=== PATIENT | female | born 1945 | race Hispanic/Latino ===

== ENCOUNTER → 2017-06-25 | Day surgery (SDC) | payer OTHER ==
--- NOTE | 2017-06-25 10:32 | RAD REPORT ---
EXAM DESCRIPTION: RAD - Elbow Right 3 View - 06/25/2017 10:08 am CLINICAL HISTORY: Pain and swelling. M1990 COMPARISON: None. FINDINGS: No bone or joint abnormality is detected.
--- NOTE | 2017-06-25 11:12 | RAD REPORT ---
EXAM DESCRIPTION: Ultrasound-guided vacuum assisted left breast core biopsy CLINICAL HISTORY: Breast mass, small, 12 o'clock position left breast. COMPARISON: Recent breast imaging studies. FINDINGS: Informed consent was obtained and time-out was performed. The patient's left breast was prepped and draped in the usual sterile fashion. 1% lidocaine was used for local anesthetic purposes. Utilizing aseptic technique and ultrasound guidance, vacuum assisted core biopsy device was used to o btain 2 core specimens through the mass of interest at the 12 o'clock position left breast. A post bi opsy clip was then placed. All collected material was sent for cytology. Patient tolerated procedure well. IMPRESSION: Successful ultrasound guided vacuum assisted left breast mass biopsy.
== END ==
LOC: DS 09:22
PROVIDERS: ATTEND Internal Medicine
DX: N63.0 Unspecified lump in unspecified breast (principal); M19.90 Unspecified osteoarthritis, unspecified site
CPT/HCPCS: 19083; 88305

== ENCOUNTER 2019-03-10 05:46 | Inpatient (IN) | payer OTHER ==
--- NOTE | 2019-03-03 10:20 | RAD REPORT ---
EXAM DESCRIPTION: RAD - Chest Pa And Lat (2 Views) - 03/03/2019 10:10 am CLINICAL HISTORY: preop Chest pain. COMPARISON: ABDOMEN 1 VIEW KUB dated 02/06/2015 FINDINGS: The lungs are clear. The heart is normal in size. No displaced fractures. IMPRESSION: No acute or concerning finding suspected.
[2019-03-03 10:28] LABS: Urine Appearance CLEAR; Urine Bilirubin NEGATIVE (NEG); Urine Blood TRACE (NEG); Urine Color YELLOW; Urine Glucose NEGATIVE (NEG); Urine Protein NEGATIVE (NEG); Urine Urobilinogen 0.2 mg/dL (0.2-1.0); Urine pH 5.5 (5.0-7.0)
[2019-03-03 10:30] LABS: Absolute Lymphocytes (CBC) 1.3 K/uL (0.7-4.9); Basophils % 0.6 % (0-1.3); Hematocrit 37.2 % (36.0-45.0); Lymphocytes % 15.7 % (15.3-44.8)
[2019-03-03 10:35] LABS: Protime INR 0.99
[2019-03-03 10:38] LABS: Potassium 3.9 mmol/L (3.5-5.1)
[2019-03-03 10:49] LABS: Urine Microscopic Reflex ORDER UMIC
[2019-03-03 10:51] LABS: ALT/SGPT 21 U/L (12-78); AST/SGOT 12 U/L (15-37); Albumin 3.9 g/dL (3.4-5.0); Alkaline Phosphatase 87 U/L (45-117); Bilirubin Direct < 0.1 mg/dL (0-0.2); Bilirubin Total 0.4 mg/dL (0.2-1.0); Protein, Total 7.4 g/dL (6.4-8.2)
[2019-03-03 10:57] LABS: Urine Bacteria >50 /HPF (<20); Urine Culture Reflex Order REFLEXED; Urine RBC <5 /HPF (NONE SEEN)
[2019-03-10] MEDS ORDERED: CEFAZOLIN/SWI 1gm 1 GM/10 ML SYR ONE (05:51)
[2019-03-10] MEDS ORDERED: NA CHLORIDE 0.9% 1,000 ML ONE ×2 (05:51→07:15)
[2019-03-10] MEDS ORDERED: LIDOCAINE 2% MPF 5 ML VIAL ONE ×2 (06:24→06:30)
[2019-03-10] MEDS ORDERED: FENTANYL CITR 100 MCG/2 ML ONE ×2 (06:24→08:17)
[2019-03-10] MEDS ORDERED: MIDAZOLAM HCL 2 MG/2 ML INJ ONE (06:24)
[2019-03-10] MEDS ORDERED: PROPOFOL 200 MG/20 ML VIAL IV ONE (06:24)
[2019-03-10] MEDS ORDERED: dexAMETHasone 10 MG/ML VIAL ONE (06:30)
[2019-03-10] MEDS ORDERED: NS 0.9% VIAL 20 ML ONE (06:30)
[2019-03-10] MEDS ORDERED: BUPIVACAINE 0.25% PF 10 ML VIAL ONE (06:31)
[2019-03-10] MEDS ORDERED: EPHEDRINE SULF 50 MG/ML VIAL ONE (07:54)
[2019-03-10] MEDS ORDERED: TRANEXAMIC ACID 1,000 MG in NA CHLORIDE 0.9% 50 ML IV ONE (08:00)
[2019-03-10] MEDS ORDERED: KETAMINE HCL 500 MG/5 ML VIAL ONE (08:22)
[2019-03-10] MEDS ORDERED: HYDROMORPHONE HCL 1 MG/ML INJ ONE (08:24)
[2019-03-10] MEDS: BUPIVACA 0.5%/EPI 0.0005%/PF 30 ML VIAL ONE ×2 (08:26→09:34)
--- NOTE | 2019-03-10 10:21 | P.BOP ---
Preoperative diagnosis: left knee osteoarthritis Postoperative diagnosis: same Primary procedure: left total knee arthroplasty Barrel Leveler: NONE,NONE Estimated blood loss: 20 cc Specimen: left knee bone remnants Findings: see dictation Anesthesia: General Complications: None Drain(s): Urinary catheter Implants: Monica Persona CR 8 Narrow Femur, D tibia, 32 patella, 10 mm CR poly Fluids & blood products: per anesthesia record; TT: 80 mins @ 300 mmHg Transferred to: Recovery Room Condition: Good
[2019-03-10] MEDS ORDERED: ONDANSETRON 4 MG/2 ML VIAL IV PRN (10:24)
[2019-03-10] MEDS ORDERED: MORPHINE 2 MG/ML SYR IV PRN (10:24)
[2019-03-10] MEDS ORDERED: ONDANSETRON 4 MG/2 ML VIAL ONE (10:29)
--- NOTE | 2019-03-10 11:00 | RAD REPORT ---
EXAM DESCRIPTION: RAD - Knee Left 2 View - 03/10/2019 10:48 am CLINICAL HISTORY: Post Op Knee pain and swelling COMPARISON: No comparisons FINDINGS: Left total knee arthroplasty is present. Hardware is in expected alignment and positioning . Skin deisy are present. Mild air is present in the joint space. IMPRESSION: Left total knee arthroplasty.
[2019-03-10 11:02] LABS: Hematocrit 33.6 % (36.0-45.0)
[2019-03-10] MEDS: HYDROCODONE/APAP 7.5/325 MG TAB PO PRN ×3 (11:18→20:05)
[2019-03-10 11:51] VITALS: BMI 33.7
[2019-03-10] MEDS: TRAMADOL HCL 50 MG TAB PO PRN ×2 (14:55→22:01)
[2019-03-10] MEDS: GLIMEPIRIDE 2 MG TABLET PO SCH (16:32)
[2019-03-10] MEDS: METFORMIN HCL 500 MG TAB PO SCH (16:32)
[2019-03-10] MEDS: CEFAZOLIN/SWI 2gm 2 GM/20 ML SYR IV SCH (16:32)
[2019-03-10] MEDS ORDERED: D50W 25 GM/50 ML SYRINGE/VIAL IV PRN (21:05)
[2019-03-10] MEDS ORDERED: GLUCAGON 1 MG/VIAL IM PRN (21:05)
[2019-03-10] MEDS: INSULIN -REGULAR HUMAN 50 UNIT/0.5 ML ML SQ SCH (21:57)
[2019-03-11] MEDS: CEFAZOLIN/SWI 2gm 2 GM/20 ML SYR IV SCH ×2 (00:05→10:28)
[2019-03-11 00:46] LABS: Urine Appearance CLEAR; Urine Bilirubin NEGATIVE (NEG); Urine Blood NEGATIVE (NEG); Urine Color YELLOW; Urine Glucose 3+ (NEG); Urine Protein NEGATIVE (NEG); Urine Specific Gravity 1.015 (1.005-1.030); Urine Urobilinogen 0.2 mg/dL (0.2-1.0); Urine pH 5.5 (5.0-7.0)
[2019-03-11 00:48] LABS: Urine Microscopic Reflex NO UMIC
[2019-03-11] MEDS: HYDROCODONE/APAP 7.5/325 MG TAB PO PRN ×5 (02:42→20:06)
[2019-03-11] MEDS ORDERED: HOME MED 1 EA UNK (Lisinopril/Hydrochlorothiazide [Lisinopril-Hctz 20-12.5 Mg Tab] 1 EACH) PO SCH (06:00)
[2019-03-11] MEDS: hydroCHLOROthiazide 12.5 MG CAP PO SCH (06:09)
[2019-03-11] MEDS: ENOXAPARIN 30 MG/0.3 ML SQ SCH ×2 (06:09→17:53)
[2019-03-11] MEDS: lisinopriL 20 MG TAB PO SCH (06:09)
[2019-03-11] MEDS: TRAMADOL HCL 50 MG TAB PO PRN (06:13)
[2019-03-11] MEDS: INSULIN -REGULAR HUMAN 50 UNIT/0.5 ML ML SQ SCH ×4 (07:30→20:07)
[2019-03-11] MEDS: METFORMIN HCL 500 MG TAB PO SCH ×2 (08:28→16:36)
[2019-03-11] MEDS: INSULIN GLARGINE 100 UNITS/ML SQ SCH (08:28)
[2019-03-11] MEDS: GLIMEPIRIDE 2 MG TABLET PO SCH ×2 (08:28→16:36)
[2019-03-11] MEDS: CYCLOBENZAPRINE 10 MG TAB PO PRN ×2 (10:28→23:20)
--- NOTE | 2019-03-11 12:05 | P.PN ---
Subjective Date of Service: 03/11/19 Chief Complaint: s/p L TKA Subjective: Ambulating, Improving, Working w/ PT Pain controlled; ambulated with PT today Physical Examination - Vital Signs Temperature: 97.9 F Blood Pressure: 132/61 Pulse: 80 Respirations: 18 Pulse Ox (%): 96 - Physical Exam General: Alert, In no apparent distress Musculoskeletal: Other (LLE: dressing c/d/i; +EHL/FHL/GSC/TA; sensation grossly intact distally) Assessment And Plan - Plan Maddie is a 73 yo female s/p L TKA POD #1 w/ DM -continue DM management per Dr. Rutherford -d/c monique today -cont with PT; WBAT LLE -lovenox for DVT prophylaxis -likely d/c tomorrow to inpatient rehab with [facility]
--- NOTE | 2019-03-11 20:05 | OP ---
Surgeon: Yoshi Rose MD Preoperative Diagnosis: Left knee osteoarthritis. Postoperative Diagnosis: Left knee osteoarthritis. Procedure Performed: Left total knee arthroplasty. Anesthesia: General LMA. Fluids: Per Anesthesia record. Estimated Blood Loss: 20 cc. Tourniquet Time: 78 minutes at 300 mmHg. Indication For Procedure: Maddie is a 73-year-old female who presented to my clinic with left kne e severe osteoarthritis. She failed conservative treatment measures including injections and home ex ercise program. I discussed with the patient at length risks and benefits associated with operative and nonoperative treatment. She expressed understanding and elected to proceed with the operative tr eatment. Description Of Procedure: After informed consent was obtained, the patient was identified in the pre operative holding area. The left lower extremity was marked. Patient was then brought back to the P ACU, underwent a nerve block performed by Anesthesia, was then taken back to operating room, transfer red to the operating table in supine fashion and placed under general LMA anesthesia. The left lower extremity was then prepped and draped in usual sterile fashion. A time-out was initiated. The jaydon ect patient and procedure were confirmed and identified. The patient did receive her preoperative pr ophylactic antibiotics. The left lower extremity was exsanguinated. The tourniquet was inflated at 300 mmHg. Approximately 15 cm longitudinal incision was made centered over the patella. Dissection was taken down to the extensor mechanism and a median parapatellar arthrotomy was performed. Patella was everted. The knee was held in flexion. Fat padding and medial meniscus were excised. Synovect seb performed. Preoperatively, an MRI was created for a cutting block. Cutting block was then place d on the distal femur. Pins were applied. The distal femoral cutting guide was then placed and the knee joint was then used to ensure proper cuts and femur was cut. 4-in-1 cutting block was placed on the distal femur. Anterior and posterior cuts as well as the chamfer cuts were completed. Bone rem nants were set aside and sent to Pathology. Next, cutting guide was placed on the proximal tibia. O nce it was in proper position and seated, the alignment madeline was then placed. There was overall good alignment of the cutting block on the tibia. Pins were placed and the tibia was cut. A 10 mm spacer guide was then placed. There was good overall extension and flexion with good stability. Next, tri al implants were placed using a Monica Persona size 8 CR narrow femur and a size D tibia. The 10 mm poly had overall good range of motion and stability noted in flexion and extension. Next, attention was taken to the patella. Patella was cut and size 32 patellar button was selected. With patellar b utton and trial button in place, the knee was again ranged. There was good overall patellar traction and stability. Trial implants were then removed. The knee was then irrigated thoroughly with bill l saline. Capsule periosteum cement was prepared in the back table. The cement was first placed on the proximal tibia. Tibial tray was then marked followed by cement being placed on the di stal femur with final implant being placed. Excess cement was then removed using Medora a nd pickups. 10 mm trial poly was then placed. The knee was held in extension as the cement hardened . Cement was also placed on the undersurface of the patella and patellar button. Size 32 patellar b utton was selected and placed. Once the cement had hardened, the knee was again ranged. There was o verall good stability and good range of motion. The trial polyethylene liner was removed and a final 10 mm CR polyethylene liner was placed and the knee was ranged through full range of motion with goo d stability. The wound again was then irrigated thoroughly with normal saline. The tourniquet was l et down. Hemostasis was achieved using Bovie electrocautery. Extensor mechanism was approximated us ing #1 in interrupted and running fashion. Knee fascia was approximated using 0 Vicryl, subcutaneous tissues were approximated using 2-0 Vicryl. Skin was approximated using deisy. Sterile dressings were applied. Patient was awakened and transferred to PACU in stable condition. Postoperative Plan: Physical Therapy will be consulted today for will be consulted today for medical management. JACOB/GARCÍA Voice ID: [id number] Report ID: [id number]
[2019-03-11 21:56] VITALS: O2SAT 94
--- NOTE | 2019-03-12 02:11 | CON ---
Consultation requested by Dr. Rose. Reason For Consultation: Medical followup. History: A 73-year-old female who has severe osteoarthritis, had knee replacement and the patient is postoperative. She is known to have type 2 diabetes, hyperlipidemia, and hypertension. She does no t have any prior history of coronary artery disease or stroke. The patient is known to me for many y ears. Her diabetes has been fairly stable on insulin. Physical Examination: General: Revealed a 73-year-old female, fully alert and oriented postop, in ynap-io-gklgamrh pain. Vital Signs: Normal. HEENT: Negative. Neck: Supple. JVD negative. Chest: Clear. Heart: Regular. Abdomen: Soft. Extremities: Postoperative. Assessment: 1.Type 2 diabetes. 2.Hypertension. 3.Hyperlipidemia. Plan: The patient will be put on her regular medication. She will have Lantus as well as a.c. and a t bedtime coverage depending on the blood sugars. I spoke to the patient regarding this. RONDA/GARCÍA Voice ID: [id number] Report ID: [id number]
[2019-03-12] MEDS: HYDROCODONE/APAP 7.5/325 MG TAB PO PRN ×2 (03:30→08:16)
[2019-03-12] MEDS: lisinopriL 20 MG TAB PO SCH (05:45)
[2019-03-12] MEDS: hydroCHLOROthiazide 12.5 MG CAP PO SCH (05:46)
[2019-03-12] MEDS: ENOXAPARIN 30 MG/0.3 ML SQ SCH (05:46)
[2019-03-12] MEDS: METFORMIN HCL 500 MG TAB PO SCH (08:12)
[2019-03-12] MEDS: GLIMEPIRIDE 2 MG TABLET PO SCH (08:12)
[2019-03-12] MEDS: INSULIN GLARGINE 100 UNITS/ML SQ SCH (08:12)
[2019-03-12] MEDS: INSULIN -REGULAR HUMAN 50 UNIT/0.5 ML ML SQ SCH ×2 (08:13→11:36)
--- NOTE | 2019-03-12 10:44 | P.DS ---
Admission Date: 03/10/19 Discharge Date: 03/12/19 Disposition: TRANSFER TO INPATIENT REHAB Discharge Condition: GOOD Reason for Admission: s/p L TKA Consultations: Dr. Rutherford Procedures: left total knee arthroplasty on 03/10/2019 Brief History of Present Illness: Maddie is a 73 yo female with h/o HTN and DM admitted after undergoing left total knee arthroplasty on 03/10/2019 without complication Hospital Course: Maddie was transferred to the floor postoperatively in stable condition. Dr. Rutherford, her PCP, was consulted to aid with medical management. While on the floor her vital signs remained stable. PT was consulted and aided with mobilization and ambulation. She was on lovenox for DVT prophylaxis while admitted and will be discharged with Xarelto to begin on 03/13/2019. She was discharged in stable condition to inpatient rehab given her multiple medical comorbidities, fall risk, lack of help at home and continued need for postoperative rehabiliation at [facility] in [place]. Vital Signs/Physical Exam: Temp Pulse Resp BP Pulse Ox 97.2 F 94 H 19 160/70 H 95 03/12/19 08:00 03/12/19 08:00 03/12/19 10:36 03/12/19 08:00 03/12/19 10:36 Laboratory Data at Discharge: WBC 8.2 K/uL (4.3-10.9) 03/03/19 09:40 Hgb 11.7 g/dL (12.0-15.0) L 03/10/19 10:41 Hct 33.6 % (36.0-45.0) L 03/10/19 10:41 Plt Count 363 K/uL (152-406) 03/03/19 09:40 PT 11.7 SECONDS (9.5-12.5) 03/03/19 09:40 INR 0.99 03/03/19 09:40 APTT 34.9 SECONDS (24.3-36.9) 03/03/19 09:40 Sodium 139 mmol/L (136-145) 03/03/19 09:40 Potassium 3.9 mmol/L (3.5-5.1) 03/03/19 09:40 BUN 27 mg/dL (7-18) H 03/03/19 09:40 Creatinine 1.08 mg/dL (0.55-1.3) 03/03/19 09:40 Glucose 155 mg/dL (74-106) H 03/03/19 09:40 Total Bilirubin 0.4 mg/dL (0.2-1.0) 03/03/19 09:40 AST 12 U/L (15-37) L 03/03/19 09:40 ALT 21 U/L (12-78) 03/03/19 09:40 Alkaline Phosphatase 87 U/L (45-117) 03/03/19 09:40 Home Medications: Glimepiride [Amaryl*] 4 mg PO BID 02/13/15 Insulin Detemir [Levemir Flextouch] 60 unit SQ DAILY WITH BREAKFAST 02/13/15 Metformin HCl [Glucophage] 500 mg PO BID 02/13/15 Multivitamin [Multivitamins] 1 each PO DAILY 02/13/15 Evolocumab [Repatha Sureclick] 140 mg SQ ONCE 03/03/19 Lisinopril/Hydrochlorothiazide [Lisinopril-Hctz 20-12.5 mg Tab] 1 each PO [id number] 03/03/19 Tramadol HCl [Ultram] 50 mg PO Q6HP PRN 03/03/19 Hydrocodone 7.5/APAP 325 [[place] 7.5/325 mg*] 1 tab PO Q4H PRN tab 03/12/19 Patient Discharge Instructions: keep dressing clean and dry; may change on 03/17 with new aquacel bandage; clean around incision with alcohol swabs; may begin Xarelto 10 mg PO daily on 03/13/2019 in AM and take for 11 days; f/u with Dr. Rose on 03/22/2019 Diet: ADA Activity: Weight bearing as tolerated Followup: Yoshi Rose MD [ACTIVE - CAN ADMIT] - 1-2 Weeks
[2019-03-12 12:29] VITALS: BP 145/75; TEMP 97.5
[2019-03-14] MEDS ORDERED: Evolocumab [Repatha Sureclick] 140 MG/ML SQ SCH (09:00)
== END 2019-03-12 12:43 | DRG 470 ==
LOC: OR 05:46 → 2ND 10:24
PROVIDERS: ADMIT Orthopaedic Surgery Sports Medicine; ATTEND Orthopaedic Surgery Sports Medicine
PROC: 0SRD069 Replacement of Left Knee Joint with Oxidized Zirconium on Polyethylene Synthetic Substitute, Cemented, Open Approach (ICD-10-PCS; principal; 2019-03-10 07:30)
DX: M17.12 Unilateral primary osteoarthritis, left knee (principal); I10 Essential (primary) hypertension; Z85.43 Personal history of malignant neoplasm of ovary
CPT/HCPCS: 36415; 71046; 80048; 80076; 81003; 81015; 82947; 85014; 85018; 85025; 85610; 85730; 87077; 87086; 87088; 87186; 88305; 88311; 97110; 97116; 97139; 97161; 97530; J0690; J1100; J1170; J1650; J1815; J2250; J2270; J2405; J2704; J3010; J7030

== ENCOUNTER → 2019-12-15 | Day surgery (SDC) | payer OTHER ==
--- OUTSIDE RECORDS SUMMARY | 2019-12-15 08:27 | XMS REPORT | Clinical Summary ---
:1945 Author Organization [facility] Address [address] [place] [address] Care Team Providers Name Role Phone Asked, No Pcp Primary Care Provider Unavailable Allergies Active Allergy Reactions Severity Noted Date Comments Celecoxib Shortness Of Breath High 06/02/2015 Codeine Shortness Of Breath High 10/26/2019 Medications Medication Sig Dispensed Refills Start Date End Date Status Levemir FlexTouch U-100 Inject 60 Units 0 08/18/2019 Active Insuln 100 unit/mL (3 under the skin mL) insulin pen daily. glimepiride (AMARYL) 4 Take 1 tablet by 0 09/16/2019 Active MG tablet mouth 2 (two) times a day. metFORMIN (GLUCOPHAGE) Take 500 mg by 0 09/16/2019 Active 500 mg tablet mouth 2 (two) times a day. lisinopriL-hydrochlorot Take 1 tablet by 0 0 Active hiazide (PRINZIDE) mouth daily. 20-25 mg per tablet evolocumab (Repatha Inject 1 Dose 0 05/18/2018 Active SureClick) 140 mg/mL under the skin. pen injector injection multivitamin capsule Take 1 capsule by 0 Active mouth daily. Active Problems Not on file Encounters Date Type Specialty Care Team Description 10/26/2019 Surgery Plastic Surgery Demetrio Corona MD VITRE CTOMY, ENDODIATHERMY, GAS FLUID EXCHANGE 16% C3F8 INJECTION LEFT EYE 10/26/2019 Anesthesia Event Plastic Surgery Tanisha Webb MD 10/26/2019 Hospital Encounter Plastic Surgery Demetrio Corona MD 10/25/2019 Travel 10/22/2019 Travel after 12/14/2018 Social History Tobacco Use Types Packs/Day Years Used Date Former Smoker Smokeless Tobacco: Never Used Comments: as a teenager Alcohol Use Drinks/Week oz/Week Comments Not Currently as a teenager Sex Assigned at Date Recorded Not on file Job Start Date Occupation Industry Not on file Not on file Not on file Travel History Travel Start Travel End No recent travel history available. Last Filed Vital Signs Vital Sign Reading Time Taken Comments Blood Pressure 145/67 10/26/2019 12:50 PM CDT Pulse 88 10/26/2019 12:50 PM CDT Temperature 36.4 C (97.5 F) 10/26/2019 12:50 PM CDT Respiratory Rate 17 10/26/2019 12:50 PM CDT Oxygen Saturation 97% 10/26/2019 12:50 PM CDT Inhaled Oxygen Concentration - - Weight 75 kg (165 lb 7 oz) 10/26/2019 11:12 AM CDT Height 154.9 cm (5' 1") 10/26/2019 11:12 AM CDT Body Mass Index 31.26 10/26/2019 11:12 AM CDT Plan of Treatment Not on file Procedures Procedure Name Priority Date/Time Associated Diagnosis Comme nts VITRECTOMY 10/26/2019 11:35 AM CDT 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 after 12/14/2018 Results POC glucose (10/26/2019 10:53 AM CDT) POC glucose 195 (H) 65 - 99 mg/dL [facility] Comment: HOSPITAL Forging Press Operator Name: Odilon Herring Device ID: [id number] Chartable: No Action Needed Specimen Blood Performing Organization Address City/State/Zipcode Phone Number [facility] DEPARTMENT OF PATHOLOGY AND [address] [place] [address] [phone] GENOMIC MEDICINE [address] [id number] after 12/14/2018 Insurance Payer Benefit Plan / Subscriber ID Effective Dates Phone Addre ss Type Group HUMANA MEDICARE HUMANA MEDICARE xxxxxxxxx 2019-Present PPO PPO/PFFS/ERS [facility] Advance Directives For more information, please contact: [phone] Type Date Recorded Patient It Consultant Explanati on Advance Directives, Living Will 10/26/2019 8:44 AM and Medical Power of Minilab Operator
--- OUTSIDE RECORDS SUMMARY | 2019-12-15 08:28 | XMS REPORT | Continuity of Care Document ---
:1945 Author Organization [facility] t Address [address] [place] [address] Care Team Providers Name Role Phone Asked, Pcp Primary Care Physician Unavailable Jackson Corona MD Attending Clinician Tye Webb MD Attending Clinician Chava HATFIELD Attending Clinician Olinda Stout MD Attending Clinician Chaz HATFIELD Attending Clinician Rey HATFIELD Attending Clinician TAVO Admitting Clinician Unavailable Payers Payer Name Policy Type Policy Number Effective Date Expiration Source Date HUMANA xxxxxxxxx 2019 [place] [facility] [employer] MEDICARE PPO/PFFS/ERS MCRxxxxxxxxx7/ 20-PresentPPO HUMANA [id number] 2019 MD Fair MEDICAREHUMANA 00:00:00 CHOICE MEDICARE [id number] 0-PresentMedicare Problems Condition Condition Condition Status Onset Resolution Last Treating Co mments Source Name Details Category Date Date Treatment Clinician Date 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 00:00: n 00 History of History of Disease Active 2018- M D malignant malignant 3-13 Nayan rso neoplasm neoplasm 00:00: n of ovary of ovary 00 Essential Essential Disease Active 2017- (primary) (primary) 12-18 Nayan rso hypertensi hypertensi 00:00: n on on Diabetes Diabetes Disease Active 2017- mellitus mellitus 9-20 [place] 00:00: n 00 Hyperlipid Hyperlipid Disease Active 0 M D emia emia 9-20 Anderso 00:00: n 00 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 00:00: n 00 Allergies, Adverse Reactions, Alerts Allergy Allergy Status Severity Reaction(s) Onset Inactive Treating Comm ents Source Name Type Date Date Clinician Codeine Propensi Active Shortness Of [place] ty to Breath 7 Methodi adverse 00:00: st reaction 00 s to drug Celecoxi Propensi Active Shortness Of [place] sravani ty to Breath 3-04 Methodi adverse 00:00: st reaction 00 s to drug Family History Family Member Diagnosis Comments Start Date Stop Date Source Paternal uncle -Unknown cancer MD Dodie spears Social History Social Habit Start Date Stop Date Quantity Comments Source Sex Assigned At MD [place] Tobacco Comment 2019-10-26 2019-10-26 as a teenager Devika Razo 00:00:00 00:00:00 Alcohol Comment 2019-10-26 2019-10-26 as a teenager Devika Razo 00:00:00 00:00:00 Tobacco use and 2019-08-20 2019-08-20 Never used MD [place] on exposure 00:00:00 00:00:00 Alcohol intake 2019-08-20 2019-08-20 Current MD Twin roberts 00:00:00 00:00:00 non-drinker of alcohol (finding) Smoking Status Start Date Stop Date Source Former smoker 2019-10-28 00:00:00 2019-10-28 00:00:00 Baldemar Razo Never smoker MD Fair Medications Ordered Filled Start Stop Current Ordering Indication Dosage Frequency Signature Comments Components Source Medication Medication Date Date Medication? Clinician (SIG) Name Name multivitami Yes 1{capsu QD Take 1 [place] n capsule 7 le} capsule by Meth ronnell 13:23: mouth st 25 daily. glimepiride Yes 1{tbl} Q.5D Take 1 [place] (AMARYL) 4 6-18 tablet by Meth ronnell MG tablet 00:00: mouth 2 st 00 (two) times a day. metFORMIN Yes 500mg Q.5D Take 500 Shanti ston (GLUCOPHAGE 6-18 mg by Methodi ) 500 mg 00:00: mouth 2 st tablet 00 (two) times a day. lisinopriL- 2020-0 Yes 1{tbl} QD Take 1 Ho meghan hydrochloro 6-18 tablet by Met hearn thiazide 00:00: mouth st (PRINZIDE) 00 daily. 20-25 mg per tablet traMADol 2020-0 2020- No 50mg Take 50 mg MD (ULTRAM) 50 08-20 05-22 by mouth And erso mg tablet 02:25: 00:00 as needed. n 31 :00 glimepiride 2020-0 Yes Take by (AMARYL) 1 5-22 mouth Anderso mg tablet 15:39: every n 50 morning before breakfast. multivitami 2020-0 Yes Take by n capsule 5-22 mouth Anderso 15:39: daily. n 50 INSULIN 2020-0 Yes 60{unit 60 unit MD DETEMIR 5-22 'markin marking on And erso (LEVEMIR 15:39: g'on'U- U-100 n SUBCUTANEOU 50 100'syr syringe S) em} daily. ibuprofen 2020-0 Yes 100mg Take 100 MD (ADVIL,MOTR 5-22 mg by Anderso IN) 200 mg 15:39: mouth n tablet 50 every 8 (eight) hours as needed. pseudoephed 2020-0 Yes 30mg Take 30 mg MD rine 5-22 by mouth Anderso (SUDAFED) 15:39: every 6 n 30 mg 50 (six) tablet hours as needed. gabapentin 2020-0 2020- No 300mg Take 300 M D (NEURONTIN) - 05-22 mg by [place] o 300 mg 15:39: 00:00 mouth n capsule 50 :00 daily. Levemir 2020-0 Yes 60U QD Inject 60 [place] FlexTouch 5-20 Units Methodi U-100 00:00: under the st Insuln 100 00 skin unit/mL (3 daily. mL) insulin pen evolocumab 2019-0 Yes 1{dose} Inject 1 [place] (Repatha 2-18 Dose under Metho di SureClick) 00:00: the skin. st 140 mg/mL 00 pen injector injection REPATHA 2019-0 Yes every 14 MD SURECLICK 2-18 (fourteen) Nayan rso 140 mg/mL 00:00: days. n pnij 00 Vital Signs Vital Name Observation Time Observation Value Comments Source Systolic blood 2019-10-26 12:50:00 145 mm[Hg] [place] pressure Diastolic blood 2019-10-26 12:50:00 67 mm[Hg] [place] pressure Heart rate 2019-10-26 12:50:00 88 /min [place] [facility] Body temperature 2019-10-26 12:50:00 36.39 Vani [place] Respiratory rate 2019-10-26 12:50:00 17 /min [place] Oxygen saturation in 2019-10-26 12:50:00 97 /min [place] [facility] Arterial blood by Pulse oximetry Body height 2019-10-26 11:12:00 154.9 cm [place] [facility] Body weight 2019-10-26 11:12:00 75.042 kg [place]ott [facility] BMI 2019-10-26 11:12:00 31.26 kg/m2 [place] [facility] Systolic blood 2019-08-20 15:31:55 134 mm[Hg] pressure Diastolic blood 2019-08-20 15:31:55 82 mm[Hg] MD Stoll derson pressure Heart rate 2019-08-20 15:31:55 80 /min MD Jonathan dang Body temperature 2019-08-20 15:31:55 37 Vani MD Raul grimaldorson Respiratory rate 2019-08-20 15:31:55 18 /min MD Raul packeron Body weight 2019-08-20 15:31:55 80.5 kg MD Castillo son BMI 2019-08-20 15:31:55 34.39 kg/m2 MD Jonathan dang Procedures Procedure Date / Time Performed Performing Clinician Sourc e VITRECTOMY 2019-10-26 11:35:00 Shakir Corona Meth odist POC GLUCOSE 2019-10-26 10:53:00 Shakir Corona Meth odist CANCER ANTIGEN 125 2019-08-20 15:26:42 Fabiana Le MD [place] on Encounters Start End Encounter Admission Attending Care Care Encounter Source Date/Time Date/Time Type Type Clinicians Facility Department ID 2019-10-26 2019-10-[address] [facility] [id number] [place] 00:00:00 00:00:00 SHAKIR Heck Method i st Results Test Description Test Time Test Comments Results Result Comments Source POC glucose 2019-10-26 10:55:30 Test Item Value Reference Range Interpretation Comme nts POC glucose (test code = 195 mg/dL 65-99 H Ope rator Name: Odilon Rubio [id number]) ID: [id number] hartable: No Action Needed Lab Interpretation (test code = Abnormal 06518-3) Baldemar Razo
--- NOTE | 2019-12-15 10:30 | RAD REPORT ---
EXAM DESCRIPTION: Ultrasound-guided vacuum assisted left breast core biopsy CLINICAL HISTORY: Breast mass D05.92 COMPARISON: Breast Core BX w/US Guidance dated 06/25/2017 FINDINGS: Informed consent was obtained and time-out was performed. The patient's left breast was prepped and draped in the usual sterile fashion. 1% lidocaine was used for local anesthetic purposes. Utilizing aseptic technique and ultrasound guidance, a 12 gauge vacuum assisted core biopsy device wa s used to obtain 3 core specimens through the mass of interest. A post biopsy clip was then placed. All collected material was sent for cytology. Patient tolerated procedure well. IMPRESSION: Successful ultrasound guided vacuum assisted left breast mass biopsy.
== END ==
LOC: DS 08:25
PROVIDERS: ATTEND Internal Medicine
DX: D05.92 Unspecified type of carcinoma in situ of left breast (principal)
CPT/HCPCS: 19083; 88305

== ENCOUNTER 2020-06-19 15:29 | Inpatient (IN) | payer OTHER ==
--- OUTSIDE RECORDS SUMMARY | 2020-06-19 15:33 | XMS REPORT | Continuity of Care Document ---
:1945 Author Organization [facility] t Address [address] [place] [address] Care Team Providers Name Role Phone Olinda STOUT Primary Care Physician Unavailable SYSTEM, NOT IN Attending Clinician Unavailable Tressa TAMAYO, L Attending Clinician Chica Soni Attending Clinician Jacob BURDICK Attending Clinician Unavailable Adam PATINO Attending Clinician Kirill SECURITY EXPERT Attending Clinician Kelly CRUZ Attending Clinician Manish Jacobson, K Attending Clinician Unavailable Brayden CRUZ Attending Clinician Olinda Stout MD Attending Clinician Kelin RD, C Attending Clinician Unavailable Edgar CRUZ Attending Clinician Arian PA Attending Clinician Ashley LIND Attending Clinician Dakota CRUZ Attending Clinician Parker Pizarro MA Attending Clinician Unavailable Sonia TAMAYO, L Attending Clinician Unavailable Jenifer CRUZ, Nola Becerra Attending Clinician [phone] Lesli Ortega MD Attending Clinician Rey PA Attending Clinician Osman SECURITY EXPERT, Karena Attending Clinician Camilo FLORES Attending Clinician Lei FLORES, S Attending Clinician Tommy HATFIELD Attending Clinician Aubree CRUZ Attending Clinician Bill PAUL Attending Clinician Unavailable Boyd BURDICK Attending Clinician Unavailable Kady CRUZ, N. Attending Clinician Blu TAMAYO, S Attending Clinician Unavailable Rosa De La O Attending Clinician Unavailable Yenny CRUZ Attending Clinician Louis CRUZ Attending Clinician Layo CRUZ, G Attending Clinician Steve CRUZ, S. Attending Clinician Swathi CRUZ Attending Clinician Olinda STOUT Attending Clinician Unavailable TOMMY Attending Clinician Unavailable EDGAR Attending Clinician Unavailable NOLA BURGESS Attending Clinician Unavailable Shanta TAMAYO, L Attending Clinician Unavailable MAJOR Attending Clinician Unavailable Chava HATFIELD Attending Clinician Chaz HATFIELD Attending Clinician MAJOR Admitting Clinician Unavailable Payers Payer Name Policy Type Policy Effective Date Expiration Date Sour ce Number HUMANA [id number] 2020 MD Fair MEDICAREHUMANA 00:00:00 Year Up MEDICARE [id number] -PresentMedicare Problems Condition Condition Condition Status Onset Resolution Last Treating Co mments Source Name Details Category Date Date Treatment Clinician Date Long-term Long-term Disease Active (current) (current) 05-01 Nayan rso use of use of 00:00: n insulin insulin 00 Obesity Obesity Disease Active 2019-03 1 Anderso 00:00: n 00 Type 2 Type 2 Disease Active 2019-03 diabetes diabetes 0 Cali o mellitus mellitus 00:00: n 00 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 carcinoma carcinoma 00:00: n of upper of upper 00 inner inner quadrant quadrant of left of left female female breast breast Malignant Malignant Disease Active neoplasm neoplasm 12-04 [place] o of ovary of ovary 00:00: n 00 History of History of Disease Active M D malignant malignant 3-13 Nayan rso neoplasm neoplasm 00:00: n of ovary of ovary 00 Essential Essential Disease Active (primary) (primary) 20 Nayan rso hypertensi hypertensi 00:00: n on on 00 Hyperlipid Hyperlipid Disease Active 0 M D emia emia -20 Anderso 00:00: n 00 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 Family History Family Member Diagnosis Comments Start Date Stop Date Source Natural mother Bladder Cancer And nabilaon Paternal uncle -Unknown cancer MD Dodie spears Social History Social Habit Start Date Stop Date Quantity Comments Source Sex Assigned At MD Leiva on Exposure to Not sure MD Fair SARS-CoV-2 (event) Tobacco use and 2020-02-23 2020-02-23 Never used MD Leiva on exposure 00:00:00 00:00:00 Alcohol intake 2020-02-23 2020-02-23 Current MD Twin roberts 00:00:00 00:00:00 non-drinker of alcohol (finding) Smoking Status Start Date Stop Date Source Never smoker MD Fair Medications Ordered Filled Start Stop Current Ordering Indication Dosage Frequency Signature Comments Components Source Medication Medication Date Date Medication? Clinician (SIG) Name Name ibuprofen Yes 100mg Take 100 (ADVIL,MOTR 3-09 mg by Andliyah IN) 200 mg 15:26: mouth n tablet 53 every 8 (eight) hours as needed. multivitami Yes Take by n capsule 3-09 mouth Anderso 15:24: daily. n 30 cholecalcif Yes 1000U Take 1,000 MD hi, 3-09 Units by Anderstheron vitamin D3, 15:24: mouth. n (cholecalci 30 ferol) 25 mcg (1,000 unit) tablet vit A/vit Yes Take by C/vit 3-09 mouth. Anderso E/zinc/ever 15:24: n er 30 (PRESERVISI ON AREDS ORAL) microfibril Yes Apply MD lar 3-09 topically Anderso collagen 15:24: to n hemostat 30 affected topical area(s) as powder needed for wound care. Add to fluids and drink BIOTIN ORAL Yes 1{tbl} Take 1 MD 3-09 tablet by Anderso 15:24: mouth n 30 daily. cranberry Yes 2{tbl} Chew 2 MD fruit 3-09 tablets Anderso concentrate 15:24: daily. n (Azo 30 Cranberry) 250 mg chew acetaminoph Yes pain 1000mg Take 1,000 MD en 3-09 mg by Anderso (TYLENOL) 15:24: mouth. n 500 mg 30 tablet famotidine Yes 20mg Take 20 mg M D (PEPCID) 20 3-09 by mouth Nayan rso mg tablet 15:24: twice n 30 daily. loratadine Yes 1{tbl} Take 1 MD (CLARITIN 3-09 tablet by Jonathan so ORAL) 15:24: mouth as n 30 needed. pseudoephed 2020- No 30mg Take 30 mg MD rine 2-15 02-15 by mouth Anderso (SUDAFED) 16:26: 00:00 every 6 n 30 mg 04 :00 (six) tablet hours as needed. ondansetron Yes Malignant 8mg Take 1 MD (ZOFRAN) 8 1-05 neoplasm of tablet (8 Anderso mg tablet 00:00: unspecified mg) by n 00 site of mouth unspecified every 8 female (eight) breast hours as needed for nausea or vomiting. prochlorper Yes Malignant 10mg Take 1 MD azine 1-05 neoplasm of tablet (10 A nderso (COMPAZINE) 00:00: unspecified mg) by n 10 mg 00 site of mouth tablet unspecified every 6 female (six) breast hours as needed for nausea or vomiting. dexamethaso Yes Infiltratin 4mg Take 1 MD ne 1-05 g duct tablet (4 Anderso (DECADRON) 00:00: carcinoma mg) by n 4 mg tablet 00 of upper mouth inner twice quadrant of daily. left female Start the breast day before chemothera py, twice a day x 1, with food/pepci d traMADol 2019-03 Yes Postoperati 50mg Take 1 MD (ULTRAM) 50 1-16 ve pain tablet (50 Anderso mg tablet 00:00: mg) by n 00 mouth every 6 (six) hours as needed for moderate pain or severe pain. INSULIN 2019-03- No 60U Inject 60 MD DETEMIR 04-08 11 Units Anderso (LEVEMIR 15:30: 00:00 under the n SUBCUTANEOU 38 :00 skin every S) morning. glimepiride 2019-03- No 4mg Take 4 mg MD (AMARYL) 4 04-01 by mouth Nayan rso mg tablet 17:16: 00:00 twice n 31 :00 daily. NovoLIN 2019-03 Yes Type 2 Inject 40 MD 70/30 U-100 04-01 diabetes Units And erso Insulin 100 00:00: mellitus under the n unit/mL 00 with skin every (70-30) hyperglycem morning injection ia before breakfast AND 20 Units daily before dinner. Dispense Relion brand.. insulin 2019-03 Yes Type 2 Use to MD syringe-nee 04-01 diabetes inject An derso dle U-100 1 00:00: mellitus insulin n mL 31 gauge 00 with twice x 5/16 syrg hyperglycem daily as ia directed. gabapentin 2019-03- No 300mg Take 300 M D (NEURONTIN) 0 05-22 mg by Cali o 300 mg 09:18: 00:00 mouth n capsule 21 :00 daily. traMADol 2019-03- No 50mg Take 50 mg MD (ULTRAM) 50 0 05-22 by mouth And erso mg tablet 09:18: 00:00 as needed. n 21 :00 cefadroxil 2019-03- No History of 500mg Take 1 MD (DURICEF) 001-28 malignant capsule A nderso 500 mg 00:00: 04:59 neoplasm of (500 mg) n capsule 00 :00 ovary by mouth twice daily for 7 days. Start AFTER surgery ciprofloxac 2019-03- No 1{tbl} Take 1 M D in HCl 01-30 tablet by Anderso (CIPRO) 250 00:00: 00:00 mouth n mg tablet 00 :00 daily. lisinopriL- 2018-03 Yes DAILY AT hydrochlortheron 2- 06 Anderso thiazide 00:00: n (PRINZIDE,Z 00 ESTORETIC) 20-12.5 mg per tablet REPATHA Yes 1mL Inject 1 SURECLICK 2-18 mL into Anderso 140 mg/mL 00:00: the n pnij 00 shoulder, thigh, or buttocks every 14 (fourteen) days. metFORMIN 2014-03 Yes 500mg 500 mg 2 MD (GLUCOPHAGE 1-16 (two) Anderso ) 500 mg 00:00: times a n tablet 00 day with meals. Immunizations Ordered Immunization Filled Immunization Date Status Commen ts Source Name Name Suzanne SARS-CoV-2 2020-06-04 Completed Vaccination 00:00:00 Vital Signs Vital Name Observation Time Observation Value Comments Source WEIGHT 2020-01-05 08:16:00 82.3 kg WEIGHT 2020-01-05 08:16:00 82.3 kg WEIGHT 2019-12-31 09:06:53 82.7 kg WEIGHT 2019-12-31 09:06:53 82.7 kg Systolic blood pressure 2020-06-06 19:25:00 158 mm[Hg] MD Fair Diastolic blood pressure 2020-06-06 19:25:00 71 mm[Hg] MD Fair Heart rate 2020-06-06 19:25:00 83 /min MD Jonathan dang Respiratory rate 2020-06-06 19:25:00 20 /min MD Raul oleary Body temperature 2020-06-06 16:15:00 37 Vani MD Raul oleary Body weight 2020-06-06 16:15:00 79.9 kg MD Jonathan dang BMI 2020-06-06 16:15:00 33.47 kg/m2 MD Jonathan dang Oxygen saturation in 2020-04-25 18:53:00 97 /min MD Fair Arterial blood by Pulse oximetry Body height 2020-04-04 15:39:07 154.5 cm MD Jonathan dang Procedures Procedure Date / Time Performed Performing Clinician [facility] e COMPREHENSIVE METABOLIC PANEL 2020-06-06 16:25:00 Gita Gonzalez MD GLUCOSE LEVEL 2020-06-06 16:25:00 Gita Gonzalez MD BLOOD UREA NITROGEN 2020-06-06 16:25:00 Gita Gonzalez MD ELECTROLYTE PANEL 2020-06-06 16:25:00 Gita Gonzalez MD SERUM CREATININE 2020-06-06 16:25:00 Gita Gonzalez MD .GLOMERULAR FILTRATION RATE 2020-06-06 16:25:00 Gita Gonzalez MD CALCIUM LEVEL TOTAL 2020-06-06 16:25:00 Gita Gonzalez MD ALBUMIN LEVEL 2020-06-06 16:25:00 Gita Gonzalez MD ALKALINE PHOSPHATASE 2020-06-06 16:25:00 Gita Gonzalez MD ALANINE AMINOTRANSFERASE 2020-06-06 16:25:00 Gita Gonzalez MD ASPARTATE AMINOTRANSFERASE 2020-06-06 16:25:00 Gita Gonzalez TOTAL PROTEIN 2020-06-06 16:25:00 Gita Gonzalez MD FRACTIONATED BILIRUBIN 2020-06-06 16:25:00 Gita Gonzalez MD COMPLETE BLOOD COUNT W/ 2020-06-06 15:04:00 Suly Medina MD DIFFERENTIAL HEMOGLOBIN A1C 2020-06-06 15:04:00 Aleena Ramirez MD Results CBC 2020-06-06 15:04:00 Suly Medina MD n MANUAL DIFFERENTIAL 2020-06-06 15:04:00 Suly Medina COMPLETE BLOOD COUNT W/ 2020-04-25 15:58:00 Lou Hernández MDrsbrayan DIFFERENTIAL Results CBC 2020-04-25 15:58:00 Lou Hernández MD MANUAL DIFFERENTIAL 2020-04-25 15:58:00 Lou Hernández MD Jonathanrobert dang COMPLETE BLOOD COUNT W/ 2020-04-04 13:26:00 Suly Medina MD DIFFERENTIAL HEPATIC FUNCTION PANEL 2020-04-04 13:26:00 Suly Medina MD BLOOD UREA NITROGEN 2020-04-04 13:26:00 Suly Medina SERUM CREATININE 2020-04-04 13:26:00 Suly Medina MD on Results CBC 2020-04-04 13:26:00 Suly Medina MD MANUAL DIFFERENTIAL 2020-04-04 13:26:00 Suly Medina MD And erson ALBUMIN LEVEL 2020-04-04 13:26:00 Suly Medina MD ALKALINE PHOSPHATASE 2020-04-04 13:26:00 Suly Medina MD ALANINE AMINOTRANSFERASE 2020-04-04 13:26:00 Suly Medina ASPARTATE AMINOTRANSFERASE 2020-04-04 13:26:00 Suly Medina MD TOTAL PROTEIN 2020-04-04 13:26:00 Suly Medina MD FRACTIONATED BILIRUBIN 2020-04-04 13:26:00 Suly Medina MD SERUM CREATININE 2020-04-04 13:26:00 Suly Medina MD on .GLOMERULAR FILTRATION RATE 2020-04-04 13:26:00 Elaina Medina CANCER ANTIGEN 125 2020-02-23 16:57:00 Yovanny Ware MD on LIPID PANEL 2020-02-23 16:57:00 Alessandra Page MD COMPREHENSIVE METABOLIC PANEL 2020-02-23 16:57:00 Edgardo Page MD GLUCOSE LEVEL 2020-02-23 16:57:00 Alessandra Page MD ELECTROLYTE PANEL 2020-02-23 16:57:00 Alessandra Page MD Jonathan son SERUM CREATININE 2020-02-23 16:57:00 Alessandra Page MD on .GLOMERULAR FILTRATION RATE 2020-02-23 16:57:00 Ziggy Page MD CALCIUM LEVEL TOTAL 2020-02-23 16:57:00 Alessandra Page MD And erson ALBUMIN LEVEL 2020-02-23 16:57:00 Alessandra Page MD ALKALINE PHOSPHATASE 2020-02-23 16:57:00 Alessandra Page MDson ALANINE AMINOTRANSFERASE 2020-02-23 16:57:00 Alessandra Page ASPARTATE AMINOTRANSFERASE 2020-02-23 16:57:00 Alessandra Page MD TOTAL PROTEIN 2020-02-23 16:57:00 Alessandra Page MD Anderso n FRACTIONATED BILIRUBIN 2020-02-23 16:57:00 Alessandra Page MD BLOOD UREA NITROGEN 2020-02-23 16:57:00 Alessandra Page MD And erson POC GLUCOSE SCREEN 2020-02-15 01:45:00 Az Burgess MDon Mariam NM DOSING APPOINTMENT 2020-02-14 23:42:29 Jax Sanders MD And erson POC GLUCOSE SCREEN 2020-02-14 22:31:00 Az Burgess MDa POC GLUCOSE SCREEN 2020-02-14 21:27:00 Az Burgess MD ndebilly Becerra POC GLUCOSE SCREEN 2020-02-14 17:45:00 Az Burgess MDrson Becerra PATHOLOGY SURGICAL 2020-02-14 14:26:30 Az Burgess MD nderson INTERPRETATION Becerra SEGMENTAL MASTECTOMY - OTHER 2020-02-14 12:23:00 Az Burgess MDa INTRAOPERATIVE LYMPHATIC 2020-02-14 12:23:00 Az Burgess MD MAPPING Mariam SENTINEL NODE BIOPSY - AXILLA 2020-02-14 12:23:00 Az Burgess MD RECONSTRUCTION OF BREAST WITH 2020-02-14 12:23:00 Mina Ortega MD OTHER TECHNIQUE MASTOPEXY 2020-02-14 12:23:00 Mina Ortega MD POC GLUCOSE SCREEN 2020-02-14 12:18:00 Az Burgess MD TYPE AND SCREEN 2020-02-14 11:46:00 Inessa Ascencio MD ABORH 2020-02-14 11:46:00 Inessa Ascencio MD ANTIBODY SCREEN 2020-02-14 11:46:00 Inessa Ascencio MD CLOT EXPIRATION DATE 2020-02-14 11:46:00 Inessa Ascencio MD And erson TMP INTERPRETATION ANTIBODY 2020-02-14 11:46:00 Inessa Ascencio MD SCREEN NEGATIVE BREAST SPECIMEN RADIOGRAPH 2020-02-14 11:45:22 Jax Sanders NM LYMPHOSCINTIGRAPHY BREAST 2020-02-11 18:25:28 Jax Sanders MD SULFUR COLLOID HC 2019-NCOV COVID-19 2020-02-11 14:33:00 Jax Sanders MD And erson EKG, 12-LEAD (SCHEDULED) 2020-02-11 00:00:00 Inessa Ascencio MD MAMMO POST PROCEDURE LEFT 2020-01-26 15:15:38 Jax Sanders MD MAMMO GUIDED SEED PLACEMENT 2020-01-26 15:12:00 Jax Sanders MD LEFT US GUIDED BREAST CLIP 2020-01-26 13:49:00 Jax Sanders MD And erson PLACEMENT LEFT LIPID PANEL 2020-01-26 12:17:00 Alessandra Paeg MD COMPLETE BLOOD COUNT W/ 2020-01-21 13:54:00 Jax Sanders MD nderson DIFFERENTIAL COMPREHENSIVE METABOLIC PANEL 2020-01-21 13:54:00 Jax Sanders MD HEMOGLOBIN A1C 2020-01-21 13:54:00 Jax Sanders MD NT PRO BNP 2020-01-21 13:54:00 Francesco Myers MD ZINVITAE 2020-01-21 13:54:00 MD Marv Manriquez Megan THYROID STIMULATING HORMONE 2020-01-21 13:54:00 Alysia Ramon MD VITAMIN D 25 HYDROXY LEVEL 2020-01-21 13:54:00 Alysia Rmaon Results CBC 2020-01-21 13:54:00 Jax Sanders MD MANUAL DIFFERENTIAL 2020-01-21 13:54:00 Jax Sanders MD Jonathan son GLUCOSE LEVEL 2020-01-21 13:54:00 Jax Sanders MD ELECTROLYTE PANEL 2020-01-21 13:54:00 Jax Sanders MD SERUM CREATININE 2020-01-21 13:54:00 Jax Sanders MD .GLOMERULAR FILTRATION RATE 2020-01-21 13:54:00 Jax Sanders MD CALCIUM LEVEL TOTAL 2020-01-21 13:54:00 Jax Sanders MD Jonathan son ALBUMIN LEVEL 2020-01-21 13:54:00 Jax Sanders MD ALKALINE PHOSPHATASE 2020-01-21 13:54:00 Jax Sanders MD rson ALANINE AMINOTRANSFERASE 2020-01-21 13:54:00 Jax Sanders MD ASPARTATE AMINOTRANSFERASE 2020-01-21 13:54:00 Jax Sanders TOTAL PROTEIN 2020-01-21 13:54:00 Jax Sanders MD FRACTIONATED BILIRUBIN 2020-01-21 13:54:00 Jax Sanders MD BLOOD UREA NITROGEN 2020-01-21 13:54:00 Jax Sanders MD Jonathan son ECHOCARDIOGRAM 2D COMPLETE 2020-01-12 20:02:51 Suly Medina MD MRI BREAST BILATERAL W WO 2020-01-11 17:21:00 Jax Sanders MD CONTRAST INCL CAD US BREAST COMPLETE BILATERAL 2020-01-05 21:51:00 Jax Sanders MD US CHEST 2020-01-05 21:51:00 Jax Sanders MD US BREAST FINE NEEDLE 2020-01-05 21:51:00 Jax Sanders MD And ersbrayan ASPIRATION - LEFT US GUIDED AXILLARY LYMPH NODE 2020-01-05 21:51:00 Jax Sanders MD FNA LEFT US UPPER EXTREMITY LIMITED 2020-01-05 21:51:00 Jax Sanders LEFT CYTOLOGY IMAGE-GUIDED FNA 2020-01-05 20:05:00 Jax Sanders MD INTERPRETATION CYTOLOGY IMAGE-GUIDED FNA 2020-01-05 20:03:00 Jax Sanders MD INTERPRETATION MAMMO DIGITAL DIAGNOSTIC 2020-01-05 18:48:00 Jax Sanders MD BILATERAL W PEDRO PABLO OSI US BREAST BIOPSY 2019-12-15 12:15:32 Amanuel Stout MDrson PATHOLOGY OUTSIDE 2019-12-15 00:00:00 Dorothy Wilson MD Anderso n INTERPRETATION OSI US BREAST 2019-12-10 12:15:06 Amanuel Stout MD Cali on OSI MAMMO BILATERAL 2019-12-10 12:14:13 Amanuel Stout MD CANCER ANTIGEN 125 2019-08-20 15:26:42 Fabiana Le MD Cali on Encounters Start End Encounter Admission Attending Care Care Encounter Source Date/Time Date/Time Type Type Clinicians Facility Department ID 2020-01-05 Outpatient SYSTEM, [facility] MDA [id number] 12:42:00 NAM roberts 2020-01-05 2020-01-05 Outpatient EL ANNETTA, MDA MDA [id number] 13:06:30 13:06:30 AMANUEL roberts 2020-01-05 2020-01-05 Outpatient EL ANNETTA, MDA MDA [id number] 13:06:26 13:06:26 AMANUEL roberts 2020-01-05 2020-01-05 Outpatient EL ANNETTA, MDA MDA [id number] 13:06:21 13:06:21 AMANUEL roberts 2020-01-05 2020-01-05 Outpatient EL ANNETTA, MDA MDA [id number] 13:06:19 13:06:19 AMANUEL roberts 2020-01-05 2020-01-05 Outpatient EL ANNETTA, MDA MDA [id number] 13:06:18 13:06:18 AMANUEL roberts 2020-01-05 2020-01-05 Outpatient EL ANNETTA, MDA MDA [id number] 13:06:16 13:06:16 AMANUEL roberts 2020-01-05 2020-01-05 Outpatient EL ANNETTA, MDA MDA [id number] 13:06:15 13:06:15 AMANUEL roberts 2020-01-05 2020-01-05 Outpatient ANNETTA, MDA MDA [id number] 13:06:13 13:06:13 AMANUEL roberts 2020-01-05 2020-01-05 Outpatient ANNETTA, MDA MDA [id number] 13:06:11 13:06:11 AMANUEL roberts 2020-01-05 2020-01-05 Outpatient EL TOMMY, MDA MDA [id number] 11:21:37 11:21:37 JAX roberts 2020-01-05 2020-01-05 Outpatient EL EDGAR, MDA MDA [id number] 08:03:34 10:12:12 LOU roberts 2019-12-31 2019-12-31 Outpatient EL GUADALUPETTI, MDA MDA [id number] 09:03:54 11:13:19 [place] Leiva o armando 2019-10-26 2019-10-26 Outpatient [facility] [id number] [place] [address] 00:00:00 00:00:00 SHAKIR [address] Results Test Description Test Time Test Comments Results Result Comments Source Pathology Surgical Interpretation 2020-02-21 22:39:00 Test Item Value Reference Range Interpretation Comme nts Diagnosis z5ffzLKgZARsfAH8WrRtRVEbi7knn5DfjGVljNExFUfvkBPdyoUpii58kMS1oJ43HB4uXNYbPcU7WVTd ifJ0Cjg8LHGnTAQbwGPrN390t0gte9hsjbYfaOV0sMcnUCVyZSWqPBzjCIGmJaFdHX4dHOWdOFEAibRz y0KsWH2dNVY2vZugXFZ2LQf0zADqHD8hOHIaDGWoHIV (test code 5TVFqJNwuTY54UXrwyHZryRIqiQ6ajVWwANs2MYTukoYztpKpUWs4fJTuFC7rKGLmCdHmKJBpVSFhRE6 1rJ4eoMDznG5gaEEuq2BnWMXiAGhLPWmrx5WssVvpUAvsjHebmBypmi3kMJTcFrYmTqzyBQUrjkYcmoR zZWt4jCFtNL4tYFSkUnFgJAqfKQOdymVhuhQnRPqkgP = 34) Zlc48dt5OooUVhkXUaNI0orpiqjuAnVHi9XCMqnusaIAOlTPpbKbNoDMcyvfoxQXWIXhATR1pIOTWOPQ TZET9UCCUxYWDaswRURSCpvyXypH6viBTqz3EgejrrixEzBYNpuzSkCc7tKYTlahAgbm9tPYNrVB58OO 6ryNCpAMEXJJTKDWYwN9oWQ3TSZMTvNB5JCFAVWA7YC lWaMSUarpudXCRlrTxaNOrlhsHmFg5iNtCNZdUJw0zcEUDjNWS8DHhKSCWnnsMhlhckgVWgNVTyWFOyF ANfiFxzLRmukSUsz65fo3ClpGOxpZKtOY5nBDOpv0dofwiwuCAcUEntJmEwUNoaftjjJFAPx0bjWKwiv Aijvz9bw6RtX6ntyOBqdYzbxZ4dWPBzy2cxG3ksCXjg V6fmlufzCzjcMHFeAcEhUJGtubHrXx6sCDEsyiYezq5vQX2rQPTndx xsaTBcbGluMFxwYXJ9 Comment f9axjWVnRDZgwWE3YyYhIVRec8izq1EikBSviQBoYKvneOMqmfOjrq85hZU8hT72KY5uYIZbBsW7WHLi xuC1Bdk1ZIUiNKVwxBYjO125f3mgn0nswbZtyAU3pFzxMMVbGKEhOBktQWQmKbVjIXLuo7DmgWGoDbFn tKK4ntAgOIUnBEnxxBXvK6vcCVgfQKFgRKHjkHFnMAL (test code xLPSvzIisO8SjJZD4NOMnJRAojQGlRKhlRRcibKIcUVgptcJqTDsygUg9TATec5UjI7WbF2ftz00tTzr qPZKkrANlWLkcqKLsh8T1PGfbubU4LIGjHAGlvwFyjs5fXSOnupSeON23hW9pnNVwtZ2gfYEog6VoxyP mTG21SKqUKF0QGDjrLSPdICOeRYSrEJRfARBQPP9FFj = 9835) cwTK9xGEGjEWDwLSjacBx2ACBjm9PsgIYqc0VgX1VlxUFjBArnTWQ1 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 (INVASIVE CARCINOMA OF THE BREAST: COMPLETE EXCISION - A, D, E, F, G, H) 8th Edition - Protocol posted: 05/26/2019 SPECIMEN Procedure: Excision (less than Checklist total mastectomy) Specime n Laterality: Left TUMOR Histologic Type: Invasive carcinoma of no special type (ductal) Histologic Type Comments: associated with exuberant lymphoplasmacytic (test code infiltrate Glandular (Aci zara) / Tubular Differentiation: Score 3 Nuclear Pleomorphism: Score 3 Mitotic Rate: Score 3 Overall Grade: Grade 3 (scores of 8 or 9) Tumor Size: = 9864) Greatest dimension of larges t invasive focus (Millimeters): 37 mm Tumor Focality: Single focus of invasive carcinoma Ductal Carcinoma In Situ (DCIS): Not identified Lobular Carcinoma In Situ (LCIS): Not identifi ed Tumor Extent: Lymphovascular Invasion: Not identified Treatment Effect in the Breast: No known presurgical therapy MARGINS Invasive Carcinoma Margins: Uninvolved by invasive car cinoma Distance from Closest Margin (Millimeters): 7 mm Closest Margin(s): Anterior LYMPH NODES Regional Lymph Nodes: Uninvolved by tumor cells Total Number of Lymph Nodes Examin ed: 7 Number of Thomas Nodes Examined: 7 PATHOLOGIC STAGE CLASSIFICATION (pTNM, AJCC 8th Edition) Primary Tumor (pT): pT2 Regional Lymph Nodes (pN): pN0 ADDITIONAL FINDINGS Additional Findings: Fibroadenoma, sclerosing adenosis Breast Biomarker Testing Performed on Previous Biopsy: Testing Performed on Gross u7ocmXHxAXHzoTHCSQPyUZfozxOhGDZhpNDtM6FrsabuAOmcSI5sOS0mpHbbkJTslIOjHZ0AXHTkVsCo TLUtwXVqxrPwIaSnMRLxeYQcjAX9WDFaDY6mupafVUtdSKogUPWjslN2JYHuoFSqU3OlONVeBC9ttvqh NDD5VDzivE4iqxEEOkpsLh8woROawTldEaNeScGuCBQ Descriptio kJELvPIRufMavEGHoFJm6iA3YTgdzSQN1ZUMJBlozFSZxZG2Lx0vyUUBuyRVqNGB8LIuwxSQdQBCfPLL uUMe1EWGeBKzumKDrTC9vdSenHbxgyWrlf4VtcHHdNIbgQUAyBDEpSHmwFWRgEW8MNdLoQPOeOnJ2SNw nAQh4MEb2UC2FLaSlGRBvKNB9UDM5OWUuDJc0VKduMZ n (test 3HKCErFeY6RPL9RST5ACgyQiRvDPMgKnBcRDTlSDQnUYkvIHntyiSiBPOtMCQpDPeqPfexESmcF34dbB yzzY4bEevlgrIwEKI0BJFmchOOZtmtoXIwwcnnhNmoKkNraYWrJjEcDCuelOWroIXmNHwmuhFhhaeqVO PKKmevwFEduUepRWMlBgDpO2UvOEUlNPkaXrCno0Bio code = SHezQSrXH7qx0TqU6UgsUooEJHpt1U9SJE0sBYkbPRbjKHrwvkmqgxqsD2qYdDwjEv5A9irxIO8OLDxq XqyWaRhEYGoXFDgc5X1ffyyWtAkxNysctHvVN0uAQPkXxkrARExE82sj2qypQSwv1HuZI9bl4IfIT77J RXjhP1vnAdjncTxRcW7FJrxq5kwn6yjpKAyExsgoa4u [id number] NUY3dJB6rGEocRIeTUpetNZeHLynusGxLEPzx9U5ZJK2wHVwpVVebBXflhzkyoUftnGsbU9zNvVukUv4 M7iitYA2EUAfzS3jAHFmMNRcwRXtjR5skeV4LHtvaVBvKqMbCmPkqnPwvCVkv1CwPILyByUqaSNtaIWu obtkmhZ2cnZqoqDgcweyhpovBo21CCTlNB4pSHsjcMO ) [file] iAgUHVycGxlIGluayBpcyBpZGVudGlmaWVkIGFuZCBp ujKcPDBdG53vcCXuEFIvGTHuHAA8wtBuZB0gicednaUjHIIecKtsXRA0socpn25lTWORsMAuyBJ3ZNDd NAOfdY8ylHVkaR1qIVUyBgrwT4apOLSFkYVnqD7qcuTynhQeZPUfDZxqjLCsFTY2cC0qVFCrbA1vPUZd x45ofARlkGVpXEV7VW4piVKbzL93IYOrYaGfYhG6zYs tvK7sVU6dhbvgBnhuVLA7cPZrjPIyVJYwXqWcLp6znUEgpP8naeCjopRiX0Wms5AspCMpSCEazCmgoSC kEfFxL3FfP9arSR7ijDKbj3FdgSi0wCGvKSAvfQktMRo2LJDxJZRbANO7UK61pSJqxEnwsK8eE6Qnu9M 4oMSsDPthZSP6EiQnKEufKKQAAJ5fJGsbjn61FUA8d3 gveUWfKKicNpglmZHorzF1RFxASGXMEHfCQyJyYO6aRGfVApiFVRqZWajrFDRiGsiinKCZUFL4IYhdkQ haxOw0y7fqpJHhw5e6UFppPEX1hZCVm0rmbDCvNKnkBueroIPulmP5RLiYUYUCOKrRNrYvSB7yFRxRPj eZZxH6PqVnIWQ4JSzNX3OCoGU2Cyn4YLa2dLmzMmefr eQauGFwUiDXnU1clNzfoL6tdBXtB3fyKkUyVONRWqgcwBOcdnalrFhdTfCuySZgFxHmlMpkqW52GNIsf UGuBQN1UK4hLPRyocggCMVtQNTuZRZ0QJxttD65zLGmNTOgCGFwrWTzcH7YGHIvLPL8UTrglC25xYHdF T9ZZUBvIQX4GJGjyRHcVKK8DQ0wgL3GhC== Intraopera l0mcwFCcCZVsqWSWSZXhBNvjueIiHOMiqQTfR7FjsdzqFYgaLS1qMB7tsPeebEBkfZHoCP3SLWIlDzIc WTYuhQTalbOlYhPkLXWyvOStcCW8ZRDuGK1gcfemHXfiGHlaOONzawR7PMZudWLlV7AeEZKqZV9vtpoi DHJ3QWmqwQ9trkRYZsdcUj7onTVdfRdnYzOwTrFmCKQ tive kPGZxYLVxiXepJNJfYRg2cN8PZoqoDAY2ZCPEVjzqWSQuWW5Zs2nuCGAgqOZzRJI1XTpfoIJpDENmZKY gPKv4NOXkYEcxmZVlZN9jzJdbPmctgMzbt4IlbRRbYLioWLSrJTRhBCrmXLPhYM2ISiKtPXEeOgP0ROs bFDo1BHz7PT8ULxYrWOFaBGY2OOP4TWOcJRj5MYixQE Evaluation 8RYAUlKdMjWTq6YPF9ODhcNvXtSCLzSmYfGZRjEOXoZVwtFLpnulEjKBSsVPBdEDhjHdhjWGefW65gqW ryxF0jPttyagYtQBH4FKLpocQTKixmnCQkkoeooJmqXaXfxNGwWlUwFIwqbNDhkGUvBGfjnwDuvylqTI KMGgokeWPqbMaqseLdRAfPYeItV2BTZGRINAOFUI3SX (test code 8ZPR9IROAdmERNBQ5XHHZLZOVCGMNNEIHSNWiuYLcqdGQ0HTvCBCNlFN8pgABUQXMLCIRfjLnSLPYSXW TTZP7AGQbhfGvOWHOfEZhqwgMJmGQ8BRRGnLkFQSH2ZJwZYPeNESuREMTWNASsnFUFRY8lPMkQobYQtY V4SPUOtEmCbFA0YMBGmdWZdh43plHYaCQ1czCAnDDOj = lg42OIEza62fhO0vGDlnWNZkn8CeYLTny5MbmNEbH7xsCIUqLG1axFVrNEOzGHavj8FiWYQvidElvJL2 RN3axFYwMU9LTHDbbrZFOr4ZH66QHGhxnTlifR2hHQUzQ01cg8LRj0YkSOSuNOmkw9rjuAzgc9MkiZZe XJsfDXVlzNHzUQvghZ3iIiDyo3fnwTc2QImewfS7DWE [id number] esj2QXvdiQXNvVUu8aySmnlysxQ3hTnIjPVudMkTrCkwtANRjZ3CyZ 9JlspM4ZDk6 ) Disclaimer p5ytjXPpPKMjpTWgHePzXSQsZNBdy3hfQMMbgAMbAtHlUbSiDmRgPdfacASvIVIsEpSxo1qef609gIUf e4aeNAWpZjR8mVBgNCSvrRBaG064JQTpMNlbx1wmy3NaPWJjePAlq1T4PKUVjyoddPb6tAstD20hz3N2 TtqtT8huXPOqGYDoF2QaCY8qLZEoIhu7AIN6KNO8HYZ (test code qSNPvU3UiEB2hDDNbaFZbZCx7e7nohVfxTEMiCDZ0w2skDAbziaRhDK7wjx9ajEu8g3qxtfVhTYFzPOB rqPPJZHEjQ2IcdVrpLk5voPh7sRkpMawySAR6Ohh6IV4bja53xjq5bKvrTAKalvpmYgQ4CJbnYXSqxzj qVCk6ZFmzLXJyjFR7BHCyrCBzY2NjNRZhRQ2xjqp0DD = 9844) G2QNgbCISmAzU8NMIuvFNqOJCnaSdfCOslc895DAN4ZwIzIZ0cS6Nmp1X5kI5thJSmWWVzpKWySlCjQX Fnti1cmZUcFJlfd9WhTQR0lkN9vSRfnLBuEKEdGT14Fipvn7PhOfmjNPI8HRFqrgRof9Zyj1dwJsYfvb KuJ6asU8RkXLSuYQIzGSFdCpTnbuAni1Ubd4EwnYPcq Ej2s9ddJSLvJMIqqOcoi5swEUK4YQQxS2K7gOGul1dqNDjrCYSqgUE0erM8EOIulJGbI8QzdU0lOPWqV A0naog6e5diIVX0VTdhCCQqErX4mmE0QJAthTPhXNIdgMzzABflh627TKE0LlRfIYStl3FpH2QmzAncT 34rzQatY31vPLQsaKsjbC1stIrjpX2zNqEmGlWnTCqt iAtizCNbebysYHbnltA1MNdwwlybIQMiNFbjO4vwGdKaGRLucSdvKLekw2DhDJKtTSVlTsiovjW8UJIS h60vXSOts4GlYQSgnE1doEJeSPkvfcHkpUB4WUaizlMhSmArhyZgAMHppJ1kDOQfAO7qVJUqluGgmk7d kyIaWTFvBNEqR4XdrcszzCmoiyWqSIKtyz6lbvAmIFY 2IJRRWK5UFDEwAZIjp52tBYDsgJxnqK5wrKFnqvWfJKWub2MotQ9gbZSGQPZuM3ycGV5uABpcw7HspFZ ihRHdxFH1FPAwz8LfWrOjkxXsyYIugIMjP4LexUfcE2ksRJFdVKEemwYyjKFdg6PlDFTgrHO4kINfPB9 OLbPUu66hCSTtRYVKixWuNVIxjBawzCD7lhQ3vA7hXb KBEfUfzMVyxQXlNpslCZDjb894un5yuzR1WMYzCRUcwbnqk2BdZPRbBKQutL63EIWjUQKyrd5rebgeoR NlriXzA2Nrmzv2sI3fEAIuAWdkHNUqCZYwMvYtxYWsWbGdDpSaiFznpWgdIWquOvJkWJUkRBwiH5kdQg FcZnMyMlxwYXJ9 MD FairNM Dosing [id number] 14:27:30Radiocolloid injection for intraoperative sentinel lymph node localization. Interface, Radiology Results In - 02/15/2020 8:29 AM CSTFULL RESULT:Examination: Dosing Appointment, 02/14/2020 5:42 PMClinical History: Breast cancerIndication: Lymphatic mapping for intraoperative sentinel lymph node localization.Comparison: None.Technique: Filtered technetium-99m sulfur colloid, 0.55 mCi, was dispensed to operation room for injection into the left breast by Dr. Burgess.Findings: No imaging was acquired.IMPRESSION:Radiocolloid injection for intraoperative sentinel lymph node localization.MD [facility] Glucose [id number] 01:50:34 Test Item Value Reference Range Interpretation Comments POC Glucose (test 232 mg/dL 70-99 H RN Notifie dCapillary code = 07610-3) blood sample s, e.g. obtained by fingerstick, ma y have inaccurate resu lts in patients with d ecreased peripheral bloo d flow. Method descript ion: All results are irving sured using Electroch emistry test methodolog y. The glucose in the sample mixes with the reagents on the test str ip. The reaction produc es an electric curren t. The amount of curre nt produced is proportional to the glucose concent ration in the blood. PO Sample Type (test Capillary code = 9554) Lab Interpretation Abnormal (test code = 68946-2) MD FairBreast Specimen [id number] 16:46:29Left breast whole and sliced segmental resection specimen radiographs were obtained for radiologic pa thologic correlation. Interface, Radiology Results In - 02/14/2020 10:48 AM CSTFULL RESULT:Examination: Specimen Radiograph 02/14/2020 5:45 AMClinical History: Patient with breast cancer.Indication: Breast cancer.Comparison: Mammogram 01/26/2020. Technique: Left breast whole and sliced segmental resect ion specimen radiographs were submitted for radiologic pathologic correlation.Findings: The areas ofincreased density, calcifications, postbiopsy clips (2) and 2 Salas Marriage Therapist were electronically annotated. Possible close margins were also electronically annotated.Findings were electronically annotatedand discussed with the pathologist, Dr Hoffman at the time of this dictation.IMPRESSION:Left breastwhole and sliced segmental resection specimen radiographs were obtained for radiologic pathologic correlation.MD FairTMP Interpretation Antibody Screen [id number] 15:40:34 Test Item Value Reference Range Interpretation Comments TMP Auto Neg At the present ABSC Interp time, patient (test code = plasma shows no ANABELLE DOYLE 7535) evidence of RBC ANDREY,Dic tated by: alloantibodies. STEPHANIE BALDERAS,Dictat ed Date/Time: 01.29 9:40 AM PRODUCTION RECOVERY OPERATOR Transcribed Quinn e/Time: 02.14.2020 9:40 AM CSTElectronical ly Signed By: ANABELLE BALDERAS, on 02.14.2020 9:40 AM C MD FairAntibody [id number] 14:13:43 Test Item Value Reference Range Interpretation Comments ABSC. (test code = 890-4) Negative ABSC MD FairYdtyrkavYDFZu8200-07-01 14:13:42 Test Item Value Reference Range Interpretation Comments ABORh. (test code = 882-1) O POS MD FairClot Expiration [id number] 14:13:41 Test Item Value Reference Range Interpretation Comments T & S Expiration (test code = 02/17/2020 5318) MD FairMD COVID-19 (WILFRID-CoV-2) PCR [id number] 12:29:10 Test Item Value Reference Interpretation Comments Range COVID19 SARS Pre-OR Procedure Indication (test code = 85106) COVID19 SARS Result Not Detected Not Detected (test code = 15130-7) COVID19 SARS SARS-CoV-2 NOT Detected. Interpretation (test Reference Range: Not code = 76607) Detected Methodology: The Zhu RealTime SARS-CoV-2 assay is a qualitative real-time reverse marriage and family counselor polymerase chain reaction (package liner-PCR) test to detect RNA from SARS-CoV-2 in nasal, nasopharyngeal and oropharyngeal swabs from patients with signs and symptoms of infection who are suspected of COVID-19 by their health care provider. The Zhu RealTime SARS-CoV-2 performed on the [employer]000 System is a dual target assay with primers and probes for the RdRp and N genes. Results must be interpreted within the context of all relevant clinical and laboratory findings, and epidemiological risk factors. Positive results are indicative of the presence of SARS-CoV-2 RNA; clinical correlation with patient history and other diagnostic information is necessary to determine patient infection status. Positive results do not rule out bacterial infection or co-infection with other viruses. Negative results do not preclude SARS-CoV-2 infection and should not be used as the sole basis for patient management decisions. The Zhu RealTime SARS-CoV-2 assay is for in vitro diagnostic use under FDA Emergency Use Authorization only. Testing is limited to laboratories certified under the Clinical Laboratory Improvement Amendments of 1988 (CLIA), 42U.S.C. 263a, to perform high complexity tests. The Test was performed by the CLIA-certified, high-complexity Molecular Diagnostics Laboratory (MDL) at [facility] under the Food and Drug Administration (FDA) s Emergency Use Authorization. Factsheet for patients: https://www.mdanderson.org/ AbbottFactSheetPatientsFact sheet for healthcare providers: https://www.mdanderson.org/ AbbottFactSheetHCP Test performed by:[facility] Molecular [facility] [address] [place] [address] [facility] Lymph[facility]int[facility] Breast Sulfur [id number] 18:28:36 Thomas lymph node in the left axilla. Interface, Radiology Results In 02/11/2020 12:30 PM CSTFULL RESULT:Examination: Breast Lymphoscintigraphy, 02/11/2020 12:25 PMClinical History: Breast cancerIndication: Lymphatic mapping for sentinel lymph node localization.Comparison: None.Technique: The patient was injected with 0.55 mCi of filtered technetium-99m sulfur colloid in the left breast periareolar. Multiple delayed images of the thorax were obtained in various projections at 1.25 hour postinjection.Findings: Residual injected tracer uptake in the left the breast. A focus in the left axilla, representing sentinel lymph node.IMPRESSION:Thomas lymph node in the left axilla.MD [facility]-Guided FNA [id number] 16:40:00 Test Item Value Reference Range Interpretation Comments Addendum 1 (test code = o1hbwZAnFOXciJW3RXL 37) cVZJbm9jiq8FvzHDseR SfXZpwuXUrtcAnzd11t UR9jT19IU5eQETdEdD4 XXMgefN8Mpk4BFTtWIJ jePPcJ384x5qgz9sfjl XgrDU9aFcuNEYhTVWmR MngCJIgNuCsSL7jUHYz YZXkXRPtp2Zoe04rreZ vg1VqBT9eYJDzoCFbTn ycFZRuDNt8MPDVIAuyX XJccGFyfQ== Gross Description (test t5tkpPIrTBUup1xhSSV code = 5850600313) mNsMdMWEWa8bfh642bG QfGMujUaZpKmG5iKPiW HEqwUGbr3Y2QFtrhCDw QgNGpplouGi1n6feW9e dxt6iFS5lZrMgOQDrXP QwXGZwcnEyIFRpbWVzI Y5uymLWb22ogak3v2rt WHnavG6lCJBvRFFogUU od8S6JPwgfKTmZTEWm4 EliKCpJS4jtbo2f2hqW Kwif1aly8WtDhNtZJRc ZXQwXGZwcnEyIEFyaWF cCH7xvfZnjaq4g3puYY FbZo4pVNDzaemzI7ugl hNhpOAsHtHyuBYjN404 gsoqnpl1x1xyHYBjAp1 ktWvrE4lphfZelDSvIr BycTIgVHJveSBNaWNyb fZdnUA8xVdrBbNdCXKc p62nwdhcS5otkgNymGQ jDbRzlWWdC6gqPu9kR8 62GUQlBVnox2fpv7WoB mNoYXJzZXQwXGZwcnEy YSPjY27iPNBSJ977XDD bSZAuDLMie1xws7bqO6 hhcnNldDBcZnBycTIgQ BFwEHf6oO4Os5dhz3gz mcVxnJE3FYSmEWFqJ8N aSS6rUXYudTOmY0dnYX XnPOloliKkbtJ2XXRfd DAqRWulztKaDzPgU1Da CG2qJLcflWGsJlL5HCA qTGB6CUmuHWGiCPvcBw t8BNR5J9iiZQD5O6qtk iXjngJyQLVrqCD3Ftjh ilUfKzxyT7GgBU69BPc qeDPlJak7KYGlEJr1BM mdMSIiPXDqVuh3RPp7M 2fnWQFrLIRoT0VyEO9d UPJtEin8HEBdFNxslvO tCSH0FZanCKTtSSH4XP SkeRQoQby2RWVyVWA7E 5ugzkOqbsE6H4jlsNKk UIFlU2ooOAFpQBioG6Y zBC9oJOcuGfy1BPO2IZ zgqbXgRTe6BTllSXJgA Hi5AJXweDAmRkH6MEXo TYK9VKhhljUzhkI8PIs tpXYeCDjrP4foMHBcNZ wdF9XlVT4eHZoxFuk6U TIwNztccmVkMjIzXGdy ZWVuMjIzXGJsdWUyMjM 7XHJlZDIzOVxncmVlbj WlAWbrdEOdNzG3Y9xuM VUqEEYzG9FgTL0gQRKe Knk7QEA8QQtnozNcSUx gdoAakxLzHzz8BET0FL l0Cpevy2E2kGRnnNToi HtcczEgaGVhZGluZyAx P744UGXeLXgwOSUipzd gCjb9e4bbOxOnWPZpeJ 3dIZU3wWoddkScvKLdJ EvmWkD8H311NWK4SMta DYJrtekiKAb2i7rdCtR qUZRukF1ePWE8pN1EKp wbIFDuunxuKZu0MGfhF IQdhkyaShA1DFrbNFNs tLn7UGwoOAPaoiB0Fro tYXJndDcyMFxtYXJnYj bzUCjlNTCfJQD1CfKzY IHag6Hclvo2XjRiKyYq SSZEUpwtlXUjAHM4QSR 0ZjFcZXBpYzkxMDFcYW 0ygTucgNs9aYezJEGqs nL1oPMiSVkdq4qeUHA5 a0yasqooNCAdNSwaHb6 udHRibHtcZjAgQXJpYW m1eR21GGUfzS1glVObH Gn6EDIldaLxzUghcP5n VbRgOVQLxKIzvX7lsiP zhNJnO2GrPHZ5JLGhrp AyIERpZmYgUXVpazsgN zZNDIDfS8YqoS8zM3vl ZGVzXHBhciAxMCBtbCw gIGluIFJQTUlccGFyID LdS7g6a0ZewG1slNVhF HBhciBTaXplOiAxLjIg P75smOCmBWrwuFLguWI 0LVTxf1Mal5XzPQ16BH WnaxBfpIJjeJ5yatIeB ZQolWDenYH3PKGjeECw PKL2JHPxiJUmnQvqWRK 9Cn0= Immediate Assessment (test Adequate code = 9837) cellularity, favor benign Major Classification (test NFMC/benign code = 9839) Diagnosis (test code = 34) m8caoUMnEFRduJF0KIT sVVBpl5xhx0XblRDjkM MfTGdloNVzbjBqtg44h TW9lR44EL4ePAYbPdN4 PDYmxhL3Uki2JKKwBRA krRWzA255z9skg9yndw CgnNU9lCqlMRIbYRCtS EpnELCdZdSbAU4yXJij rXsynr0rCCzwyDRfoNQ heGlsbGFyeSBsZXZlbC VRGMAicA1rRU8yYDBqE PDbj1WbwpU9fZ8aCtaq YXJcdGFiXHBhclxsaTc lRHHFIMhacYn6QWZgo5 CmrJS3GLM0WMYgDxMeG GJwiL5zyYOsfNRdBIx2 pRDox9jeMYBar4D6EEO diiMmDG20EBYkrc0= Retained/Biomarker Testing t9apeHWsDIJjiRB4YLS (test code = 9838) hBZTni1prn7EuqMGuzH BwTUfpgDDredEzgy49z TP1zE67AB6yMWQzSsR4 OPRkkpZ3Amk3VMJzYPK yrVIjR434t3aor4cben IbwEZ6YUHjZJI5CBguq yHnkfO8HNjywJAjAfZ3 M03xyNQlKYoxaLEqtwd vuyHaVSSgV8GtXCAxTK OLSoP2JQEotYLjJCWrS 5PcSKOhVQJikx0= Informational Points (test o6lnzWFhAOZpbHG4NEY code = 9836) dHWYxv0evf3CoyVCngQ DiKKgvzZCgioMljl84u ZH4jW94IT1aFWUmLaN9 FBRwfpW4Lzc0SYTfIEV eaXSbC144OIPaNPTyP8 6bVWSST149f4tvd0ivq kZhnOR3nPrqAVSbUKAg YWluXGlcZjFcZnMxOCB Dn32gLOXsn5ZdCTFkyG 0guEWzTWvaenZurWB6M GhhdmUgYmVlbiBkZXZl aJ3bZEEbOW2zCPEmrsL knz8bvgKsTEAeMCNeP1 RlcmlzdGljcyBkZXRlc h4hcmQjSZQ3XYHOFF7C KAMvYIVtl94dPCKbtPn jfX6gmPSvtsCxTWBgh1 CteI2myFGZQUQuM5mmE A7oLAvpj2MkrVYhpLEe hKW2VJRte9TlTpOhuuQ gqWSxwCEtF8OvlRhcG0 xlYXJlZCBvciBhcHByb 7NjOCDpmZG6xNJtSA6E AvPWb04dHSInYSZSvzQ kVVNjeRehyXG2atM2cL 9uLiBccGFyIFRoZSBwY ZVgv6vjQ5ducHMhUVPu teO6dVR3PVFmlBeaKAF nn7KuPT6vNYWhphLkrW oaUQN7mBMzauJdx5C8Z MQ8IF1XAEWzYYRnz28o NSxtv7FwHA94u4Ohmpn rSSP0UPPcZ0P0wWKMqn Avg1D4BBAZo6FczI3jX QRDRScyvoR9BpS0WB3e cGFyfQ== MD FairAlmmography Guided Seed Placement [id number] 15:32:48Interface, Radiology Results In - 01/26/2020 10:36 AM CDTClinical Indication: Patient is a 74 year old female seen for breast cancer. MAMMO GUIDED SALAS YEAST CAKE CUTTER PLACEMENT LEFT Technique: The patient was positioned in the mammography unit and the lesion inquestion was identified on one view. Findings: Mass in the left breast 9 to 10 o'clock position, 4 cm from the nipple. Procedures(s): Mammography-Guided Salas Senior Vice President & General Counsel Reflector Localization - left breast Primary Proceduralist: Dr. Esteban Campbell Retail Salesworker(s): None Consent: The procedure(s), risk(s), indication(s), and alternative(s) wereexplained. All questions were answered and informed consent was obtained. Theconsent includes a written commitment to have the reflector(s) surgicallyremoved. Procedure(s) in Detail: A time-out was performed prior to thestart of theprocedure and the correct patient, procedure, presence of consent, site, andside were confirmed with all members of the team. The skin was prepped in theusual sterile fashion with chlorhexidine. Lidocaine 1% was administered forlocal anesthesia. Two Salas Senior Vice President & General Counsel reflectors were advanced into the area ofinterest, one anterior to the carcinoma and the other posterior to it. Theapproach was superior to inferior. After adjustment of the needle tip(s),reflector deployment was performed. Upon deploying the anterior Salas Senior Vice President & General Counsel, theneedle inadvertently retracted, and the reflector deployed with one of itsantennae piercing through and out of the skin. This was removed, and anotherreflector was placed at the anterior margin of the malignancy using the sametechnique (i.e. mammographic guidance). A total of three Salas Senior Vice President & General Counsel reflectorswere used during the procedure, two of which remained in situ at the completionof this localization. After the procedure, a console and ahandheld probe were used toconfirm detectable signal from the implantedreflector(s). Post-procedure Mammography: Post-proceduremammography was performed andreflector location(s) was confirmed. A diagram was drawn depicting therelationship of the reflector(s) and the localized lesion(s). The diagram wasuploaded in the patient'selectronic health record. Estimated Blood Loss: Minimal Specimen(s) Removed: No Immediate Complications: None Post-procedure diagnosis: Breast cancer Disposition: The patient was discharged from Breast Imaging to the next clinicalappointment in good condition. Impression: Technically successful mammography guided Salas Senior Vice President & General Counsel reflector localization ofthe mass in the left breast 9 to 10 o'clock position, 4 cm from the nipple. Tworeflectors were placed at the time of localization. Examination: Post Pro cedure Mammogram <> 01/26/2020. Clinical Indication: Patient is a 74 years old female and isseen for postprocedure mammogram. Findings: See localization report done same date.MD Gonzalez Procedure Mammogram Left 2020-01-26 15:32:48Interface, Radiology Results In 01/26/2020 10:36 AM CDTClinical Indication: Patient is a 74 year old female seen for breast cancer. MAMMO GUIDED SALAS YEAST CAKE CUTTER PLACEMENT LEFT Technique: The patient was positioned in the mammography unit and the lesion inquestion was identified on one view. Findings: Mass in the left breast 9 to 10 o'clock position, 4 cm from the nipple. Procedures(s): Mammography-Guided Salas Senior Vice President & General Counsel Reflector Localization - left breast Primary Proceduralist: Dr. Esteban Campbell Retail Salesworker(s): None Consent: The procedure(s), risk(s), indication(s), and alternative(s) wereexplained. All questions were answered and informed consent was obtained. Theconsent includes a written commitment to have the reflector(s) surgicallyremoved. Procedure(s) in Detail: A time-out was performed prior to thestart of theprocedure and the correct patient, procedure, presence of consent, site, andside were confirmed with all members of the team. The skin was prepped in theusual sterile fashion with chlorhexidine. Lidocaine 1% was administered forlocal anesthesia. Two Salas Senior Vice President & General Counsel reflectors were advanced into the area ofinterest, one anterior to the carcinoma and the other posterior to it. Theapproach was superior to inferior. After adjustment of the needle tip(s),reflector deployment was performed. Upon deploying the anterior Salas Senior Vice President & General Counsel, theneedle inadvertently retracted, and the reflector deployed with one of itsantennae piercing through and out of the skin. This was removed, and anotherreflector was placed at the anterior margin of the malignancy using the sametechnique (i.e. mammographic guidance). A total of three Salas Senior Vice President & General Counsel reflectorswere used during the procedure, two of which remained in situ at the completionof this localization. After the procedure, a console and ahandheld probe were used toconfirm detectable signal from the implantedreflector(s). Post-procedure Mammography: Post-proceduremammography was performed andreflector location(s) was confirmed. A diagram was drawn depicting therelationship of the reflector(s) and the localized lesion(s). The diagram wasuploaded in the [facility]. Estimated Blood Loss: Minimal Specimen(s) Removed: No Immediate Complications: None Post-procedure diagnosis: Breast cancer Disposition: The patient was discharged from Breast Imaging to the next clinicalappointment in good condition. Impression: Technically successful mammography guided Salas Senior Vice President & General Counsel reflector localization ofthe mass in the left breast 9 to 10 o'clock position, 4 cm from the nipple. Tworeflectors were placed at the time of localization. Examination: Post Pro cedure Mammogram <> 01/26/2020. Clinical Indication: Patient is a 74 years old female and isseen for postprocedure mammogram. Findings: See localization report done same date.MD FairUS Guided Breast Clip Placement [id number] 14:55:02Technically successful ultrasound guided clip placement (Ribbon) into the leftbreast cancer at 9-10:00. Interface, Radiology Results In - 01/26/2020 9:55 AM CDTExamination: Left Breast Ultrasound Guided Needle Biopsy with Marker ClipPlacement and Post Biopsy Mammograms, 01/26/2020. Clinical History:74 year-old woman with left breast cancer whose biopsy clipthat was placed at an outside facility has migrated. Patient is in need ofrepeat clip placement to ensure successful specimen radiography. Indication: Left breast cancer. Comparison: Breast Ultrasound from 01/05/20. The patients clinical history was reviewed in detail. On the basis of availableclinical data, the procedure noted above is Urgent/Elective-Urgent. Theprocedure is immediately medically necessary as the risk for cancer progressionor deterioration is significant if not performed immediately or significantlydelayed. The resulting decline in the patients health could make the patientmore vulnerable to COVID-19 and other issues. Technique: Ultrasound imaging of the left breast was performed. The skin of thebreast(s) was cleansed with chlorhexidine. Local anesthesia was achieved witha total of 10ml 1% Lidocaine with Bicarbonate Procedure: The procedure and its risks, benefits, and alternatives wereexplained in detail to thepatient, who agreed to proceed and signed an informedconsent form. All questions were answered. The patient was brought to the ultrasound suite, and was placed supine on thetable. The cancer was identified in the left breast at 9-10 o'clock. A ribbon markerclip was deployed into the mass using ultrasound guidance. Post proceduremammography was deferred until after the subsequently performed Salas Scoutlocalization. The estimated blood loss for the procedure was minimal. The patient toleratedthe procedure well without immediate complications and left the department ingood condition. IMPRESSION:Technically successful ultrasound guided clip placement (Ribbon) into the leftbreast cancer at 9-10:00. [facility] Lyizccgnnzobnx2755-04-43 20:29:00 Test Item Value Reference Range Interpretation Comments Materials Received (test e0iebCFbOEItoZOmSgMc code = 9973) WWQgCPFsb5euVRPpmLCc ZzEwMzNcZnRuYmpcdWMx GWXcYsMdt4njy596mGLo y8ozSQVzGxN5hCCjJQFr yUXzX158CHNdDEhqi8ns a3ThSNRnxJIzu8G3SEKF bqnauVg0wBsrW97bb4E3 MgktD3rcEXCrMZPfD1Ps HY3eEHDnVjg3CHI8IYM2 CMTjFYWoP9QwMQ0fDVHj aZKgOWu6e4qdcUtvNLHq NBI7e7ibVExpfyVmEB6l ng2ilHm7b6zgoiOhKEUk TFDfcAANHHOzP5JunTey Lq5shIf4kBavYwnuEDP5 Sdi3VO4qqn61gbf5gKyv RQIcezuaCgI8PCpkBVOl zzwrSYn8WCwzLEFwmTwm MFxtYXJncjcyMFxtYXJn tUJ4OKXnqHPaU8UjNXRo OKkiSWWmshk8BdEbTq4e bMEjzZhqYLknj1exv8vy wBJeVzy5MUFpJhKzBaul VZicn6Tqk6fvOGEica0o ISP0kOWlsPtrc0J4dBJh LFObhLSgmnJiQQIqsj63 dSHhbZCjkKVwxo5cwlXg iJXqyZNfVDR0eZOzbfFv HHHrlJSlSPTmWA7xdTBh OXKbnX6lcdhaYSVsZgNe gnqwALGrfOqarnKnNc4w nSnsUPQ0YEydN0irnM1v LsJ5ZLwrW2hjpW0rAGc4 IOvcbTA2TNMlzC9nSP3m akddw5ybMqHiWK0qjibj q6gbOfQpXN7kyff1m7wi AKD9XUaxGXKqCbV7itH9 NDBcaGVhZGVyeTcyMFxm j703VTZ8CeFuOBMbd2Dj F4WgcIrfZ12nkYyuN85c MDGbgDzqkG9yeFtplS0v AaWgYlWpWXq6iq83KEv4 gyhaiKctYHe1jpNwDZIm UOL1GEJsiINcDPQpH4b0 tqRuOQYoYMR7CWGxyPQw LQKrU0j9dxZoEYJ0CUc0 cnBhZGRmdDNcdHJwYWRk YjBcdHJwYWRkZmIzXHRy hRBfhLNfpNPjsE4exMml UQKzqHSfuE1oEHV1LMUx cmgzMjBcdHJoZHJcbHRy vw22GXIpvzMoxKNkiKhp hEJrGZS5ZZAeJXPbAVTs SFI1INFdKzOmqhAsAUpi bGJyZHJiXGJyZHJzXGJy CAA1AKLiHiDnojVgQAhy bGJyZHJsXGJyZHJzXGJy BDI2NVMiEnGqpvMwCPlz bGJyZHJyXGJyZHJzXGJy PEN3IDTmEhZpgbIqMXfb bHBhZHQxMFxjbHBhZGZ0 K6zyjJYeZIEdIRnbeWFi BMByB7ewgQNoSXmdVNOc cGFkZmwzXGNscGFkYjBc N7skBYDkAeZcC6ObgDg2 MDAwXGNsdmVydGFsdFxj qADvXTE5AAVwYAJuNBIg RGC1HCIoKdTmrtEgOYit bGJyZHJiXGJyZHJzXGJy QEK8KYOwDlDmgrBpWSkp bGJyZHJsXGJyZHJzXGJy KWM6CANgTeAzcwKnNQak bGJyZHJyXGJyZHJzXGJy BPM2UMRoEnHunnRxYIqe bHBhZHQxMFxjbHBhZGZ0 R3xtfEAqHQXqAIxrjLLu JHIwA8yjiKQoNEouUTSd cGFkZmwzXGNscGFkYjBc J5zcRJKfLpYvT5QysMd0 NjAwXGNsdmVydGFsdFxj nIYhWWA2IHAkUUOiFPCm RYX7NLHzAmSvmfGgSCrn bGJyZHJiXGJyZHJzXGJy YZO2PZXzVuQuenNuEByv bGJyZHJsXGJyZHJzXGJy SEO2AUAlNiFsiuRyFMaz bGJyZHJyXGJyZHJzXGJy LPJ8HBTpHbZsvdVhBAry bHBhZHQxMFxjbHBhZGZ0 I9fgfAGaFYKsCOqoqCSg CJZcY8psaDKwRKlxWQSp cGFkZmwzXGNscGFkYjBc A1kjTUAhFyEfQ8KlePw3 MfSfQRJnmbPxtH30Gwba b6HdWOWoQBN8GCujNEep bFxwbGFpblxmMVxmczIw TQremuxqSMWeHYaeO1wg IyLvVKGtrPifNNhvg1Pl XGYxXGNmMlxmczIwXGIg CLBvHZYtmZ6yDozrG8Bb tP7rVSadRjgeB5xvFJAt b1InjI4nXVtnpHNtybba MVxmczIwXGxhbmcxMDMz OSfiW3bqNiSpCZKneYjy EYqki9FiMCCpPICoQkij jbNbYEb2qlQjAROnlUoj dEChJQpwdaCnyLdzu7Pm hxLlbMamXRVaDGj0unKr gwkdyXi8tDNliWfkETBg fXpkyG7iRdDdYxLlAGrq bGFpblxmMVxmczIwXGxh bghuWZCgOHncD8djCeEa DZMzaHzlBWlxv6UkSTLv ORFgScyhaqXiJARsL18d bGVjdGVkXHBsYWluXGYx XGZzMjBcbGFuZzEwMzNc aGljaFxmMVxkYmNoXGYx RHenX2hmMoVyR9KyECTu CtJcqODkF8qnH7WsrSfq YXJkXGludGJsXHNzcGFy KKE7qYEaweIheGBnkRCo OPBdVGqlGZE5uUZwxhkw dHNwqrhjXXclyeD6EELo YWluXGYxXGZzMjBcbGFu ZzEwMzNcaGljaFxmMVxk DlNaGTToRXhdL5xtHnWf F6QhJATuNnYeAsRCSOFn aXZlZFxwbGFpblxmMVxm czIwXGxhbmcxMDMzXGhp A8czUtCpHKMdsPmsTGrv a8LzVRLgFBFgNwiytaRk IOc6inSrVZCtjBrzjO81 Rvpmjp32YNHsk6yrPWZt R8VkrVAcLYDxsXUgZVky MDhcdHJwYWRkZmwzXHRy cGFkZHIxMDhcdHJwYWRk ZnIzXHRycGFkZHQwXHRy jDBfLNC4O5g0tfYxMHGx ZDe0fhGqKYTdPyQuiMEx KNB0MRl9EdtvssM5mCGc W3j7ZobfdmFxGWrynZCt eh31GLKhaaTdzHJvtAzv xKEdRKV5MEEtZCSoCFVk BDI3DGBcWqRiaoHzOCct bGJyZHJiXGJyZHJzXGJy ECH7EAPlZgYnxuRxDYnp bGJyZHJsXGJyZHJzXGJy ANA5WVFyJzFjybIiFWgm bGJyZHJyXGJyZHJzXGJy BYK8KBUcLzHtqwOaGFxr bHBhZHQxMFxjbHBhZGZ0 M2wcpFRuBIVsBPohgMIw FWEgI2kpuOYnHIigMKMp cGFkZmwzXGNscGFkYjBc P9zlSKXjQyGrT2PbyXa1 MDAwXGNsdmVydGFsdFxj yULqTMT8MZLmNAVoRMUw ERU9LKFwHfIytaUtKNoc bGJyZHJiXGJyZHJzXGJy ZTI9RZWmHfYhweOmXTkt bGJyZHJsXGJyZHJzXGJy NBO2NMQgLwHejdDdJSac bGJyZHJyXGJyZHJzXGJy OAY6MATpKoEexuIlTYwc bHBhZHQxMFxjbHBhZGZ0 U1arcODkUSYyZBzifHMf EUAeB5secUMoPVgvAOIb cGFkZmwzXGNscGFkYjBc Q6tuPTLuCtQoX2KqoTo4 NjAwXGNsdmVydGFsdFxj mTIpSIM2URGrNFYkDEEt WEL2OOLwKaUhuhQhPNvm bGJyZHJiXGJyZHJzXGJy BST8SUHjHmXnkfLeBDxl bGJyZHJsXGJyZHJzXGJy QCE0TVEtCsYnqcImIInx bGJyZHJyXGJyZHJzXGJy QWG1JPWyDtYdmsTvINcp bHBhZHQxMFxjbHBhZGZ0 X5nunDLmTEMjWPtwrLUo PQMlD5pfyWZaCZmdWEMh cGFkZmwzXGNscGFkYjBc L6npVSWwDkLzU9QtfTj6 FuZvPMItloCeqC67Eulw u9IvMFFmWNO7DCiwCCbd bFxwbGFpblxmMFxmczI0 XHBsYWluXGYxXGZzMjBc bGFuZzEwMzNcaGljaFxm MLesXhFeHWHyJVccW4lv UtTnJ5MaPDGaHpLeDC7e RzI9PJExYZDuOZZ6MRFD URAeLVMNL5IGJmmdTYRH Z0SixTdzxK6cAuRlLuSi UIvgGV6mBIWuY1mblOPs YNDoWQDwF8trAtPgvI2o aFxmMVxjZjJcZnMyMFxs dHJjaFxjZWxsXHBhcmRc aR82Qphfi6WpQFDlZET2 MFxzMFxxbFxwbGFpblxm AOlcuuI7SMOgBQouWTEo XGZzMjBcbGFuZzEwMzNc aGljaFxmMVxkYmNoXGYx TYdxG5kfSsBpF8SkSEUf WeGsEV2kBo1mJDWkHZSl YWluXGYxXGZzMjBcbGFu ZzEwMzNcaGljaFxmMVxk ReFlNDJoSLhjO3eiDgZa G6LvUBGtZdKtfHVcG9bi F8TbsEarDEBcLPkgvKGt RRMwiYHnWFJ0wCIjjlUi oRjbpQpaeV7eCjDrJfFc NFxwbGFpblxmMVxmczIw DAxwedziUCRfUEetR6ro NpJwCMXwjRznNAdkl5Ws XGYxXGNmMlxmczIwIDEw LiUeMhXsZfUkmElcdQ1f JnUaScMqQQouGD7pXGWc S3jhfOVgBBIbSIQpS3tv UxWycJ0knYvfWBwqVkRo ZnMyMFxsdHJjaFxjZWxs FAswcXEaDGKhg3lqSSGw NMVshUTiQPI3kVObdnSn kScemYaebX5vStYlBwLt NFxwbGFpblxmMVxmczIw HIpmwnilNFUcFCtkE2hc PfJfHXShtBxrTOhwo3Uy XGYxXGZzMjBccGFyfQ== Diagnosis (test code = [id number] 34) RAIdq7bwg3OfiKDawMJt UJohxWMqteFcjj89pTO7 oJ98TZ0qGRBaTqR5ZQIf zbB3Cxd4PMKnFAVjqWMc H264o6nvc6ezqbUgmWO7 fVxwYXJkXHBsYWluXGZz IpWtT4I9k3xpBBNiYhS8 VWRqZOQzISI5PKWDRFZo AOAOG5YXMlpdUCFEW9Jh NTKuiCqzO7SxZEHhfvU0 OmK9XdOfPxSjGOTbtpgy GMFrrZb4VxGetDttNmMx IEJyZWFzdCwgbGVmdCwg eAj5yuRoj1DmAH1pjOqg ZPRlR75xRKBexW1nv6u7 XHBhclxwYXJcbGkxNDQw FGujyeZ6XLMlQG6RQNSK VkUgRFVDVEFMIENBUkNJ Bj2ZNUhsJp7HSVmOL1oO ITAALVPJG8dTS9iKKFpW JLPPPVDmDDyEFIgfLj6N NPloE3BJIoWXLXDNYGgM XHBhciBGRUFUVVJFUyAo R8BGPAFCGN1XTsVwTKCp cqzuwHynEBzlxU85LnCv fCJpPOXvHkVXbN8xQBJw LZLcZE7goWiolHEhRQGh aWRlcyByZWNlaXZlZCBm v6UojlE9gLQ5UNaeuCDt GRTtHck2XUDdjNTzIJFf eFVeF5LmDZEsZ9KgmO4t AoOFw6RrvRh6BSTmFiQq ZAXyd3UggfJ0ZQHiffQe dyLedDelUVYmhrq5FSEs pPKcTXPmIkBIld1oEYI8 ESIcixIzbwPpZZS8u4A5 CZ6jR7L1xUEhQNikDUud eUCnEGZvDft1VDVfvYIy MIsJMi0dLZoHOndiPgKl KYRzjcFaOFXdk2UbDI9k YXhwBYPigsd3CQLwyLGh ITSaUiDCrZ38WjccLAVf k9V5i1dyHVSeOAFbtfEu SMWvxWCtHF0rjHJpWQUe rOFxNDMjx8ZjiiQ1jFH8 KTogNzUlXHBhclxsaTBc bGluMFxwYXJccGFyfQ== Comment (test code = [id number] 9898) DCQnt2sdu1KwfAYwxUGt TRpvpYSjafTzdf41fHV2 dS76EC5rJUIjSfC6MPBc zwC5Izh6MNNiEDShjNEd S538u2pux8aqwcNptKR9 fVxwYXJkXHBsYWluXGZz WyYreQZnOTX7OTskySKx y7jzv0AeH4tnpAqjbKU8 IChzbGlkZSByZWNlaXZl YXItq7WfzqN5qYD4MKzw yYIzTYnyYH9bA9V4sNIp CYCpybLljZ8zwNq5rQNt eFKgBADcaVsrOFScc09a zZHcwV7vPVKoZDWggoDq v4q2KEFlDRE3soWkr5Bv vPalKJxwx7wcze1puHBd XHBhcn0= Disclaimer (test code = w9vdiACbBXXguPJyXzTq 9844) LOLwMAWmp4wnATBhgMTi ZzEwMzNcZnRuYmpcdWMx JXXbQkBgi0vqa332rDVk o7uaLBFgZiM9vCEzBFEq rQQlB377CRLjSFosb6zc p2UnFXJtdKDuu8M6ZWXW fdqrnRa2uAeoD46xx2U2 PelmV0igXDMvZDJsI4Ds ZI4nXCCsXed6NJW0UNU6 HPLmYTNoO0NuHD0eDHRq lYNdMYp0h4cqvFwtFQFc KKN0i3ukYOkojvLlEQ7j pi2rtAg0h8ouovCvRYUh SWRcbRGJGOJeI2XxvXqc Sj5dfGx2kYctNffiQRT1 Tvw6JQ1gmv92saa1qWmo AZBatwkgDyV4DBsjCAEe jvcnVYu9USrmBVLssPR3 WEAntXJdI8PpARBiJM8w jsq9RVE3LEusDZYmIkB6 NDBcaGVhZGVyeTcyMFxm i623MRP3LxDxGM0qM4Xq s2H0lJ4tzMRaBRWetODd EmSrZNYwku0hbVYnTRqx h3WxKJU4uvL5zFQruTAx QFBlVO94Hdken8YfGihk TDN1ESCkupQae4Xmw4bj HtUokyYaJ6pbH8VjNPTx QEMtOCTiRkYinfSym8Fz n0YfoGCfxHl9q1nxGGKr OLSizJpmo8ciNME9RAGj P3Y6fAZlz0xmAXjaCUWa iRN5eiU8JMNwfHBmY6Gx oG9yCBFcLO3ujry0o1qe BVJ2SOsnOZWuXfC5xeH9 NDBcaGVhZGVyeTcyMFxm f881NMD1AlWvBAOpc8Qi A0BkcJrqH77teVnrE99a DGCjlAuzpA9pwZlckO0m ZjBcZnMyNFxxbFxwbGFp oqpmMYhbraR9OBdwbhze VGMrKWdnR8rrSeImPLEc sJdxNGdqm3SpFKPfAAWb WobsqyW3GLDZi25tTXWg u0VmNIErrD3bqQWlDExg hdAizWM8GQvgjnMmFsUm oaChTRAeeU6oETLdQN6t MUYjosZpwd5cjwPwSHWe RRBwV0BtufsbhWdctqJt KFAyut8ozhNtZKP6XQDX ZK6XLWThZNJys38kNBHc bVwkwV7vzWTlygRaBYBc b3VaoL3nkMSDJKAaS3ba JU9fWRsij1OiwADnaSEl tRP6ERExg0YyZdYvzoJx gAFkwMVtM0MpwSubL9nr AHWaYGEksrSqzNSoq5Kh NSEvwWS0pFIdNB3FAdMN l59qHVBeCSOOebMjFVXj tVnmqLO2dhB0fN1dBgGB ZiBhcHBsaWNhYmxlLCBj u387dp1aueC6NENiCCNr jmvjn2ClXMQwWKSakC58 KGFjDLKoqd4tklmuaEMj mpVxQ8Xhyxy7pQ6fIDRv YWluXGYxXGZzMjJcbGFu ZzEwMzNcaGljaFxmMVxk PlHaZHPbVEcpD2nnOmAi ZnMyMlxwYXJ9 MD [facility] Breast Bilateral with and without Contrast incl [id number] 18:50:18 Test Item Value Reference Interpretation Comments Range IMP (test code = Unifocal left breast IMP) malignancy measuring 3.2 cm in maximal dimension. Nodominant adenopathy. Scattered benign fibrocystic type changes noted in both breasts. BI-RADS Category 6:Known Biopsy Proven Malignancy PXN (test code = Interface, Radiology PXN) Results In - 01/11/2020 1:50 PM CDTCLINICAL INDICATION: 74-year-old female recently diagnosed with left breastcancer FILMS COMPAREDThe present examination has been compared to a prior imaging study performed [facility] on 01/05/2020. EXAMINATION:MRI BREAST BILATERAL W WO CONTRAST INCL CAD, Amarilis Basins TECHNIQUE:Multiplanar, multisequence breast MRI was performed before and after theadministration of 8 mL of Gadavist contrast intravenously per protocol. Thefollowing sequences were obtained: Axial noncontrast T1-W, axial T1-W fat satdynamic pre/post contrast, sagittal T1-W fat sat post contrast, axialT2-weighted fat sat, axial DWI with ADC mapping. Serial subtraction images weregenerated during post-processing. DynaCAD was used for kinetic assessment. BACKGROUND ENHANCEMENT: There is mild early background parenchymal enhancement. The the breast is composed of heterogeneous fibroglandular tissue. MRI FINDINGS: The known malignancy in the left breast at 9-10 o'clock, 4 cm from thenipple appears as an irregular lobulated mass with marked homogeneousenhancement and washout kinetics and in situ clip marker measuring 3.2 x 2.7 x2.0 cm (se 5-55 and [id number]). The palpable mass appears to be roughly 0.5 cmdeep to the adjacent overlying medial skin. There is no abnormal MRI correlate for the possible sonographic area ofdistortion described in the left 1 o'clock position, 8 cm from the nipple thatunderwent equivocal ultrasound-guided FNA biopsy. There are scattered foci of progressive enhancement with corresponding K7wykdghpqtegcau noted in both breasts in keeping with benign fibrocystic typechange. A circumscribed oval mass is noted in the right breast at 9 o'clock, 5 cm fromthe nipple and is most consistent with a benign fibroadenoma-like lesion. The visualized axillary and internal mammary amarilis basins are within normallimits. The visualized bones and upper abdomen are unremarkable. IMPRESSION: Unifocal left breast malignancy measuring 3.2 cm in maximal dimension. Nodominant adenopathy. Scattered benign fibrocystic type changes noted in both breasts. BI-RADS Category 6:Known Biopsy Proven Malignancy Lab Interpretation Abnormal (test code = 04123-8) MD Jones US Breast [id number] 12:15:39Study acquired at another institution. For comparison only. No [facility] originated interpretation requested or available.MD Jones US [id number] 12:15:13Study acquired at another institution. For comparison only. No [facility] originated interpretationrequested or available.MD Jones [id number] 12:14:20 Study acquired at another institution. For comparison only. No [facility] originated interpretationrequested or available.MD [facility] Guided Axillary Lymph Node FNA - [id number] 22:33:58Addendum by Kimberly Love MD on 01/08/2020 9:25 AMADDENDED REPORT 01/08/2020 at 09:20:21 Addendum: Final pathology benign as follows: Left Breast 1:00, Fine Needle Asp, :Limited by scant cellularity. No malignantcells identified (See comment)Scant fibroadipose tissueonly tissue only.- Lymph node, left axillary level I, fine needle aspiration:Negative for metastaticcarcinomaLymphoid tissue present. Both results are concordant. Given the multiple bilateral breast masses onstaging ultrasound and the limited cellularity of the left 1:00 lesion, breastMRI would be helpful to ascertain the need for any additional necessary biopsies. This is concordant with imaging. Technically successful ultrasound guided biopsy of the left breast. An addendumwill be issued oncethe final pathology result is available and reviewed. The patients clinical history was reviewed in detail. On the basis of availableclinical data, the procedure noted above is Urgent/Elective-Urgent. Theprocedure is immediately medically necessary as the risk for cancer progressionor deteriorationis significant if not performed immediately or significantlydelayed. The resulting decline in the patients health could make the patientmore vulnerable to COVID-19 and other issues. Interface, Radiology Results In - 01/05/2020 5:34 PM CDTExamination: Left Axilla and Breast Ultrasound Guided Needle Biopsy, 01/05/2020. Clinical History: 74 year-old woman with an abnormal breast ultrasoundpresenting for biopsy. Indication: Suspicious finding(s) on recent breast ultrasound. Comparison: Mammogram from 01/05/2020. Breast Ultrasound from 01/05/2020. Technique: Ultrasound imaging of the left breast was performed. The skin of thebreast(s) was cleansed with chlorhexidine. Local anesthesia was achieved witha total of 8ml 1% Lidocaine with Bicarbonate Procedure: The procedure and its risks, benefits,and alternatives wereexplained in detail to the patient, who agreed to proceed and signed an informedconsent form. All questions were answered. The patient was brought to the ultrasound suite, and was placed supine on thetable. Site 1: The lesion in question was identified in the left axillary level Iregion. The biopsy needle was advanced to the targeted lesion. Biopsy wasperformed with a 21-gauge needle, and 2 passes were made. Immediatecytopathology assessment was performed, and the specimen was deemed adequate fordiagnosis. Preliminary cytology result is benign. Site 2: The lesion in question was identified in the left breast at 1 o'akmjw3on from the nipple. Immediate cytopathology assessment was performed, and thespecimen was deemed adequate for diagnosis. Preliminary cytology result lacksepithelial components but without evidence of malignancy. This was discussedwith the patient with option to proceed with core biopsy versus furtherevaluation with MRI. The latter is recommended given the multiple benignappearing but solid masses seen on today's imaging. The estimated blood loss for theprocedure was minimal. The patient toleratedthe procedure well without immediate complications and left the department ingood condition. IMPRESSION: Technically successful ultrasound guided biopsy of the left breast. An addendumwill be issued once the final pathology result is available and reviewed.The patients clinical history was reviewed in detail. On the basis of availableclinical data, theprocedure noted above is Urgent/Elective-Urgent. Theprocedure is immediately medically necessary as the risk for cancer progressionor deterioration is significant if not performed immediately or signifi cantlydelayed. The resulting decline in the patients health could make the patientmore vulnerableto COVID-19 and other issues.MD [facility] Breast FNA - [id number] 22:33:58Addendum by Kimberly Love MD on 01/08/2020 9:25 AMADDENDED REPORT 01/08/2020 at 09:20:21 Addendum: Final pathology benign as follows: Left Breast 1:00, Fine Needle Asp, :Limited by scant cellularity. No malignantcells identified (See comment)Scant fibroadipose tissueonly tissue only.- Lymph node, left axillary level I, fine needle aspiration:Negative for metastaticcarcinomaLymphoid tissue present. Both results are concordant. Given the multiple bilateral breast masses onstaging ultrasound and the limited cellularity of the left 1:00 lesion, breastMRI would be helpful to ascertain the need for any additional necessary biopsies. This is concordant with imaging. Technically successful ultrasound guided biopsy of the left breast. An addendumwill be issued oncethe final pathology result is available and reviewed. The patients clinical history was reviewed in detail. On the basis of availableclinical data, the procedure noted above is Urgent/Elective-Urgent. Theprocedure is immediately medically necessary as the risk for cancer progressionor deteriorationis significant if not performed immediately or significantlydelayed. The resulting decline in the patients health could make the patientmore vulnerable to COVID-19 and other issues. Interface, Radiology Results In - 01/05/2020 5:34 PM CDTExamination: Left Axilla and Breast Ultrasound Guided Needle Biopsy, 01/05/2020. Clinical History: 74 year-old woman with an abnormal breast ultrasoundpresenting for biopsy. Indication: Suspicious finding(s) on recent breast ultrasound. Comparison: Mammogram from 01/05/2020. Breast Ultrasound from 01/05/2020. Technique: Ultrasound imaging of the left breast was performed. The skin of thebreast(s) was cleansed with chlorhexidine. Local anesthesia was achieved witha total of 8ml 1% Lidocaine with Bicarbonate Procedure: The procedure and its risks, benefits,and alternatives wereexplained in detail to the patient, who agreed to proceed and signed an informedconsent form. All questions were answered. The patient was brought to the ultrasound suite, and was placed supine on thetable. Site 1: The lesion in question was identified in the left axillary level Ir egion. The biopsy needle was advanced to the targeted lesion. Biopsy wasperformed with a 21-gauge needle, and 2 passes were made. Immediatecytopathology assessment was performed, and the specimen was deemed adequate fordiagnosis. Preliminary cytology result is benign. Site 2: The lesion in question was identified in the left breast at 1 o'kroou8qe from the nipple. Immediate cytopathology assessment was performed, and thespecimen was deemed adequate for diagnosis. Preliminary cytology result lacksepithelial components but without evidence of malignancy. This was discussedwith the patient with option to proceed with core biopsy versus furtherevaluation with MRI. The latter is recommended given the multiple benignappearing but solid masses seen on today's imaging. The estimated blood loss for theprocedure was minimal. The patient toleratedthe procedure well without immediate complications and left the department ingood condition. IMPRESSION: Technically successful ultrasound guided biopsy of the left breast. An addendumwill be issued once the final pathology result is available and reviewed.The patients clinical history was reviewed in detail. On the basis of availableclinical data, theprocedure noted above is Urgent/Elective-Urgent. Theprocedure is immediately medically necessary as the risk for cancer progressionor deterioration is significant if not performed immediately or signifi cantlydelayed. The resulting decline in the patients health could make the patientmore vulnerableto COVID-19 and other issues.MD [facility] Breast Complete - [id number] 22:29:43 Test Item Value Reference Range Interpretation Comments IMP (test code = IMP) 1: Mass in the left breast inner hemisphere at 9 to 10 o'clock located 4centimeters from the nipple is known biopsy-proven malignancy. 2: Subtle area in the left breast upper outer quadrant at 1 o'clock located 8centimeters from the nipple requires additional imaging evaluation. A breast MRIis recommended given there are multiple bilateral masses, including the stableright 10:00 breast mass, left 12:00 mass amongst many other masses. BI-RADS Category 0:Incomplete: Needs Additional Imaging Evaluation PXN (test code = PXN) Interface, Radiology Results In - 01/05/2020 5:32 PM CDTCLINICAL INDICATION:Patient is a 74 year old female and is seen for breast cancer, staging of a newleft 10:00 cancer per patient. Pathology was not available FILMS COMPAREDPrior imaging [facility] were reviewed. Images were obtained in multiple scanning planes. Real-time sonographic imaging of both breasts (including all 4 quadrants andretroareolar region) was performed. Real-time sonographic imaging of the leftregional amarilis basins including the axillary (level I,II,III) and internalmammary, supraclavicular, and low neck regions was performed. 1: There is a hypoechoic mass with microlobulated margins measuring 2.8 x 1.8 x1.6 centimeters in the left breast inner hemisphere at 9 to 10 o'clock located 4centimeters from the nipple consistent with the index carcinoma. The malignantmass with calcifications is between 4-5 cm on mammography versus 3 cm onultrasound. 2: There is an area of possible distortion in the left breast upper outerquadrant at 1 o'clock located 8 centimeters from the nipple. The finding wassubtle, better seen in the longitudinal plane. This was targeted for FNA biopsybut preliminary results were non-diagnostic. As there are multiple bilateral breast masses, MRI is recommended to evaluatethe need for any additional biopsies and as part of her local staging. One indeterminate prominent node was noted in level I axilla measuring 1.2 x1.0 x 0.5 cm. This was sampled with preliminary benign results. There is noabnormal lymph node at axillary level II, axillary level III, internal mammaryand supraclavicular regions. IMPRESSION:1: Mass in the left breast inner hemisphere at 9 to 10 o'clock located 4centimeters from the nipple is known biopsy-proven malignancy. 2: Subtle area in the left breast upper outer quadrant at 1 o'clock located 8centimeters from the nipple requires additional imaging evaluation. A breast MRIis recommended given there are multiple bilateral masses, including the stableright 10:00 breast mass, left 12:00 mass amongst many other masses. BI-RADS Category 0:Incomplete: Needs Additional Imaging Evaluation Lab Interpretation Abnormal (test code = 67480-3) MD Bolaños [id number] 22:29:43 Test Item Value Reference Range Interpretation Comments IMP (test code = IMP) 1: Mass in the left breast inner hemisphere at 9 to 10 o'clock located 4centimeters from the nipple is known biopsy-proven malignancy. 2: Subtle area in the left breast upper outer quadrant at 1 o'clock located 8centimeters from the nipple requires additional imaging evaluation. A breast MRIis recommended given there are multiple bilateral masses, including the stableright 10:00 breast mass, left 12:00 mass amongst many other masses. BI-RADS Category 0:Incomplete: Needs Additional Imaging Evaluation PXN (test code = PXN) Interface, Radiology Results In - 01/05/2020 5:32 PM CDTCLINICAL INDICATION:Patient is a 74 year old female and is seen for breast cancer, staging of a newleft 10:00 cancer per patient. Pathology was not available FILMS COMPAREDPrior imaging studies performed at [facility] on[facility] were reviewed. Images were obtained in multiple scanning planes. Real-time sonographic imaging of both breasts (including all 4 quadrants andretroareolar region) was performed. Real-time sonographic imaging of the leftregional amarilis basins including the axillary (level I,II,III) and internalmammary, supraclavicular, and low neck regions was performed. 1: There is a hypoechoic mass with microlobulated margins measuring 2.8 x 1.8 x1.6 centimeters in the left breast inner hemisphere at 9 to 10 o'clock located 4centimeters from the nipple consistent with the index carcinoma. The malignantmass with calcifications is between 4-5 cm on mammography versus 3 cm onultrasound. 2: There is an area of possible distortion in the left breast upper outerquadrant at 1 o'clock located 8 centimeters from the nipple. The finding wassubtle, better seen in the longitudinal plane. This was targeted for FNA biopsybut preliminary results were non-diagnostic. As there are multiple bilateral breast masses, MRI is recommended to evaluatethe need for any additional biopsies and as part of her local staging. One indeterminate prominent node was noted in level I axilla measuring 1.2 x1.0 x 0.5 cm. This was sampled with preliminary benign results. There is noabnormal lymph node at axillary level II, axillary level III, internal mammaryand supraclavicular regions. IMPRESSION:1: Mass in the left breast inner hemisphere at 9 to 10 o'clock located 4centimeters from the nipple is known biopsy-proven malignancy. 2: Subtle area in the left breast upper outer quadrant at 1 o'clock located 8centimeters from the nipple requires additional imaging evaluation. A breast MRIis recommended given there are multiple bilateral masses, including the stableright 10:00 breast mass, left 12:00 mass amongst many other masses. BI-RADS Category 0:Incomplete: Needs Additional Imaging Evaluation Lab Interpretation Abnormal (test code = 99451-7) MD [facility] Upper Extremity Limited [id number] 22:29:43 Test Item Value Reference Range Interpretation Comments IMP (test code = IMP) 1: Mass in the left breast inner hemisphere at 9 to 10 o'clock located 4centimeters from the nipple is known biopsy-proven malignancy. 2: Subtle area in the left breast upper outer quadrant at 1 o'clock located 8centimeters from the nipple requires additional imaging evaluation. A breast MRIis recommended given there are multiple bilateral masses, including the stableright 10:00 breast mass, left 12:00 mass amongst many other masses. BI-RADS Category 0:Incomplete: Needs Additional Imaging Evaluation PXN (test code = PXN) Interface, Radiology Results In - 01/05/2020 5:32 PM CDTCLINICAL INDICATION:Patient is a 74 year old female and is seen for breast cancer, staging of a newleft 10:00 cancer per patient. Pathology was not available FILMS COMPAREDPrior imaging studies performed at [facility] on01/05/2020 were reviewed. Images were obtained in multiple scanning planes. Real-time sonographic imaging of both breasts (including all 4 quadrants andretroareolar region) was performed. Real-time sonographic imaging of the leftregional amarilis basins including the axillary (level I,II,III) and internalmammary, supraclavicular, and low neck regions was performed. 1: There is a hypoechoic mass with microlobulated margins measuring 2.8 x 1.8 x1.6 centimeters in the left breast inner hemisphere at 9 to 10 o'clock located 4centimeters from the nipple consistent with the index carcinoma. The malignantmass with calcifications is between 4-5 cm on mammography versus 3 cm onultrasound. 2: There is an area of possible distortion in the left breast upper outerquadrant at 1 o'clock located 8 centimeters from the nipple. The finding wassubtle, better seen in the longitudinal plane. This was targeted for FNA biopsybut preliminary results were non-diagnostic. As there are multiple bilateral breast masses, MRI is recommended to evaluatethe need for any additional biopsies and as part of her local staging. One indeterminate prominent node was noted in level I axilla measuring 1.2 x1.0 x 0.5 cm. This was sampled with preliminary benign results. There is noabnormal lymph node at axillary level II, axillary level III, internal mammaryand supraclavicular regions. IMPRESSION:1: Mass in the left breast inner hemisphere at 9 to 10 o'clock located 4centimeters from the nipple is known biopsy-proven malignancy. 2: Subtle area in the left breast upper outer quadrant at 1 o'clock located 8centimeters from the nipple requires additional imaging evaluation. A breast MRIis recommended given there are multiple bilateral masses, including the stableright 10:00 breast mass, left 12:00 mass amongst many other masses. BI-RADS Category 0:Incomplete: Needs Additional Imaging Evaluation Lab Interpretation Abnormal (test code = 75645-7) [facility] B[facility] with [id number] 19:39:25 Test Item Value Reference Range Interpretation Comments IMP (test code = 1: Mass in the left IMP) breast upper inner quadrant at 10 o'clock located 6centimeters from the nipple is known biopsy-proven malignancy. 2: Post biopsy clip in the lateral region of the left breast is benign. 3: Stable mass in the right breast outer hemisphere at 9 to 10 o'clock isbenign. BI-RADS Category 6:Known Biopsy Proven Malignancy PXN (test code = Interface, Radiology PXN) Results In - 01/05/2020 2:39 PM CDTCLINICAL INDICATION:Patient is a 74 year old female and is seen for staging of a new left breastcancer MAMMO DIGITAL DIAGNOSTIC BILATERAL W TOMODigital Mammogram evaluated with Computer Aided Detection (CAD). COMPARISON:Prior imaging studies performed at an outside location on 01/05/2020, and at [facility] on 01/05/2020 were reviewed. FINDINGS:The breasts are heterogeneously dense, which may obscure small masses. 1: There is an obscured mass measuring 2.3 centimeters with associated postbiopsy clip in the left breast upper inner quadrant at 10 o'clock located 6centimeters from the nipple consistent with the index carcinoma. Pathologyreview has not been performed at [facility] and outside pathology report is notavailable however patient states this was malignant. 2: There is a biopsy clip in the lateral region of the left breast. Postbiopsy clip is benign per patient history. 3: There is a stable oval mass measuring 1.5 centimeters with circumscribedmargins and associated calcification in the right breast outer hemisphere at 9to 10 o'clock. Tomosynthesis performed in CC and MLO projections. IMPRESSION:1: Mass in the left breast upper inner quadrant at 10 o'clock located 6centimeters from the nipple is known biopsy-proven malignancy. 2: Post biopsy clip in the lateral region of the left breast is benign. 3: Stable mass in the right breast outer hemisphere at 9 to 10 o'clock isbenign. BI-RADS Category 6:Known Biopsy Proven Malignancy Lab Interpretation Abnormal (test code = 98478-6) MD Fair
[2020-06-19 16:41] LABS: Absolute Lymphocytes (CBC) 1.3 K/uL (0.7-4.9); Basophils % 0.3 % (0-1.3); Hematocrit 29.1 % (36.0-45.0); Lymphocytes % 7.8 % (15.3-44.8); MPV 6.4 fL (7.6-11.3); RBC Red Blood Cell Count 3.23 M/uL (3.86-4.86)
[2020-06-19] MEDS ORDERED: MORPHINE 4 MG/ML SYR ONE (16:54)
[2020-06-19] MEDS ORDERED: ONDANSETRON 4 MG/2 ML VIAL ONE (16:54)
[2020-06-19 16:57] LABS: ALT/SGPT 20 U/L (12-78); AST/SGOT 11 U/L (15-37); Alkaline Phosphatase 102 U/L (45-117); BUN Blood Urea Nitrogen 22 mg/dL (7-18); Bicarbonate 25 mmol/L (21-32); Bilirubin Direct < 0.1 mg/dL (0-0.2); Bilirubin Total 0.2 mg/dL (0.2-1.0); Glucose Level 97 mg/dL (74-106); Lipase 169 U/L (73-393); Potassium 3.5 mmol/L (3.5-5.1); Protein, Total 7.2 g/dL (6.4-8.2); Sodium Level 141 mmol/L (136-145)
--- NOTE | 2020-06-19 17:13 | RAD REPORT ---
EXAM DESCRIPTION: CT - Abdomen Pelvis W Contrast - 06/19/2020 4:49 pm CLINICAL HISTORY: Abdominal pain/left lower quadrant COMPARISON: none. TECHNIQUE: Computed axial tomography of the abdomen pelvis was obtained. 100 cc Isovue-300 was admin istered intravenously. Oral contrast was not requested which limits evaluation of bowel. All CT scans are performed using dose optimization technique as appropriate and may include automated exposure control or mA/KV adjustment according to patient size. FINDINGS: The liver, spleen, pancreas, adrenal and left kidney appear unremarkable. Small right andrew l cyst Cholecystectomy. Hysterectomy. Diverticula stem from the colon. A 2.4 x 1.2 centimeter low-density mass abuts distal sigmoid colon. There is mild stranding adjacent to sigmoid colon. IMPRESSION: 2.4 x 1.2 centimeter low-density mass abuts the sigmoid colon. This probably represents a small abscess secondary to diverticulitis. Probably less likely this represents a recurrence of ova zac neoplasm. Follow up imaging is recommended after treatment
--- NOTE | 2020-06-19 17:45 | ER ---
Nurse's Notes [facility] Name: Maddie Hamlin Age: 74 yrs Sex: Female : 1945 Arrival Date: 06/19/2020 Time: 15:34 Bed 2 Private MD: Diagnosis: Diverticulitis of large intestine with perforation and abscess Presentation: 06/19 16:03 Chief complaint: Patient states: LLQ abd pain for 5 days. Sent in by Dr. Rutherford, r/o ll1 diverticulitis. + nausea, no fever. Coronavirus screen: Client denies travel out of the [place] in the last 14 days. At this time, the client does not indicate any symptoms associated with coronavirus-19. Ebola Screen: Patient denies travel to an Ebola-affected area in the 21 days before illness onset. Initial Sepsis Screen: Does the patient meet any 2 criteria? HR > 90 bpm. No. Patient's initial sepsis screen is negative. Does the patient have a suspected source of infection? Yes: Acute abdominal pain. Risk Assessment: Do you want to hurt yourself or someone else? Patient reports no desire to harm self or others. Onset of symptoms was June 14, 2020. 16:03 Method Of Arrival: Ambulatory ll1 16:03 Acuity: SUE 3 ll1 Historical: - Allergies: 16:02 Codeine; ll1 16:02 Celecoxib; ll1 - PMHx: 16:02 breast CA-tumor removed, on chemo; Hypertension; Diabetes - IDDM; High Cholesterol; ll1 - PSHx: 16:02 Appendectomy; Cholecystectomy; Hysterectomy; bilateral knee repair; ll1 - Immunization history:: Flu vaccine is up to date. - Social history:: Smoking status: Patient denies any tobacco usage or history of. - Family history:: not pertinent. - Hospitalizations: : No recent hospitalization is reported. Screenin:38 Abuse screen: Denies threats or abuse. Denies injuries from another. Nutritional sv screening: No deficits noted. Tuberculosis screening: No symptoms or risk factors identified. Fall Risk None identified. Assessment: 16:39 General: Appears in no apparent distress. uncomfortable, well developed, Behavior is sv calm, cooperative, appropriate for age. Pain: Complains of pain in left lower quadrant Pain currently is 8 out of 10 on a pain scale. Neuro: Level of Consciousness is awake, alert, obeys commands, Oriented to person, place, time, situation, Moves all extremities. Full function Gait is steady. Respiratory: Airway is patent Respiratory effort is even, unlabored, Respiratory pattern is regular, symmetrical. GI: Abdomen is flat, Reports nausea. Derm: Skin is pink, warm \T\ dry. 17:18 Reassessment: Patient appears in no apparent distress at this time. Patient and/or hb family updated on plan of care and expected duration. Pain level reassessed. Patient is alert, oriented x 3, equal unlabored respirations, skin warm/dry/pink. 18:24 Reassessment: Patient appears in no apparent distress at this time. Patient and/or hb family updated on plan of care and expected duration. Pain level reassessed. Patient is alert, oriented x 3, equal unlabored respirations, skin warm/dry/pink. 19:15 Reassessment: Patient appears in no apparent distress at this time. Patient and/or wh family updated on plan of care and expected duration. Pain level reassessed. Patient is alert, oriented x 3, equal unlabored respirations, skin warm/dry/pink. 19:15 GI: Bowel sounds present X 4 quads. Abd is soft Abdomen is tender to palpation. wh 20:45 Reassessment: Patient appears in no apparent distress at this time. Patient and/or wh family updated on plan of care and expected duration. Pain level reassessed. Patient is alert, oriented x 3, equal unlabored respirations, skin warm/dry/pink. Vital Signs: 16:03 BP 163 / 69; Pulse 99; Resp 17; Temp 97.4; Pulse Ox 96% ; Weight 78.02 kg; Height 5 ft. ll1 1 in. (154.94 cm); Pain 8/10; 16:55 BP 115 / 44; Pulse 86; Resp 15; Pulse Ox 100% on R/A; Pain 3/10; hb 17:18 BP 99 / 63; Pulse 83; Resp 15; Pulse Ox 97% on R/A; hb 17:45 BP 128 / 84; Pulse 81; Resp 16; Pulse Ox 99% on R/A; hb 20:30 BP 123 / 52; Pulse 73; Resp 18; Pulse Ox 98% on R/A; wh 16:03 Body Mass Index 32.50 (78.02 kg, 154.94 cm) ll1 ED Course: 15:34 Patient arrived in ED. ds1 16:06 Triage completed. ll1 16:06 Arm band placed on. ll1 16:22 Juan A Obrien MD is Attending Physician. rn 16:30 Alie Don, BELKIS is Primary Nurse. sv 16:34 Inserted saline lock: 20 gauge in right antecubital area, using aseptic technique. hb Blood collected. 16:38 Patient has correct armband on for positive identification. Placed in gown. Bed in low sv position. Call light in reach. Pulse ox on. NIBP on. Door closed. Head of bed elevated. 16:49 CT Abd/Pelvis - IV Contrast Only In Process Unspecified. EDMS 16:54 Chely Washington RN is Primary Nurse. hb 17:44 Vita Case MD is Hospitalizing Provider. rn 19:14 Primary Nurse role handed off by Chely Washington, BELKIS mw2 20:00 No provider procedures requiring assistance completed. Patient admitted, IV remains in mg2 place. 20:55 Mendez Pierre RN is Primary Nurse. Administered Medications: 16:40 Drug: morphine 4 mg Route: IVP; Site: right antecubital; hb 17:18 Follow up: Response: No adverse reaction hb 16:40 Drug: Zofran (Ondansetron) 4 mg Route: IVP; Site: right antecubital; hb 17:18 Follow up: Response: No adverse reaction hb 17:44 Drug: Zosyn 3.375 grams Route: IVPB; Infused Over: 60 mins; Site: right antecubital; hb 20:57 Follow up: Response: No adverse reaction; IV Status: Completed infusion Outcome: 17:45 Decision to Hospitalize by Provider. rn 21:01 Admitted to Med/surg accompanied by tech, via wheelchair, room 231, with chart, Report called to Hang Montilla RN 21:01 Condition: stable 21:01 Instructed on the need for admit. 21:02 Patient left the ED. Signatures: Dispatcher [employer] EDNE Alie Don RN RN sv Sanford, Demi ds1 Juan A Obrien MD MD rn Baxter, Heather, RN RN Mendez Pierre RN RN Carlyn Stoll mw2 King Lee RN RN mg2 Grazyna Duatre, RN RN ll1
--- NOTE | 2020-06-19 17:45 | EDPHYS ---
Physician Documentation [facility] Name: Maddie Hamlin Age: 74 yrs Sex: Female : 1945 Arrival Date: 06/19/2020 Time: 15:34 Bed 2 Private MD: ED Physician Juan A Obrien HPI: 06/19 17:13 This 74 yrs old Female presents to ER via Ambulatory with complaints of rn Abdominal Pain - Sent by Dr Rutherford. 17:13 The patient presents with abdominal pain in the left lower quadrant. Onset: The rn symptoms/episode began/occurred 4 day(s) ago. The symptoms do not radiate. Associated signs and symptoms: Pertinent positives: constipation, nausea, Pertinent negatives: dysuria, fever. The symptoms are described as crampy. Modifying factors: The symptoms are alleviated by nothing, the symptoms are aggravated by touching the area. Severity of pain: At its worst the pain was moderate in the emergency department the pain is unchanged. The patient has experienced a previous episode. The patient has been recently seen by a physician:. Reports abd pain, LLQ, began 4 days ago, + nausea and constipation, no blood in stool, sent for evaluation of diverticulitis, has had before, states this time feels similar but not as bad as when had to be admitted to hospital. . Historical: - Allergies: 16:02 Codeine; ll1 16:02 Celecoxib; ll1 - PMHx: 16:02 breast CA-tumor removed, on chemo; Hypertension; Diabetes - IDDM; High Cholesterol; ll1 - PSHx: 16:02 Appendectomy; Cholecystectomy; Hysterectomy; bilateral knee repair; ll1 - Immunization history:: Flu vaccine is up to date. - Social history:: Smoking status: Patient denies any tobacco usage or history of. - Family history:: not pertinent. - Hospitalizations: : No recent hospitalization is reported. ROS: 17:13 Constitutional: Negative for fever, chills, and weight loss, Eyes: Negative for injury, rn pain, redness, and discharge, Neck: Negative for injury, pain, and swelling, Cardiovascular: Negative for chest pain, palpitations, and edema, Respiratory: Negative for shortness of breath, cough, wheezing, and pleuritic chest pain, Abdomen/GI: + abd pain/nausea/constipation. Back: Negative for injury and pain, : Negative for injury, bleeding, discharge, and swelling, MS/Extremity: Negative for injury and deformity, Skin: Negative for injury, rash, and discoloration, Neuro: Negative for headache, weakness, numbness, tingling, and seizure. 17:13 All other systems are negative. Exam: 17:13 Constitutional: This is a well developed, well nourished patient who is awake, alert, rn and in no acute distress. Head/Face: Normocephalic, atraumatic. Cardiovascular: Regular rate and rhythm. No pulse deficits. Respiratory: No increased work of breathing, no retractions or nasal flaring. Abdomen/GI: soft, + tender LLQ and LUQ, no rebound or peritoneal signs. Skin: Warm, dry MS/ Extremity: Pulses equal, no cyanosis. Neuro: Awake and alert, GCS 15, oriented to person, place, time, and situation. Cranial nerves II-XII grossly intact. Motor strength 5/5 in all extremities. Sensory grossly intact. Cerebellar exam normal. Normal gait. Vital Signs: 16:03 BP 163 / 69; Pulse 99; Resp 17; Temp 97.4; Pulse Ox 96% ; Weight 78.02 kg; Height 5 ft. ll1 1 in. (154.94 cm); Pain 8/10; 16:55 BP 115 / 44; Pulse 86; Resp 15; Pulse Ox 100% on R/A; Pain 3/10; hb 17:18 BP 99 / 63; Pulse 83; Resp 15; Pulse Ox 97% on R/A; hb 17:45 BP 128 / 84; Pulse 81; Resp 16; Pulse Ox 99% on R/A; hb 20:30 BP 123 / 52; Pulse 73; Resp 18; Pulse Ox 98% on R/A; wh 16:03 Body Mass Index 32.50 (78.02 kg, 154.94 cm) ll1 MDM: 16:22 Patient medically screened. rn 17:41 Differential diagnosis: diverticulitis, perforation, abscess. Data reviewed: vital rn signs, nurses notes, lab test result(s), radiologic studies, CT scan, and as a result, I will admit patient. Counseling: I had a detailed discussion with the patient and/or guardian regarding: the historical points, exam findings, and any diagnostic results supporting the discharge/admit diagnosis, lab results, radiology results, the need for further work-up and treatment in the hospital. Response to treatment: the patient's symptoms have mildly improved after treatment, and as a result, I will admit patient. Admission orders: after a detailed discussion of the patient's condition and case, the admit orders are written by me. ED course: Consulted Dr. Beverly, will admit to Dr. Case, cover with Valdemar, and he will eval patient. . 06/19 16:23 Order name: Basic Metabolic Panel; Complete Time: 17:13 rn 06/19 16:23 Order name: CBC with Diff rn 06/19 16:23 Order name: Hepatic Function; Complete Time: 17:13 rn 06/19 16:23 Order name: Lipase; Complete Time: 17:13 rn 06/19 18:51 Order name: CBC Smear Scan EDOH 06/19 16:23 Order name: CT Abd/Pelvis - IV Contrast Only; Complete Time: 17:16 rn 06/19 18:58 Order name: SARS-COV-2 RT PCR EDOH 06/19 19:28 Order name: CBC with Automated Diff EDOH 06/19 19:28 Order name: CBC with Automated Diff EDOH 06/19 19:28 Order name: Comprehensive Metabolic Panel EDOH 06/19 19:28 Order name: Comprehensive Metabolic Panel EDOH 06/19 19:28 Order name: Urinalysis EDOH 06/19 20:15 Order name: Glucose, Ancillary Testing EDOH 06/19 16:23 Order name: IV Saline Lock; Complete Time: 16:40 rn 06/19 16:23 Order name: Labs collected and sent; Complete Time: 16:40 rn 06/19 17:41 Order name: NPO; Complete Time: 17:47 rn 06/19 19:06 Order name: CONS Physician Consult EDOH 06/19 19:28 Order name: NPO EDOH Administered Medications: 16:40 Drug: morphine 4 mg Route: IVP; Site: right antecubital; hb 17:18 Follow up: Response: No adverse reaction hb 16:40 Drug: Zofran (Ondansetron) 4 mg Route: IVP; Site: right antecubital; hb 17:18 Follow up: Response: No adverse reaction hb 17:44 Drug: Zosyn 3.375 grams Route: IVPB; Infused Over: 60 mins; Site: right antecubital; hb 20:57 Follow up: Response: No adverse reaction; IV Status: Completed infusion Disposition: 06/19/20 17:45 Hospitalization ordered by Vita Case for Inpatient Admission. Preliminary diagnosis is Diverticulitis of large intestine with perforation and abscess. - Bed requested for Telemetry/MedSurg (Inpatient). - Status is Inpatient Admission. - Condition is Stable. - Problem is new. - Symptoms are unchanged. Signatures: Dispatcher [employer] EDOH Juan A Obrien MD MD rn Garcia, Cindy RN RN Chely Washington RN RN Mendez Pierre, RN BELKIS Grazyna Duarte, RN RN ll1 Corrections: (The following items were deleted from the chart) 18:17 17:27 CORONAVIRUS+MR.LAB.BRZ ordered. [facility] 19:56 17:45 Hospitalization Ordered by Vita Case MD for Inpatient Admission. Preliminary cg diagnosis is Diverticulitis of large intestine with perforation and abscess. Bed requested for Telemetry/MedSurg (Inpatient). Status is Inpatient Admission. Condition is Stable. Problem is new. Symptoms are unchanged. rn 21:02 19:56 06/19/2020 17:45 Hospitalization Ordered by Vita Case MD for Inpatient Admission. Preliminary diagnosis is Diverticulitis of large intestine with perforation and abscess. Bed requested for Telemetry/MedSurg (Inpatient). Status is Inpatient Admission. Condition is Stable. Problem is new. Symptoms are unchanged.
[2020-06-19] MEDS ORDERED: PIPER/TAZO/NS 3.375gm 3.375 GM/100 ML BAG ONE (17:49)
[2020-06-19 18:51] LABS: Anisocytosis 1+; Blood Morphology Comment NOTED (NOT SEEN); Platelet Estimate INCR; White Blood Cell Scan OK (OK)
[2020-06-19 18:52] LABS: Poikilocytosis 1+
[2020-06-19] MEDS ORDERED: ONDANSETRON 4 MG/2 ML VIAL IV PRN (19:27)
[2020-06-19] MEDS ORDERED: D50W 25 GM/50 ML SYRINGE IV ONE ×2 (20:07→20:23)
[2020-06-19] MEDS ORDERED: MORPHINE 2 MG/ML SYR ONE (20:19)
[2020-06-19] MEDS: MORPHINE 2 MG/ML SYR IV PRN (20:37)
[2020-06-19] MEDS ORDERED: INSULIN -REGULAR HUMAN 50 UNIT/0.5 ML ML SQ SCH (21:00)
--- NOTE | 2020-06-19 22:19 | P.HP ---
Certification for Inpatient Patient admitted to: Inpatient With expected LOS: >2 Midnights Patient will require the following post-hospital care: None Practitioner: I am a practitioner with admitting privileges, knowledge of patient current condition, hospital course, and medical plan of care. Services: Services provided to patient in accordance with Admission requirements found in Title 42 Section 412.3 of the Code of Federal Regulations <Kristopher Sherman - Last Filed: 06/20/20 06:05> Patient History Date of Service: 06/20/20 Reason for admission: diverticulitis History of Present Illness: Ms. Hamlin is a 74 yo female with breast cancer currently receiving chemo s/p lumpectomy, h/o bilateral oophorectomy, HTN, HLD, and DM here today with 8/10 sharp crampy LLQ abdominal pain since Friday. Pain is worse with trying to have a BM, mildly relieved with Tums and pepcid. No BM since Friday. She reports bloating, constipation, chills, and nausea. She denies fever, night sweats, hematuria, hematochezia, melena, diarrhea. She saw Dr. Brown on Friday was prescribed Zithromax to treat a UTI, with initial symptoms of dysuria, polyuria, and nocturia that have improved but not resolved with Zithromax. She saw Dr. Brown again this morning and he sent her to the ED for suspected diverticulitis. She reports she had diverticulitis 15-20 years ago and was treated with IV antibiotics. WBC 16.7. Hgb/Hct 9.7/29.1. Plt 551. CT scan shows 2.4 x 1.2 cm low-density mass abuts the sigmoid colon, probably represents a small abscess 2/2 diverticulitis. Started receiving chemotherapy for breast cancer in March, last dose was 2 weeks ago with next dose scheduled for 06/26/20. - Past Medical/Surgical History Diabetic: Yes -: diabetes -: htn -: osteoarthritis -: hld -: breast cancer -: h/o ovarian cancer -: rashard cataract surgery -: appendectomy as child -: cholecystectomy age 30 -: both knees minescectomy -: bilateral oophorectomy -: tonsillectomy -: lumpectomy - Family History Father -: Heart disease, Diabetes, Stroke Notes: mom diabetic and hx cancer Mother -: Diabetes - Social History Smoking Status: Former smoker Alcohol use: No CD- Drugs: No Caffeine use: No Place of Residence: Home <Kristopher Sherman Rosa - Last Filed: 06/20/20 06:05> Date of Service: 06/19/20 <EvieLucilajeff Lemus - Last Filed: 06/23/20 07:44> Allergies celecoxib [From Celebrex] Allergy (Verified 03/03/19 09:34) Anaphylaxis codeine Adverse Reaction (Verified 03/03/19 09:34) Nausea/Vomiting Home Medications: Metformin HCl [Glucophage] 500 mg PO BID 02/13/15 Multivitamin [Multivitamins] 1 each PO DAILY 02/13/15 Evolocumab [Repatha Sureclick] 140 mg SQ ONCE 03/03/19 Lisinopril/Hydrochlorothiazide [Lisinopril-Hctz 20-12.5 mg Tab] 1 each PO [id number] 03/03/19 Review of Systems General: Chills, As per HPI Eyes: Unremarkable ENT: Unremarkable Respiratory: Unremarkable Cardiovascular: Unremarkable Gastrointestinal: Nausea, Abdominal Pain, Constipation, As per HPI Genitourinary: As per HPI Musculoskeletal: Unremarkable Integumentary: Unremarkable Neurological: Unremarkable Lymphatics: Unremarkable <Kristopher Sherman Rosa - Last Filed: 06/20/20 06:05> Physical Examination - Vital Signs Temperature: 97.4 F Blood Pressure: 123/52 Pulse: 73 Respirations: 18 Pulse Ox (%): 96 - Physical Exam General: Alert, In no apparent distress, Oriented x3, Cooperative HEENT: Atraumatic, Normocephalic, PERRLA, Mucous membr. moist/pink, EOMI, Sclerae nonicteric Neck: Supple, 2+ carotid pulse no bruit, JVD not distended, No Thyromegaly, No LAD Respiratory: Clear to auscultation bilaterally, Normal air movement Cardiovascular: No edema, Normal pulses, Regular rate/rhythm, Normal S1 S2, No gallops, No rubs, No murmurs Capillary refill: <2 Seconds Gastrointestinal: Normal bowel sounds, Soft and benign, Non-distended, No ascites, No masses, No rebound, No guarding, Tenderness Musculoskeletal: No clubbing, No swelling, No contractures, No erythema, No tenderness, No warmth Integumentary: No rashes, No breakdown, No significant lesion, No tenderness/swelling, No erythema, No warmth, No cyanosis Neurological: Normal speech, Normal strength at 5/5 x4 extr, Normal tone, Sensation intact, Cranial nerves 3-12 intact, Normal affect Lymphatics: No axilla or inguinal lymphadenopathy - Studies Laboratory Data (last 24 hrs) 06/19/20 16:34: WBC 16.70 H, Hgb 9.7 L, Hct 29.1 L, Plt Count 551 H 06/19/20 16:34: Sodium 141, Potassium 3.5, BUN 22 H, Creatinine 1.17, Glucose 97, Total Bilirubin 0.2, AST 11 L, ALT 20, Alkaline Phosphatase 102, Lipase 169 <Kristopher Sherman - Last Filed: 06/20/20 06:05> Assessment and Plan - Problems (Diagnosis) (1) Diverticulitis Current Visit: Yes Status: Acute Plan: - surgery consulted - currently NPO, receiving IVF, morphine for pain management - continue with Zosyn (2) Essential (primary) hypertension Current Visit: Yes Status: Chronic Plan: stable, continue with home medications (3) Hyperlipidemia Current Visit: Yes Status: Chronic Plan: stable. on Repatha injections Qualifiers: Hyperlipidemia type: unspecified Qualified Code(s): E78.5 - Hyperlipidemia, unspecified (4) Type 2 diabetes mellitus Current Visit: Yes Status: Chronic Plan: on insulin at home. currently NPO with sliding scale to be started when diet resumes. one episode of hypoglycemia to 63, corrected with 12.5gm of D50. Qualifiers: Diabetes mellitus watermaster insulin use: with watermaster use Diabetes mellitus complication status: with kidney complications Diabetes mellitus complication detail: with chronic kidney disease Chronic kidney disease stage: stage 3 (moderate) Chronic kidney disease stage 3 subtype: stage 3a (GFR 45- 59) Qualified Code(s): E11.22 - Type 2 diabetes mellitus with diabetic chronic kidney disease; N18.31 - Chronic kidney disease, stage 3a; Z79.4 - watermaster (current) use of insulin (5) Breast cancer Current Visit: Yes Status: Chronic Plan: patient s/p lumpectomy. started chemo in March. received 3rd dose 2 weeks ago. next dose schedule for 06/26. Hgb 9.7, MCV 90, may be secondary to chemo, will continue to monitor. Qualifiers: Breast location: unspecified site of breast Estrogen receptor status: unspecified Patient sex: female Laterality: unspecified laterality Qualified Code(s): C50.919 - Malignant neoplasm of unspecified site of unspecified female breast Discharge Plan: Home Plan to discharge in: 48 Hours - Advance Directives Does patient have a Living Will: No Does patient have a Durable POA for Healthcare: No - Code Status/Comfort Care Code Status Assessed: Yes (full code) Critical Care: No Time Spent Managing Pts Care (In Minutes): 70 <Kristopher Sherman - Last Filed: 06/20/20 06:05> - Problems (Diagnosis) (1) Diverticular disease of intestine with perforation and abscess Current Visit: Yes Status: Acute (2) Essential (primary) hypertension Current Visit: Yes Status: Chronic (3) Hyperlipidemia Current Visit: Yes Status: Chronic Qualifiers: Hyperlipidemia type: unspecified Qualified Code(s): E78.5 - Hyperlipidemia, unspecified (4) Type 2 diabetes mellitus Current Visit: Yes Status: Chronic Qualifiers: Diabetes mellitus nursing home insulin use: with watermaster use Diabetes mellitus complication status: with kidney complications Diabetes mellitus complication detail: with chronic kidney disease Chronic kidney disease stage: stage 3 (moderate) Chronic kidney disease stage 3 subtype: stage 3a (GFR 45- 59) Qualified Code(s): E11.22 - Type 2 diabetes mellitus with diabetic chronic kidney disease; N18.31 - Chronic kidney disease, stage 3a; Z79.4 - assisted (current) use of insulin <Vita Case - Last Filed: 06/23/20 07:44> Date of Service: 06/20/20 Patient is clinically doing well. No significant pain except on examination. Continue with IV antibiotic therapy. General surgery consultation appreciated. <Vita Case - Last Filed: 06/23/20 07:44>
[2020-06-19 22:24] VITALS: BMI 32.3
[2020-06-19] MEDS: NA CHLORIDE 0.9% 1,000 ML IV SCH (22:53)
[2020-06-19 23:22] LABS: Urine Appearance CLEAR; Urine Bilirubin NEGATIVE (NEG); Urine Blood NEGATIVE (NEG); Urine Color YELLOW; Urine Glucose NEGATIVE (NEG); Urine Protein NEGATIVE (NEG); Urine Specific Gravity >=1.030 (1.005-1.030); Urine Urobilinogen 0.2 mg/dL (0.2-1.0)
[2020-06-19 23:26] LABS: Urine Microscopic Reflex NO UMIC
[2020-06-19] MEDS: ACETAMINOPHEN 500 MG TAB PO PRN (23:48)
[2020-06-20] MEDS: PIPER/TAZO/NS 3.375gm 3.375 GM/100 ML BAG IVPB SCH ×3 (01:13→17:42)
[2020-06-20] MEDS ORDERED: PIPER/TAZO/NS 3.375gm 3.375 GM/100 ML BAG ONE (01:24)
[2020-06-20 05:47] LABS: Absolute Lymphocytes (CBC) 1.1 K/uL (0.7-4.9); Basophils % 0.5 % (0-1.3); Hematocrit 25.5 % (36.0-45.0); Lymphocytes % 9.3 % (15.3-44.8); MPV 6.5 fL (7.6-11.3); RBC Red Blood Cell Count 2.82 M/uL (3.86-4.86)
[2020-06-20] MEDS ORDERED: INFLUENZA VACCINE (for 3y+) 0.5 ML DOSE IMVAC ONE (06:00)
[2020-06-20] MEDS: INSULIN -REGULAR HUMAN 50 UNIT/0.5 ML ML SQ SCH ×3 (06:00→18:00)
[2020-06-20 06:20] LABS: Albumin 2.6 g/dL (3.4-5.0); Bilirubin Total 0.3 mg/dL (0.2-1.0); Potassium 3.8 mmol/L (3.5-5.1); Protein, Total 6.4 g/dL (6.4-8.2)
[2020-06-20 06:40] LABS: Blood Morphology Comment NOT SEEN (NOT SEEN); Platelet Estimate INCR
[2020-06-20] MEDS ORDERED: KCL 20 MEQ/100 mL IVPB 20 MEQ/100 ML BAG IV SCH (09:00)
[2020-06-20] MEDS: MORPHINE 2 MG/ML SYR IV PRN ×3 (09:45→21:04)
[2020-06-20] MEDS: ACETAMINOPHEN 500 MG TAB PO PRN (12:16)
[2020-06-20] MEDS: NA CHLORIDE 0.9% 1,000 ML IV SCH ×2 (16:07→22:11)
[2020-06-21] MEDS: PIPER/TAZO/NS 3.375gm 3.375 GM/100 ML BAG IVPB SCH ×3 (00:48→17:56)
[2020-06-21] MEDS: MORPHINE 2 MG/ML SYR IV PRN ×3 (00:49→12:57)
[2020-06-21] MEDS: INSULIN -REGULAR HUMAN 50 UNIT/0.5 ML ML SQ SCH ×4 (06:00→18:00)
[2020-06-21] MEDS: HEPARIN 5000 UNIT/ML 1 ML VIAL SQ SCH ×2 (08:07→17:56)
[2020-06-21] MEDS: NA CHLORIDE 0.9% 1,000 ML IV SCH ×3 (08:07→23:21)
[2020-06-21] MEDS: HYDROCODONE/APAP 5/325 MG TAB PO PRN ×3 (09:51→21:20)
[2020-06-21 09:59] LABS: Absolute Lymphocytes (CBC) 0.9 K/uL (0.7-4.9); Basophils % 0.3 % (0-1.3); Hematocrit 24.7 % (36.0-45.0); Lymphocytes % 5.9 % (15.3-44.8); MPV 6.3 fL (7.6-11.3); RBC Red Blood Cell Count 2.74 M/uL (3.86-4.86)
--- NOTE | 2020-06-21 10:57 | CON ---
Date of Consultation: 06/21/2020 Brief History Of Present Illness: The patient is a 74-year-old female with a history of breast cance r, currently undergoing chemotherapy, status post lumpectomy at [facility], and she has had a histor y of bilateral oophorectomy, hypertension, hyperlipidemia, diabetes, who presents with 8/10 sharp carpenter cradle and dolly mpy abdominal pain, beginning on [place]. She is worse with having bowel movements. She does have a history of ovarian cancer status post resection at [facility] as well. She denies fever, night swea ts. She did have some bloating. She continues to pass gas from her bottom. She has some nausea, bu t no vomiting. Her abdominal pain is improved since being brought to the hospital. She was started on a Z-Mark as an outpatient. Her last chemotherapy dose was 2 weeks prior. Past Medical History: Significant for diabetes, hypertension, osteoarthritis, hyperlipidemia, breast cancer, ovarian cancer. Past Surgical History: Includes cataract surgery, appendectomy, cholecystectomy, knee surgery, bilat eral oophorectomy, tonsillectomy, and breast lumpectomy. Allergies: TO CELEBREX AND CODEINE. Home Medications: Include Amaryl, Levemir, Glucophage, multivitamin, Repatha, lisinopril, Ultram, No rco. Family History: She has a family history of heart disease, stroke, diabetes in her father. Her moth er had diabetes. Social History: She has a former smoking history. She denies alcohol or recreational drug use. Review of Systems: Ten-point review of systems other than HPI, denies. Physical Examination: Vital Signs: At the time of my examination and date of my service was 06/20/2020; her blood pressure at the time of my examination was 139/63, heart rate was 85, respiratory rate 18, temperature 98.0. She had no pain during my examination. SpO2 98% on room air. General: She is awake, alert, oriented. Psychiatric: Appropriate. Conversive. HEENT: Normocephalic. Sclerae anicteric. Mucous membranes are moist. Oropharynx clear. Neck: Supple without JVD. Chest: Normal expansion and excursion. Cardiovascular: Regular rate and rhythm. Pulmonary: Clear to auscultation bilaterally. Abdomen: Soft with mild left lower quadrant tenderness to palpation. No rebound. No guarding. No focal peritonitis. Laboratory Data: Revealed white blood count of 11.5, hemoglobin was 8.5, hematocrit 25.5, platelet c ount was 500. Her neutrophils were 80%. Her sodium 142, potassium 3.9, chloride 109, carbon dioxide 26, BUN 20, creatinine 1.1, glucose was 85. Her calcium was 8.6, total bilirubin 0.3, AST 13, ALT 1 6, alkaline phosphatase 80. Her lipase is 169 on admission. UA was essentially negative. She had i parish performed, which included a CT abdomen and pelvis, which officially read as 2.4 x 1.2 cm low-d ensity mass abuts the sigmoid colon, probably represents a small abscess secondary to diverticulitis, probably less likely represents a recurrence of ovarian neoplasm. Followup imaging is recommended a fter treatment. There was diverticula stemming from the colon, noted in the distal sigmoid colon. Assessment And Plan: This is a 74-year-old female, who presents with signs and symptoms of possible sigmoid diverticulitis with possible diverticular abscess versus a recurrence of her ovarian neoplast ic process. 1.IV fluid hydration. 2.Antibiotic coverage. 3.Serial abdominal exams. 4.I have explained the risks, benefits, and alternatives of the above medical plan. The patient agr ees to proceed as indicated. I have also indicated that the patient will need a colonoscopy as an ou tpatient and should have further imaging with her primary care doctor or myself in followup. She has agreed to proceed and agrees to follow up with her road boss as well to evaluate this possible neoplastic process recurrence in the pelvic area. Thank you for this interesting consult. RASHAD/GARCÍA Voice ID: [id number] Report ID: [id number]
--- NOTE | 2020-06-21 13:22 | P.PN ---
Subjective Date of Service: 06/21/20 Chief Complaint: diverticulitis Subjective: No new changes (Patient states pain is similar, no nausea, emesis, continues to pass gas.) Physical Examination - Vital Signs Temperature: 100.3 F Blood Pressure: 128/58 Pulse: 95 Respirations: 18 Pulse Ox (%): 95 - Physical Exam General: Alert, In no apparent distress, Cooperative Respiratory: Clear to auscultation bilaterally, Normal air movement Cardiovascular: Regular rate/rhythm Gastrointestinal: Other (soft, mild LLQ TTP, ND, no rebound, no Guarding) Assessment And Plan - Current Problems (Diagnosis) (1) Diverticulitis Current Visit: Yes Status: Acute Plan: 74 year old woman with diverticular abscess, 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
[2020-06-22] MEDS: HEPARIN 5000 UNIT/ML 1 ML VIAL SQ SCH ×3 (00:17→17:00)
[2020-06-22] MEDS: PIPER/TAZO/NS 3.375gm 3.375 GM/100 ML BAG IVPB SCH ×2 (00:17→09:15)
[2020-06-22] MEDS: MORPHINE 2 MG/ML SYR IV PRN ×4 (00:51→23:28)
[2020-06-22 05:53] LABS: Basophils % 0.5 % (0-1.3); Hematocrit 25.9 % (36.0-45.0); Lymphocytes % 6.3 % (15.3-44.8); MPV 6.5 fL (7.6-11.3); RBC Red Blood Cell Count 2.87 M/uL (3.86-4.86)
[2020-06-22] MEDS: INSULIN -REGULAR HUMAN 50 UNIT/0.5 ML ML SQ SCH ×4 (06:00→17:44)
[2020-06-22 06:09] LABS: Albumin 2.6 g/dL (3.4-5.0); Bilirubin Total 0.5 mg/dL (0.2-1.0); Magnesium 1.7 mg/dL (1.8-2.4); Potassium 3.7 mmol/L (3.5-5.1); Protein, Total 6.6 g/dL (6.4-8.2)
[2020-06-22] MEDS ORDERED: POTASSIUM CL SA 10 MEQ TAB PO ONE (09:00)
--- NOTE | 2020-06-22 09:04 | RAD REPORT ---
EXAM DESCRIPTION: CT - Abdomen Pelvis W Contrast - 06/22/2020 6:42 am CLINICAL HISTORY: Abdominal pain COMPARISON: June 19, 2020 TECHNIQUE: Computed axial tomography of the abdomen pelvis was obtained. 100 cc Isovue-300 was admin istered intravenously. Oral contrast was not requested which limits evaluation of bowel. All CT scans are performed using dose optimization technique as appropriate and may include automated exposure control or mA/KV adjustment according to patient size. FINDINGS: 18 millimeter enhancing lesion right lobe of the liver. Spleen, pancreas, adrenals and kidneys are unremarkable A heterogeneous mass abuts the distal sigmoid colon. It is mildly increased in size. Maximum width is 3.8 centimeters. However the low-density area within the mass has mildly decreased. The mass also ab uts the wall of the bladder which is thickened. No free air noted. Diverticula stem from the colon. IMPRESSION: 3.8 centimeter perisigmoid mass presumably a diverticular abscess. However, recurrent ov sia neoplasm could also have a similar appearance although this is probably less likely. Close foll ow-up recommended 18 millimeter enhancing liver lesion is nonspecific. It may represent a hemangioma. Ultrasound is rec ommended
[2020-06-22] MEDS: HYDROCODONE/APAP 5/325 MG TAB PO PRN (09:15)
[2020-06-22 09:36] LABS: Blood Morphology Comment NOT SEEN (NOT SEEN); Platelet Estimate INCR
[2020-06-22] MEDS ORDERED: ERTAPENEM SODIUM 1 GM VIAL IVPB SCH (10:00)
[2020-06-22] MEDS ORDERED: Magnesium Sulfate 2gm IVPB 2 G/50 ML BAG IV ONE (10:13)
--- NOTE | 2020-06-22 10:15 | P.PN ---
Subjective Date of Service: 06/20/20 Subjective: No new changes, No C/O voiced, Improving Review of Systems 10-point ROS is otherwise unremarkable Physical Examination - Vital Signs Temperature: 97 F Blood Pressure: 114/56 Pulse: 98 Respirations: 18 Pulse Ox (%): 95 - Physical Exam General: Alert, In no apparent distress, Oriented x3 HEENT: Atraumatic, PERRLA, EOMI Neck: Supple, JVD not distended Respiratory: Clear to auscultation bilaterally, Normal air movement Cardiovascular: Regular rate/rhythm, Normal S1 S2 Gastrointestinal: Normal bowel sounds, Soft and benign, Non-distended, Tenderness Musculoskeletal: No clubbing, No swelling, No tenderness Neurological: Sensation intact, Cranial nerves 3-12 intact - Studies Medications List Reviewed: Yes Assessment & Plan - Problems (Diagnosis) (1) Diverticular disease of intestine with perforation and abscess Current Visit: Yes Status: Acute (2) Essential (primary) hypertension Current Visit: Yes Status: Chronic (3) Hyperlipidemia Current Visit: Yes Status: Chronic Qualifiers: Hyperlipidemia type: unspecified Qualified Code(s): E78.5 - Hyperlipidemia, unspecified (4) Type 2 diabetes mellitus Current Visit: Yes Status: Chronic Qualifiers: Diabetes mellitus intermodal customer service insulin use: with intermodal customer service use Diabetes mellitus complication status: with kidney complications Diabetes mellitus complication detail: with chronic kidney disease Chronic kidney disease stage: stage 3 (moderate) Chronic kidney disease stage 3 subtype: stage 3a (GFR 45- 59) Qualified Code(s): E11.22 - Type 2 diabetes mellitus with diabetic chronic kidney disease; N18.31 - Chronic kidney disease, stage 3a; Z79.4 - retirement (current) use of insulin - Plan 1. Continue with IV hydration 2. Continue with IV antibiotics 3. Continue with pain control 4. NPO 5. General surgery consultation; outpatient colonoscopy in 6-12 weeks 6. Serial H&H, and we will monitor CBC, BMP, LFTs and lipase along with electrolytes. 7. GI and DVT prophylaxis Discharge Plan: Home Plan to discharge in: Greater than 2 days - Advance Directives Does patient have a Living Will: No Does patient have a Durable POA for Healthcare: No - Code Status/Comfort Care Code Status Assessed: Yes Code Status: Full Code Critical Care: No Time Spent Managing PTS Care (In Minutes): 45
--- NOTE | 2020-06-22 10:16 | P.PN ---
Date of Service: 06/21/20 Subjective Subjective: PATIENT WELL WITH NO NEW COMPLAINTS. CLINICALLY PATIENT IS DOING WELL. STILL HAVING SOME ABDOMINAL PAIN. MAY REPEAT CT SCAN IN THE A.M. Review of Systems 10-point ROS is otherwise unremarkable Physical Examination - Vital Signs REVIEWED - Physical Exam General: Alert, In no apparent distress, Oriented x3 Respiratory: Clear to auscultation bilaterally, Normal air movement Cardiovascular: Regular rate/rhythm, Normal S1 S2 Gastrointestinal: Normal bowel sounds, Soft and benign, Non-distended, Tenderness Musculoskeletal: No clubbing, No swelling, No tenderness Neurological: Sensation intact, Cranial nerves 3-12 intact Assessment & Plan - Problems (Diagnosis) (1) Diverticular disease of intestine with perforation and abscess Current Visit: Yes Status: Acute (2) Essential (primary) hypertension Current Visit: Yes Status: Chronic (3) Hyperlipidemia Current Visit: Yes Status: Chronic Qualifiers: Hyperlipidemia type: unspecified Qualified Code(s): E78.5 - Hyperlipidemia, unspecified (4) Type 2 diabetes mellitus Current Visit: Yes Status: Chronic Qualifiers: Diabetes mellitus care home insulin use: with intermodal dispatcher use Diabetes mellitus complication status: with kidney complications Diabetes mellitus complication detail: with chronic kidney disease Chronic kidney disease stage: stage 3 (moderate) Chronic kidney disease stage 3 subtype: stage 3a (GFR 45- 59) Qualified Code(s): E11.22 - Type 2 diabetes mellitus with diabetic chronic kidney disease; N18.31 - Chronic kidney disease, stage 3a; Z79.4 - [facility] (current) use of insulin - Plan Continue with plan of care as mentioned below: 1. Continue with IV hydration 2. Continue with IV antibiotics; monitor white count. May need to change antibiotics 3. Continue with pain control 4. NPO 5. General surgery consultation; outpatient colonoscopy in 6-12 weeks; abdominal ultrasound 6. Serial H&H, and we will monitor CBC, BMP, LFTs and lipase along with electrolytes. 7. GI and DVT prophylaxis Discharge Plan: Home Plan to discharge in: Greater than 2 days
--- NOTE | 2020-06-22 10:20 | P.PN ---
Date of Service: 06/22/20 Subjective Subjective: CT scan read demonstrates the area that looks to be an abscess. Could be ovarian mass. Abdominal ultrasound is also recommended for liver lesion. This looks to be a hemangioma. Otherwise clinically patient white count is going up but no fevers. Antibiotics were changed to advance Review of Systems 10-point ROS is otherwise unremarkable Physical Examination - Vital Signs REVIEWED - Physical Exam General: Alert, In no apparent distress, Oriented x3 Respiratory: Clear to auscultation bilaterally, Normal air movement Cardiovascular: Regular rate/rhythm, Normal S1 S2 Gastrointestinal: Normal bowel sounds, Soft and benign, Non-distended, Tenderness Musculoskeletal: No clubbing, No swelling, No tenderness Neurological: Sensation intact, Cranial nerves 3-12 intact Assessment & Plan - Problems (Diagnosis) (1) Diverticular disease of intestine with perforation and abscess Current Visit: Yes Status: Acute (2) Essential (primary) hypertension Current Visit: Yes Status: Chronic (3) Hyperlipidemia Current Visit: Yes Status: Chronic Qualifiers: Hyperlipidemia type: unspecified Qualified Code(s): E78.5 - Hyperlipidemia, unspecified (4) Type 2 diabetes mellitus Current Visit: Yes Status: Chronic Qualifiers: Diabetes mellitus termite helper insulin use: with termite helper use Diabetes mellitus complication status: with kidney complications Diabetes mellitus complication detail: with chronic kidney disease Chronic kidney disease stage: stage 3 (moderate) Chronic kidney disease stage 3 subtype: stage 3a (GFR 45-59 ) Qualified Code(s): E11.22 - Type 2 diabetes mellitus with diabetic chronic kidney disease; N18.31 - Chronic kidney disease, stage 3a; Z79.4 - [facility] (current) use of insulin - Plan Continue with plan of care as mentioned below: 1. Continue with IV hydration 2. Changed antibiotics to invanz. Monitor white count. 3. Continue with pain control 4. NPO 5. General surgery consultation; outpatient colonoscopy in 6-12 weeks; abdominal ultrasound to evakuate hemiangioma and ovarian vs diverticular abscess 6. Serial H&H, and we will monitor CBC, BMP, LFTs and lipase along with electrolytes. 7. GI and DVT prophylaxis Discharge Plan: Home Plan to discharge in: Greater than 2 days
[2020-06-22] MEDS: ERTAPENEM NA 1 GM in NA CHLORIDE 0.9% 100 ML IVPB SCH (11:22)
--- NOTE | 2020-06-22 11:50 | P.PN ---
Subjective Date of Service: 06/22/20 Chief Complaint: diverticulitis Subjective: No new changes (Patient continues to pass gas, no nausea, emesis, pain well controlled, but not resolved.) Physical Examination - Vital Signs Temperature: 97 F Blood Pressure: 114/56 Pulse: 98 Respirations: 18 Pulse Ox (%): 95 - Physical Exam General: Alert, In no apparent distress, Cooperative HEENT: Mucous membr. 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
[2020-06-22] MEDS: NA CHLORIDE 0.9% 1,000 ML IV SCH ×2 (13:08→19:21)
--- NOTE | 2020-06-22 15:46 | RAD REPORT ---
EXAM DESCRIPTION: US - Pelvis Complete - 06/22/2020 3:24 pm CLINICAL HISTORY: ovarian vs liver mass COMPARISON: TRANSVAGINAL STUDY PROBE dated 02/16/2015; Abdomen Pelvis W Contrast dated 06/22/2020 TECHNIQUE: Transabdominal pelvic sonography was performed. FINDINGS: Patient declined endovaginal examination. Patient indicates complete hysterectomy history. In the left adnexa there is a 4-5 centimeter complex heterogeneous predominantly hypoechoic mass. Thi s is probably the correlate to the left adnexal mass seen on the CT study. Diverticular abscess would be favored based on the combined ultrasound and CT findings. Current malignancy is possible. Urinary bladder is only partially filled and cannot be fully assessed. IMPRESSION: Left 4-5 cm heterogeneous adnexal mass correlate to the CT finding. Diverticular abscess would be favored diagnosis. Residual or recurrent primary malignancy is not excl uded. The mass is not amenable to either ultrasound or CT-guided biopsy or drainage.
--- NOTE | 2020-06-22 16:17 | RAD REPORT ---
EXAM DESCRIPTION: US - Abdomen Exam Complete - 06/22/2020 3:59 pm CLINICAL HISTORY: liver mass vs ovarian , abnormal CT study COMPARISON: Abdomen Pelvis W Contrast dated 06/22/2020; CT ABD PELVIS W WO CONTRAST dated 06/14/2015 FINDINGS: Gallbladder is absent. Common bile duct is normal for post cholecystectomy status with no common duct stone identified. Liver is 16 cm. In the inferior right lobe a 16 millimeter rounded hyperechoic mass is present. This is slightly heterogeneous. Size and location correspond to the CT finding. This is most likely a meni ngioma. However, CT and ultrasound findings are not pathognomonic in the finding was not identifiable in 2016. Follow-up ultrasound in 6 months could be performed to monitor for stability. No splenic ab normality. The pancreas is obscured by bowel gas No hydronephrosis or suspicious mass in either kidney. Aorta and IVC are too obscured by bowel gas. No ascites or bulky lymphadenopathy. IMPRESSION: A 16 millimeter hyperechoic mass inferior right lobe liver is identified and is the jaydon elate to the recent CT finding. Liver hemangioma is the most likely etiology but is not pathognomonic on either ultrasound or CT. Fol low-up liver ultrasound in 6 months could be performed to monitor for stability. Pancreas, aorta and IVC are too obscured by bowel gas. No significant findings noted on the CT study.
[2020-06-23] MEDS: HEPARIN 5000 UNIT/ML 1 ML VIAL SQ SCH ×3 (01:08→17:00)
[2020-06-23] MEDS: NA CHLORIDE 0.9% 1,000 ML IV SCH ×4 (01:08→23:13)
[2020-06-23] MEDS: INSULIN -REGULAR HUMAN 50 UNIT/0.5 ML ML SQ SCH ×4 (06:00→16:38)
[2020-06-23 06:03] LABS: Absolute Lymphocytes (CBC) 0.9 K/uL (0.7-4.9); Basophils % 1.1 % (0-1.3); Hematocrit 24.3 % (36.0-45.0); Lymphocytes % 5.7 % (15.3-44.8); MPV 6.7 fL (7.6-11.3); RBC Red Blood Cell Count 2.69 M/uL (3.86-4.86)
[2020-06-23] MEDS: MORPHINE 2 MG/ML SYR IV PRN (06:13)
[2020-06-23 06:25] LABS: Albumin 2.3 g/dL (3.4-5.0); Bilirubin Total 0.3 mg/dL (0.2-1.0); Magnesium 2.1 mg/dL (1.8-2.4); Protein, Total 6.2 g/dL (6.4-8.2)
--- NOTE | 2020-06-23 08:29 | P.PN ---
Subjective Date of Service: 06/23/20 Chief Complaint: diverticulitis Subjective: Improving (pain somewhat better today, had 2 BMs, continues to pass gas, ambulatory) Physical Examination - Vital Signs Temperature: 98.0 F Blood Pressure: 125/58 Pulse: 81 Respirations: 18 Pulse Ox (%): 96 - Physical Exam General: Alert, In no apparent distress, Cooperative HEENT: Mucous membr. 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
[2020-06-23] MEDS: ERTAPENEM NA 1 GM in NA CHLORIDE 0.9% 100 ML IVPB SCH (09:21)
[2020-06-23] MEDS: HYDROCODONE/APAP 5/325 MG TAB PO PRN ×2 (09:22→19:06)
--- NOTE | 2020-06-23 12:27 | P.PN ---
Date of Service: 06/23/20 Subjective Subjective: seen today. still has abd pain. appetite is still poor. Review of Systems 10-point ROS is otherwise unremarkable Physical Examination - Vital Signs REVIEWED - Physical Exam General: Alert, In no apparent distress, Oriented x3 Respiratory: Clear to auscultation bilaterally, Normal air movement Cardiovascular: Regular rate/rhythm, Normal S1 S2 Gastrointestinal: Normal bowel sounds, Soft and benign, Non-distended, Tenderness Musculoskeletal: No clubbing, No swelling, No tenderness Neurological: Sensation intact, Cranial nerves 3-12 intact Assessment & Plan - Problems (Diagnosis) (1) Diverticular disease of intestine with perforation and abscess Current Visit: Yes Status: Acute (2) Essential (primary) hypertension Current Visit: Yes Status: Chronic (3) Hyperlipidemia Current Visit: Yes Status: Chronic Qualifiers: Hyperlipidemia type: unspecified Qualified Code(s): E78.5 - Hyperlipidemia, unspecified (4) Type 2 diabetes mellitus Current Visit: Yes Status: Chronic Qualifiers: Diabetes mellitus mcfp insulin use: with mcfp use Diabetes mellitus complication status: with kidney complications Diabetes mellitus complication detail: with chronic kidney disease Chronic kidney disease stage: stage 3 (moderate) Chronic kidney disease stage 3 subtype: stage 3a (GFR 45- 59) Qualified Code(s): E11.22 - Type 2 diabetes mellitus with diabetic chronic kidney disease; N18.31 - Chronic kidney disease, stage 3a; Z79.4 - nursing home (current) use of insulin - Plan Continue with plan of care as mentioned below: 1. Continue with IV hydration. 2. Invanz to be continued. 3. Continue with pain control meds. 4. NPO for now till she is able to tolerated oral feeds. 5. General surgery consultation; outpatient colonoscopy in 6-12 weeks. 6. Serial H&H, and we will monitor CBC, BMP, LFTs and lipase along with electrolytes. 7. GI and DVT prophylaxis. Discharge Plan: Home Plan to discharge in: Greater than 2 days
[2020-06-24] MEDS: HEPARIN 5000 UNIT/ML 1 ML VIAL SQ SCH ×3 (00:31→16:24)
[2020-06-24] MEDS: MORPHINE 2 MG/ML SYR IV PRN ×2 (00:43→20:33)
[2020-06-24] MEDS: NA CHLORIDE 0.9% 1,000 ML IV SCH ×2 (01:21→11:21)
[2020-06-24] MEDS: HYDROCODONE/APAP 5/325 MG TAB PO PRN (05:21)
[2020-06-24 05:53] LABS: Absolute Lymphocytes (CBC) 1.1 K/uL (0.7-4.9); Basophils % 0.4 % (0-1.3); Hematocrit 26.3 % (36.0-45.0); MPV 6.6 fL (7.6-11.3); RBC Red Blood Cell Count 2.91 M/uL (3.86-4.86)
[2020-06-24 05:54] LABS: Albumin 2.4 g/dL (3.4-5.0); Bilirubin Total 0.3 mg/dL (0.2-1.0); Magnesium 1.9 mg/dL (1.8-2.4); Potassium 3.9 mmol/L (3.5-5.1); Protein, Total 6.6 g/dL (6.4-8.2)
[2020-06-24] MEDS: INSULIN -REGULAR HUMAN 50 UNIT/0.5 ML ML SQ SCH ×4 (06:00→18:00)
[2020-06-24] MEDS ORDERED: KCL 20 MEQ/100 mL IVPB 20 MEQ/100 ML BAG IV SCH (07:00)
--- NOTE | 2020-06-24 11:55 | P.PN ---
Subjective Date of Service: 06/24/20 Chief Complaint: diverticulitis Subjective: No new changes (Patient has minimal intermittent pain, continues to pass gas and have bowel movements daily) Physical Examination - Vital Signs Temperature: 96.4 F Blood Pressure: 131/63 Pulse: 86 Respirations: 18 Pulse Ox (%): 98 - Physical Exam General: Alert, In no apparent distress, Cooperative Respiratory: Clear to auscultation bilaterally, Normal air movement Gastrointestinal: Other (soft, mild LLQ TTP, ND, no rebound, no guarding) - Studies Medications List Reviewed: Yes Assessment And Plan - Current Problems (Diagnosis) (1) Diverticulitis Current Visit: Yes Status: Acute Plan: 74 year old woman with diverticular abscess, 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
--- NOTE | 2020-06-24 12:05 | P.PN ---
Subjective Date of Service: 06/24/20 Chief Complaint: diverticulitis Subjective: No new changes (states she is having bowel movt now) Physical Examination - Vital Signs Temperature: 96.4 F Blood Pressure: 131/63 Pulse: 86 Respirations: 18 Pulse Ox (%): 98 - Physical Exam General: Alert, In no apparent distress, Oriented x3 HEENT: Atraumatic, Normocephalic, PERRLA Respiratory: Clear to auscultation bilaterally, Normal air movement Cardiovascular: No edema, Normal pulses Gastrointestinal: Normal bowel sounds, Soft and benign, Tenderness (LLQ) Musculoskeletal: No clubbing, No swelling Integumentary: No rashes, No breakdown - Studies Medications List Reviewed: Yes Assessment And Plan - Current Problems (Diagnosis) (1) Diverticular disease of intestine with perforation and abscess Current Visit: Yes Status: Acute (2) Diverticulitis Current Visit: Yes Status: Acute (3) Breast cancer Current Visit: Yes Status: Chronic Qualifiers: Breast location: unspecified site of breast Estrogen receptor status: unspecified Patient sex: female Laterality: unspecified laterality Qualified Code(s): C50.919 - Malignant neoplasm of unspecified site of unspecified female breast (4) Essential (primary) hypertension Current Visit: Yes Status: Chronic (5) Hyperlipidemia Current Visit: Yes Status: Chronic Qualifiers: Hyperlipidemia type: unspecified Qualified Code(s): E78.5 - Hyperlipidemia, unspecified (6) Type 2 diabetes mellitus Current Visit: Yes Status: Chronic Qualifiers: Diabetes mellitus termite control representative insulin use: with termite control representative use Diabetes mellitus complication status: with kidney complications Diabetes mellitus complication detail: with chronic kidney disease Chronic kidney disease stage: stage 3 (moderate) Chronic kidney disease stage 3 subtype: stage 3a (GFR 45- 59) Qualified Code(s): E11.22 - Type 2 diabetes mellitus with diabetic chronic kidney disease; N18.31 - Chronic kidney disease, stage 3a; Z79.4 - [facility] (current) use of insulin Physician Review Additional Text: Plan -continue antibiotics with Invanz for diverticular abscess -continue gentle IV fluid hydration. -since moving bowel now, consider start clear liquid diet but will defer to surgery -continue DVT prophylaxis -follow plan for repeat CT abdomen/pelvis in 2 days - Time Spent Managing PTS Care (In Minutes): 30
[2020-06-24] MEDS: ERTAPENEM NA 1 GM in NA CHLORIDE 0.9% 100 ML IVPB SCH (13:59)
[2020-06-24] MEDS: Ringers Lactate 1,000 ML IV SCH (13:59)
[2020-06-24] MEDS: ACETAMINOPHEN 500 MG TAB PO PRN (16:26)
[2020-06-25] MEDS ORDERED: GLUCAGON 1 MG/VIAL IM PRN ×2 (00:19→20:10)
[2020-06-25] MEDS ORDERED: D50W 25 GM/50 ML SYRINGE IV PRN ×2 (00:19→20:10)
[2020-06-25] MEDS: HEPARIN 5000 UNIT/ML 1 ML VIAL SQ SCH ×3 (00:26→17:46)
[2020-06-25] MEDS ORDERED: D50W 50 ML IV ONE (00:38)
[2020-06-25] MEDS: Ringers Lactate 1,000 ML IV SCH ×2 (00:46→17:46)
[2020-06-25] MEDS: HYDROCODONE/APAP 5/325 MG TAB PO PRN ×3 (04:25→19:59)
[2020-06-25] MEDS: INSULIN -REGULAR HUMAN 50 UNIT/0.5 ML ML SQ SCH ×5 (06:00→20:14)
[2020-06-25 06:23] LABS: Absolute Lymphocytes (CBC) 0.8 K/uL (0.7-4.9); Basophils % 0.6 % (0-1.3); Hematocrit 22.8 % (36.0-45.0); MPV 6.9 fL (7.6-11.3); RBC Red Blood Cell Count 2.53 M/uL (3.86-4.86)
[2020-06-25 06:42] LABS: BUN Blood Urea Nitrogen 7 mg/dL (7-18); Bicarbonate 20 mmol/L (21-32); Glucose Level 82 mg/dL (74-106); Potassium 3.7 mmol/L (3.5-5.1); Sodium Level 142 mmol/L (136-145)
[2020-06-25] MEDS ORDERED: KCL 20 MEQ/100 mL IVPB 20 MEQ/100 ML BAG IV SCH (07:00)
[2020-06-25] MEDS: ERTAPENEM NA 1 GM in NA CHLORIDE 0.9% 100 ML IVPB SCH (10:33)
--- NOTE | 2020-06-25 11:00 | P.PN ---
Subjective Date of Service: 06/25/20 Chief Complaint: diverticulitis Subjective: Improving (less pain, ambulatory, continues to have bowel function.) Physical Examination - Vital Signs Temperature: 97.9 F Blood Pressure: 153/67 Pulse: 85 Respirations: 18 Pulse Ox (%): 98 - Physical Exam General: Alert, In no apparent distress, Cooperative HEENT: Mucous membr. 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 -since moving bowel now, consider start clear liquid diet but will defer to surgery -continue DVT prophylaxis -follow plan for repeat CT abdomen/pelvis in 2 days -
--- NOTE | 2020-06-25 13:00 | P.PN ---
Subjective Date of Service: 06/25/20 Chief Complaint: diverticulitis Subjective: No new changes seen today , tolerating ice chips well yesterday -plan for start po intake today Physical Examination - Vital Signs Temperature: 97.9 F Blood Pressure: 153/67 Pulse: 85 Respirations: 18 Pulse Ox (%): 98 - Physical Exam General: Alert, In no apparent distress, Oriented x3 HEENT: Atraumatic, Normocephalic, PERRLA Neck: Supple Respiratory: Clear to auscultation bilaterally, Normal air movement Cardiovascular: No edema, Normal pulses, Regular rate/rhythm, Normal S1 S2 Gastrointestinal: Normal bowel sounds, Soft and benign Musculoskeletal: No clubbing, No swelling Neurological: Normal strength at 5/5 x4 extr, Cranial nerves 3-12 intact - Studies Medications List Reviewed: Yes Assessment And Plan - Current Problems (Diagnosis) (1) Diverticular disease of intestine with perforation and abscess Current Visit: Yes Status: Acute (2) Diverticulitis Current Visit: Yes Status: Acute (3) Breast cancer Current Visit: Yes Status: Chronic Qualifiers: Breast location: unspecified site of breast Estrogen receptor status: unspecified Patient sex: female Laterality: unspecified laterality Qualified Code(s): C50.919 - Malignant neoplasm of unspecified site of unspecified female breast (4) Essential (primary) hypertension Current Visit: Yes Status: Chronic (5) Hyperlipidemia Current Visit: Yes Status: Chronic Qualifiers: Hyperlipidemia type: unspecified Qualified Code(s): E78.5 - Hyperlipidemia, unspecified (6) Type 2 diabetes mellitus Current Visit: Yes Status: Chronic Qualifiers: Diabetes mellitus mcfp insulin use: with mcfp use Diabetes mellitus complication status: with kidney complications Diabetes mellitus complication detail: with chronic kidney disease Chronic kidney disease stage: stage 3 (moderate) Chronic kidney disease stage 3 subtype: stage 3a (GFR 45- 59) Qualified Code(s): E11.22 - Type 2 diabetes mellitus with diabetic chronic kidney disease; N18.31 - Chronic kidney disease, stage 3a; Z79.4 - parts counterman (current) use of insulin Physician Review Additional Text: Plan -WBC trending down -agree with start clear liquid per surgery today - Monitor and plan for dc with mcfp abx in am if tolerating well -continue antibiotics with Invanz for diverticular abscess -continue gentle IV fluid hydration. -continue DVT prophylaxis -follow plan for repeat CT abdomen/pelvis in am per surgery -
[2020-06-26] MEDS: HEPARIN 5000 UNIT/ML 1 ML VIAL SQ SCH ×2 (01:01→08:15)
[2020-06-26 06:41] LABS: Absolute Lymphocytes (CBC) 0.9 K/uL (0.7-4.9); Basophils % 0.2 % (0-1.3); Hematocrit 24.2 % (36.0-45.0); Lymphocytes % 8.6 % (15.3-44.8); MPV 7.3 fL (7.6-11.3)
[2020-06-26] MEDS: INSULIN -REGULAR HUMAN 50 UNIT/0.5 ML ML SQ SCH (07:30)
[2020-06-26 08:34] VITALS: O2SAT 97
[2020-06-26 08:35] VITALS: BP 174/72; TEMP 97.8
--- NOTE | 2020-06-26 08:44 | P.DS ---
Admission Date: 06/19/20 Discharge Date: 06/26/20 Primary Care Provider: Dr. Rutherford; Oncology-[facility] Disposition: ROUTINE DISCHARGE Discharge Condition: GOOD Reason for Admission: diverticulitis Consultations: Surgery-Dr. Beverly Procedures: COVID: Negative CT scan: COMPARISON: none. TECHNIQUE: Computed axial tomography of the abdomen pelvis was obtained. 100 cc Isovue-300 was administered intravenously. Oral contrast was not requested which limits evaluation of bowel. All CT scans are performed using dose optimization technique as appropriate and may include automated exposure control or mA/KV adjustment according to patient size. FINDINGS: The liver, spleen, pancreas, adrenal and left kidney appear unremarkable. Small right renal cyst Cholecystectomy. Hysterectomy. Diverticula stem from the colon. A 2.4 x 1.2 centimeter low-density mass abuts distal sigmoid colon. There is mild stranding adjacent to sigmoid colon. IMPRESSION: 2.4 x 1.2 centimeter low-density mass abuts the sigmoid colon. This probably represents a small abscess secondary to diverticulitis. Probably less likely this represents a recurrence of ovarian neoplasm. Follow up CT scan: COMPARISON: June 19, 2020 TECHNIQUE: Computed axial tomography of the abdomen pelvis was obtained. 100 cc Isovue-300 was administered intravenously. Oral contrast was not requested which limits evaluation of bowel. All CT scans are performed using dose optimization technique as appropriate and may include automated exposure control or mA/KV adjustment according to patient size. FINDINGS: 18 millimeter enhancing lesion right lobe of the liver. Spleen, pancreas, adrenals and kidneys are unremarkable A heterogeneous mass abuts the distal sigmoid colon. It is mildly increased in size. Maximum width is 3.8 centimeters. However the low-density area within the mass has mildly decreased. The mass also abuts the wall of the bladder which is thickened. No free air noted. Diverticula stem from the colon. IMPRESSION: 3.8 centimeter perisigmoid mass presumably a diverticular abscess. However, recurrent ovarian neoplasm could also have a similar appearance although this is probably less likely. 18 millimeter enhancing liver lesion is nonspecific. It may represent a hemangioma. ABUS: COMPARISON: Abdomen Pelvis W Contrast dated 06/22/2020; CT ABD PELVIS W WO CONTRAST dated 06/14/2015 FINDINGS: Gallbladder is absent. Common bile duct is normal for post cholecystectomy status with no common duct stone identified. Liver is 16 cm. In the inferior right lobe a 16 millimeter rounded hyperechoic mass is present. This is slightly heterogeneous. Size and location correspond to the CT finding. This is most likely a meningioma. However, CT and ultrasound findings are not pathognomonic in the finding was not identifiable in 2016. Follow-up ultrasound in 6 months could be performed to monitor for stability. No splenic abnormality. The pancreas is obscured by bowel gas No hydronephrosis or suspicious mass in either kidney. Aorta and IVC are too obscured by bowel gas. No ascites or bulky lymphadenopathy. IMPRESSION: A 16 millimeter hyperechoic mass inferior right lobe liver is identified and is the correlate to the recent CT finding. Liver hemangioma is the most likely etiology but is not pathognomonic on either ultrasound or CT. Follow-up liver ultrasound in 6 months could be performed to monitor for stability. Pancreas, aorta and IVC are too obscured by bowel gas. No significant findings noted on the CT study. Pelvic US: COMPARISON: TRANSVAGINAL STUDY PROBE dated 02/16/2015; Abdomen Pelvis W Contrast dated 06/22/2020 TECHNIQUE: Transabdominal pelvic sonography was performed. FINDINGS: Patient declined endovaginal examination. Patient indicates complete hysterectomy history. In the left adnexa there is a 4-5 centimeter complex heterogeneous predominantly hypoechoic mass. This is probably the correlate to the left adnexal mass seen on the CT study. Diverticular abscess would be favored based on the combined ultrasound and CT findings. Current malignancy is possible. Urinary bladder is only partially filled and cannot be fully assessed. IMPRESSION: Left 4-5 cm heterogeneous adnexal mass correlate to the CT finding. Diverticular abscess would be favored diagnosis. Residual or recurrent primary malignancy is not excluded. The mass is not amenable to either ultrasound or CT-guided biopsy or drainage. Medical Problem List: Left lower quadrant abdominal pain secondary to 3.8 cm perisigmoid diverticular abscess with diverticulitis History of breast cancer on chemotherapy Hypertension Hyperlipidemia Diabetes mellitus type 2 insulin-dependent Anemia of chronic disease Brief History of Present Illness: 74 yo female with breast cancer currently receiving chemo s/p lumpectomy, h/o bilateral oophorectomy, HTN, HLD, and DM presented to the ER with 8/10 sharp crampy LLQ abdominal pain since Friday. Pain is worse with trying to have a BM, mildly relieved with Tums and pepcid. No BM since Friday. She reports bloating, constipation, chills, and nausea. She denies fever, night sweats, hematuria, hematochezia, melena, diarrhea. She saw Dr. Rutherford on Friday was prescribed Zithromax to treat a UTI, with initial symptoms of dysuria, polyuria, and nocturia that have improved but not resolved with Zithromax. She saw Dr. Rutherford again and he sent her to the ED for suspected diverticulitis. She reports she had diverticulitis 15-20 years ago and was treated with IV antibiotics. WBC 16.7. Hgb/Hct 9.7/29.1. Plt 551. CT scan shows 2.4 x 1.2 cm low-density mass abuts the sigmoid colon, probably represents a small abscess 2/2 diverticulitis. Started receiving chemotherapy for breast cancer in March, last dose was 2 wee ks ago with next dose scheduled for 06/26/20. Patient was admitted for further evaluation and treatment. Hospital Course: Patient presented with left lower quadrant abdominal pain. Patient found to have a 3.8 cm perisigmoid diverticular abscess with diverticulitis. Patient was admitted for treatment. Patient was seen and evaluated by surgery. No surgical intervention was required. Repeat CT scan revealed abscess. This was confirmed with abdominal ultrasound and pelvic ultrasound. Patient responded to IV antibiotic therapy. At discharge she is without significant abdominal pain. Patient able to tolerate diet. At discharge patient will continue with Cipro 500 mg 1 pill twice daily and Flagyl 500 mg 3 times a day for 2 weeks. Surgery recommends a low residue GI diet. Patient will be provided a limited supply of tramadol 50 mg 1 pill 3 times a day as needed for pain. Patient will also continue with lactobacillus 3 times a day. Patient will follow up with surgery in 1 to 2 weeks to follow-up his hospitalization. Surgery plans for colonoscopy in the near future to further evaluate. Possible repeat CT scan may be required to further evaluate. Surgery recommends to hold chemotherapy until diverticulitis resolved. Patient with history of breast cancer on chemotherapy. Recommend to hold chemotherapy at this time. Recommend follow-up with MD Fair to further address. Patient with hypertension. At discharge she will continue with her current medicationlisinopril hydrochlorothiazide 20/12.5 mg daily. Recommend to maintain blood pressure less than 130/80. Further adjustment can be done by her PCP. Patient with hyperlipidemia. At discharge, she may continue with her medication-Repatha. Patient with diabetes mellitus type 2 [id number]. At discharge she will continue with her medicationGlucophage 500 mg 1 pill twice daily. Recommend to maintain blood sugar less than 140 fasting and less than 200 after meals. Further adjustment can be done by her PCP. Recommend follow-up with your PCP to further monitor and adjust medication. Patient with anemia of chronic disease. At discharge this remained stable. At discharge recommend to recheck labCBC in 2 to 4 weeks to monitor her progress. Patient may continue with multivitamin daily. Vital Signs/Physical Exam: Temp Pulse Resp BP Pulse Ox 97.8 F 83 20 174/72 H 97 06/26/20 08:00 06/26/20 08:00 06/26/20 08:00 06/26/20 08:00 06/26/20 08:00 General: Alert, In no apparent distress, Oriented x3, Cooperative HEENT: Atraumatic Neck: Supple Respiratory: Clear to auscultation bilaterally, Normal air movement Cardiovascular: Normal pulses, Regular rate/rhythm Gastrointestinal: Normal bowel sounds, No masses, No rebound, No guarding, Tenderness (Minimal pain to the left quadrant) Musculoskeletal: No erythema, No tenderness, No warmth Integumentary: No significant lesion, No erythema, No warmth, No cyanosis Neurological: Normal speech, Normal strength at 5/5 x4 extr, Normal tone, Sensation intact, Normal affect Laboratory Data at Discharge: WBC 10.50 K/uL (4.3-10.9) 06/26/20 05:27 Hgb 8.3 g/dL (12.0-15.0) L 06/26/20 05:27 Hct 24.2 % (36.0-45.0) L 06/26/20 05:27 Plt Count 589 K/uL (152-406) H 06/26/20 05:27 Sodium 142 mmol/L (136-145) 06/25/20 05:30 Potassium 3.7 mmol/L (3.5-5.1) 06/25/20 05:30 BUN 7 mg/dL (7-18) 06/25/20 05:30 Creatinine 0.61 mg/dL (0.55-1.3) 06/25/20 05:30 Glucose 82 mg/dL (74-106) 06/25/20 05:30 Magnesium 1.9 mg/dL (1.8-2.4) 06/24/20 05:21 Total Bilirubin 0.3 mg/dL (0.2-1.0) 06/24/20 05:21 AST 13 U/L (15-37) L 06/24/20 05:21 ALT 15 U/L (12-78) 06/24/20 05:21 Alkaline Phosphatase 74 U/L (45-117) 06/24/20 05:21 Lipase 169 U/L (73-393) 06/19/20 16:34 Home Medications: Metformin HCl [Glucophage] 500 mg PO BID 02/13/15 Multivitamin [Multivitamins] 1 each PO DAILY 02/13/15 Evolocumab [Repatha Sureclick] 140 mg SQ ONCE 03/03/19 Lisinopril/Hydrochlorothiazide [Lisinopril-Hctz 20-12.5 mg Tab] 1 each PO [id number] 03/03/19 Ciprofloxacin HCl [Cipro 500 MG Tablet] 500 mg PO BID #28 tab 06/26/20 Lactobacillus Acidophilus [Acidophilus Lactobacilli] 1 each PO TID #90 capsule 06/26/20 metroNIDAZOLE [Flagyl] 500 mg PO Q8H #42 tablet 06/26/20 traMADol HCL [Ultram*] 50 mg PO TID PRN #10 tab 06/26/20 New Medications: Lactobacillus Acidophilus [Acidophilus Lactobacilli] 1 each PO TID #90 capsule Ciprofloxacin HCl [Cipro 500 MG Tablet] 500 mg PO BID #28 tab metroNIDAZOLE [Flagyl] 500 mg PO Q8H #42 tablet traMADol HCL [Ultram*] 50 mg PO TID PRN #10 tab PRN Reason: Pain Scale 2-4 (Mild) Physician Discharge Instructions: Patient presented with left lower quadrant abdominal pain. Patient found to have a 3.8 cm perisigmoid diverticular abscess with diverticulitis. Patient was admitted for treatment. Patient was seen and evaluated by surgery. No surgical intervention was required. Repeat CT scan revealed abscess. This was confirmed with abdominal ultrasound and pelvic ultrasound. Patient responded to IV antibiotic therapy. At discharge she is without significant abdominal pain. Patient able to tolerate diet. At discharge patient will continue with Cipro 500 mg 1 pill twice daily and Flagyl 500 mg 3 times a day for 2 weeks. Surgery recommends a low residue GI diet. Patient will be provided a limited supply of tramadol 50 mg 1 pill 3 times a day as needed for pain. Patient will also continue with lactobacillus 3 times a day. Patient will follow up with surgery in 1 to 2 weeks to follow-up his hospitalization. Surgery plans for colonoscopy in the near future to further evaluate. Possible repeat CT scan may be required to further evaluate. Surgery recommends to hold chemotherapy until diverticulitis resolved. Patient with history of breast cancer on chemotherapy. Recommend to hold chemotherapy at this time. Recommend follow-up with MD Fair to further address. Patient with hypertension. At discharge she will continue with her current medicationlisinopril hydrochlorothiazide 20/12.5 mg daily. Recommend to maintain blood pressure less than 130/80. Further adjustment can be done by her PCP. Patient with hyperlipidemia. At discharge, she may continue with her medication-Repatha. Patient with diabetes mellitus type 2 [id number]. At discharge she will continue with her medicationGlucophage 500 mg 1 pill twice daily. Recommend to maintain blood sugar less than 140 fasting and less than 200 after meals. Further adjustment can be done by her PCP. Recommend follow-up with your PCP to further monitor and adjust medication. Patient with anemia of chronic disease. At discharge this remained stable. At discharge recommend to recheck labCBC in 2 to 4 weeks to monitor her progress. Patient may continue with multivitamin daily. Diet: Low residu Activity: Ad haley Followup: Israel Rutherford MD [Primary Care Provider] - Time spent managing pt's care (in minutes): 55
[2020-06-26] MEDS: ERTAPENEM NA 1 GM in NA CHLORIDE 0.9% 100 ML IVPB SCH (10:00)
== END 2020-06-26 10:51 | disposition home or self-care (01) | DRG 392 ==
LOC: ER 15:29 → 2ND 20:32
PROVIDERS: ADMIT Internal Medicine; ATTEND Family Medicine
DX: K57.20 Diverticulitis of large intestine with perforation and abscess without bleeding (principal); E78.5 Hyperlipidemia, unspecified; I12.9 Hypertensive chronic kidney disease with stage 1 through stage 4 chronic kidney disease, or unspecified chronic kidney disease; N18.31 Chronic kidney disease, stage 3a; E11.22 Type 2 diabetes mellitus with diabetic chronic kidney disease; E11.649 Type 2 diabetes mellitus with hypoglycemia without coma; D72.829 Elevated white blood cell count, unspecified; D63.8 Anemia in other chronic diseases classified elsewhere; K59.00 Constipation, unspecified; C50.919 Malignant neoplasm of unspecified site of unspecified female breast; Z88.8 Allergy status to other drugs, medicaments and biological substances; Z88.5 Allergy status to narcotic agent; Z90.49 Acquired absence of other specified parts of digestive tract; Z90.710 Acquired absence of both cervix and uterus; Z87.891 Personal history of nicotine dependence; Z79.899 Other long term (current) drug therapy; Z79.4 Long term (current) use of insulin; Z20.822 Contact with and (suspected) exposure to COVID-19
CPT/HCPCS: 36415; 74177; 76700; 76856; 80048; 80053; 80076; 81003; 82565; 82947; 83605; 83690; 83735; 84145; 85025; 86304; 94010; 96365; 96366; 96375; 99285; J1335; J1644; J2270; J2405; J2543; J3475; J3480; J7030; J7120; Q9967; U0003

== ENCOUNTER 2020-07-08 07:39 | Emergency (ER) | payer OTHER ==
--- OUTSIDE RECORDS SUMMARY | 2020-07-08 07:43 | XMS REPORT | Continuity of Care Document ---
:1945 Author Organization [facility] t Address [address] [place] [address] Care Team Providers Name Role Phone Olinda STOUT Primary Care Physician Unavailable SYSTEM, NOT IN Attending Clinician Unavailable Jacob BURDICK Attending Clinician Unavailable Edgar CRUZ Attending Clinician Tressa TAMAYO, L Attending Clinician Chica Soni Attending Clinician Adam PATINO Attending Clinician Manish CRUZiv, K Attending Clinician Unavailable Brayden CRUZ Attending Clinician Kirill STRATEGIC PLANNING MANAGER Attending Clinician Kelly CRUZ Attending Clinician Olinda Stout MD Attending Clinician Kelin RD, C Attending Clinician Unavailable Arian PA Attending Clinician Ashley LIND Attending Clinician Dakota CRUZ Attending Clinician Parker Pizarro MA Attending Clinician Unavailable Sonia TAMAYO, L Attending Clinician Unavailable Jenifer CRUZ, Nola Becerra Attending Clinician [phone] Lesli Ortega MD Attending Clinician Rey PA Attending Clinician Osman STRATEGIC PLANNING MANAGER, Karena Attending Clinician Camilo STRATEGIC PLANNING MANAGER Attending Clinician Lei FLORES, S Attending Clinician Tommy HATFIELD Attending Clinician Aubree CRUZ Attending Clinician Bill PAUL Attending Clinician Unavailable Boyd BURDICK Attending Clinician Unavailable Kady CRUZ, N. Attending Clinician Blu TAMAYO, S Attending Clinician Unavailable Jaylyn S Attending Clinician Unavailable Yenny CRUZ Attending Clinician Louis CRUZ Attending Clinician Layo CRUZ G Attending Clinician Steve CRUZ, S. Attending Clinician Swathi CRUZ Attending Clinician Olinda STOUT Attending Clinician Unavailable TOMMY Attending Clinician Unavailable EDGAR Attending Clinician Unavailable NOLA BURGESS Attending Clinician Unavailable Shanta TAMAYO, L Attending Clinician Unavailable Jackson Corona MD Attending Clinician Tye Webb MD Attending Clinician Chava HATFIELD Attending Clinician Chaz HATFIELD Attending Clinician TAVO Admitting Clinician Unavailable Payers Payer Name Policy Type Policy Effective Date Expiration Date Sour ce Number HUMANA [id number] 2020 MD Fair MEDICAREHUMANA 00:00:00 [facility] MEDICARE [id number] 2020 -PresentMedicare HUMANA [id number] 2019 [place] MEDICAREHUMANA 00:00:00 [facility] MEDIC[facility] PPO/PFFS/ERS [id number] Problems Condition Condition Condition Status Onset Resolution Last Treating Co mments Source Name Details Category Date Date Treatment Clinician Date Long-term Long-term Disease Active (current) (current) 05-01 Nayan rso use of use of 00:00: n insulin insulin 00 Obesity Obesity Disease Active 2019-03 1-16 Anderso 00:00: n 00 Type 2 Type 2 Disease Active 2019-03 diabetes diabetes 0- [place] mellitus mellitus 00:00: n 00 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 00:00: n of upper [...] 00 Essential Essential Disease Active (primary) (primary) 12-18 Nayan rso hypertensi hypertensi 00:00: n on on Hyperlipid Hyperlipid Disease Active M D emia emia - Anderso 00:00: n 00 Borderline Borderline Disease [...] Shortness Of [place] ty to Breath 7-28 Methodi adverse 00:00: st reaction 00 s to drug Celecoxi Propensi Active Shortness Of [place] b ty to Breath 3-04 Methodi adverse 00:00: st reaction 00 s to drug Family History Family Member Diagnosis Comments Start Date Stop Date Source Natural mother Bladder Cancer And erson Paternal uncle -Unknown cancer MD Dodie spears Social History Social Habit Start Date Stop Date Quantity Comments Source Sex Assigned At MD Leiva on Exposure to Not sure MD Fair SARS-CoV-2 (event) Tobacco use and 2020-02-23 2020-02-23 Never used MD Leiva on exposure 00:00:00 00:00:00 Alcohol intake 2020-02-23 2020-02-23 Current MD Twin roberts 00:00:00 00:00:00 non-drinker of alcohol (finding) Tobacco Comment 2019-10-26 2019-10-26 as a teenager Devika Razo 00:00:00 00:00:00 Alcohol Comment 2019-10-26 2019-10-26 as a teenager Devika roberts [facility] 00:00:00 00:00:00 Smoking Status Start Date Stop Date Source Never smoker MD Fair Former smoker 2019-10-28 00:00:00 2019-10-28 00:00:00 Baldemar Razo Medications Ordered Filled Start Stop Current Ordering Indication Dosage Frequency Signature Comments Components Source Medication Medication Date Date Medication? Clinician (SIG) Name Name multivitami Yes Take by MD n capsule 4-07 mouth Anderso 18:33: daily. n 11 ibuprofen Yes 100mg Take 100 MD (ADVIL,MOTR 4-07 mg by Anderso IN) 200 mg 18:33: mouth n tablet 11 every 8 (eight) hours as needed. cholecalcif Yes 1000U Take 1,000 MD hi, 4-07 Units by Anderso vitamin D3, 18:33: mouth. n (cholecalci 11 ferol) 25 mcg (1,000 unit) tablet vit A/vit Yes Take by C/vit 4-07 mouth. Anderso E/zinc/ever 18:33: n er 11 (PRESERVISI ON AREDS ORAL) microfibril Yes Apply lar 4-07 topically Anderso collagen 18:33: to n hemostat 11 affected topical area(s) as powder needed for wound care. Add to fluids and drink BIOTIN ORAL Yes 1{tbl} Take 1 MD 4-07 tablet by Anderso 18:33: mouth n 11 daily. cranberry Yes 2{tbl} Chew 2 MD fruit 4-07 tablets Anderso concentrate 18:33: daily. n (Azo 11 Cranberry) 250 mg chew acetaminoph Yes pain 1000mg Take 1,000 MD en 4-07 mg by Anderso (TYLENOL) 18:33: mouth. n 500 mg 11 tablet famotidine Yes 20mg Take 20 mg M D (PEPCID) 20 4-07 by mouth Nayan rso mg tablet 18:33: twice n 11 daily. loratadine Yes 1{tbl} Take 1 MD (CLARITIN 4-07 tablet by Jonathan so ORAL) 18:33: mouth as n 11 needed. ciprofloxac 2021-0 Yes MD in HCl 3-29 Anderso (CIPRO) 500 00:00: n mg tablet 00 metroNIDAZO Yes MD LE (FLAGYL) 3-29 Anderso 500 mg 00:00: n tablet 00 pseudoephed 2020- No 30mg Take 30 mg [...] for moderate pain or severe pain. INSULIN 2019-03 No 60U Inject 60 MD DETEMIR 04-08 11-09 Units Anderso (LEVEMIR 15:30: 00:00 under the n SUBCUTANEOU 38 :00 skin every S) morning. glimepiride 2019-03- No 4mg Take 4 mg MD (AMARYL) 4 04-01 by mouth Nayan rso mg tablet 17:16: 00:00 twice n 31 :00 daily. NovoLIN 2019-03 Yes Type 2 Inject 40 MD 70/30 U-100 1-02 diabetes Units And erso Insulin 100 00:00: [...] No 300mg Take 300 M D (NEURONTIN) 0-31 05-22 mg by Cali o 300 mg [...] 1{tbl} Take 1 M D in HCl 0-19 -02 tablet by Twin (CIPRO) 250 00:00: 00:00 mouth n mg tablet 00 :00 daily. multivitami 2019-0 Yes 1{capsu QD Take 1 [place] n capsule 7-28 le} capsule by Meth ronnell 13:23: mouth st 25 daily. glimepiride 2019-0 Yes 1{tbl} Q.5D Take 1 [place] (AMARYL) 4 6-18 tablet by Meth ronnell MG tablet 00:00: mouth 2 st 00 (two) times a day. metFORMIN 2019-0 Yes 500mg Q.5D Take 500 [address]on (GLUCOPHAGE 6-18 mg by Methodi ) 500 mg 00:00: mouth 2 st tablet 00 (two) times a day. lisinopriL- 2020-0 Yes 1{tbl} QD Take 1 [place] hydrochloro 6-18 tablet by Met hodi thiazide 00:00: mouth st (PRINZIDE) 00 daily. 20-25 mg per tablet Levemir Yes 60U QD Inject 60 [place] FlexTouch 5-20 Units Methodi U-100 00:00: under the st Insuln 100 00 skin unit/mL (3 daily. mL) insulin pen lisinopriL- 2018-03 Yes DAILY AT MD hydrochloro 2-04 0600 Anderso thiazide 00:00: n (PRINZIDE,Z 00 ESTORETIC) 20-12.5 mg per tablet REPATHA Yes 1mL Inject 1 MD SURECLICK 2-18 mL into Anderso 140 mg/mL 00:00: the n pnij 00 shoulder, thigh, or buttocks every 14 (fourteen) days. evolocumab Yes 1{dose} Inject 1 [place] (Repatha 2-18 Dose under Metho di SureClick) 00:00: the skin. st 140 mg/mL 00 pen injector injection metFORMIN 2014-03 Yes 500mg 500 mg 2 MD (GLUCOPHAGE 1-16 (two) Anderso ) 500 mg 00:00: times a n tablet 00 day with meals. Immunizations Ordered Immunization Filled Immunization Date Status Commen ts Source Name Name Suzanne SARS-CoV-2 2020-06-04 Completed And erson Vaccination 00:00:00 Vital Signs Vital Name Observation Time Observation Value Comments Source WEIGHT 2020-01-05 08:16:00 82.3 kg WEIGHT 2020-01-05 08:16:00 82.3 kg WEIGHT 2019-12-31 09:06:53 82.7 kg WEIGHT 2019-12-31 09:06:53 82.7 kg Systolic blood 2020-07-05 18:11:22 124 mm[Hg] pressure Diastolic blood 2020-07-05 18:11:22 67 mm[Hg] MD Dodie campbellson pressure Heart rate 2020-07-05 18:11:22 86 /min MD Jonathan dang Body temperature 2020-07-05 18:11:22 36.61 Vani MD Raul oleary Respiratory rate 2020-07-05 18:11:22 18 /min MD Raul oleary Body weight 2020-07-05 18:11:22 76.6 kg MD Jonathan dang BMI 2020-07-05 18:11:22 32.09 kg/m2 MD Jonathan dang Oxygen saturation in 2020-04-25 18:53:00 97 /min MD Fair Arterial blood by Pulse oximetry Body height 2020-04-04 15:39:07 154.5 cm MD Jonathan dang Oxygen saturation in 2019-10-26 12:50:00 97 /min Baldemar Razo Arterial blood by Pulse oximetry Systolic blood 2019-10-26 12:50:00 145 mm[Hg] [place] [facility] pressure Diastolic blood 2019-10-26 12:50:00 67 mm[Hg] [place] [facility] pressure Heart rate 2019-10-26 12:50:00 88 /min [place] [facility] Body temperature 2019-10-26 12:50:00 36.39 Vani [place] [facility] Respiratory rate 2019-10-26 12:50:00 17 /min [place] [facility] Body height 2019-10-26 11:12:00 154.9 cm [place] [facility] Body weight 2019-10-26 11:12:00 75.042 kg [place] [facility] BMI 2019-10-26 11:12:00 31.26 kg/m2 [place] [facility] Procedures Procedure Date / Time Performing Clinician Source Performed COMPLETE BLOOD COUNT W/ 2020-07-05 17:34:00 Suly Medina MD DIFFERENTIAL Results CBC 2020-07-05 17:34:00 Suly Medina MD MANUAL DIFFERENTIAL 2020-07-05 17:34:00 uSly Medina MD And dustin COMPREHENSIVE METABOLIC 2020-06-06 16:25:00 Gita Gonzalez MD nderson PANEL GLUCOSE LEVEL 2020-06-06 16:25:00 Gita Gonzalez MD BLOOD UREA NITROGEN 2020-06-06 16:25:00 Gita Gonzalez MD [facility] ELECTROLYTE PANEL 2020-06-06 16:25:00 Gita Gonzalez MD SERUM CREATININE 2020-06-06 16:25:00 Gita Gonzalez MD .GLOMERULAR FILTRATION RATE 2020-06-06 16:25:00 Gita Gonzalez MD CALCIUM LEVEL TOTAL 2020-06-06 16:25:00 Gita Gonzalez MD [facility] ALBUMIN LEVEL 2020-06-06 16:25:00 Gita Gonzalez MD ALKALINE PHOSPHATASE 2020-06-06 16:25:00 Gonzalez, Gita B MD Nayan rson ALANINE AMINOTRANSFERASE 2020-06-06 16:25:00 Gita Gonzalez MD ASPARTATE AMINOTRANSFERASE 2020-06-06 16:25:00 Gita Gonzalez TOTAL PROTEIN 2020-06-06 16:25:00 Gita Gonzalez MD FRACTIONATED BILIRUBIN 2020-06-06 16:25:00 Gita Gonzalez MDson COMPLETE BLOOD COUNT W/ 2020-06-06 15:04:00 Suly Medina MD DIFFERENTIAL HEMOGLOBIN A1C 2020-06-06 15:04:00 Aleena Ramirez MD Results CBC 2020-06-06 15:04:00 Suly Medina MD MANUAL DIFFERENTIAL 2020-06-06 15:04:00 Suly Medina MD And erson COMPLETE BLOOD COUNT W/ 2020-04-25 15:58:00 Lou Hernández MD A nderson DIFFERENTIAL Results CBC 2020-04-25 15:58:00 Lou Hernández MD MANUAL DIFFERENTIAL 2020-04-25 15:58:00 Lou Hernández MD Jonathan son COMPLETE BLOOD COUNT W/ 2020-04-04 13:26:00 Suly Medina MD DIFFERENTIAL HEPATIC FUNCTION PANEL 2020-04-04 13:26:00 Suly Medina MD BLOOD UREA NITROGEN 2020-04-04 13:26:00 Suly Medina MD And erson SERUM CREATININE 2020-04-04 13:26:00 Suly Medina MD [place]i on Results CBC 2020-04-04 13:26:00 Suly Medina [...] ANTIGEN 125 2020-02-23 16:57:00 Yovanny Ware MD [place] on LIPID PANEL 2020-02-23 16:57:00 Alessandra Page MD COMPREHENSIVE METABOLIC 2020-02-23 16:57:00 Alessandra Page MD PANEL GLUCOSE LEVEL 2020-02-23 16:57:00 Alessandra Page MD [...] TOTAL PROTEIN 2020-02-23 16:57:00 Alessandra Page MD FRACTIONATED BILIRUBIN 2020-02-23 16:57:00 Alessandra Page MD BLOOD UREA NITROGEN 2020-02-23 16:57:00 Alessandra Page MD And erson POC GLUCOSE SCREEN 2020-02-15 01:45:00 Az Burgess MD NM DOSING APPOINTMENT 2020-02-14 23:42:29 Jax Sanders MD And erson POC GLUCOSE SCREEN 2020-02-14 22:31:00 Az Burgess MD POC GLUCOSE SCREEN 2020-02-14 21:27:00 Az Burgess MDon Mariam POC GLUCOSE SCREEN 2020-02-14 17:45:00 Az Burgess MD nderson Mariam PATHOLOGY SURGICAL 2020-02-14 14:26:30 Az Burgess MD nderson INTERPRETATION Becerra SEGMENTAL MASTECTOMY - OTHER 2020-02-14 12:23:00 Az Burgess MD INTRAOPERATIVE LYMPHATIC 2020-02-14 12:23:00 Az Burgess MD MAPPING Becerra SENTINEL NODE BIOPSY - 2020-02-14 12:23:00 Az Burgess MD AXILLA Becerra RECONSTRUCTION OF BREAST 2020-02-14 12:23:00 Mina Ortega MD WITH OTHER TECHNIQUE MASTOPEXY 2020-02-14 12:23:00 Mina Ortega MD POC GLUCOSE SCREEN 2020-02-14 12:18:00 Az Burgess MD TYPE AND SCREEN 2020-02-14 11:46:00 Inessa Ascencio MD ABORH 2020-02-14 11:46:00 Inessa Ascencio MD ANTIBODY SCREEN 2020-02-14 11:46:00 Inessa Ascencio MD CLOT EXPIRATION DATE 2020-02-14 11:46:00 Inessa Ascencio MD And dustin TMP INTERPRETATION ANTIBODY 2020-02-14 11:46:00 Inessa Ascencio MD SCREEN NEGATIVE BREAST SPECIMEN RADIOGRAPH 2020-02-14 11:45:22 Jax Sanders NM LYMPHOSCINTIGRAPHY BREAST 2020-02-11 18:25:28 Jax Sanders MD SULFUR COLLOID HC 2019-NCOV COVID-19 2020-02-11 14:33:00 Jax Sanders MD And dustin EKG, 12-LEAD (SCHEDULED) 2020-02-11 00:00:00 Inessa Ascencio MD MAMMO POST PROCEDURE LEFT 2020-01-26 15:15:38 Jax Sanders MD MAMMO GUIDED SEED PLACEMENT 2020-01-26 15:12:00 Jax Sanders MD LEFT US GUIDED BREAST CLIP 2020-01-26 13:49:00 Jax Sanders MD And erson PLACEMENT LEFT LIPID PANEL 2020-01-26 12:17:00 Alessandra Page MD COMPLETE BLOOD COUNT W/ 2020-01-21 13:54:00 Jax Sanders MD nderson DIFFERENTIAL COMPREHENSIVE METABOLIC 2020-01-21 13:54:00 Jax Sanders MD nderson PANEL HEMOGLOBIN A1C 2020-01-21 13:54:00 Jax Sanders MD NT PRO BNP 2020-01-21 13:54:00 Francesco Myers MD ZINVITAE 2020-01-21 13:54:00 MD Marv Manriquez Megan THYROID STIMULATING HORMONE 2020-01-21 13:54:00 Alysia Ramon MD VITAMIN D 25 HYDROXY LEVEL 2020-01-21 13:54:00 Alysia Ramon Results CBC 2020-01-21 13:54:00 Jax Sanders MD [...] Sanders MD ALKALINE PHOSPHATASE 2020-01-21 13:54:00 Jax Sanderse rson ALANINE AMINOTRANSFERASE 2020-01-21 13:54:00 Jax Sanders MD ASPARTATE AMINOTRANSFERASE 2020-01-21 13:54:00 Jax Sanders TOTAL PROTEIN 2020-01-21 13:54:00 Jax Sanders MD FRACTIONATED BILIRUBIN 2020-01-21 13:54:00 Jax Sanders MD derson BLOOD UREA NITROGEN 2020-01-21 13:54:00 Jax Sanders MD Jonathan son ECHOCARDIOGRAM 2D COMPLETE 2020-01-12 20:02:51 Suly Medina MD MRI BREAST BILATERAL W WO 2020-01-11 17:21:00 Jax Sanders MD CONTRAST INCL CAD US BREAST COMPLETE BILATERAL 2020-01-05 21:51:00 Jax Sanders MD US CHEST 2020-01-05 21:51:00 Jax Sanders MD US BREAST FINE NEEDLE 2020-01-05 21:51:00 Jax Sanders MD And erson ASPIRATION - LEFT US GUIDED AXILLARY LYMPH 2020-01-05 21:51:00 Jax Sanders MD NODE FNA LEFT US UPPER EXTREMITY LIMITED 2020-01-05 21:51:00 Jax Sanders LEFT CYTOLOGY IMAGE-GUIDED FNA 2020-01-05 20:05:00 Jax Sanders MD INTERPRETATION CYTOLOGY IMAGE-GUIDED FNA 2020-01-05 20:03:00 Jax Sanders MD INTERPRETATION MAMMO DIGITAL DIAGNOSTIC 2020-01-05 18:48:00 Jax Sanders MD BILATERAL W PEDRO PABLO OSI US BREAST BIOPSY 2019-12-15 12:15:32 Amanuel Stout MD A nderson PATHOLOGY OUTSIDE 2019-12-15 00:00:00 Dorothy Wilson MD Andliyah n INTERPRETATION OSI US BREAST 2019-12-10 12:15:06 Amanuel Stout MD [place] on OSI MAMMO BILATERAL 2019-12-10 12:14:13 Amanuel Stout MD An derson VITRECTOMY 2019-10-26 11:35:00 Shakir Corona Meth odist POC GLUCOSE 2019-10-26 10:53:00 Shakir Corona Meth odist CANCER ANTIGEN 125 2019-08-20 15:26:42 Fabiana Le MD on Encounters Start End Encounter Admission Attending Care Care Encounter Source Date/Time Date/Time Type Type Clinicians Facility Department ID 2020-01-05 Outpatient SYSTEM, MDA MDA [id number] 12:42:00 NAM roberts 2020-01-05 2020-01-05 Outpatient GRAEME STOUT MDA MDA [id number] 13:06:30 13:06:30 AMANUEL roberts 2020-01-05 2020-01-05 Outpatient GRAEME STOUT MDA MDA [id number] 13:06:26 13:06:26 AMANUEL roberts 2020-01-05 2020-01-05 Outpatient GRAEME STOUT MDA MDA [id number] 13:06:21 13:06:21 AMANUEL roberts 2020-01-05 2020-01-05 Outpatient GRAEME STOUT, MDA MDA [id number] 13:06:19 13:06:19 AMANUEL roberts 2020-01-05 2020-01-05 Outpatient EL ANNETTA, MDA MDA [id number] 13:06:18 13:06:18 AMANUEL roberts 2020-01-05 2020-01-05 Outpatient GRAEME STOUT, MDA MDA [id number] 13:06:16 13:06:16 AMANUEL roberts 2020-01-05 2020-01-05 Outpatient ANNETTA, MDA MDA [id number] 13:06:15 13:06:15 AMANUEL roberts 2020-01-05 2020-01-05 Outpatient GRAEME STOUT, MDA MDA [id number] 13:06:13 13:06:13 AMANUEL roberts 2020-01-05 2020-01-05 Outpatient ANNETTA, MDA MDA [id number] 13:06:11 13:06:11 AMANUEL roberts 2020-01-05 2020-01-05 Outpatient TOMMY, MDA MDA [id number] 11:21:37 11:21:37 JAX roberts 2020-01-05 2020-01-05 Outpatient EDGAR, MDA MDA [id number] 08:03:34 10:12:12 LOU roberts 2019-12-31 2019-12-31 Outpatient CHEY[place], MDA MDA [id number] 09:03:54 11:13:19 [place] roberts 2019-10-26 2019-10-26 Outpatient [facility][1] [id number] [place] [address] 00:00:00 00:00:00 SHAKIR Heck Method i st Results Test Description Test Time Test Comments Results Result Comments Source Pathology Surgical Interpretation 2020-02-21 22:39:00 Test Item Value Reference Range Interpretation Comme nts Diagnosis n2uodHYlUWOqxBT5YhYlJPKli3lgy8XoqMEaoTXxQEuddJOnusEnrs01iVV6eR53WV6cTHWrIlL1ZLQw nvC6Agq5EWWkXLKlzBPcJ688v8qoq0enfgZssQX2rVvcRRNoZVEaMYslQVKlQfYzPM9bAMVxCSQGwhXm x2FmYM7dMTO0uOfrALN0BFr1iQLtZG5uEVGeAVEdAOR (test code 7VPQmXDoaUQ13UQidwTRprYPbhO6krARiCKz0WEQfatGbbmLeEFp8oVVdWY7rZVIzQyFwHIRjXUWmKL1 5sD1enRUpvP6qdAZtq7EqGAImBEcQTNdsv8VdyXvcSEylhSfdpWzxox2jUJNlSdKzIgkrIKQvvfSfmjL jSCi8cDUjCU6pKKSwGoSfADttESJxykMmclOtFRultR = 34) Hle97rb4MpkCGltWJaFT8tyxpakoHtGLj8BGOurvdtPSEeXHyhFlFsMXgvjxetDVUTXtOQP6gEIDGUGF VYEV6ARWRmDZYrasBWIZFlxoFcrB6xmYXop7AaauywwaHtPUVdtrOfPx9zUSSlnhWwen2uQNCrUY74KU 3jwDXvLVBIHMZIOGImU1oAL3OLQYTmEO7TCNUGBS1NA qKeSYJraopuRAWfeMnuSJiotnZmEv8zKnTHNmTHk0uoHPWsOVI8NQoPBVQbnhRawdhbxBVyLQJwMTFhL JVqkCswIGaanECln50vo2ZyrPFxuXOhTT3fWHGfu5eojesvcNCtOOjtHtTeTSlblbfwHIBSg9csLKfxc Drlsc5kg1JaW2jyxEJhuPztfK5wSHMam8erD6bhDItl G7cqvzsmCifrOAZbEhNiSEYuejLkOu5pFYOduaFijl0yTQ7sFRMlah xsaTBcbGluMFxwYXJ9 Comment j9ohpTHmMLFboXI9HkTfNCZfk5fze5XtzMWgaVAqMEcemKVtgiCqlz93bIA4iX21ZX9mORWeWeA7PSOm ikA9Wcu0HZEwACZbxNIlM932j9fjx0rykcWurJS1sIvzDAWoXYTmFEyaQOWcWtPzIVMth4CwwUBzRlXa aYF2alLpCFVnTLgieHKvF3kwDOncXQBnIMVyaWGbASH (test code oICElpBzhA5CnBUM2ZYHuWFMoyFImKGlbRUsbeULuDTannsZlIRkntZa5UDXra8PcT1WaL1jhj05bZmx yRONtoPYgPGtexPBxr7G2IOxxnfC0FCLpYMXkiyAjwm5fRPOgbiIoZA79gB9tzBBopF9sjGHrq0LcoqZ cEA89IJxUGE7SVRevYAZjGBKcGJFuYHIoDKACQK5CIk = 9835) ipBD9jGWYoRTWnCBndzFd6ENXht5IgkHIaf0YuY4VhsTZlIDupCGR9 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: [...] Lymph Nodes Examin ed: 7 Number of Hodge Nodes Examined: 7 PATHOLOGIC STAGE CLASSIFICATION (pTNM, AJCC 8th Edition) Primary Tumor (pT): pT2 Regional Lymph Nodes (pN): pN0 ADDITIONAL FINDINGS Additional Findings: Fibroadenoma, sclerosing adenosis Breast Biomarker Testing Performed on Previous Biopsy: Testing Performed on Gross o1pjfVAlULOmsSDNPCWtYVeommJeOSGawCZgR1EvthblIUjuBW8bWP4guNycuQVruPKjSA9CFBCrUtMs WORyzKMcwuLrNxKsYSEmgJVazUJ7QOYxTO8mmtctZCliMLylWRIriiY3EKWfoGGaX0QgIWWvOE5mlnfu KEH6VBabpL9dksRLIqxqNz5crQUtqVfhBsIaLdCzMYP Descriptio yLHTzGGOxsBpoRIVgJVs8lX2SCtmxOKZ5WTMKMxtmFUEhQG5Gm4cdIDTlnUHtXXT0QQgduXWrSGJkVFJ aZMh6LKVnBXlrxCZeXB8xqPrbGtefcCvmv8KndLNeARvrDLKjXWAhEPniDNHiGW2GGzEbNHDeCkE1ZZs hINx9BEk2IP1AHqGlZULpHCU7XAF2ZOFuWBd4GFwnPL n (test 1KZEDiJfC0PCN7HXF7KEpoYdAaNMCoBtNpCWSaDDZmOEcyYWcrloIyOHHbJXXjWJizAiccAGokY03tbX mxcJ5wRpscuaKaBEH5SDJeylFGFkiwyEAlsjjskWozEoOgmDMbYrArSIwhsNHomBPjVOirupMkyanqNH HQUesyjPQffLjlZLJjOdLaT0XpYWEoQEpaQqAql6Pzs code = ASckHBaHV0si1MkT5EsrPmfCRYhw2Q6NRR9qTYsmIPkqTRjtmyhximpwX7oXxTahAh1E2usbZD6VUZvo ZthTdEuWXKuEIFik6H1wzplBwLolFliscSfPQ6rAODnWkhqOPWlG10pp3pztEXzw0NsID3kw1HuPW89M OHxeU1jmBkgeyVlHuZ5ZKbep4pcc9nvvCAyDipiqk0p [id number] WXO1jYH1dPVrqPClTLlefCRuBRnqyvIkACMis5X8ULN4xYVgbNJqkTOqldvcssRvxoRvyQ6pAaKdnXl4 X3zvhEB7ABEbeU0rWETiUQSteOGjgH2ukqZ9WUudzCNfMlXnPeRvbyZmfBDjc8UwJOPsHrXvgDTaaJJr rjgyihN7ahYmmuJcekefwdddWd55PDHwUH5lFDpyvIH ) [file] iAgUHVycGxlIGluayBpcyBpZGVudGlmaWVkIGFuZCBp syXaPVGkA76yqRFpUCRnEVMcAQN0buAuJP0xsghopaIsEVJtzYgnOVF3upmwo73uBMHSqVJieKC7OUSj YIQcpF7hrCElkC8fFZBlUkxcC2yrSLLGnGXksN1adhRojoAgFEMoPDjzyIHqKHR6oL7yUGGrxY2dPKEs y62neUPzuJViVFR6UP3tnTAojR51GOLuDmXqYeF2vEj wdC2pJR0pyindBncjPUR2cUDgpJApJBTiJvViCo6xeLThtF3idrZmlgJyM3Lrc2UwwXDeHXNqlVstwVL rRuWlM0CdH1grEH8moTNqv2ZgeGx9sMRdIQVecHhwMPj4GSVuWFUtKCQ1SO71oRRhfWakxI4qU9Hoc6V 9kABtWCgoADX0PqZgREhiZBIJVP7nAIofii04LBX1p0 yfbZStWNcxSkgjdGXvqsJ4JBnDNRNCMOpEEkQqRR7jLVfDOpbBROlUJayfBUNyBjsvuJVIXLX0DNwwgU pxpEz4y4oygFCux2o7QBoyGAU9wHPQk0lbkIQaMTbjGbairJRuuaE3CUnTNJQLMOyYVcPcQK8dLPeVAj yTVnD5FcJrJEY2VRpKK8ZGpWB4Dut4QOv7xOgvZxtvk bFemBAgHkXDwR4waIjhhN0mkDEvT9hiVxOwGSHKOqrtjQFixeolhOlhEpFpnZEdSgOerKdoiW80NYCbl ECdUPN2QK2bDLIhkhngLTHcIEXtPXX4MWjzwL33gKYuHTSmDKXenQHhdO4GZLDmVOQ9KKbceQ91bETmI K2UNDWuNWD3KHPezUWfKMF9VJ2scF0MyJ== Intraopera y5cezQHwUKRddHNVSBNtPVyrdkJcXEGjcLAwD4ZaquejVTjnTR3hCI1ggZqibOIiuHUxQZ3KCZYcUjQf PBVxtVTfauWjElEjPGUosIRrsCK5GAKfMD9zviwrRMiwZJidXLZmgeS8ILRflCJuC9JlRXLsUK2cywwv BCS5BLgygF7bfjUWKdebVw9yxJKcdMxzCbBgPnXiENU tive gSOZvIODtoLdoZRMkHQd3qB0OFbfwXFW6YFRTGwxcALLqWZ4Sm6fiXPYzmELdBXY5LJbkqEUcVCXlLQN jKKu1ZZPrNGpomMXhXO6akKbdLwglfVrsu6RyyBXfVZfrSWMsJYGbAMpaHHOgKK3XOpGoSHKfAfF1TZm eUAd3UFu4PH7GSgPaZSPcVZI5IKX7RALyZKq4LVqoFP Evaluation 1UCJBsVhCxQUt5IEK3GFjrXcEgKCUdJfHzGEVjHIXgXFjfNUfwpyTeGYPlFTZiDKltVpydGNkbL19ssP cvuS7iRjhflgBsNZL7WZIxepDCZlxkjBSqtihpnVpwTqPnsXKhNeVuRVlstGZtbYThEYjmacTquxclJR XWDtngwRVweBsdyxSiPGeCQkLlB5VFUXSPIRUPDX6BT (test code 6MDH4RMZCxxWTJSK2CVWERKLJXZIMAQUNMTVwjGFerjFL7IUsHIUJyHH5xfKEJAYYUNTQhwBmLDJBNKK RPWB8YEUjgiKwAVMUoGWwtptFLsTM5PSKPdYmBYPC9LQhAISbLNMjFSYNKMSUcuWYRPJ8fFDzMwoUWlM P1QVWHwDrOyLE8NQPErvGRab21otKHxLL4zaRSuLAEp = bm71HRPbg56irA8lVBhhEKCmi8EvGSSei2PprWNpP6dmBGMnUE0aqJWwAZMqHFpwr2NlZNLvmiMioUG8 HJ9wfLKeGL0EDGUelvZLZd9VW08ZSUxpsNyngS9tRDWtC87tk6EUb9MlGINwOAflb3lmnVjhp6LqwIVf YKzuUEKgzWUcOUzelR4eGhKpq8mxeRy9ZOgmprI0QLS 6110058140 xnh3DZffzWLBvZPi9ohWzacrmgG7rNpPnUFywZjMfLsmhVDDmP1RrG 9KszaZ1CMb8 ) Disclaimer p3cvqTAvFBOoqTBrChRmBEOpJDOyj7iyBCUjiIExHpIgZnFoEbMoRofumSLaBJXhMzYej6ujg961lIRu d1ucABDpEwA9yTWdACJefFKwR372SVUoVKzov2wzc9AtRIHtdJIer7U9MQHIwsmmbOx8cXfrN57vd2K6 BwafL9qqFBKdFIYhX9IeOA0wCNRiSmr5YBU1ADV2OOB (test code jTTAeI2KkJJ6qXWNrpDUlHMp9n3vgmLpyQOOgNXB1l4yyYHchnfIrCF4ycz1yjLs8e5oplcYvVGWrCDX asCZYROJkY8GdyMrbXf4yiGk3xOfmClftWHU7Dme1OH8sci69waj7vMekQYQhsvjePgG1VWscPNYztmq oMEo5KNcoIJLmkIZ6YZZkzFHaN6QwGZVkJV0bloe3MX = 9844) L2CBzqFDMvIoZ9CMYtwFTnIERmbXibVUaxg946DYY8TnLjKV7mW0Hjo2L7bC0nwFElMZLwpDHyQqBjFM Xvmg7nuIXoZIfyh9HwMEH3dzT5yYOrhPKoQQXbCQ28Drdhf9WlCbvrBAE0FMBbqfVjq6Ubj1vkUiKlgc ZaF4rfM0EbBKGpHTHnITJoMvAxthMsd6Kok8QrzSZjq Vv0y7qaHFNmJCOjrCyfw8qkQNX4QSEgT2J3dWVks0icCLgrYNJkaHE5tjM9GGCwrRTdX6YuyP9uPMWwC V5oood4u6wgAQW5JVziEOGsWpL7evX9IEFhsBRpWJVpaYywCSffh198XFO6SbHyORJqc7CqX6HqgPspW 70lzFzsQ86wNIYczCkbwD4udLohwH8mZcAnMtEfZEef pOemnCThqffuYJavezX0NLsokxpdELVrHWnrV5qvWfTzCQNcqQpeDOrgb3EkNNEcIOJdAnsautW1DUAE o02nEAAio9SySJGhjK6afFAkKRxywwZtiII5XGekicBdPnBhagQnQMUvaR3kYKXrDW1mJHGxcfCzbv5h pwCmCEMzZEEdA8SkalggfRiiqvZgFKPvyg9xelZqITT 2YCORZH1KOBLzOGDkm30sBANpcVjrsS1gqBBqpoMpPOJdb9MqjL4wbEOVXOSgD1imNQ6eOTxpy3UqhDL wgXUuqFT5WFLak9FuHnLcwcLfbAJmbDHzI4TtcWifQ1hdQTLfSUZrdhMypHZwp3XbFCQaaTE1eTKhKM5 JNpAXw89bEMQtFTLPnzFkHIRchVzyoGW1btY6iV3zGd GSIvCkvRYpzBTiAgckSDQfo035it5cinG1AEHtTTHviyccj9SdJRHjDDZieJ20ATKcZWMxlo9aqnxyhR NdwzHqK0Aaldr6nB0tUGBpCMarSJQiOMTzAhXqrOIqLzDqKpJglOqvqVkyNJsmYpRwTJFkARjcA8spMr FcZnMyMlxwYXJ9 MD [facility] Dosing [id number] 14:27:30Radiocolloid injection for intraoperative sentinel lymph node [...] node localization.MD [facility] Glucose [id number] 01:50:34 Test Item Value Reference Range Interpretation Comments POC Glucose (test 232 mg/dL 70-99 H RN Notifie dCapillary code = 49367-6) blood sample s, e.g. obtained by fingerstick, [...] 9554) Lab Interpretation Abnormal (test code = 14385-4) MD [facility]Breast Specimen [id number] 16:46:29Left breast whole and sliced segmental resection [...] calcifications, postbiopsy clips (2) and 2 [employer] were electronically annotated. Possible close margins were also electronically annotated.Findings were electronically annotatedand discussed with the pathologist, Dr Hoffman at the time of this dictation.IMPRESSION:Left breastwhole and sliced segmental resection specimen radiographs were obtained for radiologic pathologic correlation.MD Fair[facility] Interpretation Antibody Screen [id number] 15:40:34 Test Item Value Reference Range Interpretation Comments TMP Auto Neg At the present ABSC Interp time, patient (test code = plasma shows no ANABELLE DOYLE 7535) evidence of RBC ANDREY,Dic tated by: alloantibodies. STEPHANIE BALDERAS,Dictat ed Date/Time: 01.29 9:40 AM FREIGHT BRAKE OPERATOR Transcribed Quinn e/Time: 02.14.2020 9:40 AM CSTElectronical ly Signed By: ANABELLE BALDERAS, on 02.14.2020 9:40 AM C MD FairAntibody [id number] 14:13:43 Test Item Value Reference Range Interpretation Comments ABSC. (test code = 890-4) Negative ABSC MD FairFpynptuxVXLEe9618-18-37 14:13:42 Test Item Value Reference Range Interpretation Comments ABORh. (test code = 882-1) O POS MD FairClot Expiration [id number] 14:13:41 Test Item Value Reference Range Interpretation Comments T & S Expiration (test code = 02/17/2020 5318) MD Peres COVID-19 (WILFRID-CoV-2) PCR [id number] 12:29:10 Test Item Value Reference Interpretation Comments Range COVID19 SARS Pre-OR Procedure Indication (test code = 66529) COVID19 SARS Result Not Detected Not Detected (test code = 41538-3) COVID19 SARS SARS-CoV-2 NOT Detected. Interpretation (test Reference Range: Not code = 55161) Detected Methodology: The Zhu RealTime SARS-CoV-2 assay is a qualitative real-time reverse masonry supervisor polymerase chain reaction (cash specialist-PCR) test to detect RNA from SARS-CoV-2 in nasal, nasopharyngeal and oropharyngeal swabs from patients with signs and symptoms of infection who are suspected of COVID-19 by their health care provider. The Zhu RealTime SARS-CoV-2 performed on the Snootlab000 System is a dual target assay with [...] CLIA-certified, high-complexity Molecular Diagnostics Laboratory (MDL) at [facility] under the Food and Drug Administration (FDA) s Emergency Use Authorization. Factsheet for patients: https://www.[facility]anderson.org/ AbbottFactSheetPatientsFact sheet for healthcare providers: https://www.mdanderson.org/ AbbottFactSheetHCP Test performed by:[facility] Molecular Diagnostic [id number] [place] [address] [facility] Lymph[facility]intigraphy Breast Sulfur [id number] 18:28:36 Hodge lymph node in the left axilla. Interface, Radiology Results In - 02/11/2020 12:30 PM CSTFULL RESULT:Examination: Breast Lymphoscintigraphy, [...] in the left axilla, representing sentinel lymph node.IMPRESSION:Hodge lymph node in the left axilla.MD FairCytology Image-Guided FNA Ywbfgzflicgngv1618-39-04 16:40:00 Test Item Value Reference Range Interpretation Comments Addendum 1 (test code = d9szvNVtACGckVY8RNH 37) fZMCws3zou5PodPBmqV VnPUvnoDPeecHfuf73k DK7fA58MV9mXSYzAsL6 VOLtmmW3Gnk8DJIfZXQ htRPmH893m5igm6tvpd LjgCG4rFdbVJEuZSXvV XgfJWQmFbYuHS0uCLNk URAjIIXsa7Pas32xtpY ek3MwWD4bBNOhyUCoJd ocDDNqQAd6OLADEKurQ XJccGFyfQ== Gross Description (test h6dlfHNeRDOil9odPTA code = 9193401654) xWxChITRSs7opn136jO BwINtdLpLyKiL2hLKkY SFseRDiz9D3QVnpmSZl UtWYkkjmyHa5z9neO3w mai8zNM9fWnTdNZKtOQ QwXGZwcnEyIFRpbWVzI N3ebdTDs78kpvv9m3ec ZKasnD7qJWJnXEVwpFC dt7T7WShjtXWrVOXEl2 GbgZTmTB0qcai0e4jtR Djmo9twk6TyUvPhBGRi ZXQwXGZwcnEyIEFyaWF kCF3zcxDjdkh8o7tdVZ UdUl1wMBAymuooL8hya dTccMQeWoYgdDIyY238 mooxogu4o1nkRHSgNf9 umQabT2elpiZewWZbDv BycTIgVHJveSBNaWNyb nWwyLM4xEojOdMuVFIy a47jpkymA6zerhUgtCB iWtQtcVBqV0qdIo9zY9 53QBEmJBzsq2qhx2GjS mNoYXJzZXQwXGZwcnEy DITiD03cGYREK283AHN cHWGmYBQff3php7qeW7 hhcnNldDBcZnBycTIgQ JEcWPg8iI8Um0ijt0zk yjVaqHA0ZBBdQOAgL9T aFC2zYTHvpOMcO9ayBF AgEEcceqUlufF2FYJzc VErQKuvfhPeYvPjV2Kq XQ4kIQhxqORsMhG7VXJ sEMD7CSrwPOJyEYriTj t4KIJ4B1jkUMB9P2nar oHwjbVtXBZulKI2Fnfm iiFzEwbzI4NpWD79AXa soWKgWse2YJNfUCm9ID lyNSSlDKXoNao7XWk9A 4hkBIGnCQQrG8BlJI3z OZWkNfn8UXAvSCemolE qGOD8CKfqVPMtXLB3QK DjgVRvWzb6TMYwGHB3T 3disqFsioL7E5zhpKHa FPLeL8spWDUeMOwjM2H mDS8sRHbuFym9VIH5XB imfiTpQIx3UCyyFGBxL Kg3GXJqpETdBbG3BUXq CPW5WVgdphXwdbU1COj kuHTmQIkrZ8akPZWbSV nzO6OtII6yPUflMqh3M TIwNztccmVkMjIzXGdy ZWVuMjIzXGJsdWUyMjM 7XHJlZDIzOVxncmVlbj FfLMbmdXTeHqW4S8kwP OSyWVEyM9YoOT7mZDIe Ziw1SHL6ZYnqwdMrVVo vmyVsnsTnVsz2FJC1SV d2Jhvjb8W2jRQoyGIup HtcczEgaGVhZGluZyAx Y444NZNjUTgoSFHwrgl iPvg1c7jxDvFiIQQylI 4rSQM7uGkbmxZdiQQuE GwmVeA8Q294EZW3IZor YCIjhwykHHq9k6fdQxL mMHAhrV4zATW3gQ7MAa uqNVQaktriFNh4YCuiJ GBtmgtzUpY2WXcoYTYu lQp6RSlmCVXeerE0Fgr tYXJndDcyMFxtYXJnYj pjAEiyGHFkEPV0GqPmQ BZsg2Uncit0GdJdIpSn PFEZXrgnqAHcKGL6BRK 0ZjFcZXBpYzkxMDFcYW 5tnIxgiVo2iPqgIDJix oH9oXSfFOvff2qmSZG5 e7tgdwonMJMuHKmmAh2 udHRibHtcZjAgQXJpYW d2iJ34VCGikE4rjBJmV Tf3MDQnoqFwsJwrrW1t IyDkOJNLmOJdeS8rymV epWRqQ9JpHJC5FRRdys AyIERpZmYgUXVpazsgN mBIYMBnD9UwzI7cF8jh ZGVzXHBhciAxMCBtbCw gIGluIFJQTUlccGFyID HxL7w0w7RfpD5jvJEjU HBhciBTaXplOiAxLjIg T23guACzYZqhfRBeqVX 6OZOwo8Xxv9UeIY69MB UpidBgmAZvlP5relGpB LEelQGsjAA8IMJjuQKi TWF9KDTqmUJybRknDDH 9Cn0= Immediate Assessment (test Adequate code = 9837) cellularity, favor benign Major Classification (test NFMC/benign code = 9839) Diagnosis (test code = 34) o0crdQGwGQEabVO3MXE nYKHam1gxr9NmaUBxuF IrITqjnQJwppEdir73t BB8vH97WT2vDPFzDuG7 TIYjtvU2Chs2FVUcITQ gkQSeC806d9rnz2nxuq DsnNN9dLdbVDCqRLGrW DzxFIViYmZbXV5qXIfp qCscer0fBLmmhOKiuSR heGlsbGFyeSBsZXZlbC THTYPbwZ6yMY9pUSZoN KTtv7VrhjP9aL0cSvia YXJcdGFiXHBhclxsaTc pDUNJETxapJv3ULYwb4 VyiEW2BNV1QBJtIiBaP GWuoV4seOAbqRDrYOa5 vOTqn4hrMYHya0R3CYC lqiIpJX16DELxno2= Retained/Biomarker Testing f2iiwPDxUMEayZK9GRV (test code = 9838) rXRKfc6tqq9JfnRRlwQ EqIHjtdKJtioAybu78i XE2tR76EU1zWYHoDhU0 RDLnemE1Odi3FKUkXZI pjAIwW300j6lep1kkwx GsdEY1YBWnIKD6RJwhj gChwnC9GBerbGHpGkD7 P34xaXSoXSifxSTkvgw qbhTkQSQxY4UbRWQiVR CEUjZ1XXHlmGKnAXKvH 4OiGNDiPIMjid1= Informational Points (test j6ydiEFpOFKcrTM1FLG code = 9836) wXFHeg3udq1BibESvaS SbPLvudJSqvgZlye36i PQ6qE24ZX9cLPAeWrZ6 OKBioyD7Gwj9MDEjQAO rnYNhY407PRNfDKLwT7 8eQRLNS150w7wqw9niu sEggRG1aKwtBDPmTGIx YWluXGlcZjFcZnMxOCB Rp11jEBWvn1RaPIKveQ 5bsRJnFXhdsoAldVX9I GhhdmUgYmVlbiBkZXZl gB0yYTUqHZ9vYDToaoC oca1wzjEyCZMtEJFrO7 RlcmlzdGljcyBkZXRlc q1qmjSeFDB7FMWMLN4X XGLsCUJqc97wOCIvzXs toJ2khUGhriYqOUGzr0 TctC7bnEYQEPSaN2bdD S5bXMolv9FzzGAjlPDk sQN0TWRsz0OvDpRnxeI kkZJyuDBxV2UrlOghR0 xlYXJlZCBvciBhcHByb 3ClAROnkHV7uJWpSL9E AwGQd92aOEElCCDGnsE vVYSvyBuuqYA6wgC8rC 9uLiBccGFyIFRoZSBwY YPfc2hlG0warOVqEKTf iyQ9oRE6NMRhwPalQCH uk7OqDN4mKSNbpaAslK nhPJS1uNXycsXpo1E5K FN4FR7UGCQoJBCso61p AGylx3QrGC13m1Ezalj sERQ1WCWxT1J2uCYUcx Xgc2V9LMAAc5MdfX0jJ JBWFQckyaW9XhT3TN6i cGFyfQ== MD FairMammography Guided Seed Placement [id number] 15:32:48Interface, Radiology Results In - 01/26/2020 10:36 AM CDTClinical Indication: Patient is a 74 year old female seen for breast cancer. MAMMO GUIDED SALAS STAKE DRIVER PLACEMENT LEFT Technique: The patient was positioned in the mammography unit and the lesion inquestion was identified on one view. Findings: Mass in the left breast 9 to 10 o'clock position, 4 cm from the nipple. Procedures(s): Mammography-Guided Salas Graphic Art Designer Reflector Localization - left breast Primary Proceduralist: Dr. Esteban Campbell Braiding Machine Tender(s): None Consent: The procedure(s), risk(s), indication(s), and [...] 1% was administered forlocal anesthesia. Two Salas Graphic Art Designer reflectors were advanced into the area ofinterest, one anterior to the carcinoma and the other posterior to it. Theapproach was superior to inferior. After adjustment of the needle tip(s),reflector deployment was performed. Upon deploying the anterior Salas Graphic Art Designer, theneedle inadvertently retracted, and the reflector deployed with one of itsantennae piercing through and out of the skin. This was removed, and anotherreflector was placed at the anterior margin of the malignancy using the sametechnique (i.e. mammographic guidance). A total of three Salas Graphic Art Designer reflectorswere used during the procedure, two of [...] condition. Impression: Technically successful mammography guided Salas Graphic Art Designer reflector localization ofthe mass in the left breast 9 to 10 o'clock position, 4 cm from the nipple. Tworeflectors were placed at the time of localization. Examination: Post Pro cedure Mammogram <> 01/26/2020. Clinical Indication: Patient is a 74 years old female and isseen for postprocedure mammogram. Findings: See localization report done same date.MD Gonzalez Procedure Mammogram Left 2020-01-26 15:32:48Interface, Radiology Results In - 01/26/2020 10:36 AM CDTClinical Indication: Patient is a 74 year old female seen for breast cancer. MAMMO GUIDED SALAS STAKE DRIVER PLACEMENT LEFT Technique: The patient was positioned in the mammography unit and the lesion inquestion was identified on one view. Findings: Mass in the left breast 9 to 10 o'clock position, 4 cm from the nipple. Procedures(s): Mammography-Guided Salas Graphic Art Designer Reflector Localization - left breast Primary Proceduralist: Dr. Esteban Campbell Braiding Machine Tender(s): None Consent: The procedure(s), risk(s), indication(s), and [...] 1% was administered forlocal anesthesia. Two Salas Graphic Art Designer reflectors were advanced into the area ofinterest, one anterior to the carcinoma and the other posterior to it. Theapproach was superior to inferior. After adjustment of the needle tip(s),reflector deployment was performed. Upon deploying the anterior Salas Graphic Art Designer, theneedle inadvertently retracted, and the reflector deployed with one of itsantennae piercing through and out of the skin. This was removed, and anotherreflector was placed at the anterior margin of the malignancy using the sametechnique (i.e. mammographic guidance). A total of three Salas Graphic Art Designer reflectorswere used during the procedure, two of [...] condition. Impression: Technically successful mammography guided Salas Graphic Art Designer reflector localization ofthe mass in the left breast 9 to 10 o'clock position, 4 cm from the nipple. Tworeflectors were placed at the time of localization. Examination: Post Pro cedure Mammogram <> 01/26/2020. Clinical Indication: Patient is a 74 years old female and isseen for postprocedure mammogram. Findings: See localization report done same date.MD FairUS Guided Breast Clip Placement [id number] 14:55:02Technically successful ultrasound guided clip placement (Ribbon) [...] placement (Ribbon) into the leftbreast cancer at 9-10:00.MD FairPathology Outside [id number] 20:29:00 Test Item Value Reference Range Interpretation Comments Materials Received (test e1sysTKzJOOfeOQdUjFc code = 9973) WKHiXPItd2rcGSHfaPGo ZzEwMzNcZnRuYmpcdWMx OYMaPoIly4oxp517gTZl o9hfCYSvVhK7jLOkGWSt sZJmY200TRZiJBvqe2qz x1VwCVKlxBNsn1M5GHJI vmarlGw0vBqpM89qz8V3 EpskG5upALUoAJTxB1Ok XS9bMLAvMvn0MAF7OAI7 OZTxYGAlV6LaCK9oZZVa zUIjYFr1e2viqLpyAABr YZF4b0hfQYzcueUtYP7j yu5tfJc1v0btqzHjFMBl GHIvtXERLETzT3OkcFsy Zc7jlUy1yUrzSlqcQFC8 Jfi8VH2ery29lkh9qCpo XRPrxvrnQjR6VBgrEZGi mnfdWLq2VGltIMGjhOhd MFxtYXJncjcyMFxtYXJn sLB3HLNqmDAdT6BqXEJj XPitSDAmwgg2LiFaRb0t jXFhcEkjLShnj8uzj0fg xKLpNvx5YYPhLhJdVxxc PPowy2Xsj8fmNHFmwa3u UJG5uGUcgAzqs9J7sAHy YNLeqFQtjgYaSLJyrz67 dTInjILwzYIqnv9rkrWq fERqvXKkWIH8qAQqshQt TEHeiYZhBGVwIS1dlGPk DPDjfT7kjxkdYENrKnRk ofazUVAtkRyvugGyHm3l mEphJMX7FTrxE8aqcS5k ZoU6DZnwG5eutE4sVYg0 QSwewMH9SPSqcT1vVX3v gadai1rmBzFhJV5lztgd g4pcQxYrFP3ylfk2e5zb XYO7KVayEIXxKhY3xtV4 NDBcaGVhZGVyeTcyMFxm h537TUJ6WcNsOABoj0Vz E9LciAduX72tuHwsQ78q WADcvTogpA0tyJxedL3i YnUjYsOvXRn0dv27UZn3 whkkpSkyYBz1koEaFQHs EMO2NKJvaQWgVLJvM7n4 gvQhELMgUUC2ZKQuiSWt GBElZ2x2luTrUKC6BCj7 cnBhZGRmdDNcdHJwYWRk YjBcdHJwYWRkZmIzXHRy tXFtyHPwtOMbmR8bfSxx TEAqhNUgfR2gXCP7XGBk cmgzMjBcdHJoZHJcbHRy vs11TYWpttPhbUAeoEbj cZLcWNN2KTWlRAZsQHJb HWV9KUXiEeMcruTfFHkm bGJyZHJiXGJyZHJzXGJy PWN0TEPfQfPfyeZyYLec bGJyZHJsXGJyZHJzXGJy CSG4QYMlVtPinsLiRVbl bGJyZHJyXGJyZHJzXGJy OCG4PBFfBlPdtkZtWKll bHBhZHQxMFxjbHBhZGZ0 U8kvjIXuFYKlUXcrpKVx SRCjA4zugGLcUNjpVMKq cGFkZmwzXGNscGFkYjBc Y1dcGMRvYsLyN2EqgFx8 MDAwXGNsdmVydGFsdFxj wVErQPZ6ECEnNLCvDKVq RKU7XWQhYsNwdyYlJAka bGJyZHJiXGJyZHJzXGJy DYB1LJQaAiCjeqJoOOnf bGJyZHJsXGJyZHJzXGJy USH1VWVkIyWpifLdXBta bGJyZHJyXGJyZHJzXGJy FUA6GFCdFgDxvbObGFmi bHBhZHQxMFxjbHBhZGZ0 Z8hpcTXlENSuXXhypCFz JIKtR0iwgXGsURulWMJy cGFkZmwzXGNscGFkYjBc Z0cvWVLxGnWmD4DvrPe8 NjAwXGNsdmVydGFsdFxj gOGkNOZ7KMLwKNKmFUDb XMN9PMOvExMgrlEjONvm bGJyZHJiXGJyZHJzXGJy UQF2YNLjMoOweuLwDZjx bGJyZHJsXGJyZHJzXGJy DVT5TABwKjAwquMaCXbt bGJyZHJyXGJyZHJzXGJy RGD0WVXoAjEgfkYsQAdz bHBhZHQxMFxjbHBhZGZ0 X6cvtBDsGUPbPOgnmLSt LJNqM7rxgRTeJWnjTDNk cGFkZmwzXGNscGFkYjBc V2shDZItAcEfH7FdkHf3 PwKtXDWpoxMljA39Evsc i5SuMCEsMKG5ZPlbTLen bFxwbGFpblxmMVxmczIw YJdoikfeWHLnORqrG6tl EiHtJRArmCdbWGhoo1Cm XGYxXGNmMlxmczIwXGIg TWPjPKCeoW2jMylgL2Sh aV7bSTjePwdcG2ojPPRq z3LnrL4rEDzllEKimvyu MVxmczIwXGxhbmcxMDMz KYpbY7fqDiJuNEGasTnx LFser4FuPACsJFBrZcmr qkWuBJh3vsWnNXJosHcn oXXdIXqiqaDozSvlh8Xj fwJucUykPZMxHHt2mlHt bqfqyGx2aXKlaZjyLQAn eHvlvQ0sGjPjJlPoKJrs bGFpblxmMVxmczIwXGxh zzmlEYMhUHfyC7fmJwDq UNHxqRciIKezq3MxSUHy CYBdEhicwuIeEWJcP19s bGVjdGVkXHBsYWluXGYx XGZzMjBcbGFuZzEwMzNc aGljaFxmMVxkYmNoXGYx QMtlR8rdOcBaN8CfPBWx TnTvcQAuV1atF7CihFbx YXJkXGludGJsXHNzcGFy LFP7uOCdpoMehQDheZVg YLDcCFywQQB5kGDrdlbj rWAhwlnhDNpdcnO0YMYd YWluXGYxXGZzMjBcbGFu ZzEwMzNcaGljaFxmMVxk AaJdXJVoJMmjW3tiRlHb U0GjHXIjFqMfReGDAYIi aXZlZFxwbGFpblxmMVxm czIwXGxhbmcxMDMzXGhp C7cfAhJiZGWajLfeXRsm p1EjAHTjPCVnDzthnrWj YYp6gdQtVKVacVxnzO16 Jvcjrs56GPZts6vqNECp Z0FtoMKtAZOnaBOvIStv MDhcdHJwYWRkZmwzXHRy cGFkZHIxMDhcdHJwYWRk ZnIzXHRycGFkZHQwXHRy eQVuAXG6O3k4zzIpXZKn WVq8guXlRERkWaWzzVSa HOU2MGd7VaikjjH3qYUk E9v5YdsagbWaHVsiaPWi sn35MJWfktWwvCIyxPqy pSIpXNV4VOExDRHhNDYw BKX5RANeQhHqvhUnKEzy bGJyZHJiXGJyZHJzXGJy LRD6EGJbEpLxlhLpKBlo bGJyZHJsXGJyZHJzXGJy TZA3ICAtJgTtvmDeCJwt bGJyZHJyXGJyZHJzXGJy HYD7UOBuWxZtyjGsDKlx bHBhZHQxMFxjbHBhZGZ0 D8pjcHYsAWUjFZqtwERb PMRvO5urtRSkOUniPHGv cGFkZmwzXGNscGFkYjBc R4ntIIXgRlPyT5NbkNj4 MDAwXGNsdmVydGFsdFxj pSWrMRQ5MBHfJJSlJIWq KBX0QSStEeQqczGeMYkm bGJyZHJiXGJyZHJzXGJy YAW8EBVnOzVqseInSSbg bGJyZHJsXGJyZHJzXGJy WWW6NGZnYqWgmmVeWHrz bGJyZHJyXGJyZHJzXGJy CLN5JFTeRqPsrjLtHOnt bHBhZHQxMFxjbHBhZGZ0 R8tlcKUaRTPyFTrpxNPs EQKrN5bmxCNcVQyxYCBd cGFkZmwzXGNscGFkYjBc I7hzUWRmHqOqL5MnqSc7 NjAwXGNsdmVydGFsdFxj tADmAOO4MIJjNIWdSLQr KJQ9XXDqLhAspvZeYBoy bGJyZHJiXGJyZHJzXGJy JYX9LYEuMjFrlgBbJDde bGJyZHJsXGJyZHJzXGJy SRY2MYYeQtKidwXeHNva bGJyZHJyXGJyZHJzXGJy UZY5QJIpUqRkmnQvOQnn bHBhZHQxMFxjbHBhZGZ0 L2cynDIkKJEaONmjbTAf AZPiD7nsdZVrIHtaCFHp cGFkZmwzXGNscGFkYjBc O8wxINQaBgQvC4LxbFg2 QyCvYINncmSswS11Ooma u1CkUHRuHYP2HWbuKFmd bFxwbGFpblxmMFxmczI0 XHBsYWluXGYxXGZzMjBc bGFuZzEwMzNcaGljaFxm GHdlOuBnKEQgXLnmY5ki LcPjF1JcIGVuLoUeSP6t QoE8EGGxPRRwISU0SHUA QNVpQGZUR9ZHQlsaBPNT C0AkaVaoiO9kUqAdSrVg RRcyOG1wYPArY7djlYDg ZTFiUETwB9yhLhZxzU3z aFxmMVxjZjJcZnMyMFxs dHJjaFxjZWxsXHBhcmRc jL79Mpigk1ZrMTWnEQG6 MFxzMFxxbFxwbGFpblxm WPfsduG0KKRpVQvyEXLa XGZzMjBcbGFuZzEwMzNc aGljaFxmMVxkYmNoXGYx POwaD4wkPhBiG8HbYWYt HlLyRB8jJn1aBNNeGQXn YWluXGYxXGZzMjBcbGFu ZzEwMzNcaGljaFxmMVxk XpFzJVCkQHhsR3eqHqRy K0RzEILqTjKuaWJkK8te K4FhyRxpVYKqNIizwHBr NEXtrWQgGVO8wRCpfxNo lDcyoTiblI1aZyLeCtKy NFxwbGFpblxmMVxmczIw LQilpuavZBNeZPxhQ9jc XjIhSRBzbDtsEHyxp2Fe XGYxXGNmMlxmczIwIDEw DbSbKyRiFsZjhUsviI7f OuOaMjTnPZbiLJ3oYDOv Q3zjzAMfSPEyGDUrI6dt WrVsuP3whMkbEClyXvFx ZnMyMFxsdHJjaFxjZWxs JXlbhCLbZIZts5sdIFBo COZveVLpWBT9lDSdrpTp fIgxhZqrjZ5tAzOzOcKf NFxwbGFpblxmMVxmczIw GNfrwqedFNYtNOioU3pm QyBgHZKuzLxfIZbaq8Ch XGYxXGZzMjBccGFyfQ== Diagnosis (test code = e0ndlSQzRMHcfGI4LSXp 34) VQSwl9xxn6VjeILavIQi AGiieDTarnPbih57iVO2 tX47KG2vTYZrZgE4ZZCl klA2Ptt5ZEUjUCVhwAOc L028y2cjw3pxskUarEV6 fVxwYXJkXHBsYWluXGZz FbJiS0F0b4bzKXTeFqB3 RBCpJKNbPCK1CRGHDWPs ZZQBL5AYJubjCCHVQ4Vy ZCXzdUxbD9DpJZUmtbC3 IuY3ZlZxUrIzYMGiwncs EYPgvUl9VzTzrCuiZkMw IEJyZWFzdCwgbGVmdCwg rWe4utGvf7LvQG7nwQea ZWDnG01gNGYvlC3qi5m2 XHBhclxwYXJcbGkxNDQw ONzvnhS5SAOwOF4ELFUF VkUgRFVDVEFMIENBUkNJ Qd8ISLwbUd8VJPrIA6cI KQKPWFSTV6dOQ5uBZFqK UIRRHKXyISgNADprGb4U YNrrN8AGNoSRSQXYPLoY XHBhciBGRUFUVVJFUyAo C4SYTUZAXB1BEdTcLXBa ufupxBnsWHdwbJ83JiCr tUCaSEFePxFJmJ6hLUYn DQFwYW9tkJltsCQyDUGb aWRlcyByZWNlaXZlZCBm s2TmckF4bOA5GVoisZYq QHMqDey9DJLneSKqQASt jBWwW6TuLCToC1IkoD6y BsJPk1HhwSl2OSLkQvSf OZAur9MvfrD3WUHcdkUh iwNvmAssLWLunxb4EGIk vJLuKZKdYwUCkc7tQDZ8 DBEcuiRsxjYnUNU5h5Q5 XV7cN0V7lCLlDPwvTSkf lCLnKMXvLul6YCCixPGa IFrRJi9oPScVRbceClDq VPCrziLqKUCge5PkOU9q XQafRVFnsed8XLVhfUTn LEZxCnGZdG69XddySCAr y0D7x2uaBWXpTFDvzfXi TJEwpVVqPI9deYHwSVZd fMDlARAeg3AuaxN8sSJ1 KTogNzUlXHBhclxsaTBc bGluMFxwYXJccGFyfQ== Comment (test code = [id number] 9835) RSTpd6wcg7LenHWjlZIc BDpruLQeqdJjml41aSA3 vU52AA9nJKAuIzQ4MEMv zyK9Jwh1KACiTBOxgAPy C118d7cwv2kbbtQafCW3 fVxwYXJkXHBsYWluXGZz QyFwbIGrHQE8GExbyIFc m4fjs1BsQ1aggAffcJS5 IChzbGlkZSByZWNlaXZl GCCfr5WnokB9tGM6MFsw pKXwUAwuHP2rC6S9oYTf WXGcfsPjrI0csBh7oNHp bJQgBKOrsKboNGAes70k rRGhdX5fFGCgGOMelfBd b6o2FBOlGAM3fhEfn2Yr fVsgKVrvp0iwnw9vlBYx XHBhcn0= Disclaimer (test code = r9ylsTKzGIYavSWtOzQf 9844) QEElWYVpk9qfEVKhxOBi ZzEwMzNcZnRuYmpcdWMx PPOdUfXtt5yxi837jHBd v7atBRLkZoA3vUEoPLWl bCObD545EUZdOBwop2dd i3RsWWDmkOTgp7H2JWHQ tyepnBd6sRxgG26nk8Q1 CkfuM8qoBGRrMHSpB1Kt KR4vKKLsRcc7QYR9EYO0 RBStNUNkB3CxDP1cZJId pZHpCVa7q1saaCehBZVq YHI3b4qtEDynptBdLH9a te6ohDj0m5hhvwKfZQNf AWEhoGFSDKQtD2XksJkb Mr1ayVd9xPwdIpvlHIX5 Uvs0OM9zkd59pbh8fEax AIRejelmMsJ3AEtbBELy rbztWGs2LKuoGBCweNJ2 EKUbuALiT9VtZZHdMO4u xtk4JGX7TMmnCMNeAfR1 NDBcaGVhZGVyeTcyMFxm i910JOO7KaQhZW5vD5Zv y2J3jM5omVJdTCSqkPIt ApWxZYAwvx1bgZQaVKva y0WiPSX2dgR1gISzdDXa NOUjQP45Uzzla9YwXixf GMB1QCSlncBhe5Gvt5xd HuPvetLaT5rpE4UnAKVt LRXeWFUeXcAvzzJbq7Ib q7PyzRMzwFl9u1dqPYJm IWCzeYtha6npXVX8IFMn J4D1nMHoo5muDVicLADw vXV3vdV9WBIgpVWnS6Mx hL0pBTPkPX4shpj7f7bb JVR8AGwfQCEuYjU1mqP9 NDBcaGVhZGVyeTcyMFxm j246JSE9YfXuHRRzb2Hv C7JsiCbnC72loPymW97j HINmvEickO5ycHdauG9h ZjBcZnMyNFxxbFxwbGFp xfxnAFvhgaX9SZsjgxzq RWZuOXjfM4voNmVhAOKc pWwiMFucu8XjTXQiMFUo DdjvosL8AAUDu01tACXi u9TcGLWalG9dyIZjQMsq snWuvTO2YEdilzQgYqFd ccZlXANxjO4uZUDyBN1v KOXmvcKabf8edmIlYDXn WPNpE2GbiriurDeorgSe ULGgnl6nvpPzYRI4NWRY IQ8WKWLiZDJrz85nIBAx gRyxuG3uvVDugqOpAROc p6ThfC6ngWLYVQGkY9bq HH2nRPhvh6UtgCMvrOEl pFS4PZHqv2OuAeCfltLt jGDtsATuW1JffIdcC8eq JXAeEWUwflLmuJOhk9Vt ZJSmiJJ1zZXbOR3IWiMJ s56mNFBaQZGNcvUaDBWe uYblmYL9waX2gX0fIsTG ZiBhcHBsaWNhYmxlLCBj p558ig4uroM2CXImRESl jtvab6GhUXQxKFNpsN00 YUNsCVMkec1couwpeYRq ehYdP6Agjmm1tO1gNOXz YWluXGYxXGZzMjJcbGFu ZzEwMzNcaGljaFxmMVxk SwMrPCKpMKjuY1dtYpZk ZnMyMlxwYXJ9 MD FairMRNuris Breast Bilateral with and without Contrast incl [id number] 18:50:18 Test Item Value Reference Interpretation Comments [...] compared to a prior imaging study performed [facility] on 01/05/2020. EXAMINATION:MRI BREAST BILATERAL W [...] x 2.7 x2.0 cm (se 5-55 and [id number]). The palpable mass appears to be roughly 0.5 cmdeep to the adjacent overlying medial skin. There is no abnormal MRI correlate for the possible sonographic area ofdistortion described in the left 1 o'clock position, 8 cm from the nipple thatunderwent equivocal ultrasound-guided FNA biopsy. There are scattered foci of progressive enhancement with corresponding Y5pquinsmovioukt noted in both breasts in keeping with [...] Malignancy Lab Interpretation Abnormal (test code = 31045-4) [facility] [id number] 12:15:39Study acquired at another institution. For comparison only. No [facility] originated interpretation requested or available.MD [facility] [id number] 12:15:13Study acquired at another institution. For comparison only. No [facility] originated interpretationrequested or available.MD FairMYRTLE [id number] 12:14:20 Study acquired at another institution. For comparison only. No MD Fair originated interpretationrequested or available.MD FairUS Guided Axillary Lymph Node FNA - [id number] 22:33:58Addendum by Kimberly Love MD on 01/08/2020 [...] identified in the left breast at 1 o'rnthr5ap from the nipple. Immediate cytopathology assessment was [...] and other issues.MD FairUS Breast FNA - [id number] 22:33:58Addendum by Kimberly Love MD on 01/08/2020 [...] identified in the left breast at 1 o'biomn2hp from the nipple. Immediate cytopathology assessment was [...] and other issues.MD FairUS Breast Complete - [id number] 22:29:43 Test Item Value Reference Range Interpretation [...] available FILMS COMPAREDPrior imaging studies performed at [facility] were reviewed. Images were obtained [...] Evaluation Lab Interpretation Abnormal (test code = 80244-0) MD Bolaños [id number] 22:29:43 Test Item Value Reference Range Interpretation [...] available FILMS COMPAREDPrior imaging studies performed at [facility] on01/05/2020 were reviewed. Images were obtained [...] Evaluation Lab Interpretation Abnormal (test code = 43499-2) MD FairUS Upper Extremity Limited [id number] 22:29:43 Test Item Value Reference Range Interpretation [...] available FILMS COMPAREDPrior imaging studies performed at [facility] on01/05/2020 were reviewed. Images were obtained in [...] Evaluation Lab Interpretation Abnormal (test code = 16186-5) [facility] B[facility] with [id number] 19:39:25 Test Item Value Reference Range Interpretation [...] an outside location on 01/05/2020, and at [facility] on 01/05/2020 were reviewed. FINDINGS:The breasts are heterogeneously dense, which may obscure small masses. 1: There is an obscured mass measuring 2.3 centimeters with associated postbiopsy clip in the left breast upper inner quadrant at 10 o'clock located 6centimeters from the nipple consistent with the index carcinoma. [facility]ologyreview has not been performed at [facility] and outside pathology report is notavailable [...] Malignancy Lab Interpretation Abnormal (test code = 58848-0) MD Fair
[2020-07-08] MEDS ORDERED: METHYLPREDNISOLONE 125 MG INJ ONE (08:32)
[2020-07-08] MEDS ORDERED: DIPHENHYDRAMINE 50 MG/ML VIAL ONE (08:33)
--- NOTE | 2020-07-08 09:03 | EDPHYS ---
Physician Documentation [facility] Name: Maddie Hamlin Age: 74 yrs Sex: Female : 1945 Arrival Date: 07/08/2020 Time: 07:45 Bed 17 Private MD: Israel Rutherford R ED Physician Juan A Obrien HPI: 07/08 08:04 This 74 yrs old Female presents to ER via Ambulatory with complaints of Hives. rn 08:04 The patient presents with itching, rash. Onset: The symptoms/episode began/occurred 3 rn day(s) ago. Associated signs and symptoms: Pertinent positives: hives, rash, Pertinent negatives: abdominal pain, Altered mental status fever, shortness of breath. Possible causes: The patient has no known obvious cause for the symptoms. At home the patient or guardian has treated the symptoms with Benadryl. Severity of symptoms: At their worst the symptoms were mild in the emergency department the symptoms are unchanged. The patient has experienced a previous episode. The patient has not recently seen a physician. Reports on abx for diverticulitis, began with hives and itching a few days ago, called her surgeon who told her to stop taking the abx since its been long enough and she is feeling better. No other new medication. Taking benadryl at home with only mild improvement. Has had allergic reaction before. . Historical: - Allergies: 07:58 Celecoxib; hb 07:58 Codeine; hb - PMHx: 07:58 breast CA-tumor removed, on chemo; Diabetes - IDDM; High Cholesterol; Hypertension; hb - PSHx: 07:58 Appendectomy; Cholecystectomy; Hysterectomy; bilateral knee repair; hb - Immunization history:: Adult Immunizations up to date. - Social history:: Smoking status: Patient denies any tobacco usage or history of. - Family history:: not pertinent. - Hospitalizations: : No recent hospitalization is reported. ROS: 08:04 Constitutional: Negative for fever, chills, and weight loss, Eyes: Negative for injury, rn pain, redness, and discharge, ENT: Negative for injury, pain, and discharge, Neck: Negative for injury, pain, and swelling, Cardiovascular: Negative for chest pain, palpitations, and edema, Respiratory: Negative for shortness of breath, cough, wheezing, and pleuritic chest pain, Abdomen/GI: Negative for abdominal pain, nausea, vomiting, diarrhea, and constipation, MS/Extremity: Negative for injury and deformity, Skin: + rash and hives Neuro: Negative for headache, weakness, numbness, tingling, and seizure. Exam: 08:04 Constitutional: This is a well developed, well nourished patient who is awake, alert, rn and in no acute distress. Head/Face: Normocephalic, atraumatic. ENT: NO stridor Cardiovascular: Regular rate and rhythm. No pulse deficits. Respiratory: No increased work of breathing, no retractions or nasal flaring. Skin: Warm, dry, + diffues urticaria, no bullae MS/ Extremity: Pulses equal, no cyanosis. Neuro: Awake and alert, GCS 15 Vital Signs: 07:54 BP 129 / 73; Pulse 113; Resp 16; Temp 98; Pulse Ox 99% on R/A; Pain 0/10; hb 08:57 BP 128 / 71; Pulse 84; Resp 18; Pulse Ox 96% on R/A; bw MDM: 07:55 Patient medically screened. rn 09:02 Differential diagnosis: urticaria. Data reviewed: vital signs, nurses notes, and as a rn result, I will discharge patient. Counseling: I had a detailed discussion with the patient and/or guardian regarding: the historical points, exam findings, and any diagnostic results supporting the discharge/admit diagnosis, the need for outpatient follow up, to return to the emergency department if symptoms worsen or persist or if there are any questions or concerns that arise at home. Response to treatment: the patient's symptoms have mildly improved after treatment, and as a result, I will discharge patient. Special discussion: I discussed with the patient/guardian in detail that at this point there is no indication for admission to the hospital. It is understood, however, that if the symptoms persist or worsen the patient needs to return immediately for re-evaluation. Administered Medications: 08:20 Drug: SOLU-Medrol 125 mg Route: IM; Site: left deltoid; bw 08:59 Follow up: Response: No adverse reaction bw 08:20 Drug: Benadryl (diphenhydrAMINE) 25 mg Route: IM; Site: right deltoid; bw 08:59 Follow up: Response: No adverse reaction bw Disposition: 07/08/20 09:02 Discharged to Home. Impression: Urticaria, unspecified. - Condition is Stable. - Discharge Instructions: Hives. - Prescriptions for Hydroxyzine HCl 50 mg Oral Tablet - take 1 tablet by ORAL route every 8 hours As needed; 20 tablet. Prednisone 20 mg Oral Tablet - take 3 tablet by ORAL route once daily for 5 days; 15 tablet. - Medication Reconciliation Form, Thank You Letter, Antibiotic Education, Prescription Opioid Use form. - Follow up: Private Physician; When: As needed; Reason: Recheck today's complaints, Re-evaluation by your physician. - Problem is new. - Symptoms have improved. Signatures: Juan A Obrien MD MD rn Baxter, Heather, RN RN Mary Ellen Clark RN RN bw Corrections: (The following items were deleted from the chart) 09:11 09:02 07/08/2020 09:02 Discharged to Home. Impression: Urticaria, unspecified. bw Condition is Stable. Forms are Medication Reconciliation Form, Thank You Letter, Antibiotic Education, Prescription Opioid Use. Follow up: Private Physician; When: As needed; Reason: Recheck today's complaints, Re-evaluation by your physician. Problem is new. Symptoms have improved. rn
--- NOTE | 2020-07-08 09:03 | ER ---
Nurse's Notes [facility] Name: Maddie Hamlin Age: 74 yrs Sex: Female : 1945 Arrival Date: 07/08/2020 Time: 07:45 Bed 17 Private MD: Israel Rutherford R Diagnosis: Urticaria, unspecified Presentation: 07/08 07:54 Chief complaint: Hives on entire body x 3 days. On Cipro and Flagyl for diverticulitis hb since 06/26, last chemo 06/06. Reports rash was partially relieved by Benadryl, started taking Zyrtec instead of Benadryl yesterday, rash seems worse today. Coronavirus screen: At this time, the client does not indicate any symptoms associated with coronavirus-19. Ebola Screen: No symptoms or risks identified at this time. Risk Assessment: Do you want to hurt yourself or someone else? Patient reports no desire to harm self or others. Onset of symptoms was July 05, 2020. 07:54 Method Of Arrival: Ambulatory hb 07:54 Acuity: SUE 4 hb 09:10 Initial Sepsis Screen: Does the patient meet any 2 criteria? No. Patient's initial bw sepsis screen is negative. Does the patient have a suspected source of infection? No. Patient's initial sepsis screen is negative. Triage Assessment: 09:10 General: Appears in no apparent distress. uncomfortable, Behavior is calm, cooperative, bw appropriate for age. Historical: - Allergies: 07:58 Celecoxib; hb 07:58 Codeine; hb - PMHx: 07:58 breast CA-tumor removed, on chemo; Diabetes - IDDM; High Cholesterol; Hypertension; hb - PSHx: 07:58 Appendectomy; Cholecystectomy; Hysterectomy; bilateral knee repair; hb - Immunization history:: Adult Immunizations up to date. - Social history:: Smoking status: Patient denies any tobacco usage or history of. - Family history:: not pertinent. - Hospitalizations: : No recent hospitalization is reported. Screenin:59 Abuse screen: Denies threats or abuse. Denies injuries from another. Nutritional hb screening: No deficits noted. Tuberculosis screening: No symptoms or risk factors identified. Fall Risk None identified. Assessment: 08:09 Pain: Complains of pain in states her skin is sore. Neuro: No deficits noted. bw Cardiovascular: No deficits noted. Respiratory: No deficits noted. GI: No signs and/or symptoms were reported involving the gastrointestinal system. Derm: Reports burning, itching. 08:57 Reassessment: Patient appears in no apparent distress at this time. No changes from previously documented assessment. Patient and/or family updated on plan of care and expected duration. Pain level reassessed. Vital Signs: 07:54 BP 129 / 73; Pulse 113; Resp 16; Temp 98; Pulse Ox 99% on R/A; Pain 0/10; hb 08:57 BP 128 / 71; Pulse 84; Resp 18; Pulse Ox 96% on R/A; bw ED Course: 07:45 Patient arrived in ED. mr 07:45 Israel Rutherford MD is Private Physician. mr 07:55 Juan A Obrien MD is Attending Physician. rn 07:58 Triage completed. hb 07:59 Arm band placed on. hb 07:59 Patient has correct armband on for positive identification. Call light in reach. Side hb rails up X 1. 08:09 Mary Ellen Clark, BELKIS is Primary Nurse. bw 08:09 No provider procedures requiring assistance completed. Patient did not have IV access bw during this emergency room visit. Administered Medications: 08:20 Drug: SOLU-Medrol 125 mg Route: IM; Site: left deltoid; bw 08:59 Follow up: Response: No adverse reaction bw 08:20 Drug: Benadryl (diphenhydrAMINE) 25 mg Route: IM; Site: right deltoid; bw 08:59 Follow up: Response: No adverse reaction Outcome: 09:02 Discharge ordered by . rn 09:09 Discharged to home ambulatory. bw 09:09 Condition: stable 09:09 Discharge instructions given to patient, Prescriptions given X 2. 09:11 Patient left the ED. Signatures: Britt Lowe mr Juan A Obrien MD MD rn Baxter, Heather, RN RN Mary Ellen Clark RN RN
[2020-07-08 16:26] VITALS: TEMP 98
[2020-07-08 16:27] VITALS: BP 128/71; O2SAT 96
== END 2020-07-08 09:11 | disposition home or self-care (01) ==
LOC: ER 07:39
DX: L50.9 Urticaria, unspecified (principal); Z85.3 Personal history of malignant neoplasm of breast; Z92.21 Personal history of antineoplastic chemotherapy; E11.9 Type 2 diabetes mellitus without complications; E78.00 Pure hypercholesterolemia, unspecified; I10 Essential (primary) hypertension; Z79.4 Long term (current) use of insulin
CPT/HCPCS: J1200; J2930; 96372; 99283

== ENCOUNTER 2020-07-17 11:14 | Emergency (ER) | payer OTHER ==
--- OUTSIDE RECORDS SUMMARY | 2020-07-17 11:19 | XMS REPORT | Continuity of Care Document ---
:1945 Author Organization [facility] t Address [address] [place] [address] Care Team Providers Name Role Phone Olinda STOUT Primary Care Physician Unavailable SYSTEM, NOT IN Attending Clinician Unavailable Ashley LIND Attending Clinician Tressa TAMAYO, L Attending Clinician Chica Soni Attending Clinician Jacob BURDICK Attending Clinician Unavailable Edgar CRUZ Attending Clinician Adam PATINO Attending Clinician Manish CRUZiv, K Attending Clinician Unavailable Brayden CRUZ Attending Clinician Kirill FARMWORKER DAIRY Attending Clinician Kelly CRUZ Attending Clinician Olinda Stout MD Attending Clinician Kelin RD, C Attending Clinician Unavailable Arian HATFIELD Attending Clinician Dakota CRUZ Attending Clinician Parker Pizarro MA Attending Clinician Unavailable Sonia TAMAYO, L Attending Clinician Unavailable Jenifer CRUZ, Nola Becerra Attending Clinician [phone] Lesli Ortega MD Attending Clinician Rey HATFIELD Attending Clinician Osman FARMWORKER DAIRY, Karena Attending Clinician Camilo FARMWORKER DAIRY Attending Clinician Lei FLORES, S Attending Clinician [...] Date Expiration Date Sour ce Number HUMANA [id number] 2020 MD Fair MEDICAREHUMANA 00:00:00 [facility] MEDICARE [id number]/03/2020 -PresentMedicare HUMANA [id number] 2019 [place] MEDICAREHUMANA 00:00:00 [facility] MED[facility] PPO/PFFS/ERS [id number]/ 0-PresentPPO Problems Condition Condition Condition Status Onset [...] of ovary 00 Essential Essential Disease Active MD (primary) (primary) 12-18 Nayan rso hypertensi hypertensi 00:00: n on on Hyperlipid Hyperlipid Disease Active M D emia emia 9- Anderso 00:00: n 00 Borderline Borderline Disease [...] MD Fair SARS-CoV-2 (event) Tobacco use and 2020-07-13 2020-07-13 Never used MD Leiva on exposure 00:00:00 00:00:00 Alcohol intake 2020-07-13 2020-07-13 Current MD Twin roberts 00:00:00 00:00:00 non-drinker of alcohol (finding) Tobacco Comment 2019-10-26 2019-10-26 as a teenager Devika Razo 00:00:00 00:00:00 Alcohol Comment 2019-10-26 2019-10-26 as a teenager Devika armando Razo 00:00:00 00:00:00 Smoking Status Start Date Stop Date Source Never smoker MD Fair Former smoker 2019-10-28 00:00:00 2019-10-28 00:00:00 Baldemar Razo Medications Ordered Filled Start Stop Current Ordering Indication Dosage Frequency Signature Comments Components Source Medication Medication Date Date Medication? Clinician (SIG) Name Name NovoLIBBY Yes Type 2 Inject 36 70/30 U-100 4-15 diabetes Units And erso Insulin 100 00:00: mellitus under the n unit/mL 00 with skin every (70-30) hyperglycem morning injection ia before breakfast AND 16 Units daily before dinner. Dispense Relion brand. blood sugar Yes Type 2 Relion diagnostic 4-15 diabetes meter. Use Anderso (glucose 00:00: mellitus to check n blood) strp 00 with blood hyperglycem sugar 3 ia times daily as directed insulin Yes Type 2 Use to syringe-nee 4-15 diabetes inject An derso dle U-100 00:00: mellitus insulin SQ n (Insulin 00 with 2 times Syringe) hyperglycem daily 0.5 mL 29 ia gauge x 1/2" syrg multivitami Yes Take by MD roberts capsule 4-14 mouth Anderso 17:29: daily. n 37 cholecalcif Yes 1000U Take 1,000 MD hi, 4-14 Units by Anderso vitamin D3, 17:29: mouth n (cholecalci 37 daily. ferol) 25 mcg (1,000 unit) tablet vit A/vit Yes Take by C/vit 4-14 mouth Anderso E/zinc/ever 17:29: daily. n er 37 (PRESERVISI ON AREDS ORAL) microfibril Yes Apply lar 4-14 topically Anderso collagen 17:29: to n hemostat 37 affected topical area(s) as powder needed for wound care. Add to fluids and drink BIOTIN ORAL Yes 1{tbl} Take 1 MD 4-14 tablet by Anderso 17:29: mouth n 37 daily. cranberry Yes 2{tbl} Chew 2 MD fruit 4-14 tablets Anderso concentrate 17:29: daily. n (Azo 37 Cranberry) 250 mg chew acetaminoph Yes pain 1000mg Take 1,000 MD en 4-14 mg by Anderso (TYLENOL) 17:29: mouth n 500 mg 37 every 6 tablet (six) hours as needed. famotidine Yes 20mg Take 20 mg M D (PEPCID) 20 4-14 by mouth 2 An derso mg tablet 17:29: (two) n 37 times a day as needed. loratadine Yes 1{tbl} Take 1 MD (CLARITIN 4-14 tablet by Jonathan so ORAL) 17:29: mouth as n 37 needed. ibuprofen 2020- No 100mg Take 100 MD (ADVIL,MOTR 4-14 04-14 mg by Cali o IN) 200 mg 17:29: 00:00 mouth n tablet 37 :00 every 8 (eight) hours as needed. ciprofloxac Yes MD in HCl 3-29 Anderso (CIPRO) 500 00:00: n mg tablet 00 metroNIDAZO 2020- No MD LE (FLAGYL) 3-29 04-14 Anderso 500 mg 00:00: 00:00 n tablet 00 :00 pseudoephed 2020- No 30mg Take 30 mg [...] Take 4 mg MD (AMARYL) 4 04-01 1102 by mouth Nayan rso mg tablet 17:16: 00:00 twice n 31 :00 daily. insulin 2019-03 Yes Type 2 Use to MD syringe-nee 04-01 diabetes inject An derso dle U-100 1 00:00: mellitus insulin n mL 31 gauge 00 with twice x 5/16 syrg hyperglycem daily as ia directed. NovoLIN 2019-03- No Type 2 Inject 40 MD 70/30 U-100 04-01 04-15 diabetes Units An derso Insulin 100 00:00: 00:00 mellitus under the n unit/mL 00 :00 with skin every (70-30) hyperglycem morning injection ia before breakfast AND 20 Units daily before dinner. Dispense Relion brand.. gabapentin 2019-03- No 300mg Take 300 M D (NEURONTIN) 0-31 05-22 mg by Cali o 300 mg 09:18: 00:00 mouth n capsule 21 :00 daily. traMADol 2019-03- No 50mg Take 50 mg MD (ULTRAM) 50 0-31 05-22 by mouth And erso mg tablet 09:18: 00:00 as needed. 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 Start AFTER surgery ciprofloxac 2019-03 2020- No 1{tbl} Take 1 M D in HCl 0-19 11-02 tablet by Anderso (CIPRO) 250 00:00: 00:00 mouth n mg tablet 00 :00 daily. multivitami 2020-0 Yes 1{capsu QD Take 1 [place] n capsule 7-28 le} capsule by Meth ronnell 13:23: mouth st 25 daily. glimepiride 2020-0 Yes 1{tbl} Q.5D Take 1 [place] (AMARYL) 4 6-18 tablet by Meth ronnell MG tablet 00:00: mouth 2 st 00 (two) times a day. metFORMIN 2019-0 Yes 500mg Q.5D Take [address] (GLUCOPHAGE 6-18 mg by Methodi ) 500 mg 00:00: mouth 2 st tablet 00 (two) times a day. lisinopriL- 2019-0 Yes 1{tbl} QD Take 1 [place] hydrochloro 6-18 tablet by Met hodi thiazide 00:00: mouth st (PRINZIDE) 00 daily. 20-25 mg per tablet Levemir 0 Yes 60U QD Inject 60 [place] FlexTouch 5-20 Units Methodi U-100 00:00: under the st Insuln 100 00 skin unit/mL (3 daily. mL) insulin pen lisinopriL- 2018-03 Yes DAILY AT hydrochlortheron 2-04 0600 Anderso thiazide 00:00: n (PRINZIDE,Z 00 ESTORETIC) 20-12.5 mg per tablet REPATHA 2018- Yes 1mL Inject 1 SURECLICK 2-18 mL [...] blood 2020-07-05 18:11:22 67 mm[Hg] MD Dodie spears pressure Heart rate 2020-07-05 18:11:22 86 /min MD Jonathan dang Body temperature 2020-07-05 18:11:22 36.61 Vani MD Raul oleary Respiratory rate 2020-07-05 18:11:22 18 /min MD Raul packeron Body weight 2020-07-05 18:11:22 76.6 kg MD Jonathan dang BMI 2020-07-05 18:11:22 32.09 kg/m2 MD Jonathan dang Oxygen saturation in 2020-04-25 18:53:00 97 /min MD Fair Arterial blood by Pulse oximetry Body height 2020-04-04 15:39:07 154.5 cm MD Jonathan dang Oxygen saturation in 2019-10-26 12:50:00 97 /min Bald[facility] Arterial blood by Pulse oximetry Systolic blood 2019-10-26 12:50:00 145 mm[Hg] [place] [facility] pressure Diastolic blood 2019-10-26 12:50:00 67 mm[Hg] [place] [facility] pressure Heart rate 2019-10-26 12:50:00 88 /min [place] [facility] Body temperature 2019-10-26 12:50:00 36.39 Vani [place] [facility] Respiratory rate 2019-10-26 12:50:00 17 /min [place] [facility] Body height 2019-10-26 11:12:00 154.9 cm [place] [facility] Body weight 2019-10-26 11:12:00 75.042 kg [place] [facility] BMI 2019-10-26 11:12:00 31.26 kg/m2 [place] [facility] Procedures Procedure Date / Time Performing Clinician Source Performed COMPLETE BLOOD COUNT W/ 2020-07-05 17:34:00 Suly Medina MD DIFFERENTIAL Results CBC 2020-07-05 17:34:00 Suly Medina MD MANUAL DIFFERENTIAL 2020-07-05 17:34:00 Suly Medina COMPREHENSIVE METABOLIC 2020-06-06 16:25:00 Gita Gonzalez MD PANEL GLUCOSE LEVEL 2020-06-06 16:25:00 Gita Gonzalez MD BLOOD UREA NITROGEN 2020-06-06 16:25:00 Gita Gonzalez MD Jonathan son ELECTROLYTE PANEL 2020-06-06 16:25:00 Gita Gonzalez MD SERUM CREATININE 2020-06-06 16:25:00 Gita Gonzalez MD .GLOMERULAR FILTRATION RATE 2020-06-06 16:25:00 Gita Gonzalez MD CALCIUM LEVEL TOTAL 2020-06-06 16:25:00 [facility] ALBUMIN LEVEL 2020-06-06 16:25:00 Gita Gonzalez MD ALKALINE PHOSPHATASE 2020-06-06 16:25:00 Gita Gonzalez MD rson ALANINE AMINOTRANSFERASE 2020-06-06 16:25:00 Gita Gonzalez MD ASPARTATE AMINOTRANSFERASE 2020-06-06 16:25:00 Gita Gonzalez TOTAL PROTEIN 2020-06-06 16:25:00 Gita Gonzalez MD FRACTIONATED BILIRUBIN 2020-06-06 16:25:00 Gita Gonzalez MDson COMPLETE BLOOD COUNT W/ 2020-06-06 15:04:00 Suly Medina MD DIFFERENTIAL HEMOGLOBIN A1C 2020-06-06 15:04:00 Aleena Ramirez MD Results CBC 2020-06-06 15:04:00 Suly Medina MD MANUAL DIFFERENTIAL 2020-06-06 15:04:00 Suly Medina COMPLETE BLOOD COUNT W/ 2020-04-25 15:58:00 Lou Hernández MD DIFFERENTIAL Results CBC 2020-04-25 15:58:00 Lou Hernández MD MANUAL DIFFERENTIAL 2020-04-25 15:58:00 Lou Hern[facility]dez [facility] COMPLETE BLOOD COUNT W/ 2020-04-04 13:26:00 Suly [...] 2020-04-04 13:26:00 Suly Medina MD Cali on .GLOMERULAR FILTRATION RATE 2020-04-04 13:26:00 Elaina [...] MD ALKALINE PHOSPHATASE 2020-02-23 16:57:00 Alessandra Page MD ALANINE AMINOTRANSFERASE 2020-02-23 16:57:00 Alessandra Page ASPARTATE [...] GLUCOSE SCREEN 2020-02-14 21:27:00 Az Burgess MD nderson Becerra POC GLUCOSE SCREEN 2020-02-14 17:45:00 Az Bugress MDon Mariam PATHOLOGY SURGICAL 2020-02-14 14:26:30 Az Burgess MD INTERPRETATION Becerra SEGMENTAL MASTECTOMY - OTHER 2020-02-14 [...] MANUAL DIFFERENTIAL 2020-01-21 13:54:00 Jax Sanders MD son GLUCOSE LEVEL 2020-01-21 13:54:00 Jax Sanders MD ELECTROLYTE PANEL 2020-01-21 13:54:00 Jax Sanders MD SERUM CREATININE 2020-01-21 13:54:00 Jax Sanders MD .GLOMERULAR FILTRATION RATE 2020-01-21 13:54:00 Jax Sanders MD CALCIUM LEVEL TOTAL 2020-01-21 13:54:00 Jax Sanders MD Jonathan son ALBUMIN LEVEL 2020-01-21 13:54:00 Jax Sanders MD ALKALINE PHOSPHATASE 2020-01-21 13:54:00 Jax Sanders MD Nayan rson ALANINE AMINOTRANSFERASE 2020-01-21 13:54:00 Jax Sanders MD ASPARTATE AMINOTRANSFERASE 2020-01-21 13:54:00 Jax Sanders TOTAL PROTEIN 2020-01-21 13:54:00 Jax Sanders MD FRACTIONATED BILIRUBIN 2020-01-21 13:54:00 Jax Sanders MD deralton BLOOD UREA NITROGEN 2020-01-21 13:54:00 Jax Sanders MD Jonathan dang ECHOCARDIOGRAM 2D COMPLETE 2020-01-12 20:02:51 Suly Medina [...] US BREAST BIOPSY 2019-12-15 12:15:32 Amanuel Stout MDon PATHOLOGY OUTSIDE 2019-12-15 00:00:00 Dorothy Wilson MD [...] Department ID 2020-01-05 Outpatient SYSTEM, MDA MDA [id number] 12:42:00 PROVIDER Cali o n 2020-01-05 2020-01-05 Outpatient EL STOUT, MDA MDA [id number] 13:06:30 13:06:30 AMANUEL Cali o n 2020-01-05 2020-01-05 Outpatient EL STOUT, MDA MDA [id number] 13:06:26 13:06:26 AMANUEL Cali o n 2020-01-05 2020-01-05 Outpatient EL STOUT, MDA MDA [id number] 13:06:21 13:06:21 AMANUEL Cali o n 2020-01-05 2020-01-05 Outpatient EL STOUT, MDA MDA [id number] 13:06:19 13:06:19 AMANUEL Cali o n 2020-01-05 2020-01-05 Outpatient EL STOUT, MDA MDA [id number] 13:06:18 13:06:18 AMANUEL Cali o n 2020-01-05 2020-01-05 Outpatient EL STOUT, MDA MDA [id number] 13:06:16 13:06:16 AMANUEL Cali o n 2020-01-05 2020-01-05 Outpatient EL STOUT, MDA MDA [id number] 13:06:15 13:06:15 AMANUEL Cariasers o n 2020-01-05 2020-01-05 Outpatient EL STOUT, MDA MDA [id number] 13:06:13 13:06:13 AMANUEL Cariasers o n 2020-01-05 2020-01-05 Outpatient EL STOUT, MDA MDA [id number] 13:06:11 13:06:11 AMANUEL Cali o n 2020-01-05 2020-01-05 Outpatient EL [facility], MDA MDA [id number] 11:21:37 11:21:37 JAX roberts 2020-01-05 2020-01-05 Outpatient GRAEME HERNÁNDEZ MDA MDA [id number] 08:03:34 10:12:12 LOU roberts 2019-12-31 2019-12-31 Outpatient GRAEME BURGESS MDA MDA [id number] 09:03:54 11:13:19 [place] roberts 2019-10-26 2019-10-26 Outpatient [place] [id number] [place] [address] 00:00:00 00:00:00 SHAKIR Heck Method i st Results Test Description Test Time Test Comments Results Result Comments Source Pathology Surgical Interpretation 2020-02-21 22:39:00 Test Item Value Reference Range Interpretation Comme nts Diagnosis s1cdjQXnBODneIB6VxIiRQRnn5lgk8KdyDUkzGKpJRavrWPvqaZpqp96jCJ6eK06MH3uDHTpGfE3YTKg roZ8Rrz5GVJjOFDkwPOuC213k2ske4fureUxaAN9iXadEIAmIBZxNYqhLJOuTsQiYD0mMJWiZZAMptAu y9YtLK5cCWJ1wNddIKX7YQj7oNSiUG2bGRSvBSFfSMH (test code 1EGDrDQyqNS97TTbqzFDgjYQxjT3bsLLoUGe6MRFxerFrveBmBFi1uNPrVE2kYVOoJgExBOGbZBRqLT5 2qP2igSQeoG3fiAUqp1VaCRJpESzJAOcjn7LpnGccEUonaIxgnDkjvu6vSMEiBvXxXnvfAQMycuTiywK mICb9jUSdNJ0tEWVqDwFhVRqjWBQsjhTxfjXnMXohpK = 34) Ruk64fw8VckTUaoRZeEU4udquxwgTxONh3WLGgxxxsLAVmTRkgHyUaRAxurgpzVUDJAtPBG6mGJFXAXS WZLR2JZOJiFUHabmFOXWPgsoVyiF8cjERag4DrxnxscqTsWSWzmtBzTn8aHBXwkeDtjx1cTRJgOW74UM 9tyILiUEMSFVBZRAOcT6jII9JPIBAzVM7GEMEHQQ5UX oJrTIKfxtbsTIQstKckMIfrhvCvIv7mTrRGBxWQy7hlNQZmRYW1XAbFCSPbdaWkojljfJZkEZWhAKRaT LPmoAmkVWgcqZNjr86fk9RqhSOdgGNlLQ1fXSEif2ytohmagJRkOUqnGwDzKNxesrbbMACKh3oeSEfba Cvkkw7mn0CxB1jagPGknIpmaD1qILDfr1gjP8irECbv X1knngowKhclGEAwXrVtHOVokyKfHk7cXXLkyuKgtb6hXZ3uALLrsb xsaTBcbGluMFxwYXJ9 Comment j5lbbYEaFCCzmMM7NkOaQFStd5mwd3KqxGPrhKVjTEivgYWvzgQvfy38gTU5mG88ZM0wMQRaJtN0ZSUi pxZ8Jjc8EETeEUAmeCCcR578b6xez6toyhBxdHW0rOywEKAoQNXqGPyxWZCaOfEyFQDji4DprOTaNzRx fZT4exAvTPNxMNbsuSBgD2ytMFwpDADoTHUheXNkJPB (test code aTVRhrReqF8DeKFG7IBMmPYYskBTzSCnxZGpauUEkKQllmzZgHVrusQs0KQOzl4OwL8ZyG8xec96aUjw fCXDhaBVjGGbgnNKzn6Z8DNoubiU0PGHsJQIjuoSoxu9gXCApjsIePP02vV0ygDRgmU1hwZVdf8UeyqL qOF48MLhZHH4CSPdnTQIuVPCpYGVeBSHbGDZEIK4VGy = 9835) cdPU2gNDPiYDNkMCmnyCz7SJSlw3NllJOlk6EcK3MvzMUfCTfrSPP7 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: [...] Lymph Nodes Examin ed: 7 Number of [place] Nodes Examined: 7 PATHOLOGIC STAGE CLASSIFICATION (pTNM, AJCC 8th Edition) Primary Tumor (pT): pT2 Regional Lymph Nodes (pN): pN0 ADDITIONAL FINDINGS Additional Findings: Fibroadenoma, sclerosing adenosis Breast Biomarker Testing Performed on Previous Biopsy: Testing Performed on Gross u2afnHYtWNFzwEZIRQTcZCsngxShXUTzwIAlD7RxvthwDTflXV7wYY5ujKyloIXjkIEvEX1NPSWlBxFk AWQvcCQqrmWmSdKhMWDmyGVkmJY3ORUlIG7ikhhpKObjKXmzYJIpfzD4VEDvkQEfG1YxWPTiRQ3ehayi FNW2TZowrE2ivpEDYgjtZl9rjEKmqQclHnEaIfIhPJD Descriptio jHRBfSOOpeLwzRREaFXt9bW4LAtclPYR7WHSNTggbQGKnGF1Pz8mpDULyzSBtQJW9SQurnQLyIYVcQMB iKLh1HDPcXTsdfKVgLJ4miAwoHmvkhAzcf1WflFMwYBkaGWKfCZFqVTueLVTfSQ2GXaFgNVRaRcF5KKm rVDs0JQv2EI4NPhZdVXVgHPX9TAZ6VIYkHNr4GQmmMA n (test 5IOZMsSlH9URI8SDP5BFlpUoGyPMKmSoSpEBXeLANgIEaeKGitliOpQGHgBLIhCOsfEvkrQYpvM39mrZ hszK0tUmcoizLpDSD2THSoqcHTNmmecUSkjfxkyAczTfChiJObWnOvDQgctNOckWMfYCarolPjgeicCI IGBetnjXLmmDodOETrDkVdW5DbFIAzVJraBxBas1Yyr code = GFiqRBrWI0dm2OsK4LblBnfJETna1D5VHC2xBYqiMNtmXNrggeuylwbwY8iQtIbnTn4L0ksrMJ0PAFkc NsrMjPdPCXpUDFry7Y8rnpqCeXblPijfoLqAR1nXPCzIvglGSEaQ14qz0zesBQfz8BcWW9ph4OvFW44S VRmvL3tdZthpxHaIfZ2QYiww4kgs5jbgDIoSlktil2y [id number] KHR5zYF3pMMhfTKhPGostTQnQHgamhPnLXDsq9S4XIR8yIMwqZLczDPfxcfeimEkvwTisW7pPeEykSi1 V6xqrNM3VBYbyQ9dACYkVQLwcXXqkF9snyI3ARlroDXxSlWqXtCbhsFovZLmu9ZoVWXkRqMsiHMvuWJp yhckrnC4umFzwnSqvmkdryzyBe81XLLoUM9hMXskuYA ) [file] iAgUHVycGxlIGluayBpcyBpZGVudGlmaWVkIGFuZCBp ozUvQHFeE33qxMFcAOYpFHTaHKW3baVhBW8dqdhlzcSaAZGoxZegBYO0fcdzu87jHZBGxYDlnHJ2LHXl IKOprQ1imOWlgB8rXZRhBvubW9pcZXDThDDdiO0fmmXslvMpKBLtEIldrEPqDXS1bY7cRLNwtP7vXLDi u83vlMSreYVzIDO1EK5qjLZmlB98HPPdMnGnStK6nGm fzU2oOK0rqidrLxqwRKO4lFYvxHYzEVOzZkApDk7lyQBymN8shwCzbmYfL8Yra4PfwGWvYYDysQfzxTN nPwBxY2HhD0cpEQ5xgSKyh5VdhRl0fZFhKMKygVnlSZg9YINkZLSoYDH8LA50zBYycIyppW2eH8Qhz0M 3tTJiXAklWBI0UrFnUOnyUDOXEI0vXJoazk04WCO7m6 malRYiOGmfZmvgnMYmzbQ2WVrVUHHTSItVBoKzMK7dGYtDZeoVDLtMZuzdYAGjMwphgQDDJWQ9HDhlgP kplXe9w5ecwRZtl5q4TLrhNSZ5kCLDt6mgeEKqOLdyUznmfNRuefQ4VVpTKATTWZyCVqRpXP8rZFqAQv wOXwW9EeSlCBF7NAdHG2WTzIN3Tmc9WLk1tGzrXojwi nEulRNiAnNHaY2vkAoyiX7ilNQnL8gvPaMkBMIXFcfkeAAegqlfoQddNbUgxVVdVjWenCwzbV50RCZok QUdFMM1BM4sBKLplcntXCNkAGFwRLE0NHwxpB26eIPzKXYeBJLrpLIwaB4BEKNrNCB4FHxyvU80hRLyC D3DSRUaNEX3YZMyfQOmSCE1PO1alE4OeY== Intraopera i7qepBOsJVYcsKGNCOLyLSdxzgZcXAAztFYnC3QhbjhuSYugUV4sNY5xiZufwMQvwTDsZB9ULKReBxTn XEUmzJXhriJjZkJdKPQzlFTszIK3ZJYzPQ4zqmoeVTlbPPabKJPvflG7KANxqDFjZ6EpYKYuOY5gawot NRQ7OEqsvK4idrZYVsrkOz4huYQenWxdJhItMrKvBWI tive dJVJlLUMblBfhNCRqIRr8sA7WShinVHC7WAXIDdebRKTtYI4Qs2hmXBDxdJHdIJO1AFosuEDgDKAdFGT wTAt4PRYqXPjenUYrRA9fjKisXvmxcFnbm6DyzRQlDBrbQXGoXFVbTRgfUGGbTF8RWnUaATOcUyU8GPy nSMm2FEl0XV9SWwAlLXAwAJO1OFU5EQQeJYc9RFssCH Evaluation 6SKSBmHsUuYAi4KMQ5GZqxWfSnVJSwHhAgKXWiZPBtANeqTOnfutCcWTJzSYRsXBlnOdgcVChqN83edD poyF5pBaiubaOfIMM2PEFwzkAVDfqodFCasidtsFrmMyYhfNHaJxHfMCgrcRGtcFJdOXmdveXvuuoiND TJMtbbaQCunGymcyOyCHnKIjQmA3UEXMDWWZKKSL0KP (test code 5WYG8MRWWuxFKOBF9QQLRSHKZHSUVBSDTZJXuhDZzokCZ8FLdOXRBpLF9pvCCCFZVHZRZibIdTYPUTHS XGTR5OTShohEsULZZhYYbqbvNQtXL5JIAWsYiCRHH7TIzSCDiKZVbDQSEJWPWrqMVNID8oNEdLmhDVzK Z9TUMEjCqHePT6HPNFmzWMnx20vnQJkDS1hyELvLGLn = bw65CJXpf47glW0gEVasDWStm7AkXEKkh3OmoWVrN1skQIYjXD9dlOMpOULhELjpr1OzMKEeyoMgeWR8 VY1afRApJK5VHJKubjSFDl2MK79PGFusfGhxkA4pPOFoN80gh3AHy7ZgQTEpOEguo1jawKsrm7UlrEDj MTfeCIKlsUBuATnzlZ5pRgFkl0gaaJv5HTmfxjY0WHC [id number] fte8JUcxeVRWyTTg6bgLymicupL9vWfDiXUmyMzSvQldnOYZnX6LyB 2XdqrN7KLu0 ) Disclaimer v1jrrGHtAGHjjXAtZxSoYSPcDDQqw1ebVUMvkUXkCfKoItQsMaJyZlmztFUqYSUjWsTvs4sho045uKTy s9uaBWFuGvX1mAFcCQRmvFHsL964XNGdTJcik2xpk9NgHRXlwTSqi2P4UIFBfpfjsMq5uBrlK41fy7Z6 YlngV1ruHOZeGMGkD7LoQY5aXDLkHws0GHL9GIV7FNC (test code hHQXfW1DyXE7hOSIntAXeMSl0d7pgfLplVDOhPHP9i3mnWYrrseAsYH7ttv3qrNp0w8qclaKyKPYfFVT euJUCPHWqC9PylLplXx6jvMk2aTywHnceDXM6Lwl4RW9mrg97rff5eWeaKROlyufpCbV4DXjvRBUufoh oDUt5ALclUVUxjTB9ZQDnpWSnY0ZmOQSeFR0cpby6JV = 9844) Y2OBmtXQPbNpE1JZWhqTCwXFAteLtdHQdju467ODM6HqViDS3qC6Ymd2Z7bZ0yrWLyQJYedBAkYfStPC Zskd8alKKcVJldo0QiPDM0ghO0oKBnmQCyRZCxXP34Mkeoj6XmXiivEQK4LLPtukFtl1Owh9mnBoYioa NfL4jiI7OlXRTzEUKgTKRlYnXpqyMfy9Xhu1QlhIAoz Wv1z8ajPGSiCQZgpNsqa6dbWFV2AMAkG8W0lCBxx6kwUVjzITGlfBQ5ljT0BBMahOKdJ8UddZ5dDEWzU S1zebw2q4ugAVR8ACygYMMlJjB7afC1AKNquJKwKWMmfSqeJUzqs467AHA7FeNwMLVrd4NgO9KicPauP 87gxNlgC24bELGeyCwkbO6mcGbbwT9oYePhZdUgCPwl hFmqbLTgjcuhWLldaeA6RAvlhpvuHRNzMZlaW5syYoAiUDMznEeuXYzwd2XoBXNtBFPoHqjwlqO0WVGX x69gXFOin8VkNNIppZ2nsVHsICpiiaEtcBZ7OIfqipHfUtLomxExCFPgeP2gVLMeJH8yMRSjzeZpyc9v wjVgUPZdLYWjC9LvlszgpFuxrrQvAUCnzc7eqnWiHYJ 1LMLBVD9NNFAaTDQbi70eTLIyeXsazK4ydHHomgFrTASpp9FzyC8soPJEEONiI1iaHG4pSAtrx0WmtOB soQHhzEB5HTJta9AjMnXvprTklJUgtZEeQ2XxkUstE0qrZAMsMLVcmiHiaHXut9BuQIZryWV0tHZrOZ7 AKdMJs04kSRVkASNGnaUnKYQtjZykrVW5azF7pX9qZc QMEzRwtVWwpEXbYsoaRVUce008ba6citW5XWCyLTCligliu8YaKKIlQKTwkJ49VZTjYJRuan1vhlypbG TktgLoV0Rroyv1kD3cHIWsFWwiLIBuNYFsCmUtyWUwRdKvKzYnoIyhjFdwYUjxLiJjMEKaZNabJ3wkFo FcZnMyMlxwYXJ9 [facility] Dosing [id number] 14:27:30Radiocolloid injection for intraoperative sentinel lymph node [...] acquired.IMPRESSION:Radiocolloid injection for intraoperative sentinel lymph node localization. [facility] Glucose [id number] 01:50:34 Test Item Value Reference Range Interpretation Comments POC Glucose (test 232 mg/dL 70-99 H RN Notifie dCapillary code = 54944-2) blood sample s, e.g. obtained by fingerstick, [...] 9554) Lab Interpretation Abnormal (test code = 47579-7) MD FairBreast Specimen [id number] 16:46:29Left breast whole and sliced segmental resection [...] calcifications, postbiopsy clips (2) and 2 [employer] were electronically annotated. Possible close margins were also electronically annotated.Findings were electronically annotatedand discussed with the pathologist, Dr Hoffman at the time of this dictation.IMPRESSION:Left breastwhole and sliced segmental resection specimen radiographs were obtained for radiologic pathologic correlation.MD FairTMRea Interpretation Antibody Screen Fobiqxpu5929-18-27 15:40:34 Test Item Value Reference Range Interpretation Comments TMP Auto Neg At the present ABSC Interp time, patient (test code = plasma shows no ANABELLE DOYLE 7535) evidence of RBC Gabriela BALDERAS tated by: maneantibodishakir. STEPHANIE BALDERAS,Dictat ed Date/Time: 01.29 9:40 AM PROFESSOR IN FAMILY STUDIES Transcribed Quinn e/Time: 02.14.2020 9:40 AM CSTElectronical ly Signed By: ANABELLE BALDERAS, on 02.14.2020 9:40 AM C MD FairAntibody [id number] 14:13:43 Test Item Value Reference Range Interpretation Comments ABSC. (test code = 890-4) Negative ABSC MD FairPriroenwGVGWp2646-76-89 14:13:42 Test Item Value Reference Range Interpretation Comments ABORh. (test code = 882-1) O POS MD FairClot Expiration [id number] 14:13:41 Test Item Value Reference Range Interpretation Comments T & S Expiration (test code = 02/17/2020 5318) MD FairMD COVID-19 (WILFRID-CoV-2) PCR Brsjgnqirkhf8460-55-08 12:29:10 Test Item Value Reference Interpretation Comments Range COVID19 SARS Pre-OR Procedure Indication (test code = 39984) COVID19 SARS Result Not Detected Not Detected (test code = 66230-5) COVID19 SARS SARS-CoV-2 NOT Detected. Interpretation (test Reference Range: Not code = 69797) Detected Methodology: The Zhu RealTime SARS-CoV-2 assay is a qualitative real-time reverse pump room operator polymerase chain reaction (stable cleaner-PCR) test to detect RNA from SARS-CoV-2 in nasal, nasopharyngeal and oropharyngeal swabs from patients with signs and symptoms of infection who are suspected of COVID-19 by their health care provider. The Zhu RealTime SARS-CoV-2 performed on the mWater000 System is a dual target assay with [...] high-complexity Molecular Diagnostics Laboratory (MDL) at [facility] under the Food and Drug Administration (FDA) s Emergency Use Authorization. Factsheet for patients: https://www.[facility].org/ AbbottFactSheetPatientsFact sheet for healthcare providers: https://www.[facility].org/ AbbottFactSheetHCP Test performed by:[facility] Molecular Diagnostic [address] [place] [address] MD FairNM Lymphoscintigraphy Breast Sulfur [id number] 18:28:36 [place] lymph node in the left axilla. Interface, [...] in the left axilla, representing sentinel lymph node.IMPRESSION:[place] lymph node in the left axilla.MD FairCytology Image-Guided FNA [id number] 16:40:00 Test Item Value Reference Range Interpretation Comments Addendum 1 (test code = [id number] 37) iKCIlf2eyh2JptCIhaG FaUFdhnLFfmbZrwc89t FJ0tZ35MX4nOJEjEvH9 LIUybvJ7Uvx0RGMcCBV cuJUtQ483c2mar4qjen DznKR3jGxfVMWiUGHcE KrdFWMaOoGpLV2eAACw DGYzTGNxp5Jsw22akjH hp2VjWU4iFKYpfGEnBn fgPCFnQQz8CLZQACbdW XJccGFyfQ== Gross Description (test a6gxvLYaTYNab7lbPIA code = [id number]) wZmCrZPOBt3iad189sB LaTPpzFfOfWxY8xHWwW POkuBDqk1M4UBocnYWd RlBSprukjLo0v2brW8m hmg4oLQ5qDsDrTYYvBL QwXGZwcnEyIFRpbWVzI U7uzhJJr21qoif7s3cq TMsmoG7bRBOuLDEcvNC af6T5YVclrQIyEEKJl1 SnzYQoTI5chdu8w2ghO Amox2aim4ViOfXhBSXy ZXQwXGZwcnEyIEFyaWF wKD0pilFffht1b4okPB ZiOa6eTJNvuskrB7sfu bGwmXOzRzYqtRMuC680 lslpkcm6k6hnFWHaYu4 rmXzfZ2vkfhIvzIKvJl BycTIgVHJveSBNaWNyb lHofOS3pZaqRfPdDMFv d24rthbmC5qlylAdqWH oMzCwgWDaP6tlRm7yB8 02AZFgAMzuu9rwc0ShZ mNoYXJzZXQwXGZwcnEy MXMfD17vIPDND082QES zKGUgMRAgo1bbo7nnQ6 hhcnNldDBcZnBycTIgQ UPtNVw6qD5Wi1ypo0rd mnOxuZQ3GWDrEMHrC7N wTS9fDXNsdRHpH8aqNV RkNYubtdNkgnC0CFMwa PKuTSrxgeIsOyImH3Kx XR4lQMngiWTzNvE7QPZ dZEC2XPqfSZIkFIqqXp o8LBA5D4ssSGM0Q2gwo gLwokHtFRAepLC5Fpds xmJoIkjrL8OrMY32GTs awZXuBlb7EZIxHJm0EV nuTGSsVQErVaz0BWo8N 1tpUMKpNDCxP5EzLE1t DJMmNuj7EBAxLCvrixU cHNA2JNwtCJGhTVF6PA CrhUNaJzb2LMPuCDZ6C 1yksyVunbU4R8soaMGg MWInG9inIGHzYBhgU4K rNF1dXClxGcf3ORU8VJ cazdOyFVt8RMsxRXWgX Vn7WUUkiJOfKeB2NAPq CLQ7MMdwnjGubeU6XKc ejCKrZVvxA7cdNLMqCP zlN6AxCF8rWRipLep3B TIwNztccmVkMjIzXGdy ZWVuMjIzXGJsdWUyMjM 7XHJlZDIzOVxncmVlbj GvPVkniKSqOwW8O7wcC VNjMKIdE6OmAN5wZWKu Sby2TSO1GIejreRuLQx qqeVgikQuTug9TKM3FU e6Covzq6M0yMWdmKLcl HtcczEgaGVhZGluZyAx E390KLApPMldEDIyjrw uVip9a1pbRqEiSPZusP 6nVHT2lBhtbdLhpHThV TjjFzY1O705NJI7LQuj CRXdirjuBJe2w4smLpQ nLMQgsS3kAMB8dN9SEr poDHYkyzsuZZa9WReaL CHnkuvkMmG3IBrtMFCg cRq9SYafUYSndhF3Rsf tYXJndDcyMFxtYXJnYj ajFEzpJDEpHUX8AvAeW KSni5Xmttl3OwKqCvKm TYJUAikwkUScAEX6DRS 0ZjFcZXBpYzkxMDFcYW 3epIazxVo4dLwpEAXng sS1iUUxIQvtd5uuMUO5 m8qufsmdJLFcUYocSt1 udHRibHtcZjAgQXJpYW d0sV74ATSofP3oqYQaS Vs8JLDsvaOyeXhtiG9k JlGjGZNJlCMbuZ4fatM eoIIvG4QwCJR3QBGify AyIERpZmYgUXVpazsgN fSXCZRmI7UieC8yU7rx ZGVzXHBhciAxMCBtbCw gIGluIFJQTUlccGFyID IgA1q0a3NzfS3grUYdN HBhciBTaXplOiAxLjIg K92eyTGoJDpxhURxfAN 8QXZzr7Uhn7WyND25PA EbsdFteYApzE0esjObW RTemSGqlAW0ATAzfVUw PYI2LLBprHNywJaoQOO 9Cn0= Immediate Assessment (test Adequate code = 9837) cellularity, favor benign Major Classification (test NFMC/benign code = 9839) Diagnosis (test code = 34) o2akdBVyVDUarHZ6ONS eWBMrd8sog9CovDRrmX VzNEoxfTEvywQbhy29y FA3iR61ZG6rXICgIbQ4 FXFjcwL2Rew0AYLtOMY gxPIjW923c9gmu6ytxv YmvJS1qPsgGODiMZKjU RndGLNdTmQqJA0eBCjp pHwzne6lTMvpfBWfjNV heGlsbGFyeSBsZXZlbC IICYHttS2aOE4aUWDiA ZPsg4FshgS4lS6oTumg YXJcdGFiXHBhclxsaTc nJPCUBMfxrVf1PKNns1 ZyrQP0HIN8CEGyPhGgJ ZQrfM4dqSEcnPTmREt6 wGRvi9iaZZRqw8Z3HUB trqFoMG00EZHfcz3= Retained/Biomarker Testing f6dwgIHlUSKjwIH8WEV (test code = 9838) tCRNpx8xfh2ErlBTnrS CyABuvaETefuQrzz09w FM6jQ88SS0xTVTlVlC8 XWEbklB7Gnv6WRMvWYK yvNAmK537l4jeo9qkoq BteTE2LXXhECO3JEvmx wOqxaH3LFhgtXOpQeZ8 F65ycGJyFSavlLHeedo fweHgSJFiN2QpFALpTN XYSdE9UMDtxDGdWOJiI 0ObFCOmRONdfg6= Informational Points (test l2drpRReNKMwtOL1RBU code = 9836) tJTUae4kon9SliIQgkI QzVEwnlFJbqcFhxr95v IP4jV46RJ4vRLUxVbY3 AKYmcdW1Bcz3TDUwZCW kqDRfL484TOVrVADyC3 9yWIDTE204m5uvq1yox uOikHW9bAwqBFVrUHTm YWluXGlcZjFcZnMxOCB Wu94vNAOhl6XuWVCpiM 0djUJaGZpwuiZmhOI2I GhhdmUgYmVlbiBkZXZl nD4lYNDgUO9zEBOkhsM cww9zjcVsPXVjOHAeJ0 RlcmlzdGljcyBkZXRlc o4ukhDzBON7FTQMVF8F KQAnNZZsy58zDCStkQk xtX7dsUMqksOvSPQrf2 LpeU2xcYUKKODnO0txN D8nGInfe3NmuSPdeBNb wTC5KKVqt9SaImGerlU ynPLybSIbG8PimUnbH1 xlYXJlZCBvciBhcHByb 3HqCBRljCU3yJAlIJ4A FuSXf89xLWJvSZDLzrJ qANJdlJjmgGG5rdC9hB 9uLiBccGFyIFRoZSBwY EJeg1yuM0idnPXvCOVf klT3dGO5KTIbkQzrING ck9RvHQ6iALLceyXqtU geMYU0vJIkzvPey0T1O YQ1NO6KZYWvBSPyc55x QHude9RcTB39f0Zwxax jSFW6HPVsR6Z5yWJAjs Ocq2B5RQQVu4WpjJ3hC JQOHBdkiuQ5TrZ4NQ3v cGFyfQ== MD [facility] Guided Seed Placement [id number] 15:32:48Interface, Radiology Results In 01/26/2020 10:36 AM CDTClinical Indication: Patient is a 74 year old female seen for breast cancer. MAMMO GUIDED SAL[employer] PAINTER HAND PLACEMENT LEFT Technique: The patient was positioned in the mammography unit and the lesion inquestion was identified on one view. Findings: Mass in the left breast 9 to 10 o'clock position, 4 cm from the nipple. Procedures(s): Mammography-Guided [employer] Supervisor Reflector Localization - left breast Primary Proceduralist: Dr. Esteban Campbell Infection Control Coordinator(s): None Consent: The procedure(s), risk(s), indication(s), and [...] 1% was administered forlocal anesthesia. Two [employer] Supervisor reflectors were advanced into the area ofinterest, one anterior to the carcinoma and the other posterior to it. Theapproach was superior to inferior. After adjustment of the needle tip(s),reflector deployment was performed. Upon deploying the anterior [employer] Supervisor, theneedle inadvertently retracted, and the reflector deployed with one of itsantennae piercing through and out of the skin. This was removed, and anotherreflector was placed at the anterior margin of the malignancy using the sametechnique (i.e. mammographic guidance). A total of three [employer] Supervisor reflectorswere used during the procedure, two of [...] condition. Impression: Technically successful mammography guided [employer] Supervisor reflector localization ofthe mass in the left [...] seen for breast cancer. MAMMO GUIDED SALAS PAINTER HAND PLACEMENT LEFT Technique: The patient was positioned in the mammography unit and the lesion inquestion was identified on one view. Findings: Mass in the left breast 9 to 10 o'clock position, 4 cm from the nipple. Procedures(s): Mammography-Guided [employer] Super[employer] Reflector Localization - left breast Primary Proceduralist: Dr. Esteban Campbell Infection Control Coordinator(s): None Consent: The procedure(s), risk(s), indication(s), and [...] 1% was administered forlocal anesthesia. Two [employer] Supervisor reflectors were advanced into the area ofinterest, one anterior to the carcinoma and the other posterior to it. Theapproach was superior to inferior. After adjustment of the needle tip(s),reflector deployment was performed. Upon deploying the anterior [employer] Super[employer], theneedle inadvertently retracted, and the reflector deployed with one of itsantennae piercing through and out of the skin. This was removed, and anotherreflector was placed at the anterior margin of the malignancy using the sametechnique (i.e. mammographic guidance). A total of three [employer] Supervisor reflectorswere used during the procedure, two of [...] condition. Impression: Technically successful mammography guided [employer] Supervisor reflector localization ofthe mass in the left breast 9 to 10 o'clock position, 4 cm from the nipple. Tworeflectors were placed at the time of localization. Examination: Post Pro cedure Mammogram <> 01/26/2020. Clinical Indication: Patient is a 74 years old female and isseen for postprocedure mammogram. Findings: See localization report done same date.MD [facility] Guided Breast Clip Placement [id number] 14:55:02Technically successful ultrasound guided clip placement (Ribbon) [...] (Ribbon) into the leftbreast cancer at 9-10:00. [facility] [id number] 20:29:00 Test Item Value Reference Range Interpretation Comments Materials Received (test k4rohWAfWNBiqQZxWdFu code = 9973) VDQlYBWdp1jxUILzhMCj ZzEwMzNcZnRuYmpcdWMx XDEvTyJcr3qhd428yQOn y1plMULjJaT8xVRqULBc aPRsW342DTKrUHkjr2us c3SqMVGsaKVws9I0DQIG waqvlKf0wEozN21fo5C2 CzujF4iqKCYzBCVtT9Eo HH0iQQOqQgl0KVS6VRO9 TDRePASuJ1ZlID2sCZRx iPOjRUf1u6aaxRjjBWXa NCF7l1shMPshehDyOZ4i pk6zqKp1l4kumpKfMHJl RFXnwSVUEZVeB9ZuzOgg Ok7bjGv5zXpfHcoiHQW3 Saw9WD2mbb93cyp6vIda ZBUimenzDhZ3PNccLEEl zsdqQEy4FTilPYPybIpi MFxtYXJncjcyMFxtYXJn wFJ0CEQcwLRxD3YoHVQb WConHHZtvld0DbUxBa7q qCLqbDavAIcjl1tha4rx rBBeRrq2SLWlFzNwNytv GZvdc3Elx0unNWZzdr6a JZY1qXEjeDslh9O4zKGv HSXmwVAohgXeCNNzec48 pLMueXQjdDXrwy4ataPy sYZwbCKwQAD9nBZzrqQm JKWvzGHyFVFzAJ0jmBOm HFVgaQ5hqsrzPAHlZjRi dbohGPIpuOuyheHqTh2j pUjyYBT2HXgqH5sjcI0i IvQ8UTzjL6jpcU4eQAi0 XMpccEO7QBIxcC7xXJ8t zlbjx7ohFwYmBF9yzofh r3trLaXmGU2jgdc0c1fs LLS9HPtfEZZlHsN7uvJ7 NDBcaGVhZGVyeTcyMFxm b364MLH9ZxFwLKQnr7Cw U4WmkHxfN48yjCdqM30w VBBoeNzsjZ4ibXahfB8u PsVaQcMqWTt2jx53QOz2 twrfkTibEYt7cnIkZKHs VQL6HITlgOAsKCQoR9t2 wuCgVYTvVNW4BPSklNIa PJQwX9n5gbYtEJS1HSd6 cnBhZGRmdDNcdHJwYWRk YjBcdHJwYWRkZmIzXHRy lWKdjUKkgJHutC7reYpe DTDuaWRcgI3zLCR0MOPf cmgzMjBcdHJoZHJcbHRy gn54EZAaioQtdOPmcWql lWLoASD1AKBaQXWgZSJy RNH9WOQpIeOxdeOuNBkx bGJyZHJiXGJyZHJzXGJy NCD3CFZpCrMwolZiZQrb bGJyZHJsXGJyZHJzXGJy COL9DXLfJjXwfvIrMTzi bGJyZHJyXGJyZHJzXGJy CQU6KITeSfXcrnJkUTiq bHBhZHQxMFxjbHBhZGZ0 Q6nogNZgGLQmSNyarKRi KWLvH4pwoAXpAKezNBNm cGFkZmwzXGNscGFkYjBc A1ntLKCvKjGdE0YtqDh0 MDAwXGNsdmVydGFsdFxj rCBzYIN1FRJjMPKoGBHe IOZ4XPVzFcOxwsDoGXex bGJyZHJiXGJyZHJzXGJy NDU5RQGgFzNxvyAmQYmp bGJyZHJsXGJyZHJzXGJy OGZ4PQEcZbZtrdKuAPkh bGJyZHJyXGJyZHJzXGJy EOX2IBVpHuGcmeZrYBgc bHBhZHQxMFxjbHBhZGZ0 R0zohFFjBLRcLXjiyVNn ATEbZ2znuYWfPVbbUMCf cGFkZmwzXGNscGFkYjBc Y9jaMXPlFjEqQ6HfuOh1 NjAwXGNsdmVydGFsdFxj rEFqZMC5NOGlDVXeTCLm CLA6OQQaGoJamlBwXKgb bGJyZHJiXGJyZHJzXGJy JTO0XBKvNiBfscPvJJvi bGJyZHJsXGJyZHJzXGJy OXT1GWAfHtUcfnRnXMiw bGJyZHJyXGJyZHJzXGJy ZGR2KYUlIfDtkiRnSMwm bHBhZHQxMFxjbHBhZGZ0 H1ewbJNnPEFmKNqthVFz JEMuZ1rttZMwLAzfVRLi cGFkZmwzXGNscGFkYjBc S6mkBSVyUoXxO4FuiBz1 AoSpKVFhctTvpQ88Tjof i5RcFZCsMRU3FGugDWsv bFxwbGFpblxmMVxmczIw NZnnbzchDRPjSNcvK1gd GkJtEGMwvEwdLKnvz5Ms XGYxXGNmMlxmczIwXGIg SHCrEZMpiI5bWztiC9Ew tO4jOUzvRyziI0dlIPSf x2BneW2dSFdglLGjeqmc MVxmczIwXGxhbmcxMDMz PYstW4auOlBbSFZwkAvw QFsds3SjWZYeSXSaMixs zqPzSZd4kvTjSAPhjWcy eWWnGRugxxAddCwfg2Zs ofYrvBraLREbCDz1isGx gtwsbHq1uFNyqGpzGWGd lFdlbE3bWoZsSxFeLQjh bGFpblxmMVxmczIwXGxh wewnZRThMIrnU0tyYnKg IWFxgTidLXyrj3TcKAXn XBMyLqnrasZyPPDlZ98m bGVjdGVkXHBsYWluXGYx XGZzMjBcbGFuZzEwMzNc aGljaFxmMVxkYmNoXGYx BLdtS8kvLyKeJ8RtXBRw LrSvbHWlI6xwJ2IarIww YXJkXGludGJsXHNzcGFy FDY3wCFvgnJmsGEnoLRa FIRsOLtzLCO5lGCionvy iPAcujozSEkvqcE8XHLy YWluXGYxXGZzMjBcbGFu ZzEwMzNcaGljaFxmMVxk HvPuXVWxTRbqH4fsLxAv L4SlVBJiEeAvPgRUEJUo aXZlZFxwbGFpblxmMVxm czIwXGxhbmcxMDMzXGhp T6kaOjRzIWYbiZmrZTkb p0QdAXNpIYKeYcrkebMp SHr2cpSpEAWpmOdomL43 Rddsku60QFKbn3jcURPe Z6IrgQPnQRQwqYUuEXdp MDhcdHJwYWRkZmwzXHRy cGFkZHIxMDhcdHJwYWRk ZnIzXHRycGFkZHQwXHRy tGDnOON5B4j5vaHxOOIo HCi8fjZzVFUcHoSssCKd LDV1FPn4SwgegwS0nDTd V5m7JwqmmwMjPLtkfIHn tp90DGFgdeIubOTngZkp lSXnHME3YYGkJCNgQVWg QYC1SJCfJpWjmvAzYRik bGJyZHJiXGJyZHJzXGJy TWU9GSWnUvMcwaQhJQlx bGJyZHJsXGJyZHJzXGJy BPL0MCItItSougZmJLjm bGJyZHJyXGJyZHJzXGJy JCH8BMHnKxGnduNvIRqs bHBhZHQxMFxjbHBhZGZ0 O9kuhVAnFCVmNLrebGAq VNWiF7ugcQFlPZrgXWHe cGFkZmwzXGNscGFkYjBc L5tsZHXeWmQgB5FftSx5 MDAwXGNsdmVydGFsdFxj pQVcKGJ5LCWpIOXiVUAj DZN4OBWyYnUetgKyGYjd bGJyZHJiXGJyZHJzXGJy BUN6PJRhYcCahiHhYDzz bGJyZHJsXGJyZHJzXGJy INQ4GCZhFiEmvtRrFMux bGJyZHJyXGJyZHJzXGJy XGA5JTEqWxKashItFQyh bHBhZHQxMFxjbHBhZGZ0 S1mqkMXrZQKmIFmypTUh DVHdS0avpRFxNFquSTLp cGFkZmwzXGNscGFkYjBc F6hiOWGuUqJgO1FimLh2 NjAwXGNsdmVydGFsdFxj tHZpVXW1UIBrBQHeYOZl FUJ0UGDzYkDxcrPkIQaw bGJyZHJiXGJyZHJzXGJy FCJ5UCTvRqReakChHGsl bGJyZHJsXGJyZHJzXGJy KVY0KDCmZpSftaHqWCer bGJyZHJyXGJyZHJzXGJy TFP2MTTcGkQdkqIbYPur bHBhZHQxMFxjbHBhZGZ0 B4ahyKYrDMDkFUlnjSMt DJPzF5wkxHIsLQecNEYa cGFkZmwzXGNscGFkYjBc D6qhELHcEpTrN5FspPa8 MaIvYBQlgbGywW70Fypk j9HzYCPyBRY7TIkoZUtw bFxwbGFpblxmMFxmczI0 XHBsYWluXGYxXGZzMjBc bGFuZzEwMzNcaGljaFxm YYxyYaOfNGMnCDefO3dc DxKjR5CzIBRsWpTaOS5y CuV9DITyWVFbBMV6LCTQ EZOzBNWBL0KUItyaERDQ U9YljJqckJ9fWvAcAzFu RXrcJI6vXDHjS7rcmMUx LHSqRCCwA6fpJxTdnW7p aFxmMVxjZjJcZnMyMFxs dHJjaFxjZWxsXHBhcmRc oS28Rhkka9NhBMEgJNV6 MFxzMFxxbFxwbGFpblxm JNytmfG5LETmUYepFKNp XGZzMjBcbGFuZzEwMzNc aGljaFxmMVxkYmNoXGYx MCfeF3nlOcZxV0CnWQVc DtOjKJ8dDv1gCUXjLRJv YWluXGYxXGZzMjBcbGFu ZzEwMzNcaGljaFxmMVxk KrHfVQTmGLapD4czCfBz W3HvRGMpGfHwwZAgU6nj M9RfyReaFAVfSXobeIZl TZMpxRWdIPH0qYWwfqVi pNyozZywyD2cJbFxPsZi NFxwbGFpblxmMVxmczIw KQyrhercAAKlSGcfZ8sl ZePlXOZweKoxOZlcv8Tb XGYxXGNmMlxmczIwIDEw CtEpJyRgYhZhhXxoeG0c TxOkFbZlOOcrCO2qUZVc E1qgzASkLASiDVBpU7zu QbQbkN6wzCohBCjlNfTz ZnMyMFxsdHJjaFxjZWxs DIpogXGhXJOke6tfRADt XTSieBYtFEM1tPCaqmDt hZbvjOtcjL2mWeTwBnCp NFxwbGFpblxmMVxmczIw KPtjgdguFTRgXWzeL7go LcOyTQFhjVgtYZllv0Ts XGYxXGZzMjBccGFyfQ== Diagnosis (test code = n1ufkSYiZAYpbOE8CSMx 34) TDCfw2ryn9FlcDDlqWTw TDyuaSNihlLqyc43nUA7 cG86MG8eDCYzTfP2SREc ekG9Yxd9SMKlKEZmgAWb D887u7ntz0avqkRoiYG6 fVxwYXJkXHBsYWluXGZz MmXlK3H1h8rwQLSeOgC1 ENDrIIFjXNR7YHOWNFBo JDCQR3GMHvdrKGPKD4Rl WNHhbBgdU7ZdTMExloC5 AfH6QnZzHhIsEOXqybnk ATNjbXz4TrHetKvxUeDq IEJyZWFzdCwgbGVmdCwg fEx1meLqw0YeHT0yvKwj LIPfD64rJZThuE6sr2m8 XHBhclxwYXJcbGkxNDQw ECoiccF7KXCeTU2UVJZB VkUgRFVDVEFMIENBUkNJ Hu8NYVpaTc1JWRsNU9vF OXKCRUUHV6gTF0vCRYiF LWTCOUHxFFbWWGpwJl6L QTlgJ5SUSmRUHXVJAPsF XHBhciBGRUFUVVJFUyAo Q2DOXYOLOO9EVcJoWMVz zsflhIlbRXrxjJ67LbCe uSZyJTJgPlULjR2rGWDs BDJiBQ6rzRihpACuHDNi aWRlcyByZWNlaXZlZCBm x1JuimX4oMB6XMgkdXVc HMBpOyc8FXKrrZYsIUKt qDJpR6JnFWFoR9SkcV5a PaVJm9JpsMo9WPXyDgHm UTRin8OhpkV6MYYvhsXn zfBcpPfzXUOzxfr9JXCm dFDkYMZcZrAHyp5vALN6 XAIatkNbghSjXJI8t6W1 XA4aE6Q1rNMfGJnaRWhm cIPjPRYeNfb9WHIlfEKq NDqGWy2hBAqVZdvhXkOe GSKavzTkKCGqb4VsKK6p POzaXELzblh1KYHfcREv KJHbLiPUrF19JnngKZKd v2X1d3msOJDdQNClxxGt ALRqiQMoFP8hdZQwJTPr mDDqOKJxs4OesoF4bTC5 KTogNzUlXHBhclxsaTBc bGluMFxwYXJccGFyfQ== Comment (test code = k1pfePDbKINbgAO0JXZj 9814) OWRos9jrq6YyzUDjuXAe RHufkDIsxmZbeu64xBH1 nI36ZL0eMVCiRoZ7JRRt omN4Vhg9HAVmGUCxxFDc A101u7hgy1drfeMgbKE7 fVxwYXJkXHBsYWluXGZz IgNuzUMxUKB7JSopkMDs z1mfe4FgJ3zvfLrlsPC6 IChzbGlkZSByZWNlaXZl NEIrs0KwaqF0xBY1IUzh sEUjCGunWK2vL0T9aDHy UJBmmrOwqO8deVt4uWTj cIXcPMKvpEmmRTLwz98k wGBgkO7gNVRmCGXrsoKb s0j7FWFqJFK7juRue6Tu tDylVIjna1kdos7qgEWf XHBhcn0= Disclaimer (test code = p6lntDYxGULklLLoNwXc 9844) THYgUGJwl4yfDTZmzFNq ZzEwMzNcZnRuYmpcdWMx ZGTgOsYxy9bwi057oPCv e6hdEZUyRgX1gOBgOCRy pPLeR449GDGbVZzkd0jo s3BpUVLarEExx7V9GIGC kkhkvJo6iMygZ33nh6H9 CgeiW2zyTGGnMPIzC3Fn ML2vBDOmOoa8VAC2DMQ4 MFYrVPUtW4CeFB4jFFRp vDBjRAf2c7zgzZhmGFRn NNR4a3byGBkyuaJbYQ9m vl8beGa5a2npcqGnYDIx JQEenATKTHEgE5CdpRyz Ay2enWj8dApeDvnhRMY1 Sve6KB9sdj90gtn6lHwp GSPaqyhfTkH4HKgkOGMt jlxeAQe6NGqzLRWjnCW7 NKBmmUPbU0NsIVKuTX5u qfq3WQO9DFsyNEUuSiN0 NDBcaGVhZGVyeTcyMFxm t807TKH2EkJhDC5oO7Gp s9N3lF9maPWzKIGrwCQt NuMnTALlps5guTOdKDgk f6GqFSO0tnF5qCGcfSPr HZJqAY58Ukxhp9FlOnnh NBG1AUIgzxCyn3Gek6mn ShOilcMtH1lkV0RmNBHt LTXqFFQcSyXizuFzp9We n4CdrVOkkWi6n6djQDWb BMJjpQogn4phVHO5FOHv L8Q4lYIav0fzRSvuQQHm cQY3hnN6RTShcJKpX6Gr uZ1rYXCrNN9outx4d4br WSK2MGxnQSGaIyQ6ndR5 NDBcaGVhZGVyeTcyMFxm a073UNV7FpLmPFIrx4Ej V5GbfFyqE75frJcrA62s VBSnqZhgnN3mbYbrqK4k ZjBcZnMyNFxxbFxwbGFp gqnqPPwumhN8RJjrimii AIEiAJbjP9cfIsLdSTGb fFmtYAfac8EoYYTfNCPk MgxdkvV4IAYJu30kTSGx m8YaNIHstR5lxAUxZYdc mdZeyGO1ZScvelSuEnIo zjGeWKCazO5nOGPmQR8f PTUzbtEode3ctfCjZBIl MHNoS6AitjqefDwtyiFt KTHhci5pkoLxPUG7FQUJ PJ4HAJGvSEQej89rVKWc mYwuxH4goITtxpVwIPPq n3IrgW7zyOZPJNTwQ3lh FE5rLFyga4BsrVAwnQIl tNV3LTTxu3RkIjMgpuPw nRLomWNhB7BjmPpoU1oz CQMnNFLpabLsqAAiw9Gt RULulOL8lBMuCS0EBaMT u01pBENuAWQEnhElMEGh lLvakUS7xrN2sJ6wWeCK ZiBhcHBsaWNhYmxlLCBj y147sw0ugfK0ZZAfFDTa piadr9VfWNRkAKUvvL92 GBCrVSPexe8zidjglEVy rkNhG7Jpwlm5eU6cKUUw YWluXGYxXGZzMjJcbGFu ZzEwMzNcaGljaFxmMVxk CxJmQKHiIAevD1ghKxIf ZnMyMlxwYXJ9 MD FairMRNuris Breast Bilateral with and without Contrast incl [id number] 18:50:18 Test Item Value Reference Interpretation Comments [...] compared to a prior imaging study performed [facility] on 01/05/2020. EXAMINATION:MRI BREAST BILATERAL W [...] x 2.7 x2.0 cm (se 5-55 and cs014-91). The palpable mass appears to be roughly 0.5 cmdeep to the adjacent overlying medial skin. There is no abnormal MRI correlate for the possible sonographic area ofdistortion described in the left 1 o'clock position, 8 cm from the nipple thatunderwent equivocal ultrasound-guided FNA biopsy. There are scattered foci of progressive enhancement with corresponding P6nhrcohnostmyjn noted in both breasts in keeping with [...] Malignancy Lab Interpretation Abnormal (test code = 39746-3) MD Jones US Breast [id number] 12:15:39Study acquired at another institution. For comparison only. No MD Fair originated interpretation requested or available.MD Jones US [id number] 12:15:13Study acquired at another institution. For comparison only. No MD Fair originated interpretationrequested or available.MD Jones [id number] 12:14:20 Study acquired at another institution. For comparison only. No [facility] originated interpretationrequested or available.MD FairUS Guided Axillary Lymph Node FNA - [id number] 22:33:58Addendum by Kimberly Love MD on 01/08/2020 [...] identified in the left breast at 1 o'korjw4yo from the nipple. Immediate cytopathology assessment was [...] the patientmore vulnerableto COVID-19 and other issues.MD Bolaños Breast FNA - [id number] 22:33:58Addendum by Kimberly Love MD on 01/08/2020 [...] identified in the left breast at 1 o'vlhmi1bc from the nipple. Immediate cytopathology assessment was [...] and other issues.MD FairUS Breast Complete - [id number] 22:29:43 Test Item Value Reference Range Interpretation [...] available FILMS COMPAREDPrior imaging studies performed [facility] were reviewed. Images were obtained [...] Evaluation Lab Interpretation Abnormal (test code = 39388-9) MD Bolaños [id number] 22:29:43 Test Item Value Reference Range Interpretation [...] available FILMS COMPAREDPrior imaging studies performed at [facility] on01/05/2020 were reviewed. Images were obtained [...] Evaluation Lab Interpretation Abnormal (test code = 60002-4) [facility] [id number] 22:29:43 Test Item Value Reference Range Interpretation [...] FILMS COMPAREDPrior imaging studies performed at [facility] on01/05/2020 were reviewed. Images were obtained [...] Evaluation Lab Interpretation Abnormal (test code = 38286-9) MD FairMammography Digital Diagnostic Bilateral with [id number] 19:39:25 Test Item Value Reference Range Interpretation [...] an outside location on 01/05/2020, and at [facility] on 01/05/2020 were reviewed. FINDINGS:The breasts are heterogeneously dense, which may obscure small masses. 1: There is an obscured mass measuring 2.3 centimeters with associated postbiopsy clip in the left breast upper inner quadrant at 10 o'clock located 6centimeters from the nipple consistent with the index carcinoma. Pathologyreview has not been performed at [facility] and outside pathology report is notavailable [...] Malignancy Lab Interpretation Abnormal (test code = 62007-0) MD Fair
[2020-07-17 15:21] LABS: Urine Blood 3+ (Negative); Urine Glucose NEGATIVE (Negative); Urine Protein 2+ (Negative); Urine Specific Gravity 1.025 (1.005-1.030); Urine pH 5.5 (5.0-7.0)
[2020-07-17 16:39] LABS: Absolute Lymphocytes (CBC) 1.2 K/uL (0.7-4.9); Basophils % 0.7 % (0-1.3); Hematocrit 34.2 % (36.0-45.0); Lymphocytes % 9.3 % (15.3-44.8); MPV 7.5 fL (7.6-11.3); RBC Red Blood Cell Count 3.69 M/uL (3.86-4.86)
[2020-07-17 16:48] LABS: ALT/SGPT 13 U/L (12-78); AST/SGOT 9 U/L (15-37); Albumin 3.2 g/dL (3.4-5.0); Alkaline Phosphatase 90 U/L (45-117); BUN Blood Urea Nitrogen 26 mg/dL (7-18); Bicarbonate 29 mmol/L (21-32); Bilirubin Direct < 0.1 mg/dL (0-0.2); Bilirubin Total 0.3 mg/dL (0.2-1.0); Glucose Level 190 mg/dL (74-106); Lipase 289 U/L (73-393); Potassium 3.5 mmol/L (3.5-5.1); Protein, Total 7.3 g/dL (6.4-8.2); Sodium Level 137 mmol/L (136-145)
--- NOTE | 2020-07-17 17:40 | RAD REPORT ---
EXAM DESCRIPTION: CT - Abdomen Pelvis W Contrast - 07/17/2020 5:11 pm CLINICAL HISTORY: Abdominal pain COMPARISON: May 2020 TECHNIQUE: Computed axial tomography of the abdomen pelvis was obtained. 100 cc Isovue-300 was admin istered intravenously. Oral contrast was not requested which limits evaluation of bowel. All CT scans are performed using dose optimization technique as appropriate and may include automated exposure control or mA/KV adjustment according to patient size. FINDINGS: 18 millimeter hepatic lesion unchanged. Spleen, pancreas, adrenal and kidneys appear unremarkable. Diverticula stem from the sigmoid colon. The carry sigmoid mass has decreased in size currently measu ring 2.8 centimeters. The amount of low-density has diminished. No free air. The mass abuts the left aspect of the bladder IMPRESSION: The perisigmoid mass has decreased in size currently measuring 2.8 centimeters. It proba tejinder represents a diverticular abscess which is improving. Close follow-up is recommended to help excl ude an underlying sigmoid neoplasm.
--- NOTE | 2020-07-17 19:04 | ER ---
Nurse's Notes [facility] Name: Maddie Hamlin Age: 74 yrs Sex: Female : 1945 Arrival Date: 07/17/2020 Time: 11:22 Bed 17 Private MD: Diagnosis: Lower abdominal pain, unspecified;Urinary tract infection, site not specified Presentation: 07/17 11:47 Chief complaint: Patient states: Abd pain started Friday. Noticed blood in urine ll1 today. No fever. Sent in by Dr. Beverly for eval. Coronavirus screen: Client denies travel out of the [place] in the last 14 days. At this time, the client does not indicate any symptoms associated with coronavirus-19. Ebola Screen: Patient denies travel to an Ebola-affected area in the 21 days before illness onset. Initial Sepsis Screen: Does the patient meet any 2 criteria? HR > 90 bpm. No. Patient's initial sepsis screen is negative. Does the patient have a suspected source of infection? Yes: Dysuria/Frequency/Urgency/UTI. Risk Assessment: Do you want to hurt yourself or someone else? Patient reports no desire to harm self or others. Onset of symptoms was July 15, 2020. 11:47 Method Of Arrival: Ambulatory ll1 11:47 Acuity: SUE 3 ll1 Triage Assessment: 16:10 General: Appears in no apparent distress. comfortable, obese, Behavior is cooperative, bp appropriate for age, anxious. Pain: Complains of pain in abdomen. EENT: No deficits noted. Neuro: No deficits noted. Cardiovascular: No deficits noted. Respiratory: No deficits noted. GI: Reports upper abdominal pain. : Reports HEMATURIA. Derm: No deficits noted. Musculoskeletal: No deficits noted. Historical: - Allergies: 11:49 Codeine; ll1 11:49 Celecoxib; ll1 - PMHx: 11:49 breast CA-tumor removed, on chemo; Diabetes - IDDM; High Cholesterol; Hypertension; ll1 - PSHx: 11:49 Appendectomy; Cholecystectomy; Hysterectomy; bilateral knee repair; ll1 - Immunization history:: Client reports receiving the 2nd dose of the Covid vaccine, Flu vaccine is not up to date. - Social history:: Smoking status: Patient denies any tobacco usage or history of. Screenin:30 Abuse screen: Denies threats or abuse. Denies injuries from another. Nutritional bp screening: No deficits noted. Tuberculosis screening: No symptoms or risk factors identified. Fall Risk None identified. Assessment: 16:10 General: SEE TRIAGE NOTE. bp 17:30 Reassessment: Patient appears in no apparent distress at this time. No changes from bp previously documented assessment. Patient and/or family updated on plan of care and expected duration. Pain level reassessed. PT RETURNED FROM CT. 18:35 Reassessment: Patient appears in no apparent distress at this time. Patient and/or bp family updated on plan of care and expected duration. Pain level reassessed. Patient is alert, oriented x 3, equal unlabored respirations, skin warm/dry/pink. Patient states symptoms have improved. 19:06 Reassessment: PT D/C HOME AMBULATORY, DX WITH UTI. bp Vital Signs: 11:47 BP 127 / 84; Pulse 102; Resp 17; Temp 98.3; Pulse Ox 99% ; Weight 76.66 kg; Height 5 ll1 ft. 1 in. (154.94 cm); Pain 5/10; 16:30 BP 134 / 62; Pulse 87; Resp 16; Pulse Ox 100% ; bp 17:30 BP 137 / 59; Pulse 81; Resp 17; Pulse Ox 100% ; bp 18:30 BP 125 / 79; Pulse 85; Resp 17; Pulse Ox 95% ; bp 11:47 Body Mass Index 31.93 (76.66 kg, 154.94 cm) ll1 ED Course: 11:22 Patient arrived in ED. ds1 11:49 Triage completed. ll1 11:50 Arm band placed on. 1 15:57 Izaiah Swain PA is PHCP. [facility] 15:57 Vladimir Pinedo MD is Attending Physician. [facility] 16:10 Marbin Tejeda, BELKIS is Primary Nurse. bp 16:30 Patient has correct armband on for positive identification. Bed in low position. Call bp light in reach. Side rails up X2. 16:30 Inserted saline lock: 20 gauge in right antecubital area, using aseptic technique. bp Blood collected. 17:11 CT Abd/Pelvis - IV Contrast Only In Process Unspecified. EDVA 19:02 Juanpablo Beverly MD is Referral Physician. [facility] 19:06 No provider procedures requiring assistance completed. IV discontinued, intact, bp bleeding controlled, No redness/swelling at site. Pressure dressing applied. Administered Medications: 19:15 Drug: Flagyl (metroNIDAZOLE) 500 mg Route: PO; bp 19:16 Follow up: Response: Medication administered at discharge. bp 19:16 Drug: LevaQUIN (levofloxacin) 750 mg Route: PO; bp 19:16 Follow up: Response: Medication administered at discharge. bp Outcome: 19:03 Discharge ordered by . brigitte 19:06 Discharged to home ambulatory. bp 19:06 Condition: stable 19:06 Discharge instructions given to patient, Instructed on discharge instructions, follow up and referral plans. medication usage, Demonstrated understanding of instructions, follow-up care, medications, Prescriptions given X 2. 19:16 Patient left the ED. bp Signatures: Dispatcher [employer] EDMS Izaiah Swain PA PA jmm Sanford, Demi ds1 Marbin Tejeda, RN RN Grazyna Rodriguez RN RN ll1
--- NOTE | 2020-07-17 19:04 | EDPHYS ---
Physician Documentation [facility] Name: Maddie Hamlin Age: 74 yrs Sex: Female : 1945 Arrival Date: 07/17/2020 Time: 11:22 Bed 17 Private MD: ED Physician Vladimir Pinedo HPI: 07/17 15:09 This 74 yrs old Female presents to ER via Ambulatory with complaints of jmm Abdominal Pain, Blood In Urine. 15:09 The patient presents with abdominal pain. Onset: The symptoms/episode began/occurred jmm gradually. The symptoms do not radiate. Associated signs and symptoms: Pertinent positives: dysuria, Pertinent negatives: nausea and vomiting. The symptoms are described as achy, dull. This is a 74 year old female with a history of breast cancer, dm that presents to the ED with complaints of lower abdominal pain, painful urination beginning this past Friday. Patient developed rectal bleeding today. . Historical: - Allergies: 11:49 Codeine; ll1 11:49 Celecoxib; ll1 - PMHx: 11:49 breast CA-tumor removed, on chemo; Diabetes - IDDM; High Cholesterol; Hypertension; ll1 - PSHx: 11:49 Appendectomy; Cholecystectomy; Hysterectomy; bilateral knee repair; ll1 - Immunization history:: Client reports receiving the 2nd dose of the Covid vaccine, Flu vaccine is not up to date. - Social history:: Smoking status: Patient denies any tobacco usage or history of. ROS: 15:09 Constitutional: Negative for fever, chills, and weight loss, Cardiovascular: Negative jmm for chest pain, palpitations, and edema, Respiratory: Negative for shortness of breath, cough, wheezing, and pleuritic chest pain. 15:09 Abdomen/GI: Positive for abdominal pain, rectal bleeding. 15:09 All other systems are negative. Exam: 15:09 Constitutional: This is a well developed, well nourished patient who is awake, alert, jmm and in no acute distress. Head/Face: atraumatic. Eyes: EOMI, no conjunctival erythema appreciated ENT: Moist Mucus Membranes Neck: Trachea midline, Supple Chest/axilla: Normal chest wall appearance and motion. Cardiovascular: Regular rate and rhythm. No edema appreciated Respiratory: Normal respirations, no respiratory distress appreciated 15:09 Back: Normal ROM Skin: General appearance color normal MS/ Extremity: Moves all extremities, no obvious deformities appreciated, no edema noted to the lower extremities Neuro: Awake and alert, normal gait Psych: Behavior is normal, Mood is normal, Patient is cooperative and pleasant 15:09 Abdomen/GI: Inspection: abdomen appears normal, Bowel sounds: normal, Palpation: soft, mild abdominal tenderness, in the suprapubic area. Vital Signs: 11:47 BP 127 / 84; Pulse 102; Resp 17; Temp 98.3; Pulse Ox 99% ; Weight 76.66 kg; Height 5 ll1 ft. 1 in. (154.94 cm); Pain 5/10; 16:30 BP 134 / 62; Pulse 87; Resp 16; Pulse Ox 100% ; bp 17:30 BP 137 / 59; Pulse 81; Resp 17; Pulse Ox 100% ; bp 18:30 BP 125 / 79; Pulse 85; Resp 17; Pulse Ox 95% ; bp 11:47 Body Mass Index 31.93 (76.66 kg, 154.94 cm) ll1 MDM: 16:09 Patient medically screened. [facility] 19:00 Data reviewed: vital signs, nurses notes. Counseling: I had a detailed discussion with [facility] the patient and/or guardian regarding: the historical points, exam findings, and any diagnostic results supporting the discharge/admit diagnosis, lab results, radiology results, the need for outpatient follow up, to return to the emergency department if symptoms worsen or persist or if there are any questions or concerns that arise at home. ED course: I discussed the patient with Dr. Beverly whom recommends 2 week follow up. . 07/17 15:09 Order name: Urine Dipstick--Ancillary (enter results); Complete Time: 16:30 07/17 16:09 Order name: Basic Metabolic Panel; Complete Time: 17:02 [facility] 07/17 16:09 Order name: CBC with Diff; Complete Time: 17:02 [facility] 07/17 16:09 Order name: Hepatic Function; Complete Time: 17:02 [facility] 07/17 16:09 Order name: Lipase; Complete Time: 17:02 [facility] 07/17 16:09 Order name: CT Abd/Pelvis - IV Contrast Only; Complete Time: 17:50 [facility] 07/17 16:09 Order name: IV Saline Lock; Complete Time: 16:38 [facility] 07/17 16:09 Order name: Labs collected and sent; Complete Time: 16:38 [facility] Administered Medications: 19:15 Drug: Flagyl (metroNIDAZOLE) 500 mg Route: PO; bp 19:16 Follow up: Response: Medication administered at discharge. bp 19:16 Drug: LevaQUIN (levofloxacin) 750 mg Route: PO; bp 19:16 Follow up: Response: Medication administered at discharge. bp Disposition: 07/17/20 19:03 Discharged to Home. Impression: Lower abdominal pain, unspecified, Urinary tract infection, site not specified. - Condition is Stable. - Discharge Instructions: Abdominal Pain, Adult, Urinary Tract Infection, Adult. - Prescriptions for Flagyl 500 mg Oral Tablet - take 1 tablet by ORAL route every 8 hours for 10 days; 30 tablet. Levaquin 750 mg Oral Tablet - take 1 tablet by ORAL route once daily for 10 days; 10 tablet. - Medication Reconciliation Form, Thank You Letter, Antibiotic Education, Prescription Opioid Use form. - Follow up: Juanpablo Beverly MD; When: 10 - 14 days; Reason: Recheck today's complaints, Continuance of care, Re-evaluation by your physician. Addendum: 07/19/2020 10:04 Co-signature as Attending Physician, Vladimir Pinedo MD I agree with the assessment and t w4 plan of care. Signatures: Dispatcher [employer] EDMS Izaiah Swain PA PA [facility] Marbin Tejeda, RN RN Vladimir Pinedo MD MD tw4 Grazyna Duarte RN RN ll1 Corrections: (The following items were deleted from the chart) 07/17 19:16 19:03 07/17/2020 19:03 Discharged to Home. Impression: Lower abdominal pain, bp unspecified; Urinary tract infection, site not specified. Condition is Stable. Forms are Medication Reconciliation Form, Thank You Letter, Antibiotic Education, Prescription Opioid Use. Follow up: Juanpablo Beverly; When: 10 - 14 days; Reason: Recheck today's complaints, Continuance of care, Re-evaluation by your physician. [facility]
[2020-07-17] MEDS ORDERED: metroNIDAZOLE 500 MG TABLET ONE (19:28)
[2020-07-17] MEDS ORDERED: levoFLOXacin 500 MG TAB ONE (19:28)
[2020-07-17 19:33] VITALS: TEMP 98.3
[2020-07-17 19:37] VITALS: BP 125/79; O2SAT 95
== END 2020-07-17 19:16 | disposition home or self-care (01) ==
LOC: ER 11:14
DX: N39.0 Urinary tract infection, site not specified (principal); I10 Essential (primary) hypertension; C50.919 Malignant neoplasm of unspecified site of unspecified female breast; E11.9 Type 2 diabetes mellitus without complications; Z88.5 Allergy status to narcotic agent; Z88.8 Allergy status to other drugs, medicaments and biological substances
CPT/HCPCS: 36415; 74177; 80048; 80076; 81003; 83690; 85025; 99284

== ENCOUNTER 2021-01-29 07:21 | Day surgery (SDC) | payer OTHER ==
[2021-01-29] MEDS ORDERED: NA CHLORIDE 0.9% 1,000 ML ONE (08:40)
[2021-01-29] MEDS ORDERED: propofoL 200 MG/20 ML VIAL IV ONE (08:54)
[2021-01-29] MEDS ORDERED: LIDOCAINE 1% MPF 5 ML VIAL ONE (08:55)
--- NOTE | 2021-01-29 09:26 | ENDO RPT ---
[address], [address] COLONOSCOPY PROCEDURE REPORT EXAM DATE: 01/29/2021 PATIENT NAME: Maddie Hamlin V. MR #: [id number] BIRTHDATE: 1945 ATTENDING: Juanpablo Beverly DR STATUS: outpatient BLENDER HELPER: Connie De La Cruz CST and Sonal Suggs RN INDICATIONS: The patient is a 75 yr old Female here for a colonoscopy due to colon cancer screening PROCEDURE PERFORMED: Colonoscopy with biopsy MEDICATIONS: Per Anesthesia. ESTIMATED BLOOD LOSS: None CONSENT: The patient understands the risks and benefits of the procedure and understands that these risks include, but are not limited to: sedation, allergic reaction, infection, perforation and/or bleeding. Alternative means of evaluation and treatment include, among others: physical exam, x-rays, and/or surgical intervention. The patient elects to proceed with this endoscopic procedure. DESCRIPTION OF PROCEDURE: During intra-op preparation period all mechanical medical equipment was checked for proper function. Hand hygiene and appropriate measures for infection prevention was taken. Procedure, possible complications, alternatives including, but not limited to possibility of bleeding, perforation, tear, infection, sepsis, need for surgery, need for blood transfusion, were explained to the patient. After the risks, benefits and alternatives of the procedure were thoroughly explained, Informed consent was verified, confirmed and timeout was successfully executed by the treatment team. The patient was placed in the left lateral position. A digital rectal exam was performed and revealed internal hemorrhoids and A digital rectal exam was performed and revealed external hemorrhoids. After appropriate level of anesthesia, the scope was passed. The EC-[id number] ([id number]) endoscope was introduced through the anus and advanced to the cecum, which was identified by both the appendix and ileocecal valve. The quality of the prep was fair. The instrument was then slowly withdrawn as the colon was fully examined. Scope withdrawal time was 11 minutes. COLON FINDINGS: There was severe diverticulosis noted throughout the entire examined colon with associated muscular hypertrophy, colonic spasm, petechiae, tortuosity and angulation. There was narrowing @ 20cm from anal verge in area of severe diverticulosis. A cold forcept biopsy was performed @ the narrowing. Retroflexed views revealed no abnormalities. The scope was then completely withdrawn from the patient and the procedure terminated. ADVERSE EVENTS: There were no complications. IMPRESSIONS: There was severe diverticulosis noted throughout the entire examined colon RECOMMENDATIONS: 1. avoid NSAIDS for 2 weeks 2. await biopsy results 3. follow-up: office 2 week(s) 4. Monitor for any evidence of rectal bleeding. 5. yearly hemoquant 6. hemorrhoidal hygiene 7. increase dietary water 8. low fiber / diverticular diet RECALL: Return in 5 year(s) for Colonoscopy, pending biopsy results. Juanpablo Beverly DR eSigned: Juanpablo Beverly DR 01/29/2021 9:25 AM cc: CPT CODES: ICD9 CODES: PATIENT NAME: Maddie Hamlin V. MR#: [id number]
[2021-01-29 13:50] VITALS: TEMP 98.2
[2021-01-29 13:51] VITALS: BP 110/42; O2SAT 99
== END 2021-01-29 10:25 | disposition home or self-care (01) ==
LOC: OR 07:21
PROVIDERS: ATTEND Surgery
PROC: 0DBN8ZX Excision of Sigmoid Colon, Via Natural or Artificial Opening Endoscopic, Diagnostic (ICD-10-PCS; principal; 2021-01-29 08:30)
DX: K57.30 Diverticulosis of large intestine without perforation or abscess without bleeding (principal); K64.8 Other hemorrhoids; Z20.822 Contact with and (suspected) exposure to COVID-19
CPT/HCPCS: 82947; 88305; 45380; U0003; J2704; J7030

== ENCOUNTER 2022-12-01 13:48 | Emergency (ER) | payer OTHER ==
--- OUTSIDE RECORDS SUMMARY | 2022-12-01 13:52 | XMS REPORT | Clinical Summary ---
:1945 Author Organization [facility] [place] Address [address] [place] [address] Care Team Providers Name Role Phone Jocy Stout MD Primary Care Provider Nathaniel Lugo "Jena" Unavailable [phone] Nathaniel Lugo "Jena" Unavailable [phone] Ofelia Ness MD Unavailable Ion Hammond MDiv Unavailable Unavailable Juanpablo Beverly MD Unavailable [phone] Suzanne Burgess MD Unavailable [phone] Mina Ortega MD Unavailable Israel Rocha MD Unavailable Unavailable Marleni Waters Unavailable Allergies Active Allergy Reactions Severity Noted Date Comments Celecoxib Shortness Of Breath High 06/02/2015 Codeine GI Intolerance High 10/26/2019 Docetaxel Palpitations, Other (See High 04/24/2020 On C1D1 / March Comments) patient experie nced palpitations an d chest tightness when receiving Docetaxel. Argelia ent was given Benadryl and Hydrocortisone and symptoms resolv ed. Medications Medication Sig Dispensed Refills Start Date End Date Status multivitamin capsule Take by mouth 0 Active daily. REPATHA SURECLICK 140 Inject 1 mL into 0 05/18/2018 Active mg/mL pnij the shoulder, thigh, or buttocks every 14 (fourteen) days. lisinopriL-hydrochlorot DAILY AT 0600 0 03/03/2019 Active hiazide (PRINZIDE,ZESTORETIC) 20-12.5 mg per tablet vit A/vit C/vit Take by mouth 0 Active E/zinc/copper daily. (PRESERVISION AREDS ORAL) microfibrillar collagen Apply topically 0 Active hemostat topical powder to affected area(s) as needed for wound care. Add to fluids and drink BIOTIN ORAL Take 1 tablet by 0 A ctive mouth daily. cranberry fruit Chew 2 tablets 0 Active concentrate (Azo daily. Cranberry) 250 mg chew insulin syringe-needle Use to inject 100 each 3 01/31/2020 Active U-100 1 mL 31 gauge x insulin twice 08/13 syrgIndications: daily as Type 2 diabetes directed. mellitus with hyperglycemia acetaminophen (TYLENOL) Take 2 tablets 0 Active 500 mg (1,000 mg) by tabletIndications: pain mouth every 6 (six) hours as needed. famotidine (PEPCID) 20 Take 1 tablet (20 0 Active mg tablet mg) by mouth 2 (two) times a day as needed. loratadine (CLARITIN Take 1 tablet by 0 Active ORAL) mouth as needed. blood sugar diagnostic Relion meter. Use 300 strip 3 1 Active (glucose blood) to check blood strpIndications: Type 2 sugar 3 times diabetes mellitus with daily as directed hyperglycemia calcium Take by mouth 2 0 Acti ve carbonate-vitamin D3 (two) times a day 500 mg - 200 units with meals. (1,250 mg calcium carbonate) tablet traMADol (ULTRAM) 50 mg Take 1 tablet (50 30 tablet 0 03/28/20 21 Active tabletIndications: mg) by mouth 2 Infiltrating duct (two) times a day carcinoma, NOS of as needed for upper-inner quadrant of severe pain. breast <Female; Left> insulin NPH-insulin INJECT 36 UNITS 20 mL 0 04/03/2021 Active regular (NovoLIN 70/30 UNDER THE SKIN U-100 Insulin) 100 EVERY MORNING units/mL BEFORE BREAKFAST injectionIndications: AND 16 UNITS Type 2 diabetes DAILY BEFORE mellitus with DINNER hyperglycemia tamoxifen (NOLVADEX) 20 Take 1 tablet (20 30 tablet 3 08/25/19 22 Active mg tabletIndications: mg) by mouth Infiltrating duct daily. carcinoma, NOS of upper-inner quadrant of breast <Female; Left>, Infiltrating duct carcinoma, NOS of upper-inner quadrant of breast <Female; Left> Additional Information Patient not taking. Reason: No longer taking, Informant: Self, Reported on 08/01/2022 clobetasol (Temovate) 0.05% Apply to affected area 30 g 0 08/28/2021 Active creamIndications: Malignant twice weekly neoplasm of unspecified (Friday/). ovary, Pruritus of vulva BD Insulin Syringe 1 mL 29 USE 1 SUBCUTANEOUSLY TWICE 200 each 0 11/12/2021 Active gauge x 1/2" DAILY syrgIndications: Type 2 diabetes mellitus with hyperglycemia Farxiga 5 mg tab Take 1 tablet by mouth 0 07/24/2022 Active daily. 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 Cancer Staging: Clinical stage from 12/29: Stage IIB (cT2, cN0, cM0, G3, ER+, DE-, HER2-) - Unsigned Pathologic stage from 02/21/2020: pT2, p N0, cM0, G3, DE-, HER2- - Unsigned Malignant neoplasm of ovary 12/04/2018 History of malignant neoplasm of ovary 06/10/2018 Essential (primary) hypertension 12/18/2017 Hyperlipidemia 12/18/2017 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 Cancer Staging: Clinical stage from 04/10: Stage IA (Primary) - Signed by Jocy Stout MD on 02/29/2016 Encounters Date Type Specialty Care Team Description 09/02/2022 Ancillary Procedure Radiology Brad Sancheza ting duct Christianne, INSOLE BEVELER carcinoma of up per inner quadrant of left female murtaza ast 09/02/2022 Ancillary Procedure Radiology Favian Thorne, Brada ting duct carcinoma, NOS of upper-inner quadrant of breast <Female; Left>; INSOLE BEVELER Lump in right b reast 09/02/2022 Travel 08/15/2022 Orders Only Oncology Favian Thorne, Hernan du ct carcinoma, NOS of upper-inner quadrant of breast <Female; Left> (Primary Dx); INSOLE BEVELER Lump in right b reast 08/01/2022 Follow-Up Oncology Daniel, Infiltrating du ct Christianne, INSOLE BEVELER carcinoma of up per inner quadrant of left female murtaza ast (Primary Dx) 08/01/2022 Travel 05/01/2022 [facility] Type 2 diabete s INSOLE BEVELER mellitus with hyperglycemia 03/28/2022 Follow-Up Radiation Oncology Swathi, Infiltrat ing duct MD Gabby carcinoma, NOS of Stewart, upper-inner hong drant LIU Faustin of breast <Fema le; Left> 03/28/2022 Travel 02/15/2022 Follow-Up Gynecology Fabiana Le, Malignant neopl asm of unspecified ovary (Primary Dx); PA Lichen sclerosu s et atrophicus 02/15/2022 Travel 02/03/2022 Refill Endocrinology Neil Nieto, Type 2 diabete s INSOLE BEVELER mellitus with hyperglycemia 01/23/2022 Telemedicine Oncology Favian Thorne, Infiltrating du ct carcinoma of upper inner quadrant of left female breast (Primary Dx); INSOLE BEVELER Infiltrating duct carcinoma, NOS of uppe r-inner quadrant of breast <Female; Left> Christianne Sanchez, INSOLE BEVELER 01/18/2022 Office Visit Breast Surgical [facility] Infiltratin g duct Oncology Irene rojas PA carcinoma, NOS of upper-inner hong drant of breast <Fema le; Left> 01/18/2022 Ancillary Procedure Radiology Jenifer, Infiltra ting duct Suzanne Vaca carcinoma, NOS of MD Mariam upper-inner hong drant of breast <Fema le; Left> 01/18/2022 Travel after 12/01/2021 Surgical History Surgery Date Site/Laterality Comments APPENDECTOMY open CHOLECYSTECTOMY open HYSTERECTOMY Total ABdominal, 30s OOPHORECTOMY pelvic mass jerry wilner by , BSO TONSILLECTOMY KNEE SURGERY Bilateral CATARACT EXTRACTION, BILATERAL o n 11/19/18 (R eye) and 12/03/18 (L eye) TOTAL KNEE ARTHROPLASTY 03/10/2019 Left RETINAL DETACHMENT SURGERY DE MASTECTOMY PARTIAL 02/14/2020 Breast/Left Procedure: SALAS LOC; SEGMENTAL MASTEC VLADIMIR; Surgeon: Suzanne Delgado MD; L ocation: MAIN OR; Service : BREAST DE INTRAOP SENTINEL LYMPH NODE 02/14/2020 Breast/Left P rocedure: INTRAOPERATIVE ID W/DYE INJECTION LYMPHATIC MAP PING; Surgeon: Suzanne Burgess MD; Location: [facility]; Service: BREAST DE BX/EXC LYMPH NODE OPEN DEEP 02/14/2020 Axilla/Left P rocedure: SENTINEL NODE AXILLARY NODE BIOPSY - AXILLA; Surgeon: Suzanne Burgess MD; Location: [facility]; Service: BREAST DE BREAST RECONSTRUC W OTHR 02/14/2020 Breast/Left Proc edure: RECONSTRUCTION OF TECHNIQ BREAST WITH OTHE R TECHNIQUE; Surgeon: Mina Ortega MD; Location[facility]; Service: PLS - P LASTIC SURGERY DE MASTOPEXY 02/14/2020 Breast/Right Procedure: MASTO PEXY; Surgeon: Mina Ortega MD; Location: [facility]; Service: PLS - P LASTIC SURGERY Medical History Medical History Date Comments Hypertension Hyperlipidemia Diabetes mellitus Osteoarthritis Diverticula of intestine Ovarian cancer History of calculus of kidney Appendicitis Cataract Cholecystitis Retinal detachment Tonsillitis Family History Medical History Relation Name Comments Bladder Cancer Mother dx: late 60s -Unknown cancer Paternal Uncle 1 spinal tumor tu rned cancer -60s Relation Name Status Comments Brother 1 Alive Brother 2 Alive Brother 3 Alive Daughter 1 Alive Daughter 2 Alive Father (Age 81) no hx of ca Maternal Aunt 1 Maternal Aunt 2 Alive Maternal Aunt 3 Alive Maternal Grandfather (Age 70) Maternal Grandmother (Age late 60s) Mother (Age 75) Nephew 1 Alive Nephew 2 Alive Nephew 3 Alive Nephew 4 Alive Nephew 5 Alive Nephew 6 Alive Nephew 7 Alive Niece 1 Alive Niece 2 Alive Niece 3 Alive Niece 4 Alive Niece 5 Alive Niece 6 Alive Niece 7 Alive Other 1 4 additional sib lings in childhood of ukn own sicknesses or were stillbor n Other 2 Alive Other 3 Alive Other 4 Alive Paternal Aunt Alive Paternal Grandfather (Age 92) d: stroke or heart attack Paternal Grandmother (Age late 60s) d: stroke Paternal Uncle 1 (Age 60s) Paternal Uncle 2 Paternal Uncle 3 Paternal Uncle 4 Paternal Uncle 5 Paternal Uncle 6 Alive Paternal Uncle 7 Alive Sister 1 Rivka Alive Sister 2 Alive Sister 3 Vicky Alive Sister 4 Sharlene Alive Son Alive Social History Tobacco Use Types Packs/Day Years Used Date Smoking Tobacco: Never Smokeless Tobacco: Never Alcohol Use Standard Drinks/Week Comments No 0 (1 standard drink = 0.6 oz pure alcoho l) Sex Assigned at Date Recorded Not on file Job Start Date Occupation Industry Not on file Not on file Not on file Obstetrics History Para Term AB IAB SAB Ectopic Multiple Living Live Births 3 3 Date Outcome GA Total Labor/2nd/3rd Weight Sex Delivery Anes PTL Debby A 1 A5 Name Clin Labor Para Para Para Comments Menarche - age 9 Menopause - hysterectomy (due to bleedin g) in her 30s Parity - age 18, (normal vaginal de liveries) - 24 months OCPs - 5 years Hormones - 8-10 years Last Filed Vital Signs Vital Sign Reading Time Taken Comments Blood Pressure 129/67 08/01/2022 12:42 PM CDT Pulse 89 08/01/2022 12:42 PM CDT Temperature 36.9 C (98.4 F) 08/01/2022 12:42 PM CDT Respiratory Rate 20 08/01/2022 12:42 PM CDT Oxygen Saturation - - Inhaled Oxygen Concentration - - Weight 81.4 kg (179 lb 7.3 oz) 08/01/2022 12:42 PM CDT Height - - Body Mass Index 34.1 04/04/2020 9:39 AM DERRICK HELPER Plan of Treatment Date Type Specialty Care Team Description 01/17/2023 Ancillary Procedure Radiology Dex Sanchez, INSOLE BEVELER [address] [facility] [address] [place], [place] [address] (Wo rk) 01/17/2023 Office Visit Cancer Prevention Micaela Mcbride APRN [address] [place], [place] [address] (Wo rk) 03/27/2023 Follow-Up Radiation Oncology Gabby Echevarria MD [address] [place], [place] [address] (Wo rk) Health Maintenance Due Date Last Done Comments COVID-19 Vaccination (3 - Pfizer risk 07/15/2020 06/17/2020 , 05/27/2020 series) Procedures Procedure Name Priority Date/Time Associated Diagnosis Comme nts US BREAST LIMITED Routine 09/02/2022 3:12 PM Infiltrating duct Results for this RIGHT CDT carcinoma of upper procedure are in inner quadrant of the result s left female breast section. MAMMO DIGITAL Routine 09/02/2022 2:13 PM Infiltrating duct Res ults for this DIAGNOSTIC RIGHT W CDT carcinoma, NOS of proc edure are in ADY upper-inner quadrant the res ults of breast <Female; section. Left> Lump in right breast MAMMO DIGITAL Routine 01/18/2022 11:32 Infiltrating duct Resul ts for this DIAGNOSTIC AM CDT carcinoma, NOS of procedure are in BILATERAL W ADY upper-inner quadrant the results of breast <Female; section. Left> after 12/01/2021 Results US Breast Limited Right (09/02/2022 3:12 PM CDT) Anatomical Region Laterality Modality Breast Right Ultrasound Specimen (Source) Anatomical Collection Method Collection Time Re ceived Time Location / / Volume Laterality 09/02/2022 3:13 PM CDT Impressions 09/02/2022 3:13 PM CDT Area of reported palpable concern in the right breast corresponds with a benign lipoma. There is no sonographic evidence of whitney gnancy. Follow-up mammogram in 1 year is recomme nded. BI-RADS Category 2: Benign Finding(s) Narrative 09/02/2022 3:13 PM CDT CLINICAL INDICATION: Patient is a 77 year old female and is s een for right breast palpable finding. FILMS COMPARED The present examination has been compare d to prior imaging studies performed at [facility] on 01/05/2021, 01/18/2022 and 09/02/2022. Images were obtained in multiple scannin g planes. Real-time sonographic imaging of the rig ht breast (limited to less than 4 quadrants) was performed. A degenerating fibroadenoma is noted in the right breast at 10:00, 8 cm from the nipple measuring 1.6 x 0.9 x 0.6 cm. The area of reported palpable concern in the right 9 o'clock position, 15 cm from the nipple corresponds on ultrasoun d with a benign isoechoic lipoma with absent vascular flow measuring 2.5 x 2.1 x 0.9 cm. This sits just deep to the overlying skin. No suspicious sonographic findings are d emonstrated in the right upper outer quadrant. Procedure Note Thania Lora MD - 09/02/2022Formattin g of this note might be different from the original. CLINICAL INDICATION: Patient is a 77 year old female and is s een for right breast palpable finding. FILMS COMPARED The present examination has been compare d to prior imaging studies performed at [facility] on 01/05/2021, 01/18/2022 and 09/02/2022. Images were obtained in multiple scannin g planes. Real-time sonographic imaging of the rig ht breast (limited to less than 4 quadrants) was performed. A degenerating fibroadenoma is noted in the right breast at 10:00, 8 cm from the nipple measuring 1.6 x 0.9 x 0.6 cm. The area of reported palpable concern in the right 9 o'clock position, 15 cm from the nipple corresponds on ultrasoun d with a benign isoechoic lipoma with absent vascular flow measuring 2.5 x 2.1 x 0.9 cm. This sits just deep to the overlying skin. No suspicious sonographic findings are d emonstrated in the right upper outer quadrant. IMPRESSION: Area of reported palpable concern in the right breast corresponds with a benign lipoma. There is no sonographic evidence of whitney gnancy. Follow-up mammogram in 1 year is recomme nded. BI-RADS Category 2: Benign Finding(s) Christianne Sanchez APRN IMHubert US ORDERABLES (ABNORMAL) Mammography Digital Diagnostic Right with Ady (09/02/2022 2:13 PM CDT) Anatomical Region Laterality Modality Breast Right Mammography Specimen (Source) Anatomical Collection Method Collection Time Re ceived Time Location / / Volume Laterality 09/02/2022 2:17 PM CDT Impressions 09/02/2022 2:17 PM CDT Mass in the right breast requires additional imaging evaluation. An ultrasound exam is recommended. The ultrasound will be performed at this time. Please refer to dedicated separate report. BI-RADS Category 0: Incomplete: Needs Additional Imaging Clau luation Narrative 09/02/2022 2:17 PM CDT CLINICAL INDICATION: Patient is a 77 year old female and is s een for breast lump MAMMO DIGITAL DIAGNOSTIC RIGHT W ADY Digital Mammogram evaluated with Compute r Aided Detection (CAD). COMPARISON: The present examination has been compare d to prior imaging studies performed at an outside location on 11/25/2018 and , and at [facility] on 01/05/2020, 10/2020 and 01/18/2022. FINDINGS: The breast is heterogeneously dense, whi ch may obscure small masses. There is an oval mass measuring 1.8 cent imeters with associated coarse calcifications and palpable finding in t he right breast upper outer quadrant at 10 o'clock located 8 centimeters from th e nipple. This resembles a degenerating fibroadenoma. Tomosynthesis performed in CC and MLO pr ojections. Procedure Note Thania Lora MD - 09/02/2022Formattin g of this note might be different from the original. CLINICAL INDICATION: Patient is a 77 year old female and is s een for breast lump MAMMO DIGITAL DIAGNOSTIC RIGHT W ADY Digital Mammogram evaluated with Compute r Aided Detection (CAD). COMPARISON: The present examination has been compare d to prior imaging studies performed at an outside location on 11/25/2018 and , and at [facility] on 01/05/2020, 10/2020 and 01/18/2022. FINDINGS: The breast is heterogeneously dense, whi ch may obscure small masses. There is an oval mass measuring 1.8 cent imeters with associated coarse calcifications and palpable finding in t he right breast upper outer quadrant at 10 o'clock located 8 centimeters from th e nipple. This resembles a degenerating fibroadenoma. Tomosynthesis performed in CC and MLO pr ojections. IMPRESSION: Mass in the right breast requires additi onal imaging evaluation. An ultrasound exam is recommended. The ultrasound will be performed at this time. Please refer to dedicated separate report. BI-RADS Category 0: Incomplete: Needs Additional Imaging Clau luation Favian Thorne APRN IMG MAMMOGRAPHY ORDERABLES Mammography Digital Diagnostic Bilateral with Ady (01/18/2022 11:32 AM CDT) Anatomical Region Laterality Modality Breast Bilateral Mammography Specimen (Source) Anatomical Collection Method Collection Time Re ceived Time Location / / Volume Laterality 01/18/2022 11:48 AM CDT Impressions 01/18/2022 11:48 AM CDT There is no mammographic evidence of malignancy. Follow-up mammogram in 1 year is recomme nded. BI-RADS Category 2: Benign Finding(s) Narrative 01/18/2022 11:48 AM CDT CLINICAL INDICATION: Patient is a 76 year old female and is s een for history of breast cancer MAMMO DIGITAL DIAGNOSTIC BILATERAL W VANESSA O Digital Mammogram evaluated with Compute r Aided Detection (CAD). COMPARISON: Prior imaging studies performed at an [facility] on 01/28/2018, 11/25/2018 and 12/10/2019, and at [facility] on 01/05/2020 were reviewed. FINDINGS: The breasts are heterogeneously dense, w hich may obscure small masses. 1: There is a post surgical scar with associated surgical clips in the left breast at 9 o'clock and in the left axil la. 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 Skin thickening has decreased since prior kori dies. There is no mammographic evidence of recurrent malignancy. 2: There is a stable oval mass with as sociated coarse popcorn-like calcifications in the right breast outer hemisphere at 9 o'clock located 9 centimeters from the nipple. 3: There are stable benign appearing c alcifications with diffuse distribution in both breasts. Tomosynthesis performed in CC and MLO pr ojections. Procedure Note Kimberly Love MD - 01/18/2022Formatti ng of this note might be different from the original. CLINICAL INDICATION: Patient is a 76 year old female and is s een for history of breast cancer MAMMO DIGITAL DIAGNOSTIC BILATERAL W VANESSA O Digital Mammogram evaluated with Compute r Aided Detection (CAD). COMPARISON: Prior imaging studies performed at an [facility] on 01/28/2018, 11/25/2018 and 12/10/2019, and at [facility] on 01/05/2020 were reviewed. FINDINGS: The breasts are heterogeneously dense, w hich may obscure small masses. 1: There is a post surgical scar with as sociated surgical clips in the left breast at 9 o'clock and in the left axil la. 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 Skin thickening has decreased since prior kori dies. There is no mammographic evidence of recurrent malignancy. 2: There is a stable oval mass with asso ciated coarse popcorn-like calcifications in the right breast outer hemisphere at 9 o'clock located 9 centimeters from the nipple. 3: There are stable benign appearing mary cifications with diffuse distribution in both breasts. Tomosynthesis performed in CC and MLO pr ojections. IMPRESSION: There is no mammographic evidence of mal ignancy. Follow-up mammogram in 1 year is recomme nded. BI-RADS Category 2: Benign Finding(s) Suzanne Burgess MD IMG MAMMOGRAPHY ORDERABL ES after 12/01/2021 Insurance Payer Benefit Plan / Subscriber ID Effective Dates Phone Addre ss Type Group [employer] [id number] 2022-Presen [address] HMO MEDIC[place] [address] Advance Directives Code Status Date Activated Date Inactivated Comments Full Code 02/14/2020 11:36 AM 02/14/2020 11:20 PM Care Teams Powdered Metal Supervisor Relationship Specialty Start Date End Date Jocy Stout, PCP - General 05/31/15 Nathaniel Lugo PCP - External 02/22/15 "Jena", Referring Nathaniel Luog PCP - External Follow 02/22/15 "Jena"MD Gardner A Ofelia Ness MD Physician Ophthalmology 03/14/20 [address] [facility] [address] [place] [address] Ion Hammond Technology Sales Consultant Spiritual Care 04/26/[address] [place] [id number] Juanpablo Beverly Physician General Surgery 07/06/20 MD Monica [address] [place] [id number] Suzanne Burgess Consulting Physician Breast Surgery 08/09/20 Nola Becerra MD [address] [place] [id number] Mina Ortega, Consulting Physician Plastic and 08/09/20 MD Reconstructive Surgery [address] [place] [id number] Israel Rocha Internal Medicine 03/28/2107/31 MD Mariusz [address] [place] [id number] Marleni Waters Family Practice 08/01/[address] [place] [address] [place] [address]
--- OUTSIDE RECORDS SUMMARY | 2022-12-01 13:56 | XMS REPORT | Continuity of Care Document ---
:1945 Author Organization [facility] [place] t Address [address] [facility] [address] [place] [id number] Care Team Providers Name Role Phone [phone] Primary Care Physician Unavailable Israel Rocha Attending Clinician Unavailable SYSTEM, PROVIDER NOT IN Attending Clinician Unavailable Christianne Sanchez APRN Attending Clinician Favian Medina APRN Attending Clinician CHRISTIANNE SANCHEZ Attending Clinician Unavailable FAVIAN MEDINA Attending Clinician Unavailable Neil Nieto APRN Attending Clinician Gabby Echevarria MD Attending Clinician Roxie Cain Attending Clinician GABBY ECHEVARRIA Attending Clinician Unavailable Fabiana Browning Attending Clinician FABIANA VENEGAS Attending Clinician Unavailable Irene Nguyễn Attending Clinician [phone] IRENE VANCE Attending Clinician Unavailable Az Burgess MD Attending Clinician [phone] AZ BURGESS Attending Clinician Unavailable TESHA TRUJILLO Attending Clinician Unavailable ROXIE STEWART Attending Clinician Unavailable SUNDEEP BARBER Attending Clinician Unavailable JAX PLASENCIA Attending Clinician Unavailable MAYLIN ORME Attending Clinician Unavailable AMANUEL LITTLEJOHN Attending Clinician Unavailable SHAKIR VO Attending Clinician Unavailable Anne-Marie Kee Kelcey Attending Clinician Unavailable SHAKIR VO Admitting Clinician Unavailable Anne-Marie Kee Kelcey Admitting Clinician Unavailable Payers Payer Name Policy Type Policy Number Effective Date Expiration Date S prasanth HUMANA CHOICE [id number] 2020 MEDICARE PPO 00:00:00 CIGNA C1 [id number] [facility] HUMANA MEDICARE C1 [id number] [facility] MEDICARE MB [id number] [facility] NOVITAS [facility] [id number] CIG CIG [id number] Problems Condition Condition Condition Status Onset Resolution Last Treating Co mments Source Name Details Category Date Date Treatment Clinician Date Lichen Lichen Disease Active 2021-03 Univers sclerosus sclerosus 1-18 ity of et et 00:00: [place] atrophicus atrophicus [facility] Long[facility]term Long-term Disease Active Uni vers (current) (current) 2-01 ity of use of use of 00:00: [place] insulin insulin 00 MD [place] [facility] Obesity Obesity Disease Active 2019-03 Univers 1-16 ity of 00:00: [place] 00 MD [facility] Type 2 Type 2 Disease Active 2019-03 Univers diabetes diabetes 0-23 ity of mellitus mellitus 00:00: 00 MD [facility] 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 00:[place] upper of upper 00 inner inner Anderso quadrant quadrant n of left of left Cancer female female Center breast breast Malignant Malignant Disease Active Uni vers neoplasm neoplasm 9-06 ity of of ovary of ovary 00:00: [place] 00 MD [facility] History of History of Disease Active U nivers malignant malignant 3-13 ity of neoplasm neoplasm 00:00: [place] of ovary of ovary 00 MD [place] [facility] Essential Essential Disease Active Uni vers (primary) (primary) 9-20 ity of hypertensi hypertens[place] [facility] Hyperlipid Hyperlipid Disease Active 2018-0 U moon emia emia 9-20 ity of 00:00: [place] 00 MD [facility] 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 00:00: [place] 00 MD [facility] [phone] Status Problem Commo n 105 post total Spirit left knee - CHI replacemen [facility] [id number] Nontraumat Problem Co mmon ic tear of Spirit right - CHI rotator [facility] unspecifie Medica l d tear Center extent [id number] Primary Problem Comm on osteoarthr Spirit itis of - CHI right knee [facility] [id number] Primary Problem Comm on osteoarthr Spirit itis of - CHI left knee [facility] Allergies, Adverse Reactions, Alerts Allergy Allergy Status Severity Reaction(s) Onset Inactive Treating Comm ents Source Name Type Date Date Clinician DOCETAXE DRUG Active High Palpitations 2021-0 MD L INGREDI 1-25 Anderso 00:00: n 00 DOCETAXE DRUG Active High Palpitations 2021-0 MD L INGREDI 1-25 Anderso 00:00: n 00 DOCETAXE DRUG Active High Palpitations 2021-0 MD L INGREDI 1-25 Anderso 00:00: n 00 DOCETAXE DRUG Active High Palpitations 2021-0 MD L INGREDI 1-25 Anderso 00:00: n 00 DOCETAXE DRUG Active High Palpitations 2021-0 MD L INGREDI 1-25 Anderso 00:00: n 00 DOCETAXE DRUG Active High Palpitations 2021-0 MD L INGREDI 1-25 Anderso 00:00: n 00 DOCETAXE DRUG Active High Palpitations 2021-0 MD L INGREDI 1-25 Anderso 00:00: n 00 DOCETAXE DRUG Active High Palpitations 2021-0 MD L INGREDI 1-25 Anderso 00:00: n 00 DOCETAXE DRUG Active High Palpitations 2021-0 MD L INGREDI 1-25 Anderso 00:00: n 00 DOCETAXE DRUG Active High Palpitations 2021-0 MD L INGREDI 1-25 Anderso 00:00: n 00 DOCETAXE DRUG Active High Palpitations 2021-0 MD L INGREDI 1-25 Anderso 00:00: n 00 DOCETAXE DRUG Active High Palpitations 2021-0 MD L INGREDI 1-25 Anderso 00:00: n 00 DOCETAXE DRUG Active High Palpitations 2021-0 MD L INGREDI 1-25 Anderso 00:00: n 00 DOCETAXE DRUG Active High Palpitations 2021-0 MD L INGREDI 1-25 Anderso 00:00: n 00 DOCETAXE DRUG Active High Palpitations 2021-0 MD L INGREDI 1-25 Anderso 00:00: n 00 DOCETAXE DRUG Active High Palpitations 2021-0 MD L INGREDI 1-25 Anderso 00:00: n 00 DOCETAXE DRUG Active High Palpitations 2021-0 MD L INGREDI 1-25 Anderso 00:00: n 00 DOCETAXE DRUG Active High Palpitations 2021-0 MD L INGREDI 1-25 Anderso 00:00: n 00 DOCETAXE DRUG Active High Palpitations 2021-0 MD L INGREDI 1-25 Anderso 00:00: n 00 DOCETAXE DRUG Active High Palpitations 2021-0 MD L INGREDI 1-25 Anderso 00:00: n 00 DOCETAXE DRUG Active High Palpitations 2021-0 MD L INGREDI 1-25 Anderso 00:00: n 00 DOCETAXE DRUG Active High Palpitations 2021-0 MD L INGREDI 1-25 Anderso 00:00: n 00 Docetaxe Drug Active Other (See 0 On C1D1 / U nivers l Allergy Comments) 04-24 ity o f 00:00: [place] 00 patient MD aden [place] ed n palpita Cancer [facility] [place] chest tightness when receiving Docetaxel . Patient was given Benadryl and Hydrocort isone and symptoms resolved. DOCETAXE DRUG Active High Palpitations 2021-0 MD L INGREDI 1-25 Anderso 00:00: n 00 DOCETAXE DRUG Active High Palpitations 2021-0 MD L INGREDI 1-25 Anderso 00:00: n 00 DOCETAXE DRUG Active High Palpitations 2021-0 MD L INGREDI 1-25 Anderso 00:00: n 00 DOCETAXE DRUG Active High Palpitations 2021-0 MD L INGREDI 1-25 Anderso 00:00: n 00 DOCETAXE DRUG Active High Palpitations 2021-0 MD L INGREDI 1-25 Anderso 00:00: n 00 DOCETAXE DRUG Active High Palpitations 2021-0 MD L INGREDI 1-25 Anderso 00:00: n 00 DOCETAXE DRUG Active High Palpitations 2021-0 MD L INGREDI 1-25 Anderso 00:00: n 00 DOCETAXE DRUG Active High Palpitations 2021-0 MD L INGREDI 1-25 Anderso 00:00: n 00 CODEINE DRUG Active High Nausea 2020-0 MD INGREDI 7-28 Anderso 00:00: n 00 CODEINE DRUG Active High Nausea 2020-0 MD INGREDI 7-28 Anderso 00:00: n 00 CODEINE DRUG Active High Nausea 2020-0 MD INGREDI 7-28 Anderso 00:00: n 00 CODEINE DRUG Active High Nausea 2020-0 MD INGREDI 7-28 Anderso 00:00: n 00 CODEINE DRUG Active High Nausea 2020-0 MD INGREDI 7-28 Anderso 00:00: n 00 CODEINE DRUG Active High Nausea 2020-0 MD INGREDI 7-28 Anderso 00:00: n 00 CODEINE DRUG Active High Nausea 2020-0 MD INGREDI 7-28 Anderso 00:00: n 00 CODEINE DRUG Active High Nausea 2020-0 MD INGREDI 7-28 Anderso 00:00: n 00 CODEINE DRUG Active High Nausea 2020-0 MD INGREDI 7-28 Anderso 00:00: n 00 CODEINE DRUG Active High Nausea 2020-0 MD INGREDI 7-28 Anderso 00:00: n 00 CODEINE DRUG Active High Nausea 2020-0 MD INGREDI 7-28 Anderso 00:00: n 00 CODEINE DRUG Active High Nausea 2020-0 MD INGREDI 7-28 Anderso 00:00: n 00 CODEINE DRUG Active High Nausea 2020-0 MD INGREDI 7-28 Anderso 00:00: n 00 CODEINE DRUG Active High Nausea 2020-0 MD INGREDI 7-28 Anderso 00:00: n 00 CODEINE DRUG Active High Nausea 2020-0 MD INGREDI 7-28 Anderso 00:00: n 00 CODEINE DRUG Active High Nausea 2020-0 MD INGREDI 7-28 Anderso 00:00: n 00 CODEINE DRUG Active High Nausea 2020-0 MD INGREDI 7-28 Anderso 00:00: n 00 CODEINE DRUG Active High Nausea 2020-0 MD INGREDI 7-28 Anderso 00:00: n 00 CODEINE DRUG Active High Nausea 2020-0 MD INGREDI 7-28 Anderso 00:00: n 00 CODEINE DRUG Active High Nausea 2020-0 MD INGREDI 7-28 Anderso 00:00: n 00 CODEINE DRUG Active High Nausea 2020-0 MD INGREDI 7-28 Anderso 00:00: n 00 CODEINE DRUG Active High Nausea 2020-0 MD INGREDI 7-28 Anderso 00:00: n 00 CODEINE DRUG Active High Nausea 2020-0 MD INGREDI 7-28 Anderso 00:00: n 00 CODEINE DRUG Active High Nausea 2020-0 MD INGREDI 7-28 Anderso 00:00: n 00 CODEINE DRUG Active High Nausea 2020-0 MD INGREDI 7-28 Anderso 00:00: n 00 CODEINE DRUG Active High Nausea 2020-0 MD INGREDI 7-28 Anderso 00:00: n 00 CODEINE DRUG Active High Nausea 2020-0 MD INGREDI 7-28 Anderso 00:00: n 00 CODEINE DRUG Active High Nausea 2020-0 MD INGREDI 7-28 Anderso 00:00: n 00 CODEINE DRUG Active High Nausea 2020-0 MD INGREDI 7-28 Anderso 00:00: n 00 CODEINE DRUG Active High Nausea 2020-0 MD INGREDI 7-28 Anderso 00:00: n 00 Codeine Propensi Active Shortness Of 2020-0 M ethodi ty to Breath 10-25 st adverse 00:00: Hospita reaction 00 l s to drug Codeine Propensi Active GI 2020-0 Univers ty to Intolerance 10-25 ity o f adverse 00:00: [place] reaction 00 [facility] CELECOXI DRUG Active High Sob 2016-0 MD B INGREDI 3-04 Anderso 00:00: n 00 CELECOXI DRUG Active High Sob 2016-0 MD B INGREDI 3-04 Anderso 00:00: n 00 CELECOXI DRUG Active High Sob 2016-0 MD B INGREDI 3-04 Anderso 00:00: n 00 CELECOXI DRUG Active High Sob 2016-0 MD B INGREDI 3-04 Anderso 00:00: n 00 CELECOXI DRUG Active High Sob 2016-0 MD B INGREDI 3-04 Anderso 00:00: n 00 CELECOXI DRUG Active High Sob 2015-0 MD B INGREDI 3-04 Anderso 00:00: n 00 CELECOXI DRUG Active High Sob 2015-0 MD B INGREDI 3-04 Anderso 00:00: n 00 CELECOXI DRUG Active High Sob 2015-0 MD B INGREDI 3-04 Anderso 00:00: n 00 CELECOXI DRUG Active High Sob 2016-0 MD B INGREDI 3-04 Anderso 00:00: n 00 CELECOXI DRUG Active High Sob 2015-0 MD B INGREDI 3-04 Anderso 00:00: n 00 CELECOXI DRUG Active High Sob 2016-0 MD B INGREDI 3-04 Anderso 00:00: n 00 CELECOXI DRUG Active High Sob 2015-0 MD B INGREDI 3-04 Anderso 00:00: n 00 CELECOXI DRUG Active High Sob 2015-0 MD B INGREDI 3-04 Anderso 00:00: n 00 CELECOXI DRUG Active High Sob 2016-0 MD B INGREDI 3-04 Anderso 00:00: n 00 CELECOXI DRUG Active High Sob 2015-0 MD B INGREDI 3-04 Anderso 00:00: n 00 CELECOXI DRUG Active High Sob 2015-0 MD B INGREDI 3-04 Anderso 00:00: n 00 CELECOXI DRUG Active High Sob 2015-0 MD B INGREDI 3-04 Anderso 00:00: n 00 CELECOXI DRUG Active High Sob 2015-0 MD B INGREDI 3-04 Anderso 00:00: n 00 CELECOXI DRUG Active High Sob 2015-0 MD B INGREDI 3-04 Anderso 00:00: n 00 CELECOXI DRUG Active High Sob 2015-0 MD B INGREDI 3-04 Anderso 00:00: n 00 CELECOXI DRUG Active High Sob 2016-0 MD [place] INGREDI 3-04 Anderso 00:00: n 00 CELECOXI DRUG Active High Sob 2015-0 MD [place] INGREDI 3-04 Anderso 00:00: n 00 CELECOXI DRUG Active High Sob 2015-0 MD [place] INGREDI 3-04 Anderso 00:00: n 00 CELECOXI DRUG Active High Sob 2015-0 MD [place] INGREDI 3-04 Anderso 00:00: n 00 CELECOXI DRUG Active High Sob 2015-0 MD [place] INGREDI 3-04 Anderso 00:00: n 00 CELECOXI DRUG Active High Sob 2015-0 MD [place] INGREDI 3-04 Anderso 00:00: n 00 CELECOXI DRUG Active High Sob 2015-0 MD [place] INGREDI 3-04 Anderso 00:00: n 00 CELECOXI DRUG Active High Sob 2015-0 MD [place] INGREDI 3-04 Anderso 00:00: n 00 CELECOXI DRUG Active High Sob 2015-0 MD [place] INGREDI 3-04 Anderso 00:00: n 00 CELECOXI DRUG Active High Sob 2015-0 MD [place] INGREDI 3-04 Anderso 00:00: n 00 Celecoxi Propensi Active Shortness Of Methodi b ty to Breath 04 st adverse 00:00: Hospita reaction 00 l s to drug Celecoxi Drug Active Shortness Of Un amberly b Allergy Breath 3-04 ity of 00:00: [place] 00 MD [facility] codeine codeine Active Unknown [facility] Family History Family Member Diagnosis Comments Start Date Stop Date Source Natural brother [facility] Natural daughter [facility]i ty [facility] Natural father [facility] Maternal aunt [facility] Maternal grandfather [facility] [place] Maternal grandmother [facility] Natural [facility] Nephew [facility] Niece [facility] Other [facility] Paternal aunt [facility] Paternal grandfather [facility] Paternal grandmother Univ ersity [facility] Paternal uncle -Unknown cancer Unive rsity [facility] Natural sister [facility] Natural son [facility] Social History Social Habit Start Date Stop Date Quantity Comments Source History of Tobacco [facility] - Use [facility] Gender identity [facility] Sexual orientation [facility] History of Social 2022-06-03 2022-06-[address] function 00:00:00 00:00:00 Hospital Alcohol intake 2022-02-15 2022-02-15 Current University of 00:00:00 00:00:00 non-drinker of [place] MD Raul oleary alcohol [facility] (finding) Tobacco Comment 2019-10-26 2019-10-26 as a teenager Method ist 00:00:00 00:00:00 [facility] Alcohol Comment 2019-10-26 2019-10-26 as a teenager Method ist 00:00:00 00:00:00 Hospital Tobacco use and 2017-12-17 2017-12-17 Smokeless Universit y of exposure 00:00:00 00:00:00 tobacco non-user [facility] Sex Ass[birth year] At [birth year] Universit y of 00:00:00 00:00:00 [place] MD Castillo son [facility] Smoking Status Start Date Stop Date Source Ex-smoker 2019-10-26 00:00:00 2019-10-26 00:00:00 [facility] Never smoked tobacco [facility] Medications Ordered Filled Start Stop Current Ordering Indication Dosage Frequency Signature Comments Components Source Medication Medication Date Date Medication? Clinician (SIG) Name Name multivitami Yes Take by Uni vers n capsule 5-04 mouth ity of 12:58: daily. [facility] vit A/vit Yes Take by Unive rs C/vit 5-04 mouth ity of E/zinc/ever 12:58: daily. Yolande Gutierrez MD (PRESERVRIVKA [place] ON AREDS n ORAL) [facility] Center microfibril Yes Apply Unive rs lar 5-04 topically ity of collagen 12:58: to [place] hemostat 05 affected topical area(s) as [place] powder needed for n wound Cancer care. Add Center to fluids and drink BIOTIN ORAL Yes 1{tbl} Take 1 Un amberly 5-04 tablet by ity of 12:58: mouth [place] 05 daily. MD [facility] cranberry Yes 2{tbl} Chew 2 Univ ers fruit 5-04 tablets ity of concentrate 12:58: daily. [place] (Azo 05 Cranberry) Anderso 250 mg chew n [facility] acetaminoph Yes pain 1000mg Take 2 Un amberly en 5-04 tablets ity of (TYLENOL) 12:58: [place]1,000 mg[place] 500 mg 05 by mouth tablet every 6 Anderso (six) n hours as Cancer needed. [place] famotidine Yes 20mg Take 1 Unive rs (PEPCID) 20 5-04 tablet (20 it y of mg tablet 12:58: mg) by 05 mouth 2 MD (two) Anderso times a n day as Cancer needed. [place] loratadine Yes 1{tbl} Take 1 Uni vers (CLARITIN 5-04 tablet by ity o f ORAL) 12:58: mouth as [place] 05 needed. MD [facility] calcium Yes Take by Univers carbonate-v 5-04 mouth 2 ity o f itamin D3 12:58: (two) [place] 500 mg - 05 times a MD 200 units day with [place] o (1,250 mg meals. n calcium Cancer carbonate) Center tablet Farxiga 5 Yes 1{tbl} Take 1 Univ ers mg tab 4-26 tablet by ity of 00:00: mouth [place] 00 daily. MD [facility] Bupivicaine Bupivicaine No 4mL Common [place] Dundee 3-24 Spirit 00:00: - [facility] Kenalog Kenalog No 1mL Common (Triamcinol (Triamcinol 3-24 S pirit one) one) 00:00: - [facility] Bupivicaine Bupivicaine No 2.5mg Common [place] Dundee 8-15 Spirit 00:00: - [facility]I [facility] Celestone Celestone 0 No 6mg Com mon Soluspan Soluspan 8-15 Spirit (Betamethas (Betamethas 00:00: - CHI one) one) 00 [facility] Bupivicaine Bupivicaine No 2.5mg Common [place] Dundee 8-15 Spirit 00:00: - CHI 00 [facility] Celestone Celestone No 6mg Com mon Soluspan Soluspan 8-15 Spirit (Betamethas (Betamethas 00:00: - CHI one) one) 00 [facility] Bupivicaine Bupivicaine No 2.5mg Common [place] Dundee 8-15 Spirit 00:00: - [facility] Celestone Celestone No 6mg Com mon Soluspan Soluspan 8-15 Spirit (Betamethas (Betamethas 00:00: - CHI one) one) 00 [facility] Bupivicaine Bupivicaine No 2.5mg Common [place] Dundee 8-15 Spirit 00:00: - [facility] Celestone Celestone No 6mg Com mon Soluspan Soluspan 8-15 Spirit (Betamethas (Betamethas 00:00: - CHI one) one) 00 [facility] Bupivicaine Bupivicaine No 2.5mg Common [place] Dundee 8-15 Spirit 00:00: - [facility] Celestone Celestone No 6mg Com mon Soluspan Soluspan 8-15 Spirit (Betamethas (Betamethas 00:00: - CHI one) one) 00 [facility] Bupivicaine Bupivicaine No 2.5mg Common [place] Dundee 8-15 Spirit 00:00: - CHI 00 [facility] Celestone Celestone No 6mg Com mon Soluspan Soluspan 8-15 Spirit (Betamethas (Betamethas 00:00: - CHI one) one) [facility] BD Insulin Yes Type 2 USE 1 Univ ers Syringe 1 8-15 diabetes SUBCUTANEO ity of mL 29 gauge 00:00: mellitus USLY TWICE [place] x 1/2" syrg 00 with DAILY MD [facility]man [facility] Bupivicaine Bupivicaine 2021-0 No 2.5mg Common [place] Dundee 7-12 Spirit 00:00: - CHI 00 [facility] Depo-Medrol Depo-Medrol 2021-0 No 40mg Common (Methylpred (Methylpred 7-12 S pirit nisolone) nisolone) 00:00: - C HI 40mg 40mg 00 [facility] Bupivicaine Bupivicaine 2021-0 No 2.5mg Common [place] Dundee 7-12 Spirit 00:00: - CHI 00 [facility] Depo-Medrol Depo-Medrol 2021-0 No 40mg Common (Methylpred (Methylpred 7-12 S pirit nisolone) nisolone) 00:00: - C HI 40mg 40mg 00 [facility] Bupivicaine Bupivicaine 2021-0 No 2.5mg Common [place] Dundee 7-12 Spirit 00:00: - CHI 00 [facility] Depo-Medrol Depo-Medrol 2021-0 No 40mg Common (Methylpred (Methylpred 7-12 S pirit nisolone) nisolone) 00:00: - C [place] 40mg 40mg 00 [facility] Bupivicaine Bupivicaine 2021-0 No 2.5mg Common [place] Dundee 7-12 Spirit 00:00: - [facility] Depo-Medrol Depo-Medrol 2021-0 No 40mg Common (Methylpred (Methylpred 7-12 S pirit nisolone) nisolone) 00:00: - C [place] 40mg 40mg 00 [facility] Bupivicaine Bupivicaine 2021-0 No 2.5mg Common [place] Dundee 7-12 Spirit 00:00: - CHI 00 [facility] Depo-Medrol Depo-Medrol 2021-0 No 40mg Common (Methylpred (Methylpred 7-12 S pirit nisolone) nisolone) 00:00: - C [place] 40mg 40mg 00 [facility] Bupivicaine Bupivicaine 2021-0 No 2.5mg Common [place] Dundee 7-12 Spirit 00:00: - [facility] Depo-Medrol Depo-Medrol No 40mg Common (Methylpred (Methylpred 7-12 S pirit nisolone) nisolone) 00:00: - C [place] 40mg 40mg 00 [facility] Bupivicaine Bupivicaine No 2.5mg Common [place] Dundee 712 Spirit 00:00: - [facility] DEPO-Medrol DEPO-Medrol No 40mg Common 7 Spirit 00:00: - [facility] Bupivicaine Bupivicaine No 2.5mg Common [place] Dundee 7 Spirit 00:00: - [facility] DEPO-Medrol DEPO-Medrol No 40mg Common 10-09 Spirit 00:00: - [facility] clobetasol Yes Pruritus of Apply to Univers (Temovate) 5-31 vulva affected ity of 0.05% cream 00:00: area twice [place] 00 weekly MD (Friday/ Twin ). [facility] tamoxifen Yes Infiltratin 20mg Take 1 Univers (NOLVADEX) 5-27 g duct tablet (20 i ty of 20 mg 00:00: carcinoma, mg) [place] tablet 00 NOS of mouth MD upper-inner daily. [place] quadrant of n breast Cancer <Female; Center Left> Orthovisc Orthovisc No 16mg Com 07-26 Spirit 00:00: - [facility] Orthovisc Orthovisc No 16mg Com 07-26 Spirit 00:00: - [facility] Orthovisc Orthovisc No 16mg Com 07-26 Spirit 00:00: - [facility] Orthovisc Orthovisc No 16mg Com 07-26 Spirit 00:00: - [facility] Orthovisc Orthovisc No 16mg Com 07-26 Spirit 00:00: - [facility] Orthovisc Orthovisc 2022-0 No 15mg Com 07-19 Spirit 00:00: - [facility] Orthovisc Orthovisc 2021-0 No 15mg Com 07-19 Spirit 00:00: - [facility] Orthovisc Orthovisc 2021-0 No 15mg Com 07-19 Spirit 00:00: - [facility] Orthovisc Orthovisc 2021-0 No 15mg Com 07-19 Spirit 00:00: - [facility] Orthovisc Orthovisc 2021-0 No 15mg Com 07-19 Spirit 00:00: - [facility] Orthovisc Orthovisc 2021-0 No 15mg Com 07-19 Spirit 00:00: - [facility] Orthovisc Orthovisc 2021-0 No Com 07-12 Spirit 00:00: - [facility] Orthovisc Orthovisc 2021-0 No Com 07-12 Spirit 00:00: - [facility] Orthovisc Orthovisc 2021-0 No Com 07-12 Spirit 00:00: - [facility] Orthovisc Orthovisc 2021-0 No Com 07-12 Spirit 00:00: - [facility] Orthovisc Orthovisc 2021-0 No Com 07-12 Spirit 00:00: - [facility] Orthovisc Orthovisc 2021-0 No Com 07-12 Spirit 00:00: - [facility] Orthovisc Orthovisc 2021-0 No Com 07-12 Spirit 00:00: - [facility] Bupivicaine Bupivicaine 2021-0 No Common [place] Dundee - Spirit 00:00: - [facility] Kenalog Kenalog 2021-0 No 40mg Common (Triamcinol (Triamcinol 1-19 S pirit one) one) 00:00: - [facility] Bupivicaine Bupivicaine 2021-0 No Common Dundee Dundee 1-19 Spirit 00:00: - [facility] Kenalog Kenalog 2021-0 No 40mg Common (Triamcinol (Triamcinol 1-19 S pirit one) one) 00:00: - CHI 00 [facility] Bupivicaine Bupivicaine 2021-0 No 2.5mg Common [place] Dundee 1-19 Spirit 00:00: - CHI 00 [facility] Kenalog Kenalog 2021-0 No 40mg Common (Triamcinol (Triamcinol 1-19 S pirit one) one) 00:00: - CHI 00 [facility] Bupivicaine Bupivicaine 2021-0 No 2.5mg Common [place] Dundee 1-19 Spirit 00:00: - CHI 00 [facility] Kenalog Kenalog 2021-0 No 40mg Common (Triamcinol (Triamcinol 1-19 S pirit one) one) 00:00: - CHI 00 [facility] Bupivicaine Bupivicaine 2021-0 No 2.5mg Common [place] Dundee 1-19 Spirit 00:00: - CHI 00 [facility] Kenalog Kenalog 2021-0 No 40mg Common (Triamcinol (Triamcinol 1-19 S pirit one) one) 00:00: - CHI 00 [facility] Bupivicaine Bupivicaine 2021-0 No 2.5mg Common [place] Dundee 1-19 Spirit 00:00: - CHI 00 [facility] Kenalog Kenalog 2021-0 No 40mg Common (Triamcinol (Triamcinol 1-19 S pirit one) one) 00:00: - CHI 00 [facility] Bupivicaine Bupivicaine 2021-0 No 2.5mg Common [place] Dundee 1-19 Spirit 00:00: - CHI 00 [facility] Kenalog Kenalog 2021-0 No 40mg Common (Triamcinol (Triamcinol 1-19 S pirit one) one) 00:00: - CHI 00 [facility] Bupivicaine Bupivicaine 2021-0 No 2.5mg Common [place] Dundee 1-19 Spirit 00:00: - CHI 00 [facility] Kenalog Kenalog 2021-0 No 40mg Common (Triamcinol (Triamcinol 1-19 S pirit one) one) 00:00: - CHI 00 [facility] Bupivicaine Bupivicaine 0 No 2.5mg Common [place] Dundee 1-19 Spirit 00:00: - [facility] Kenalog Kenalog No 40mg Common (Triamcinol (Triamcinol 1-19 S pirit one) one) 00:00: - CHI 00 [facility] insulin Yes Type 2 INJECT 36 Uni vers NPH-insulin 1-04 diabetes UNITS ity of regular 00:00: mellitus UNDER THE [place] (NovoLIN 00 with SKIN EVERY MD 70/30 U-100 hyperglycem MORNING Anderso Insulin) ia BEFORE n 100 BREAKFAST Cancer units/mL AND 16 Center injection UNITS DAILY BEFORE DINNER traMADol 2020-03 Yes Infiltratin 50mg Take 1 Univers (ULTRAM) 50 2-29 g duct tablet (50 ity of mg tablet 00:00: carcinoma, mg) by [place] 00 NOS of mouth 2 MD upper-inner (two) Anderso quadrant of times a n breast day as Cancer <Female; needed for Cente r Left> severe pain. Cjalog Cjalog No 40mg Common (Triamcinol (Triamcinol 8-19 S pirit one) one) 00:00: - [facility] Bupivicaine Bupivicaine 0 No Common Dundee Dundee 8-19 Spirit 00:00: - [facility] Kenalog Kenalog No 40mg Common (Triamcinol (Triamcinol 8-19 S pirit one) one) 00:00: - [facility] Bupivicaine Bupivicaine 0 No Common [place] Dundee 8-19 Spirit 00:00: - [facility] Kenalog Kenalog 0 No 40mg Common (Triamcinol (Triamcinol 8-19 S pirit one) one) 00:00: - [facility] Bupivicaine Bupivicaine 2020-0 No 2.5mg Common [place] Dundee 8-19 Spirit 00:00: - [facility] Kenalog Kenalog No 40mg Common (Triamcinol (Triamcinol 8-19 S pirit one) one) 00:00: - [facility] Bupivicaine Bupivicaine 2020-0 No 2.5mg Common [place] Dundee 8-19 Spirit 00:00: - [facility] Kenalog Kenalog 2020-0 No 40mg Common (Triamcinol (Triamcinol 8-19 S pirit one) one) 00:00: - [facility] Bupivicaine Bupivicaine 2020-0 No 2.5mg Common [place] Dundee 8-19 Spirit 00:00: - [facility] Kenalog Kenalog 2020-0 No 40mg Common (Triamcinol (Triamcinol 8-19 S pirit one) one) 00:00: - [facility] Bupivicaine Bupivicaine 2020-0 No 2.5mg Common [place] Dundee 8-19 Spirit 00:00: - [facility] Kenalog Kenalog 0 No 40mg Common (Triamcinol (Triamcinol 8-19 S pirit one) one) 00:00: - [facility] Bupivicaine Bupivicaine 2020-0 No 2.5mg Common [place] Dundee 8-19 Spirit 00:00: - [facility] Kenalog Kenalog 2020-0 No 40mg Common (Triamcinol (Triamcinol 8-19 S pirit one) one) 00:00: - [facility] Bupivicaine Bupivicaine 2020-0 No 2.5mg Common [place] Dundee 8-19 Spirit 00:00: - [facility] Kenalog Kenalog 2020-0 No 40mg Common (Triamcinol (Triamcinol 8-19 S pirit one) one) 00:00: - [facility] Bupivicaine Bupivicaine 2020-0 No 2.5mg Common [place] Dundee 8-19 Spirit 00:00: - [facility] blood sugar 0 Yes Type 2 [facility] diagnostic 4-15 diabetes meter. Use ity of (glucose 00:00: mellitus to check [place] blood) strp 00 with blood MD hyperglycem sugar 3 Jonathan so ia times n daily as Cancer directed Center insulin 2020-1 Yes Type 2 Use to Univer s syringe-nee 04-01 diabetes inject it y of dle U-100 1 00:00: mellitus insulin [place] mL 31 gauge 00 with twice MD x 08/13 syrg hyperglycem daily as Anderso ia directed. n Cancer [place] Kenalog Kenalog 2020-0 No 40mg Common (Triamcinol (Triamcinol 9-25 S pirit one) one) 00:00: - [facility] Bupivicaine Bupivicaine 2020-0 No 5mL Common [place] Dundee 9-25 Spirit 00:00: - [facility] Kenalog Kenalog 2020-0 No 40mg Common (Triamcinol (Triamcinol 9-25 S pirit one) one) 00:00: - [facility] Bupivicaine Bupivicaine 2020-0 No 5mL Common [place] Dundee 9-25 Spirit 00:00: - [facility] Kenalog Kenalog 2020-0 No 40mg Common (Triamcinol (Triamcinol 9-25 S pirit one) one) 00:00: - [facility] Bupivicaine Bupivicaine 2020-0 No 5mL Common [place] Dundee 9-25 Spirit 00:00: - [facility] Kenalog Kenalog 2020-0 No 40mg Common (Triamcinol (Triamcinol 9-25 S pirit one) one) 00:00: - [facility] Bupivicaine Bupivicaine 2020-0 No 5mL Common [place] Dundee 9-25 Spirit 00:00: - [facility] Kenalog Kenalog 2020-0 No 40mg Common (Triamcinol (Triamcinol 9-25 S pirit one) one) 00:00: - [facility] Bupivicaine Bupivicaine 2020-0 No 5mL Common [place] Dundee 9-25 Spirit 00:00: - [facility] Kenalog Kenalog 2020-0 No 40mg Common (Triamcinol (Triamcinol 9-25 S pirit one) one) 00:00: - [facility] Bupivicaine Bupivicaine 2020-0 No 5mL Common [place] Dundee 9-25 Spirit 00:00: - [facility] Kenalog Kenalog 2020-0 No 40mg Common (Triamcinol (Triamcinol 9-25 S pirit one) one) 00:00: - [facility] Bupivicaine Bupivicaine 2020-0 No 5mL Common [place] Dundee 9-25 Spirit 00:00: - [facility] Kenalog Kenalog 2020-0 No 40mg Common (Triamcinol (Triamcinol 9-25 S pirit one) one) 00:00: - [facility] Bupivicaine Bupivicaine 2020-0 No 5mL Common [place] Dundee 9-25 Spirit 00:00: - [facility] Kenalog Kenalog 2020-0 No 40mg Common (Triamcinol (Triamcinol 9-25 S pirit one) one) 00:00: - [facility] Bupivicaine Bupivicaine 2020-0 No 5mL Common [place] Dundee 9-25 Spirit 00:00: - [facility] multivitami 2020-0 Yes 1{capsu QD Take 1 M ethodi n capsule 7 le} capsule by st 13:23: mouth Hospita 25 daily. l glimepiride 2020-0 Yes 1{tbl} Q.5D Take 1 Me thodi (AMARYL) 4 6-[address] MG tablet 00:00: mouth 2 Hospi ta 00 (two) l times a day. metFORMIN 2020-0 Yes 500mg Q.5D Take 500 Met hodi (GLUCOPHAGE 6-[address] ) 500 mg 00:00: mouth 2 Hospit a tablet 00 (two) l times a day. lisinopriL- 2020-0 Yes 1{tbl} QD Take 1 Me thodi hydrochloro 6-[address] thiazide 00:00: mouth Hospita (PRINZIDE) 00 daily. l 20-25 mg per tablet Levemir 2020-0 Yes 60U QD Inject 60 Metho di FlexTouch 5-[address] U-100 00:00: under the Hospita Insuln 100 00 skin l unit/mL (3 daily. mL) insulin pen Bupivicaine Bupivicaine 2020-0 No 5mL Common [place] Dundee 4-01 Spirit 00:00: - [facility] Kenalog Kenalog 2020-0 No 40mg Common (Triamcinol (Triamcinol 4-01 S pirit one) one) 00:00: - [facility] Bupivicaine Bupivicaine 2020-0 No 5mL Common [place] Dundee 4-01 Spirit 00:00: - [facility] Kenalog Kenalog 2020-0 No 40mg Common (Triamcinol (Triamcinol 4-01 S pirit one) one) 00:00: - [facility] Bupivicaine Bupivicaine 2020-0 No 5mL Common [place] Dundee 4- Spirit 00:00: - [facility] Kenalog Kenalog 2020-0 No 40mg Common (Triamcinol (Triamcinol 4-01 S pirit one) one) 00:00: - [facility] Bupivicaine Bupivicaine 2020-0 No 5mL Common [place] Dundee 4-01 Spirit 00:00: - [facility] Kenalog Kenalog 2020-0 No 40mg Common (Triamcinol (Triamcinol 4-01 S pirit one) one) 00:00: - [facility] Bupivicaine Bupivicaine 2020-0 No 5mL Common [place] Dundee 4-01 Spirit 00:00: - [facility] Kenalog Kenalog 2020-0 No 40mg Common (Triamcinol (Triamcinol 4-01 S pirit one) one) 00:00: - [facility] Bupivicaine Bupivicaine 2020-0 No 5mL Common [place] Dundee 4-01 Spirit 00:00: - [facility] Kenalog Kenalog 2020-0 No 40mg Common (Triamcinol (Triamcinol 4-01 S pirit one) one) 00:00: - [facility] Bupivicaine Bupivicaine 2020-0 No 5mL Common [place] Dundee 4-01 Spirit 00:00: - [facility] Kenalog Kenalog 2020-0 No 40mg Common (Triamcinol (Triamcinol 4-01 S pirit one) one) 00:00: - [facility] Bupivicaine Bupivicaine 2020-0 No 5mL Common [place] Dundee 4-01 Spirit 00:00: - [facility] Kenalog Kenalog 2020-0 No 40mg Common (Triamcinol (Triamcinol 4-01 S pirit one) one) 00:00: - [facility] Bupivicaine Bupivicaine 2020-0 No 5mL Common [place] Dundee 4-01 Spirit 00:00: - [facility] Kenalog Kenalog 2020-0 No 40mg Common (Triamcinol (Triamcinol 4-01 S pirit one) one) 00:00: - [facility] lisinopriL- 2019-1 Yes DAILY AT Un amberly hydrochloro 2- 0600 ity of thiazide 00:00: [place] (KATIE,Z 00 MD POTTS) Anderso 20-12.5 mg n per tablet [facility] LIDOCAINE LIDOCAINE 2018-0 No 10mg Com mon HCL 10MG/ML HCL 10MG/ML 4-29 S pirit 00:00: - [facility] Betamethaso Betamethaso 2019-0 No 1mL Common ne Sodium ne Sodium 4-29 Spiri t Phosphate Phosphate 00:00: - [facility] LIDOCAINE LIDOCAINE 2018-0 No 10mg Com mon HCL 10MG/ML HCL 10MG/ML 4-29 S pirit 00:00: - [facility] Betamethaso Betamethaso 2019-0 No 1mL Common ne Sodium ne Sodium 4-29 Spiri t Phosphate Phosphate 00:00: - [facility] LIDOCAINE LIDOCAINE 2018-0 No 10mg Com mon HCL 10MG/ML HCL 10MG/ML 4-29 S pirit 00:00: - [facility] Betamethaso Betamethaso 2019-0 No 1mL Common ne Sodium ne Sodium 4-29 Spiri t Phosphate Phosphate 00:00: - [facility] LIDOCAINE LIDOCAINE 2018-0 No 10mg Com mon HCL 10MG/ML HCL 10MG/ML 4-29 S pirit 00:00: - [facility] Betamethaso Betamethaso 2019-0 No 1mL Common ne Sodium ne Sodium 4-29 Spiri t Phosphate Phosphate 00:00: - [facility] LIDOCAINE LIDOCAINE 2019-0 No 10mg Com mon HCL 10MG/ML HCL 10MG/ML 4-29 S pirit 00:00: - [facility] Betamethaso Betamethaso 2019-0 No 1mL Common ne Sodium ne Sodium 4-29 Spiri t Phosphate Phosphate 00:00: - [facility] LIDOCAINE LIDOCAINE 2019-0 No 10mg Com mon HCL 10MG/ML HCL 10MG/ML 4-29 S pirit 00:00: - [facility] Betamethaso Betamethaso 2019-0 No 1mL Common ne Sodium ne Sodium 4-29 Spiri t Phosphate Phosphate 00:00: - [facility] LIDOCAINE LIDOCAINE 2019-0 No 10mg Com mon HCL 10MG/ML HCL 10MG/ML 4-29 S pirit 00:00: - [facility] Betamethaso Betamethaso 2019-0 No 1mL Common ne Sodium ne Sodium 4-29 Spiri t Phosphate Phosphate 00:00: - [facility] LIDOCAINE LIDOCAINE 2019-0 No 10mg Com mon HCL 10MG/ML HCL 10MG/ML 4-29 S pirit 00:00: - [facility] Betamethaso Betamethaso 2019-0 No 1mL Common ne Sodium ne Sodium 4-29 Spiri t Phosphate Phosphate 00:00: - [facility] Betamethaso Betamethaso 2019-0 No 1mL Common ne Sodium ne Sodium 4-29 Spiri t Phosphate Phosphate 00:00: - [facility] LIDOCAINE LIDOCAINE 2019-0 No 10mg Com mon HCL 10MG/ML HCL 10MG/ML 4-29 S pirit 00:00: - [facility] evolocumab 2019-0 Yes 1{dose} Inject 1 Methodi (Repatha 2-[address] [employer]) 00:00: the skin. Ho spita 140 mg/mL 00 l pen injector injection REPATHA 2019-0 Yes 1mL Inject 1 Univer s SURECLICK 2-18 mL into ity of 140 mg/mL 00:00: the [place] pnij 00 shoulder, MD thigh, or Anderstheron buttocks n every 14 Cancer (fourteen) Center days. Orthovisc Orthovisc 2019-0 No 2mL Com 04-27 Spirit 00:00: - [facility] Orthovisc Orthovisc 2019-0 No 2mL Com 04-27 Spirit 00:00: - [facility] Orthovisc Orthovisc 2019-0 No 2mL Com 04-27 Spirit 00:00: - [facility] Orthovisc Orthovisc 2019-0 No 2mL Com 04-27 Spirit 00:00: - [facility] Orthovisc Orthovisc 2019-0 No 2mL Com 04-27 Spirit 00:00: - [facility] Orthovisc Orthovisc 2019-0 No 2mL Com 04-27 Spirit 00:00: - [facility] Orthovisc Orthovisc 2019-0 No 2mL Com 04-27 Spirit 00:00: - [facility] Orthovisc Orthovisc 2019-0 No 2mL Com 04-27 Spirit 00:00: - [facility] Orthovisc Orthovisc 2019-0 No 2mL Com 04-27 Spirit 00:00: - [facility] Orthovisc Orthovisc 2019-0 No 2mL Com 04-27 Spirit 00:00: - [facility] Orthovisc Orthovisc 2019-0 No 2mL Com 04-27 Spirit 00:00: - [facility] Orthovisc Orthovisc 2019-0 No 2mL Com 04-27 Spirit 00:00: - [facility] Orthovisc Orthovisc 2019-0 No 2mL Com 04-27 Spirit 00:00: - [facility] Orthovisc Orthovisc 2019-0 No 2mL Com 04-27 Spirit 00:00: - [facility] Orthovisc Orthovisc 2019-0 No 2mL Com 04-27 Spirit 00:00: - [facility] Orthovisc Orthovisc 2019-0 No 2mL Com 04-27 Spirit 00:00: - [facility] Orthovisc Orthovisc 2019-0 No 2mL Com 04-27 Spirit 00:00: - [facility] Orthovisc Orthovisc 2019-0 No 2mL Com 04-27 Spirit 00:00: - [facility] Orthovisc Orthovisc 2019-0 No 2mg Com 04-21 Spirit 00:00: - [facility] Orthovisc Orthovisc 2019-0 No 2mg Com 04-21 Spirit 00:00: - [facility] Orthovisc Orthovisc 2019-0 No 2mg Com 04-21 Spirit 00:00: - [facility] Orthovisc Orthovisc 2019-0 No 2mg Com 04-21 Spirit 00:00: - [facility] Orthovisc Orthovisc 2019-0 No 2mg Com 04-21 Spirit 00:00: - [facility] Orthovisc Orthovisc 2019-0 No 2mg Com 04-21 Spirit 00:00: - [facility] Orthovisc Orthovisc 2019-0 No 2mg Com 04-21 Spirit 00:00: - [facility] Orthovisc Orthovisc 2019-0 No 2mg Com 04-21 Spirit 00:00: - [facility] Orthovisc Orthovisc 2019-0 No 2mg Com 04-21 Spirit 00:00: - [facility] Orthovisc Orthovisc 2019-0 No 2mg Com 04-21 Spirit 00:00: - [facility] Orthovisc Orthovisc 2019-0 No 2mg Com 04-21 Spirit 00:00: - [facility] Orthovisc Orthovisc 2019-0 No 2mg Com 04-21 Spirit 00:00: - [facility] Orthovisc Orthovisc 2019-0 No 2mg Com 04-21 Spirit 00:00: - [facility] Orthovisc Orthovisc 2019-0 No 2mg Com 04-21 Spirit 00:00: - [facility] Orthovisc Orthovisc 2019-0 No 2mg Com 04-21 Spirit 00:00: - [facility] Orthovisc Orthovisc 2019-0 No 2mg Com 04-21 Spirit 00:00: - [facility] Orthovisc Orthovisc 2019-0 No 2mg Com 04-21 Spirit 00:00: - [facility] Orthovisc Orthovisc 2019-0 No 2mg Com 04-21 Spirit 00:00: - [facility] Orthovisc Orthovisc 2019-0 No 2mL Com 04-14 Spirit 00:00: - [facility] Orthovisc Orthovisc 2019-0 No 2mL Com 04-14 Spirit 00:00: - [facility] Orthovisc Orthovisc 2019-0 No 2mL Com 04-14 Spirit 00:00: - [facility] Orthovisc Orthovisc 2019-0 No 2mL Com 04-14 Spirit 00:00: - [facility] Orthovisc Orthovisc 2019-0 No 2mL Com 04-14 Spirit 00:00: - [facility] Orthovisc Orthovisc 2019-0 No 2mL Com 04-14 Spirit 00:00: - [facility] Orthovisc Orthovisc 2019-0 No 2mL Com 04-14 Spirit 00:00: - [facility] Orthovisc Orthovisc 2019-0 No 2mL Com 04-14 Spirit 00:00: - [facility] Orthovisc Orthovisc 2019-0 No 2mL Com 04-14 Spirit 00:00: - [facility] Orthovisc Orthovisc 2019-0 No 2mL Com 04-14 Spirit 00:00: - [facility] Orthovisc Orthovisc 2019-0 No 2mL Com 04-14 Spirit 00:00: - [facility] Orthovisc Orthovisc 2019-0 No 2mL Com 04-14 Spirit 00:00: - [facility] Orthovisc Orthovisc 2019-0 No 2mL Com 04-14 Spirit 00:00: - [facility] Orthovisc Orthovisc 2019-0 No 2mL Com 04-14 Spirit 00:00: - [facility] Orthovisc Orthovisc 2019-0 No 2mL Com 04-14 Spirit 00:00: - [facility] Orthovisc Orthovisc 2019-0 No 2mL Com 04-14 Spirit 00:00: - [facility] Orthovisc Orthovisc 2019-0 No 2mL Com 04-14 Spirit 00:00: - [facility] Orthovisc Orthovisc 2019-0 No 2mL Com 04-14 Spirit 00:00: - [facility] LIDOCAINE LIDOCAINE 2018-1 No 10mg Com mon HCL 10MG/ML HCL 10MG/ML 2-13 S pirit 00:00: - [facility] Betamethaso Betamethaso 2018-1 No 1mL Common ne Sodium ne Sodium 2-13 Spiri t Phosphate Phosphate 00:00: - [facility] LIDOCAINE LIDOCAINE 2018-1 No 10mg Com mon HCL 10MG/ML HCL 10MG/ML 2-13 S pirit 00:00: - [facility] Betamethaso Betamethaso 2018-1 No 1mL Common ne Sodium ne Sodium 2-13 Spiri t Phosphate Phosphate 00:00: - [facility] LIDOCAINE LIDOCAINE 2018-1 No 10mg Com mon HCL 10MG/ML HCL 10MG/ML 2-13 S pirit 00:00: - [facility] Betamethaso Betamethaso 2018-1 No 1mL Common ne Sodium ne Sodium 2-13 Spiri t Phosphate Phosphate 00:00: - [facility] LIDOCAINE LIDOCAINE 2018-1 No 10mg Com mon HCL 10MG/ML HCL 10MG/ML 2-13 S pirit 00:00: - [facility] Betamethaso Betamethaso 2018-1 No 1mL Common ne Sodium ne Sodium 2-13 Spiri t Phosphate Phosphate 00:00: - [facility] LIDOCAINE LIDOCAINE 2018-1 No 10mg Com mon HCL 10MG/ML HCL 10MG/ML 2-13 S pirit 00:00: - [facility] Betamethaso Betamethaso 2018-1 No 1mL Common ne Sodium ne Sodium 2-13 Spiri t Phosphate Phosphate 00:00: - [facility] 00 [facility] LIDOCAINE LIDOCAINE 2017- No 10mg Com mon HCL 10MG/ML HCL 10MG/ML 2-13 S pirit 00:00: - [facility] Betamethaso Betamethaso 2017- No 1mL Common ne Sodium ne Sodium 2-13 Spiri t Phosphate Phosphate 00:00: - [facility] 00 [facility] LIDOCAINE LIDOCAINE 2017- No 10mg Com mon HCL 10MG/ML HCL 10MG/ML 2-13 S pirit 00:00: - [facility] Betamethaso Betamethaso 2017- No 1mL Common ne Sodium ne Sodium 2-13 Spiri t Phosphate Phosphate 00:00: - [facility] LIDOCAINE LIDOCAINE 2017- No 10mg Com mon HCL 10MG/ML HCL 10MG/ML 2-13 S pirit 00:00: - [facility] Betamethaso Betamethaso 2018- No 1mL Common ne Sodium ne Sodium 2-13 Spiri t Phosphate Phosphate 00:00: - [facility] LIDOCAINE LIDOCAINE 2017- No 10mg Com mon HCL 10MG/ML HCL 10MG/ML 2-13 S pirit 00:00: - [facility] Betamethaso Betamethaso 2018-1 No 1mL Common ne Sodium ne Sodium 2-13 Spiri t Phosphate Phosphate 00:00: - [facility] 00 [facility] LIDOCAINE LIDOCAINE 2017- No Com mon HCL 10MG/ML HCL 10MG/ML 0-30 S pirit 00:00: - [facility] Betamethaso Betamethaso 2018-1 No 1mL Common ne Sodium ne Sodium 0-30 Spiri t Phosphate Phosphate 00:00: - [facility] LIDOCAINE LIDOCAINE 2017- No Com mon HCL 10MG/ML HCL 10MG/ML 0-30 S pirit 00:00: - [facility] Betamethaso Betamethaso 2018- No 1mL Common ne Sodium ne Sodium 0-30 Spiri t Phosphate Phosphate 00:00: - [facility] 00 [facility] LIDOCAINE LIDOCAINE 2017- No Com mon HCL 10MG/ML HCL 10MG/ML 0-30 S pirit 00:00: - [facility] 00 [facility] Betamethaso Betamethaso 2018- No 1mL Common ne Sodium ne Sodium 0-30 Spiri t Phosphate Phosphate 00:00: - [facility] LIDOCAINE LIDOCAINE 2017- No Com mon HCL 10MG/ML HCL 10MG/ML 0-30 S pirit 00:00: - [facility] 00 [facility] Betametho Betamethaso 2017- No 1mL Common ne Sodium ne Sodium 0-30 Spiri t Phosphate Phosphate 00:00: - [facility] LIDOCAINE LIDOCAINE 2017- No Com mon HCL 10MG/ML HCL 10MG/ML 0-30 S pirit 00:00: - [facility] No 1mL Common ne Sodium ne Sodium 0-30 Spiri t Phosphate Phosphate 00:00: - C [facility] 00 [facility] LIDOCAINE LIDOCAINE 2017- No Com mon HCL 10MG/ML HCL 10MG/ML 0-30 S pirit 00:00: - [facility] 00 [facility] Betamethaso Betamethaso 2017- No 1mL Common ne Sodium ne Sodium 0-30 Spiri t Phosphate Phosphate 00:00: - [facility] LIDOCAINE LIDOCAINE 2017- No Com mon HCL 10MG/ML HCL 10MG/ML 0-30 S pirit 00:00: - [facility] 00 [facility] Betamethaso Betamethaso 2018- No 1mL Common ne Sodium ne Sodium 0-30 Spiri t Phosphate Phosphate 00:00: - [facility] LIDOCAINE LIDOCAINE 2017- No Com mon HCL 10MG/ML HCL 10MG/ML 0-30 S pirit 00:00: - [facility] 00 [facility] Betamethaso Betamethaso 2018- No 1mL Common ne Sodium ne Sodium 0-30 Spiri t Phosphate Phosphate 00:00: - [facility] LIDOCAINE LIDOCAINE 2017- No Com mon HCL 10MG/ML HCL 10MG/ML 0-30 S pirit 00:00: - [facility] 00 [facility] Betamethaso Betamethaso 2017- No 1mL Common ne Sodium ne Sodium 0-30 Spiri t Phosphate Phosphate 00:00: - [facility] 00 [facility] NovoLIN NovoLIN No NovoLIN 70/30 70/30 70/30 ReliOn ReliOn ReliOn Accu-Chek Accu-Chek No Accu-Chek Guide Guide Guide Exemestane Exemestane No Exemestane tramadol tramadol No tramadol NovoLIN NovoLIN No NovoLIN 70/30 70/30 70/30 Dexamethaso Dexamethaso No Dexamethas ne ne one ReliOn ReliOn No ReliOn Insulin Insulin Insulin Syringe Syringe Syringe Levemir Levemir No Levemir FlexTouch FlexTouch FlexTouch 100 UNIT/ML 100 UNIT/ML 100 UNIT/ML Ondansetron Ondansetron No Ondansetro HCl HCl n HCl metFORMIN metFORMIN No metFORMIN HCl 500 MG HCl 500 MG HCl 500 MG Repatha Repatha No Repatha [employer] NovoLIN NovoLIN No NovoLIN 70/30 70/30 70/30 ReliOn ReliOn ReliOn Accu-Chek Accu-Chek No Accu-Chek Guide Guide Guide Exemestane Exemestane No Exemestane tramadol tramadol No tramadol NovoLIN NovoLIN No NovoLIN 70/30 70/30 70/30 Dexamethaso Dexamethaso No Dexamethas ne ne one ReliOn ReliOn No ReliOn Insulin Insulin Insulin Syringe Syringe Syringe Levemir Levemir No Levemir FlexTouch FlexTouch FlexTouch 100 UNIT/ML 100 UNIT/ML 100 UNIT/ML Ondansetron Ondansetron No Ondansetro HCl HCl n HCl metFORMIN metFORMIN No metFORMIN HCl 500 MG HCl 500 MG HCl 500 MG Repatha Repatha No Repatha [employer] SureClick NovoLIN NovoLIN No NovoLIN 70/30 70/30 70/30 ReliOn ReliOn ReliOn Accu-Chek Accu-Chek No Accu-Chek Guide Guide Guide Exemestane Exemestane No Exemestane tramadol tramadol No tramadol NovoLIN NovoLIN No NovoLIN 70/30 70/30 70/30 Dexamethaso Dexamethaso No Dexamethas ne ne one ReliOn ReliOn No ReliOn Insulin Insulin Insulin Syringe Syringe Syringe Levemir Levemir No Levemir FlexTouch FlexTouch FlexTouch 100 UNIT/ML 100 UNIT/ML 100 UNIT/ML NovoLIN NovoLIN No NovoLIN 70/30 70/30 70/30 Levemir Levemir No Levemir FlexTouch FlexTouch FlexTouch 100 UNIT/ML 100 UNIT/ML 100 UNIT/ML Exemestane Exemestane No Exemestane Accu-Chek Accu-Chek No Accu-Chek Guide Guide Guide NovoLIN NovoLIN No NovoLIN 30 7030 ReliOn ReliOn ReliOn Repatha Repatha No Repatha [employer] SureClick tramadol tramadol No tramadol Ondansetron Ondansetron No Ondansetro HCl HCl n HCl ReliOn ReliOn No ReliOn Insulin Insulin Insulin Syringe Syringe Syringe Dexamethaso Dexamethaso No Dexamethas ne ne one metFORMIN metFORMIN No metFORMIN HCl 500 MG HCl 500 MG HCl 500 MG NovoLIN NovoLIN No NovoLIN 30 70/30 NovoLIN NovoLIN No NovoLIN 30 70/30 ReliOn ReliOn ReliOn Dexamethaso Dexamethaso No Dexamethas ne ne one ReliOn ReliOn No ReliOn Insulin Insulin Insulin Syringe Syringe Syringe Repatha Repatha No Repatha SureClick SureClick SureClick tramadol tramadol No tramadol Ondansetron Ondansetron No Ondansetro HCl HCl n HCl Exemestane Exemestane No Exemestane Accu-Chek Accu-Chek No Accu-Chek Guide Guide Guide Levemir Levemir No Levemir FlexTouch FlexTouch FlexTouch 100 UNIT/ML 100 UNIT/ML 100 UNIT/ML metFORMIN metFORMIN No metFORMIN HCl 500 MG HCl 500 MG HCl 500 MG tramadol tramadol No tramadol Ondansetron Ondansetron No Ondansetro HCl HCl n HCl metFORMIN metFORMIN No metFORMIN HCl 500 MG HCl 500 MG HCl 500 MG NovoLIN NovoLIN No NovoLIN 70/30 70/30 70/30 ReliOn ReliOn ReliOn ReliOn ReliOn No ReliOn Insulin Insulin Insulin Syringe Syringe Syringe Dexamethaso Dexamethaso No Dexamethas ne ne one Accu-Chek Accu-Chek No Accu-Chek Guide Guide Guide Levemir Levemir No Levemir FlexTouch FlexTouch FlexTouch 100 UNIT/ML 100 UNIT/ML 100 UNIT/ML Exemestane Exemestane No Exemestane Repatha Repatha No Repatha SureClick SureClick SureClick NovoLIN NovoLIN No NovoLIN 70/30 70/30 70/30 Dexamethaso Dexamethaso No Dexamethas ne ne one Accu-Chek Accu-Chek No Accu-Chek Guide Guide Guide ReliOn ReliOn No ReliOn Insulin Insulin Insulin Syringe Syringe Syringe tramadol tramadol No tramadol Levemir Levemir No Levemir FlexTouch FlexTouch FlexTouch 100 UNIT/ML 100 UNIT/ML 100 UNIT/ML traMADol traMADol No traMADol HCl HCl HCl Ciprofloxac Ciprofloxac No Ciprofloxa in HCl in HCl nikunj HCl Lisinopril- Lisinopril- No Lisinopril hydroCHLORO hydroCHLORO -hydroCHLO thiazide thiazide ROthiazide Repatha Repatha No Repatha SureClick SureClick SureClick Ondansetron Ondansetron No Ondansetro HCl HCl n HCl NovoLIN NovoLIN No NovoLIN 70/30 70/30 70/30 ReliOn ReliOn ReliOn metFORMIN metFORMIN No metFORMIN HCl 500 MG HCl 500 MG HCl 500 MG Exemestane Exemestane No Exemestane NovoLIN NovoLIN No NovoLIN 70/30 70/30 70/30 Meloxicam Meloxicam No 1{table QD Meloxicam 7.5 MG 7.5 MG t} 7.5 MG traMADol traMADol No traMADol HCl HCl HCl metFORMIN metFORMIN No metFORMIN HCl 500 MG HCl 500 MG HCl 500 MG NovoLIN NovoLIN No NovoLIN 70/30 70/30 70/30 ReliOn ReliOn No ReliOn Insulin Insulin Insulin Syringe Syringe Syringe Repatha Repatha No Repatha SureClick SureClick SureClick Dexamethaso Dexamethaso No Dexamethas ne ne one Accu-Chek Accu-Chek No Accu-Chek Guide Guide Guide NovoLIN NovoLIN No NovoLIN 70/30 70/30 70/30 ReliOn ReliOn ReliOn Exemestane Exemestane No Exemestane Ciprofloxac Ciprofloxac No Ciprofloxa in HCl in HCl nikunj HCl Levemir Levemir No Levemir FlexTouch FlexTouch FlexTouch 100 UNIT/ML 100 UNIT/ML 100 UNIT/ML Lisinopril- Lisinopril- No Lisinopril hydroCHLORO hydroCHLORO -hydroCHLO thiazide thiazide ROthiazide Ondansetron Ondansetron No Ondansetro HCl HCl n HCl tramadol tramadol No tramadol Meloxicam Meloxicam No Meloxicam 7.5 MG 7.5 MG 7.5 MG Dexamethaso Dexamethaso No Dexamethas ne ne one NovoLIN NovoLIN No NovoLIN 70/30 70/30 70/30 traMADol traMADol No traMADol HCl HCl HCl Meloxicam Meloxicam No Meloxicam 7.5 MG 7.5 MG 7.5 MG Lisinopril- Lisinopril- No Lisinopril hydroCHLORO hydroCHLORO -hydroCHLO thiazide thiazide ROthiazide 20-25 MG 20-25 MG 20-25 MG Levemir Levemir No Levemir FlexTouch FlexTouch FlexTouch 100 UNIT/ML 100 UNIT/ML 100 UNIT/ML NovoLIN NovoLIN No NovoLIN 70/30 70/30 70/30 ReliOn ReliOn No ReliOn Insulin Insulin Insulin Syringe Syringe Syringe Repatha Repatha No Repatha SureClick SureClick SureClick Dexamethaso Dexamethaso No Dexamethas ne ne one NovoLIN NovoLIN No NovoLIN 70/30 70/30 70/30 ReliOn ReliOn ReliOn metFORMIN metFORMIN No metFORMIN HCl 500 MG HCl 500 MG HCl 500 MG Exemestane Exemestane No Exemestane Lisinopril- Lisinopril- No Lisinopril hydroCHLORO hydroCHLORO -hydroCHLO thiazide thiazide ROthiazide Meloxicam Meloxicam No 1{table QD Meloxicam 7.5 MG 7.5 MG t} 7.5 MG Glimepiride Glimepiride No Glimepirid 4 MG 4 MG e 4 MG Accu-Chek Accu-Chek No Accu-Chek Guide Guide Guide Ondansetron Ondansetron No Ondansetro HCl HCl n HCl tramadol tramadol No tramadol Ciprofloxac Ciprofloxac No Ciprofloxa in HCl in HCl nikunj HCl Accu-Chek Accu-Chek No Accu-Chek Guide Guide Guide metFORMIN metFORMIN No metFORMIN HCl 500 MG HCl 500 MG HCl 500 MG Repatha Repatha No Repatha SureClick SureClick SureClick Ondansetron Ondansetron No Ondansetro HCl HCl n HCl metFORMIN metFORMIN No metFORMIN HCl 500 MG HCl 500 MG HCl 500 MG Meloxicam Meloxicam No 1{table QD Meloxicam 7.5 MG 7.5 MG t} 7.5 MG Ciprofloxac Ciprofloxac No Ciprofloxa in HCl in HCl nikunj HCl Levemir Levemir No Levemir FlexTouch FlexTouch FlexTouch 100 UNIT/ML 100 UNIT/ML 100 UNIT/ML NovoLIN NovoLIN No NovoLIN 70/30 70/30 70/30 Ondansetron Ondansetron No Ondansetro HCl HCl n HCl Lisinopril- Lisinopril- No 1{table QD Lisinopril hydroCHLORO hydroCHLORO t} -hydroCHLO thiazide thiazide ROthiazide 20-25 MG 20-25 MG 20-25 MG NovoLIN NovoLIN No NovoLIN 70/30 70/30 70/30 ReliOn ReliOn ReliOn Dexamethaso Dexamethaso No Dexamethas ne ne one Accu-Chek Accu-Chek No Accu-Chek Guide Guide Guide Meloxicam Meloxicam No Meloxicam 7.5 MG 7.5 MG 7.5 MG NovoLIN NovoLIN No NovoLIN 70/30 70/30 70/30 ReliOn ReliOn ReliOn traMADol traMADol No traMADol HCl HCl HCl tramadol tramadol No tramadol Repatha Repatha No Repatha SureClick SureClick SureClick Farxiga 5 Farxiga 5 No 1{table QD Farxiga 5 MG MG t} MG ReliOn ReliOn No ReliOn Insulin Insulin Insulin Syringe Syringe Syringe Exemestane Exemestane No Exemestane ReliOn ReliOn No ReliOn Insulin Insulin Insulin Syringe Syringe Syringe BD Insulin BD Insulin No BD Insulin Syringe Syringe Syringe Levemir Levemir No Levemir FlexTouch FlexTouch FlexTouch 100 UNIT/ML 100 UNIT/ML 100 UNIT/ML Prochlorper Prochlorper No Prochlorpe azine azine razine Maleate Maleate Maleate Dexamethaso Dexamethaso No Dexamethas ne ne one Accu-Chek Accu-Chek No Accu-Chek Guide Guide Guide metFORMIN metFORMIN No metFORMIN HCl 500 MG HCl 500 MG HCl 500 MG Repatha Repatha No Repatha SureClick SureClick SureClick ReliOn ReliOn No ReliOn Insulin Insulin Insulin Syringe Syringe Syringe tramadol tramadol No tramadol Levemir Levemir No Levemir FlexTouch FlexTouch FlexTouch 100 UNIT/ML 100 UNIT/ML 100 UNIT/ML Ondansetron Ondansetron No Ondansetro HCl HCl n HCl Exemestane Exemestane No Exemestane NovoLIN NovoLIN No NovoLIN 70/30 70/30 70/30 NovoLIN NovoLIN No NovoLIN 70/30 70/30 70/30 ReliOn ReliOn ReliOn Ondansetron Ondansetron No Ondansetro HCl HCl n HCl metFORMIN metFORMIN No metFORMIN HCl 500 MG HCl 500 MG HCl 500 MG Repatha Repatha No Repatha SureClick SureClick SureClick Immunizations Ordered Immunization Filled Immunization Date Status Commen ts Source Name Name Karel Vinson 2020-11-16 [facility] 15:42:00 [facility] Bupivicaine Dundee Bupivicaine Dundee 2020-11-16 Completed [facility] 15:37:00 - [facility] Bupivicaine Dundee Bupivicaine Dundee 2019-12-24 [facility]pleted [facility] 09:04:00 [facility] Karel Vinson 2019-12-24 Completed [facility] (Triamcinolone) (Triamcinolone) 09:04:00 [facility] Bupivicaine Dundee Bupivicaine Dundee 2019-06-30 Completed [facility] 14:10:00 [facility] Karel Vinson 2019-06-30 Completed [facility] (Triamcinolone) (Triamcinolone) 14:10:00 [facility] Orthovisc Orthovisc 2018-04-27 Completed [facility] 13:24:00 - [facility] Orthovisc Orthovisc 2018-04-27 Completed [facility] 13[facility]23:00 - [facility] Orthovisc Orthovisc 2018-04-21 Completed [facility] 10:02:00 - [facility] Orthovisc Orthovisc 2018-04-21 Completed [facility] 10:00:00 - [facility] Orthovisc Orthovisc 2018-04-14 Completed [facility] 09:26:00 - [facility] Orthovisc Orthovisc 2018-04-14 Completed [facility] 09:25:00 - [facility] Betamethasone Sodium Betamethasone Sodium 2018-03-12 Completed [facility] Phosphate Phosphate 11:18:00 [facility] LIDOCAINE HCL 10MG/ML LIDOCAINE HCL 2018-03-12 Completed [facility] 10MG/ML 11:18:00 - [facility] LIDOCAINE HCL 10MG/ML LIDOCAINE HCL 2018-01-27 Completed [facility] 10MG/ML 10:12: - [facility] Betamethasone Sodium Betamethasone Sodium 2018-01-27 Completed [facility] Phosphate Phosphate 10:08:00 [facility] Vital Signs Vital Name Observation Time Observation Value Comments Source height 2021-11-12 14:45:00 64 [in_i] [facility] weight 2021-11-12 14:45:00 185 [lb_av] [facility] temperature 2021-11-12 14:45:00 97.5 [degF] [facility] bmi 2021-11-12 14:45:00 31.75 kg/m2 [facility] blood pressure 2021-11-12 14:45:00 136 mm[Hg] [facility] - systolic [facility] blood pressure 2021-11-12 14:45:00 84 mm[Hg] [facility] - diastolic [facility] height 2021-10-09 15:00:00 64 [in_i] [facility] weight 2021-10-09 15:00:00 185 [lb_av] [facility] temperature 2021-10-09 15:00:00 98.1 [degF] [facility] bmi 2021-10-09 15:00:00 31.75 kg/m2 [facility] blood pressure 2021-10-09 15:00:00 120 mm[Hg] [facility] - systolic [facility] blood pressure 2021-10-09 15:00:00 68 mm[Hg] [facility] - diastolic [facility] height 2021-07-26 14:30:00 64 [in_i] [facility] weight 2021-07-26 14:30:00 180 [lb_av] [facility] temperature 2021-07-26 14:30:00 97.9 [degF] [facility] 2021-07-26 14:30:00 30.89 kg/m2 [facility] blood pressure 2021-07-26 14:30:00 132 mm[Hg] [facility] - systolic [facility] blood pressure 2021-07-26 14:30:00 84 mm[Hg] [facility] - diastolic [facility] height 2021-07-19 14:30:00 64 [in_i] [facility] weight 2021-07-19 14:30:00 180 [lb_av] [facility] temperature 2021-07-19 14:30:00 98.3 [degF] [facility] bmi 2021-07-19 14:30:00 30.89 kg/m2 [facility] blood pressure 2021-07-19 14:30:00 134 mm[Hg] [facility] - systolic [facility] blood pressure 2021-07-19 14:30:00 78 mm[Hg] [facility] - diastolic [facility] height 2021-07-12 14:30:00 64 [in_i] [facility] weight 2021-07-12 14:30:00 180 [lb_av] [facility] temperature 2021-07-12 14:30:00 97.7 [degF] [facility] bmi 2021-07-12 14:30:00 30.89 kg/m2 [facility] blood pressure 2021-07-12 14:30:00 138 mm[Hg] [facility] - systolic [facility] blood pressure 2021-07-12 14:30:00 74 mm[Hg] [facility] - diastolic [facility] height 2021-04-18 09:00:00 64 [in_i] [facility] weight 2021-04-18 09:00:00 180 [lb_av] [facility] temperature 2021-04-18 09:00:00 97.3 [degF] [facility] bmi 2021-04-18 09:00:00 30.89 kg/m2 [facility] blood pressure 2021-04-18 09:00:00 146 mm[Hg] [facility] - systolic [facility] blood pressure 2021-04-18 09:00:00 84 mm[Hg] [facility] - diastolic [facility] height 2021-04-10 11:00:00 64 [in_i] [facility] weight 2021-04-10 11:00:00 180 [lb_av] [facility] bmi 2021-04-10 11:00:00 30.89 kg/m2 [facility] blood pressure 2021-04-10 11:00:00 135 mm[Hg] [facility] - systolic [facility] blood pressure 2021-04-10 11:00:00 75 mm[Hg] [facility] - diastolic [facility] height 2020-11-16 15:15:00 64 [in_i] [facility] weight 2020-11-16 15:15:00 175 [lb_av] [facility] bmi 2020-11-16 15:15:00 30.04 kg/m2 [facility] blood pressure 2020-11-16 15:15:00 155 mm[Hg] [facility] - systolic [facility] blood pressure 2020-11-16 15:15:00 75 mm[Hg] [facility] - diastolic [facility] height 2020-11-07 14:30:00 64 [in_i] [facility] weight 2020-11-07 14:30:00 175 [lb_av[facility] temperature 2020-11-07 14:30:00 97.1 [degF] [facility] bmi 2020-11-07 14:30:00 30.04 kg/m2 [facility] blood pressure 2020-11-07 14:30:00 124 mm[Hg] [facility] - systolic [facility] blood pressure 2020-11-07 14:30:00 72 mm[Hg] [facility] - diastolic [facility] WEIGHT 2020-01-05 08:16:00 82.3 kg WEIGHT 2019-12-31 09:06:53 82.7 kg Systolic blood 2022-08-01 17:42:57 129 mm[Hg] Univer sity of pressure [facility] Diastolic blood 2022-08-01 17:42:57 67 mm[Hg] Unive rsity of pressure [facility] Heart rate 2022-08-01 17:42:57 89 /min [facility] Body temperature 2022-08-01 17:42:57 36.89 Vani Univ ersity of [facility] Respiratory rate 2022-08-01 17:42:57 20 /min Univ ers[facility] Body weight 2022-08-01 17:42:57 81.4 kg [facility] BMI 2022-08-01 17:42:57 34.10 kg/m2 [facility] MD [facility] Procedures Procedure Date / Time Performed Performing Clinician Sourc e US BREAST LIMITED 2022-09-02 20:12:00 Christianne Sanchez [facility] MAMMO DIGITAL 2022-09-02 19:13:00 Skip Medinashamika [place] [facility] [place] DIAGNOSTIC RIGHT W [facility] MAMMO DIGITAL 2022-01-18 16:32:00 Az Burgess [facility] DIAGNOSTIC BILATERAL W Mariam [facility] on [facility] Plan of Care Planned Activity Planned Date Details Comments Source Future Scheduled 2022-11-14 COVID-19 Vaccination [facility] Test 16:12:21 (3 - Pfizer risk MD Marv Cancer series) [code = Center COVID-19 Vaccination (3 - Pfizer risk series)] Encounters Start End Encounter Admission Attending Care Care Encounter Source Date/Time Date/Time Type Type Clinicians Facility Department ID 2022-06-21 Outpatient Kattegummul STLMLC STLMLC [id number] Common 11:29:01 a, [place] [facility] 2022-06-20 Outpatient Kattegummul STLMLC STLMLC [id number] Common 10:18:02 Israel norris [facility] 2021-11-16 Outpatient Kattegummul STLMLC STLMLC [id number] Common 10:03:02 a[facility] 2021-11-12 Outpatient Kattegummul STLMLC STLMLC [id number] Common 16:54:01 [facility] 2021-09-10 Outpatient Kattegummul STLMLC STLMLC [id number] Common 16:26:02 a, [place] [facility] 2021-04-25 Outpatient Kattegummul STLMLC STLMLC [id number] Common 14:36:53 a, [place] [facility] 2021-04-25 Outpatient Kattegummul STLMLC STLMLC [id number] Common 13:40:39 a, [place] [facility] 2021-04-03 Outpatient SYSTEM, [facility] [id number] 08:56:56 PROVIDER Cali roberts 2020-01-05 Outpatient [facility] [id number] 12:42:00 PROVIDER Cali roberts 2022-09-02 2022-09-02 Ancillary Daniel 1.2.840.1 [id number] [facility] 14:30:00 16:15:00 Procedure Christianne 61027.1.1 it y of 3.412.2.7 [place] .3.892628 MD Larry [facility] 2022-09-02 2022-09-02 Ancillary Favian Medina 1.2.840.1 [id number] [facility] 13:15:00 14:15:00 Procedure 21326.1.1 it y of 3.412.2.7 [place] .3.498942 MD Larry [facility] 2022-09-02 2022-09-02 Outpatient GRAEME SANCHEZ [facility] [id number] 14:14:27 14:14:27 CHRISTIANNE roberts 2022-09-02 2022-09-02 Outpatient FAVIAN NAYLOR [facility] [id number] 12:59:36 12:59:36 Cali roberts 2022-09-02 2022-09-02 Travel 1.2.840.1 [id number] [id number] Univers 00:00:00 00:00:00 72838.1.1 350.1.13.41 ity of 3.412.2.7 [place].3.698 [place] .3.485766 084.8 MD Larry [facility] 2022-08-15 2022-08-15 Orders Favian Medina 1.2.840.1 [id number] [facility] 00:00:00 00:00:00 Only 80677.1.1 ity of 3.412.2.7 [place] .3.135723 MD Larry [facility] 2022-08-01 2022-08-01 Follow-Up Daniel 1.2.840.1 [id number] [facility] 13:00:00 13:36:49 Christianne 03319.1.1 ity of 3.412.2.7 [place] .3.903629 MD Larry [facility] 2022-08-01 2022-08-01 Outpatient GRAEME SANCHEZ [facility] [id number] 12:28:44 13:36:49 CHRISTIANNE Leiva armando 2022-08-01 2022-08-01 Travel 1.2.840.1 1.2.803.756 [id number] [facility] 00:00:00 00:00:00 21977.1.1 350.1.13.41 ity of 3.412.2.[place]3.698 [place] .3.462834 084.8 MD Larry [facility] 2022-05-01 2022-05-01 Neil Moore 1.2.840.1 [id number] [facility] 00:00:00 00:00:00 53116.1.1 ity of 3.412.2.7 [place] .3.695995 MD Larry [facility] 2022-03-28 2022-03-28 Follow-Up Gabby Echevarria 1.2.840.1 [id number] [facility] 10:30:00 10:33:20 Roxie Stewart 37603.1.1 ity of 3.412.2.7 [place] .3.752129 MD Larry [facility] 2022-03-28 2022-03-28 Outpatient GRAEME ECHEVARRIA BOZENA [facility] [id number] 10:07:37 10:33:20 GABBY Leiva cox [place] 2022-03-28 2022-03-28 Travel 1.2.840.1 1.2.546.530 [id number] Univers 00:00:00 00:00:00 03390.1.1 350.1.13.41 ity of 3.412.2.7 [place]3.698 [place] .3.689347 084.8 MD Larry [facility] 2022-02-15 2022-02-15 Follow-Up Fabiana Venegas 1.2.840.1 [id number] [facility] 12:00:00 12:09:43 24476.1.1 ity of 3.412.2.7 [place] .3.499557 MD Figueredo8 [facility] 2022-02-15 2022-02-15 Outpatient EL FABIANA VENEGAS [facility] MDA [id number] 11:17:16 12:09:43 Cali cox [place] 2022-02-15 2022-02-15 Travel 1.2.840.1 1.2.037.603 [id number] Univers 00:00:00 00:00:00 31378.1.1 350.1.13.41 ity of 3.412.2.[place]3.698 [place] .3.139119 084.8 MD Figueredo8 [facility] 2022-02-03 2022-02-03 Neil Moore 1.2.840.1 [id number] Univers 00:00:00 00:00:00 61541.1.1 ity of 3.412.2.7 [place] .3.768124 MD Figueredo8 [facility] 2022-01-29 2022-01-29 (TEL) STLMLC STLMLC [id number] Co mmon 00:00:00 00:00:00 [facility] 2022-01-23 2022-01-23 Telemedici Favian Medina 1.2.840.1 [id number] [facility] 14:00:00 14:00:00 Christianne Kelly 23834.1.1 ity of 3.412.2.7 [place] .3.701878 MD Figueredo8 [facility] 2022-01-23 2022-01-23 Outpatient FAVIAN NAYLOR [facility] MDA [id number] 08:25:31 10:11:49 Cali armando 2022-01-18 2022-01-18 Office Iram 1.2.840.1 [id number] [facility] 15:00:00 15:30:00 Visit Irene franklin 80230.1.1 ity of 3.412.2.7 [place] .3.316730 .8 [facility] 2022-01-18 2022-01-18 Outpatient GRAEME SOMMERS [facility] MDA [id number] 12:30:30 12:30:30 IRENE FRANKLIN An derso n 2022-01-18 2022-01-18 Ancillary Refinetti, 1.2.840.1 [id number] [facility] 11:00:00 12:00:00 Procedure Az Vaca 50398.1.1 ity of [place] 3.412.2.7 [place] .3.522357 MD Larry [facility] 2022-01-18 2022-01-18 Outpatient GAREME BURGESS [facility] MDA [id number] 10:27:36 10:27:36 [place] roberts 2022-01-18 2022-01-18 Travel 1.2.840.1 1.2.219.140 [id number] [facility] 00:00:00 00:00:00 43585.1.1 350.1.13.41 ity of 3.412.2.[place]3.698 [place] .3.704712 084.8 .8 [facility] 2021-11-12 2021-11-12 OFFICE STLMLC STLMLC [id number] Co mmon 00:00:00 00:00:00 [facility] - [facility] 2021-10-09 2021-10-09 OFFICE STLMLC STLMLC [id number] Co mmon 00:00:00 00:00:00 [facility] - [facility] 2021-09-28 2021-09-28 Outpatient GRAEME TRUJILLO [facility] MDA [id number] 10:18:38 11:08:07 TESHA roberts 2021-07-26 2021-07-26 (IN/ASP) STLMLC STLMLC [id number] C ommon 00:00:00 00:00:00 INJ ASP [facility] 2021-07-19 2021-07-19 (IN/ASP) STLMLC STLMLC [id number] C ommon 00:00:00 00:00:00 INJ ASP [facility] 2021-07-12 2021-07-12 (IN/ASP) STLMLC STLMLC [id number] C ommon 00:00:00 00:00:00 INJ ASP [facility] 2021-06-26 2021-06-26 (TEL) STLMLC STLMLC [id number] Co m[facility] 00:00:00 00:00:00 [facility] 2021-04-18 2021-04-18 (IN/ASP) STLMLC STLMLC [id number] C ommon 00:00:00 00:00:00 INJ [facility] 2021-04-11 2021-04-11 (TEL) STLMLC STLMLC [id number] Co m[facility] 00:00:00 00:00:00 [facility] 2021-04-10 2021-04-10 OFFICE STLMLC STLMLC [id number] Co mmon 00:00:00 00:00:00 VISIT [facility] PT [facility] LEVEL 4 [facility] 2021-03-28 2021-03-28 Outpatient GRAEME STEWART, MDA MDA [id number] 09:49:19 10:27:09 ROXIE roberts 2021-03-28 2021-03-28 Outpatient SUNDEEP BENAVIDEZ [facility] [id number] 10:24:14 10:24:14 Cali roberts 2021-01-05 2021-01-05 Outpatient EL ANJALI, MDA MDA [id number] 12:37:01 13:27:00 [place] roberts 2021-01-05 2021-01-05 Outpatient EL ERINN, MDA MDA [id number] 10:56:35 10:56:35 JAX roberts 2020-11-22 2020-11-22 Outpatient GRAEME TRUJILLO, [facility] MDA [id number] 13:29:15 14:06:18 TESHA roberts 2020-11-16 2020-11-16 (IN/ASP) [facility] [id number] C ommon 00:00:00 00:00:00 INJ ASP [facility] 2020-11-07 2020-11-07 OFFICE [facility] [id number] Co mmon 00:00:00 00:00:00 [facility] - [facility] 4 [facility] 2020-09-20 2020-09-20 Outpatient EL WILD, MDA MDA [id number] 10:35:24 10:35:24 MAYLIN roberts 2020-09-20 2020-09-20 Outpatient EL WILD, MDA MDA [id number] 10:22:34 10:30:46 MAYLIN roberts 2020-09-19 2020-09-19 Outpatient EL WILD, MDA MDA [id number] 13:32:32 13:32:32 MAYLIN roberts 2020-09-18 2020-09-18 Outpatient EL LITTLEJOHN, MDA MDA [id number] 10:05:46 10:24:21 AMANUEL roberts 2020-09-15 2020-09-15 Outpatient EL LITTLEJOHN, MDA MDA [id number] 10:06:58 10:21:12 AMANUEL roberts 2020-07-26 2020-07-26 Outpatient EL LITTLEJOHN, MDA MDA [id number] 12:24:28 12:24:28 AMANUEL roberts 2020-01-05 2020-01-05 Outpatient EL LITTLEJOHN, MDA MDA [id number] 13:06:30 13:06:30 AMANUEL roberts 2020-01-05 2020-01-05 Outpatient EL LITTLEJOHN, MDA MDA [id number] 13:06:26 13:06:26 AMANUEL roberts 2020-01-05 2020-01-05 Outpatient EL LITTLEJOHN, MDA MDA [id number] 13:06:21 13:06:21 AMANUEL roberts 2020-01-05 2020-01-05 Outpatient EL LITTLEJOHN, MDA MDA [id number] 13:06:19 13:06:19 AMANUEL roberts 2020-01-05 2020-01-05 Outpatient GRAEME LITTLEJOHN, MDA MDA [id number] 13:06:18 13:06:18 AMANUEL Calinabila roberts 2020-01-05 2020-01-05 Outpatient GRAEME LITTLEJOHN, MDA MDA [id number] 13:06:16 13:06:16 AMANUEL Calinabila roberts 2020-01-05 2020-01-05 Outpatient GRAEME LITTLEJOHN MDA MDA [id number] 13:06:15 13:06:15 AMANUEL roberts 2020-01-05 2020-01-05 Outpatient GRAEME LITTLEJOHN, MDA MDA [id number] 13:06:13 13:06:13 AMANUEL Calinabila roberts 2020-01-05 2020-01-05 Outpatient GRAEME LITTLEJOHN, MDA MDA [id number] 13:06:11 13:06:11 AMANUEL Calinabila roberts 2020-01-05 2020-01-05 Outpatient GRAEME PLASENCIA, MDA MDA [id number] 11:21:37 11:21:37 JAX roberts 2020-01-05 2020-01-05 Outpatient GRAEME ROME, MDA MDA [id number] 08:03:34 10:12:12 MAYLIN roberts 2019-12-31 2019-12-31 Outpatient GRAEME BURGESS, MDA MDA [id number] 09:03:54 11:13:19 [place] roberts 2019-10-26 2019-10-[address] [facility] [id number] [place] 00:00:00 00:00:00 SHAKIR Heck Method [facility] 2019-03-12 2019-03-22 Inpatient 3 JEAN-CLAUDE Kee ORLesli [id number] [facility] 13:30:00 14:00:00 Anne-Marie [address] [place] [address] [facility] Pearedgar zavaleta Results Test Description Test Time Test Comments Results Result Comments Source Mammography Digital Diagnostic Right with Ady 2022-09-02 19 :17:54 Test Item Value Reference Range Interpretation Comme nts Radiology Study observation (narrative) (test code = 76419-4) IMP (test code = IMP) Mass in the right breast requires additional imaging evaluation. An ultrasoundexam is recommended. The ultrasound will be performed at this time. Please referto dedicated separate report. BI-RADS Category 0:Incomplete: Needs Additional Imaging Evaluation PXN (test code = PXN) Thania Lora MD - 09/02/2022 CLINICAL INDICATION:Patient is a 77 year old female and is seen for breast lump MAMMO DIGITAL DIAGNOSTIC RIGHT W TOMODigital Mammogram evaluated with Computer Aided Detection (CAD). COMPARISON:The present examination has been compared to prior imaging studies performed ata outside location on 11/25/2018 and 12/10/2019, and at [facility] on 01/05/2020, 01/05/2021 and 01/18/2022. FINDINGS:The breast is heterogeneously dense, which may obscure small masses. There is an oval mass measuring 1.8 centimeters with associated coarsecalcifications and palpable finding in the right breast upper outer quadrant at10 o'clock located 8 centimeters from the nipple. This resembles a degeneratingfibroadenoma. Tomosynthesis performed in CC and MLO projections. IMPRESSION:Mass in the right breast requires additional imaging evaluation. An ultrasoundexam is recommended. The ultrasound will be performed at this time. Please referto dedicated separate report. BI-RADS Category 0:Incomplete: Needs Additional Imaging Evaluation Lab Interpretation (test code = Abnormal [id number]) [facility]
[2022-12-01] MEDS ORDERED: NA CHLORIDE 0.9% 500 ML ONE (14:29)
--- NOTE | 2022-12-01 14:41 | RAD REPORT ---
EXAM DESCRIPTION: RAD - Chest Single View - 12/01/2022 2:33 pm CLINICAL HISTORY: MALAISE COMPARISON: Chest Pa And Lat (2 Views) dated 03/03/2019; ABDOMEN 1 VIEW KUB dated 02/06/2015 FINDINGS: Lines: None. Lungs: No evidence of edema or pneumonia. Pleural: No significant pleural effusions or pneumothorax. Cardiac: The heart size is within normal limits. Mediastinum: Within normal limits. Bones: No acute fractures. Other: None IMPRESSION: No acute cardiopulmonary disease.
[2022-12-01 15:02] LABS: Hematocrit 34.7 % (36.0-45.0); Lymphocytes % 10.2 % (15.3-44.8); MCV 82.2 fL (80-100); MPV 7.2 fL (7.6-11.3); Platelets 343 thou/uL (152-406); Protime INR 0.99; RBC Red Blood Cell Count 4.22 M/uL (3.86-4.86)
--- NOTE | 2022-12-01 15:13 | RAD REPORT ---
EXAM DESCRIPTION: CT - Head Brain Wo Cont - 12/01/2022 3:02 pm CLINICAL HISTORY: WEAKNESS COMPARISON: Head angio dated 12/01/2022 TECHNIQUE: All CT scans are performed using dose optimization technique as appropriate and may inclu de automated exposure control or mA/KV adjustment according to patient size. FINDINGS: No intracranial hemorrhage, hydrocephalus or extra-axial fluid collection.No areas of brai n edema or evidence of midline shift. Chronic small vessel ischemic changes. Hypoattenuation in the l eft alicia radiata/basal ganglia. The paranasal sinuses and mastoids are clear. The calvarium is intact. IMPRESSION: No acute large vascular territory infarct. No intracranial hemorrhage. Left basal gangli a/alicia radiata infarct is age indeterminate. MRI could better assess.
[2022-12-01 15:15] LABS: Albumin 3.5 g/dL (3.4-5.0); Bilirubin Total 0.3 mg/dL (0.2-1.0); Protein, Total 7.1 g/dL (6.4-8.2); Troponin High Sensitivity 18.1 pg/mL (<58.9)
--- NOTE | 2022-12-01 15:16 | RAD REPORT ---
EXAM DESCRIPTION: CT - Neck Angio - 12/01/2022 3:04 pm CLINICAL HISTORY: Confusion COMPARISON: No comparisons TECHNIQUE: CT angiography of the neck vessels was performed with maximum intensity reformatted image s. All CT scans are performed using dose optimization technique as appropriate and may include automated exposure control or mA/KV adjustment according to patient size. FINDINGS: A left aortic arch is identified with normal three vessel configuration of the great vesse ls. No significant flow abnormality is seen of the common carotid bilaterally. No significant stenosis is identified involving the cervical segments of both internal carotid arteri es. Normal flow is seen within both vertebral arteries. IMPRESSION: No significant flow abnormality of the neck vessels is identified.
--- NOTE | 2022-12-01 15:21 | RAD REPORT ---
EXAM DESCRIPTION: CT - Head angio - 12/01/2022 3:04 pm CLINICAL HISTORY: CONFUSED COMPARISON: No comparisons TECHNIQUE: CT angiography of the head was performed with maximum intensity reformatted images. All CT scans are performed using dose optimization technique as appropriate and may include automated exposure control or mA/KV adjustment according to patient size. FINDINGS: Anterior circulation: No aneurysm or large vessel occlusion. Severely narrowed bilateral cavernous ICAs, left greater than right.Bilateral ICA calcified plaque. No arteriovenous malformation identified. Hypoplastic right A1 segment. Posterior circulation: No aneurysm or large vessel occlusion. No hemodynamically significant stenosis. No arteriovenous malf ormation identified. IMPRESSION: Severely stenotic bilateral cavernous ICAs, worse on the left. Posterior circulation int act.
--- NOTE | 2022-12-01 16:02 | ER ---
Nurse's Notes [facility] Name: Maddie Hamlin Age: 77 yrs Sex: Female : 1945 Arrival Date: 12/01/2022 Time: 13:48 Bed 8 Private MD: Diagnosis: Confusion now resolved, generalized weakness now resolved, carotid plaques bilaterally Presentation: 12/01 14:06 Chief complaint: Patient states: felt light headed and confusion and ,y right arm is iw weak and heavy and shaky and not steady on her feet , started at noon today, it happened a couple times before in the past and it usually goes away but this ap it hasn't gone away. Coronavirus screen: At this time, the client does not indicate any symptoms associated with coronavirus-19. Ebola Screen: Patient negative for fever greater than or equal to 101.5 degrees Fahrenheit, and additional compatible Ebola Virus Disease symptoms Patient denies exposure to infectious person. Patient denies travel to an Ebola-affected area in the 21 days before illness onset. No symptoms or risks identified at this time. Initial Sepsis Screen: Does the patient meet any 2 criteria? No. Patient's initial sepsis screen is negative. Does the patient have a suspected source of infection? No. Patient's initial sepsis screen is negative. Risk Assessment: Do you want to hurt yourself or someone else? Patient reports no desire to harm self or others. Onset of symptoms was December 01, 2022. 14:06 Method Of Arrival: Wheelchair iw 14:06 Acuity: SUE 3 iw Historical: - Allergies: 14:08 Celecoxib; iw 14:08 Codeine; iw 15:48 Celebrex; kc6 - PMHx: 14:08 breast CA-tumor removed, on chemo; Diabetes - IDDM; High Cholesterol; Hypertension; iw - Immunization history:: Adult Immunizations up to date. - Social history:: Smoking status: Patient denies any tobacco usage or history of. Screenin:50 [facility] ED Fall Risk Assessment (Adult) History of falling in the last 3 months, kc6 including since admission No falls in past 3 months (0 pts) Confusion or Disorientation No (0 pts) Intoxicated or Sedated No (0 pts) Impaired Gait No (0 pts) Mobility Assist Device Used No (0 pt) Altered Elimination No (0 pt) Score/Fall Risk Level 0 - 2 = Low Risk. Abuse screen: Denies threats or abuse. Denies injuries from another. Nutritional screening: No deficits noted. Tuberculosis screening: No symptoms or risk factors identified. Assessment: 14:51 General: Appears in no apparent distress. comfortable, Behavior is calm, cooperative, kc6 appropriate for age. Pain: Denies pain. Neuro: Level of Consciousness is awake, alert, obeys commands, Oriented to person, place, time, situation, Appropriate for age Reports dizziness. Cardiovascular: Denies chest pain, Heart tones S1 S2 present Capillary refill < 3 seconds Rhythm is sinus rhythm. Respiratory: Airway is patent Trachea midline Respiratory effort is even, unlabored, Respiratory pattern is regular, symmetrical, Denies shortness of breath. GI: No signs and/or symptoms were reported involving the gastrointestinal system. : No signs and/or symptoms were reported regarding the genitourinary system. EENT: No signs and/or symptoms were reported regarding the EENT system. Derm: No signs and/or symptoms reported regarding the dermatologic system. Skin is intact, is healthy with good turgor, Skin is pink, warm \T\ dry. Musculoskeletal: No signs and/or symptoms reported regarding the musculoskeletal system. Circulation, motion, and sensation intact. Capillary refill < 3 seconds, Range of motion: intact in all extremities. 15:51 Reassessment: Patient appears in no apparent distress at this time. No changes from kc6 previously documented assessment. Patient and/or family updated on plan of care and expected duration. Pain level reassessed. Patient is alert, oriented x 3, equal unlabored respirations, skin warm/dry/pink. Vital Signs: 14:06 BP 101 / 86; Pulse 86; Resp 16; Temp 97.7; Pulse Ox 99% on R/A; Weight 76.66 kg; Height iw 5 ft. 1 in. ; 15:14 BP 133 / 86; Pulse 75; Resp 16; Pulse Ox 100% on R/A; hb 16:37 BP 146 / 61; Pulse 71; Resp 19 S; Pulse Ox 99% on R/A; kc6 14:06 Body Mass Index 31.93 (76.66 kg, 154.94 cm) iw ED Course: 13:50 Patient arrived in ED. im 13:53 Tamar Brady FNP-C is PHCP. kb 13:53 Benigno Gonzalez MD is Attending Physician. kb 14:08 Triage completed. iw 14:09 Arm band placed on. iw 14:34 CXR XRAY In Process Unspecified. EDMS 14:50 Jane Mishra RN is Primary Nurse. kc6 14:50 Patient has correct armband on for positive identification. Placed in gown. Bed in low kc6 position. Call light in reach. Side rails up X2. Adult w/ patient. Client placed on continuous cardiac and pulse oximetry monitoring. NIBP monitoring applied. clean out driller helper on. 14:50 Inserted saline lock: 20 gauge in right antecubital area, using aseptic technique. kc6 Blood collected. 15:04 CT Head Brain wo Cont In Process Unspecified. EDMS 15:06 CT Head Angio In Process Unspecified. EDMS 15:06 CT Neck Angio In Process Unspecified. EDMS 16:01 Edgar Vázquez MD is Referral Physician. sp3 16:01 Feng Bateman MD is Referral Physician. sp3 16:38 No provider procedures requiring assistance completed. IV discontinued, intact, kc6 bleeding controlled, No redness/swelling at site. Pressure dressing applied. Administered Medications: 14:50 Drug: NS 0.9% IV 500 ml Route: IV; Rate: bolus; Site: right antecubital; kc6 16:18 Follow up: Response: No adverse reaction; IV Status: Completed infusion; IV Intake: kc6 500ml 16:18 Drug: Aspirin PO 325 mg Route: PO; kc6 16:37 Follow up: Response: No adverse reaction kc6 Medication: 15:14 VIS not applicable for this client. hb Intake: 16:18 IV: 500ml; Total: 500ml. kc6 Outcome: 16:01 Discharge ordered by . sp3 16:38 Discharged to home via wheelchair, with friend. kc6 16:38 Condition: improved 16:38 Discharge instructions given to patient, Instructed on discharge instructions, follow up and referral plans. Demonstrated understanding of instructions, follow-up care. 16:38 Patient left the ED. kc6 Signatures: Dispatcher [employer] EDMS Tamar Brady, INSPECTOR TOYS-C INSPECTOR TOYS-Ckb Krissy Kee RN RN Chely Washington RN RN Benigno Gonzalez MD MD sp3 Jane Mishra RN RN kc6 Quynh Salazar im
--- NOTE | 2022-12-01 16:02 | EDPHYS ---
Physician Documentation [facility] Name: Maddie Hamlin Age: 77 yrs Sex: Female : 1945 Arrival Date: 12/01/2022 Time: 13:48 Bed 8 Private MD: ED Physician Benigno Gonzalez HPI: 12/01 14:46 This 77 yrs old Female presents to ER via Wheelchair with complaints of sp3 confusion, Dizziness, General Weakness. 14:46 77-year-old female with a history of distant breast cancer with tumor removal, sp3 diabetes, hyperlipidemia presents with chief complaint dizziness episode that is now resolved. Patient states she has had these before but this time it would not go away and mainly consisted of generalized weakness and mild brief confusion. No focal deficits reported. She denies any pain including headache, neck pain, chest pain, shortness of breath, abdominal pain, nausea, vomiting, diarrhea, syncope, near syncope, known sick contacts, travel history, or any other signs or symptoms on ROS at this time. Currently patient feels back to her normal baseline. Patient sees Dr. Waters as her PCP.. Historical: - Allergies: 14:08 Celecoxib; iw 14:08 Codeine; iw 15:48 Celebrex; kc6 - PMHx: 14:08 breast CA-tumor removed, on chemo; Diabetes - IDDM; High Cholesterol; Hypertension; iw - Immunization history:: Adult Immunizations up to date. - Social history:: Smoking status: Patient denies any tobacco usage or history of. ROS: 14:48 Constitutional: Negative for fever, chills, and weight loss, Eyes: Negative for injury, sp3 pain, redness, and discharge, ENT: Negative for injury, pain, and discharge, Neck: Negative for injury, pain, and swelling, Cardiovascular: Negative for chest pain, palpitations, and edema, Respiratory: Negative for shortness of breath, cough, wheezing, and pleuritic chest pain, Abdomen/GI: Negative for abdominal pain, nausea, vomiting, diarrhea, and constipation, Back: Negative for injury and pain, MS/Extremity: Negative for injury and deformity, Skin: Negative for injury, rash, and discoloration, Psych: Negative for depression, anxiety, suicide ideation, homicidal ideation, and hallucinations, Allergy/Immunology: Negative for hives, rash, and allergies, Endocrine: Negative for neck swelling, polydipsia, polyuria, polyphagia, and marked weight changes. 14:48 All other systems are negative. Exam: 14:52 Constitutional: This is a well developed, well nourished patient who is awake, alert, sp3 and in no acute distress. Head/Face: Normocephalic, atraumatic. Eyes: Pupils equal round and reactive to light, extra-ocular motions intact. Lids and lashes normal. Conjunctiva and sclera are non-icteric and not injected. Cornea within normal limits. Periorbital areas with no swelling, redness, or edema. Neck: Trachea midline, no thyromegaly or masses palpated, and no cervical lymphadenopathy. Supple, full range of motion without nuchal rigidity, or vertebral point tenderness. No Meningismus. Chest/axilla: Normal chest wall appearance and motion. Nontender with no deformity. No lesions are appreciated. Cardiovascular: Regular rate and rhythm with a normal S1 and S2. No gallops, murmurs, or rubs. Normal PMI, no JVD. No pulse deficits. Respiratory: Lungs have equal breath sounds bilaterally, clear to auscultation and percussion. No rales, rhonchi or wheezes noted. No increased work of breathing, no retractions or nasal flaring. Abdomen/GI: Soft, non-tender, with normal bowel sounds. No distension or tympany. No guarding or rebound. No evidence of tenderness throughout. Back: No spinal tenderness. No costovertebral tenderness. Full range of motion. Skin: Warm, dry with normal turgor. Normal color with no rashes, no lesions, and no evidence of cellulitis. MS/ Extremity: Pulses equal, no cyanosis. Neurovascular intact. Full, normal range of motion. Neuro: Awake and alert, GCS 15, oriented to person, place, time, and situation. Cranial nerves II-XII grossly intact. Motor strength 5/5 in all extremities. Sensory grossly intact. Cerebellar exam normal. Normal gait. Psych: Awake, alert, with orientation to person, place and time. Behavior, mood, and affect are within normal limits. 14:52 ECG was reviewed by the Attending Physician. EKG demonstrates normal sinus rhythm at 84 bpm with normal intervals, normal QRS, normal axis, normal ST/T-segment's without evidence of acute ischemia. Vital Signs: 14:06 BP 101 / 86; Pulse 86; Resp 16; Temp 97.7; Pulse Ox 99% on R/A; Weight 76.66 kg; Height iw 5 ft. 1 in. ; 15:14 BP 133 / 86; Pulse 75; Resp 16; Pulse Ox 100% on R/A; hb 16:37 BP 146 / 61; Pulse 71; Resp 19 S; Pulse Ox 99% on R/A; kc6 14:06 Body Mass Index 31.93 (76.66 kg, 154.94 cm) iw MDM: 14:10 Patient medically screened. sp3 15:58 Data reviewed: vital signs, nurses notes, lab test result(s), EKG, radiologic studies. sp3 ED course: Reviewed all studies with patient. Creatinine of 1.7 as well as carotid arteries having extensive plaques. Patient has normal neurological exam now and we discussed admission versus outpatient follow-up. Patient elects to pursue outpatient follow-up due to her feeling normal again. She will follow-up with Dr. Fransico Araujo outpatient. She will follow-up with her PCP. She knows to return here at any time if she changes her mind where she has another episode. I have instructed her to go and start aspirin 325 daily with first dose given here in the ED prior to discharge. I had an extensive conversation with her on risk reward on all of these options and she still elects with full informed consent to be discharged and understands risk of stroke is still present. I am comfortable with this given the fact that she understands the risk and I believe will return if she worsens in any way. She also has family and friends in the room who heard the conversation and acknowledge that they will be there to support her in case of any difficulty.. 12/01 14:11 Order name: Blood Culture Adult (2) 3 12/01 14:11 Order name: CBC with Diff; Complete Time: 15:31 3 12/01 14:11 Order name: CMP; Complete Time: 15:31 3 12/01 14:11 Order name: Lactate w/ 2H reflex if indic.; Complete Time: 15:31 3 12/01 14:11 Order name: Protime (+inr); Complete Time: 15:31 3 12/01 14:11 Order name: Troponin High Sensitivity; Complete Time: 15:31 3 12/01 14:11 Order name: Lipase; Complete Time: 15:31 sp3 12/01 14:11 Order name: CT Head Brain wo Cont; Complete Time: 15:31 sp3 12/01 14:11 Order name: CXR XRAY; Complete Time: 15:31 sp3 12/01 14:32 Order name: CT Head Angio; Complete Time: 15:31 sp3 12/01 14:32 Order name: CT Neck Angio; Complete Time: 15:31 sp3 12/01 14:11 Order name: EKG; Complete Time: 14:13 sp3 12/01 14:11 Order name: Cardiac monitoring; Complete Time: 14:50 sp3 12/01 14:11 Order name: EKG - Nurse/Tech; Complete Time: 14:50 sp3 12/01 14:11 Order name: IV Saline Lock - Large Bore; Complete Time: 14:50 sp3 12/01 14:11 Order name: Labs collected and sent; Complete Time: 14:50 sp3 12/01 14:11 Order name: O2 Sat Monitoring; Complete Time: 14:15 sp3 12/01 14:11 Order name: Vital Signs; Complete Time: 14:15 sp3 Administered Medications: 14:50 Drug: NS 0.9% IV 500 ml Route: IV; Rate: bolus; Site: right antecubital; kc6 16:18 Follow up: Response: No adverse reaction; IV Status: Completed infusion; IV Intake: kc6 500ml 16:18 Drug: Aspirin PO 325 mg Route: PO; kc6 16:37 Follow up: Response: No adverse reaction kc6 Disposition Summary: 12/01/22 16:01 Discharge Ordered Location: Home sp3 Condition: Stable sp3 Diagnosis - Confusion now resolved, generalized weakness now resolved, carotid plaques sp3 bilaterally Followup: sp3 - With: Private Physician - When: Upon discharge from the Emergency Department - Reason: Continuance of care Followup: sp3 - With: Edgar Vázquez MD - When: Upon discharge from the Emergency Department - Reason: Recheck today's complaints Followup: sp3 - With: Feng Bateman MD - When: Upon discharge from the Emergency Department - Reason: Recheck today's complaints Discharge Instructions: - Discharge Summary Sheet sp3 - Confusion sp3 - Transient Ischemic Attack sp3 Forms: - Medication Reconciliation Form sp3 - Thank You Letter sp3 - Antibiotic Education sp3 - Prescription Opioid Use sp3 - Patient Portal Instructions sp3 - Leadership Thank You Letter sp3 Signatures: Dispatcher [employer] Krissy Viera RN RN Chely Ventura RN RN hb Patel, Setul, MD MD sp3 Jane Mishra RN RN kc6
[2022-12-01] MEDS ORDERED: ASPIRIN 325 MG TAB ONE (16:27)
[2022-12-01 16:49] VITALS: TEMP 97.7
[2022-12-01 16:51] VITALS: BP 146/61; O2SAT 99
--- NOTE | 2022-12-03 16:52 | EKG ---
Test Date: 2022-12-01 Test Time: 14:26:55 Forms Designer: JANELLE MEASUREMENT RESULTS: Intervals: Rate: 84 FL: 144 QRSD: 68 QT: 384 QTc: 453 [place]: P: 61 FL: 144 QRS: 69 T: 57 INTERPRETIVE STATEMENTS: Sinus rhythm with premature supraventricular complexes Otherwise normal ECG Compared to ECG 02/13/2015 11:59:35 Atrial premature complex(es) now present Electronically Signed On 12-03-22 16:45:45 CDT by Edgar Vázquez
== END 2022-12-01 16:38 | disposition home or self-care (01) ==
LOC: ER 13:48
DX: I65.23 Occlusion and stenosis of bilateral carotid arteries (principal); E11.9 Type 2 diabetes mellitus without complications; I10 Essential (primary) hypertension; Z85.3 Personal history of malignant neoplasm of breast; Z88.5 Allergy status to narcotic agent; Z88.8 Allergy status to other drugs, medicaments and biological substances
CPT/HCPCS: 93005; 87040 ×2; 85025; 36415; 85610; 82565; 83605; 84484; 83690; 80053; 70450; 70496; 70498; 71045; 96360; 99285; J7040